=== PATIENT | male | born 1955 | race Caucasian/White ===

== ENCOUNTER 2017-10-25 10:50 | Emergency (ER) | payer BC, OTHER ==
[2017-10-25 11:05] VITALS: BP 120/79
[2017-10-25] MEDS ORDERED: Cyclobenzaprine 10 MG Tab PO ONE (11:34)
[2017-10-25] MEDS ORDERED: Ketorolac 60 MG/2 ML SDV IM ONE (11:34)
--- NOTE | 2017-10-25 11:39 | EDM.PDOC ---
ED HPI GENERAL MEDICAL PROBLEM - General Chief Complaint: Lower Extremity Injury/Pain Stated Complaint: RT HIP PAIN Time Seen by Provider: 10/25/17 11:28 Source of Information: Reports: Patient, Family, RN Notes Reviewed History Limitations: Reports: No Limitations - History of Present Illness INITIAL COMMENTS - FREE TEXT/NARRATIVE: 62-year-old male presents to the emergency department today with complaint of right hip pain, he states he injured himself couple of days ago where he slipped on the ice had a twisting injury did not fall he has used Vicodin home with minimal relief difficult for him to ambulate secondary to pain no numbness and tingling in the feet - Related Data Allergies Allergy/AdvReac Type Severity Reaction Status Date / Time codeine AdvReac Irritabilit Verified 11/07/16 15:10 y Home Meds: Home Meds Liraglutide [Victoza] 180 unit SUBCNJ DAILY 11/06/16 [History] Warfarin [Coumadin] 10 mg PO ASDIRECTED 11/06/16 [History] glipiZIDE [Glipizide ER] 10 mg PO BID 11/06/16 [History] metFORMIN [Glucophage] 1,000 mg PO BID 11/06/16 [History] sitaGLIPtin Phosphate [Januvia] 50 mg PO DAILY 11/06/16 [History] Albuterol Sulfate [Proair Hfa] 2 puff IH Q4H PRN 11/07/16 [History] Aspirin 325 mg PO DAILY 11/07/16 [History] Calcium Carbonate [Calcium] 600 mg PO DAILY 11/07/16 [History] Chromium Amino Acid Chelate [Chromium] 400 mcg PO DAILY 11/07/16 [History] Docusate Sodium/Sennosides [Senokot-S] 1 each PO BEDTIME 11/07/16 [History] Glucosamine Sulfate 2KCl [Glucosamine] 1,000 mg PO BID 11/07/16 [History] Hydrocodone/Acetaminophen [[place] 10-325 Tablet] 1 tab PO TID 11/07/16 [History] Magnesium 250 mg PO DAILY 11/07/16 [History] Metoprolol Tartrate [Lopressor] 100 mg PO DAILY 11/07/16 [History] Multivitamin [Multi-Vitamin Daily] 1 tab PO DAILY 11/07/16 [History] Nitroglycerin [Nitrostat] 0.4 mg SL TID PRN 11/07/16 [History] [place]-3 Fatty Acids [Fish Oil] 1,000 mg PO DAILY 11/07/16 [History] Simvastatin [Zocor] 20 mg PO BEDTIME 11/07/16 [History] Past Medical History Cardiovascular History: Reports: Arrhythmia Respiratory History: Reports: COPD Endocrine/Metabolic History: Reports: Diabetes, Type II - Infectious Disease History Infectious Disease History: Reports: Hepatitis B, Hepatitis C - Past Surgical History Cardiovascular Surgical History: Reports: Cardiac Ablation GI Surgical History: Reports: Appendectomy, Cholecystectomy, Colonoscopy Social & Family History - Tobacco Use Smoking Status *Q: Current Some Day Smoker Years of Tobacco use: 30 Packs/Tins Daily: 0.1 - Caffeine Use Caffeine Use: Reports: Coffee - Recreational Drug Use Recreational Drug Use: No Review of Systems - Review of Systems Review Of Systems: See Below Constitutional: Reports: No Symptoms Musculoskeletal: Reports: Joint Pain (Right hip pain) Skin: Reports: No Symptoms Neurological: Reports: No Symptoms ED EXAM, GENERAL - Physical Exam Exam: See Below Free Text/Narrative:: Examination of the right hip, he has difficulty ambulating to the table, he has pain with internal and external rotation as well as flexion and extension he is point tender over the greater trochanter Exam Limited By: No Limitations General Appearance: Alert Respiratory/Chest: No Respiratory Distress Course - Vital Signs Last Recorded V/S: Last Vital Signs Temp 98.2 F 10/25/17 11:24 Pulse 85 10/25/17 11:24 Resp 18 10/25/17 11:24 BP 120/79 10/25/17 11:24 Pulse Ox 96 10/25/17 11:24 - Orders/Labs/Meds Orders: Active Orders 24 hr Category Date Time Status Hip Min 2V or 3V Rt [CR] Stat Exams 10/25/17 11:34 Taken Meds: Medications Discontinued Medications Generic Name Dose Route Start Last Admin Trade Name Freq PRN Reason Stop Dose Admin Cyclobenzaprine HCl 10 mg 10/25/17 11:34 10/25/17 11:41 Flexeril PO 10/25/17 11:35 10 mg ONETIME ONE Administration Ketorolac Tromethamine 60 mg 10/25/17 11:34 10/25/17 11:41 Toradol IM 10/25/17 11:35 60 mg ONETIME ONE Administration Departure - Departure Time of Disposition: 12:52 Disposition: Home, Self-Care 01 Condition: Good Clinical Impression: Right hip pain - Discharge Information Referrals: Juan Manuel Portillo MD [Primary Care Provider] - Forms: ED Department Discharge Additional Instructions: Use ibuprofen for baseline pain control, use Percocet as needed for breakthrough pain, use Flexeril as needed for muscle relaxant, Please followup with your primary care provider in 3-5 days if not better, please call return to the emergency department with worsening of symptoms. - My Orders Last 24 Hours: My Active Orders 10/25/17 11:34 Hip Min 2V or 3V Rt [CR] Stat - Assessment/Plan Last 24 Hours: My Active Orders 10/25/17 11:34 Hip Min 2V or 3V Rt [CR] Stat Plan: Assessment Acuity = acute Site and laterality = right hip pain Etiology = secondary to twisting injury Manifestations = none Location of injury = Home Lab values = right x-ray I did review films myself I cannot appreciate any acute process, the official read from radiology is pending Plan He had some relief from the Toradol injection as well as Flexeril plan is discharge home with Flexeril 10 mg by mouth 3 times a day when necessary, Percocet also written for 5/325 one tab by mouth 3 times a day when necessary total #10 him follow-up with his primary care in 3-5 days if no improvement This note was dictated using [employer] voice recognition software please call with any questions on syntax or ken.
--- NOTE | 2017-10-27 09:45 | CR ---
Right hip There is degenerative joint space loss. There are hypertrophic changes along the lateral margin of th e acetabulum. There is no fracture. Impression: 1. Moderate degenerative findings of the hip.
== END 2017-10-25 13:08 | disposition home or self-care (01) ==
LOC: JP.ED 10:50
DX: M25.551 Pain in right hip (principal); E11.9 Type 2 diabetes mellitus without complications; F17.210 Nicotine dependence, cigarettes, uncomplicated; Z88.5 Allergy status to narcotic agent; Z79.899 Other long term (current) drug therapy
CPT/HCPCS: 73502; 96372; 99284; A9270; J1885

== ENCOUNTER 2018-03-09 14:32 | Emergency (ER) | payer OTHER ==
[2018-03-09 14:53] VITALS: BP 142/85
--- NOTE | 2018-03-09 15:30 | EDM.PDOC ---
ED HPI GENERAL MEDICAL PROBLEM - General Chief Complaint: Gastrointestinal Problem Stated Complaint: BLOOD IN STOOL FOR PAST THREE DAYS Time Seen by Provider: 03/09/18 15:00 Source of Information: Reports: Patient History Limitations: Reports: No Limitations - History of Present Illness INITIAL COMMENTS - FREE TEXT/NARRATIVE: 63-year-old male with blood in his stool for the past 3 days. 3 days ago it was fairly significant, yesterday it seemed to be better but today again it is fairly heavy and he is starting to feel malaise and general lightheadedness. No abdominal pain, no nausea or vomiting. He is on anticoagulation with Coumadin, his last INR was therapeutic and no changes were made. He did have some diabetic medicine changes. He had a colonoscopy 5 years ago, did have an episode of gastrointestinal bleeding after his colonoscopy which resolved spontaneously. Shortly after arrival to the emergency room he had a significant bowel movement that had intermixed blood. Onset: Unknown/Unsure (Started 3 nights ago) Severity: Moderate Associated Symptoms: Reports: Loss of Appetite, Malaise. Denies: Nausea/ Vomiting, Shortness of Breath, Weakness - Related Data Allergies Allergy/AdvReac Type Severity Reaction Status Date / Time codeine AdvReac Irritabilit Verified 11/07/16 15:10 y Home Meds: Home Meds Warfarin [Coumadin] 10 mg PO ASDIRECTED 11/06/16 [History] glipiZIDE [Glipizide ER] 10 mg PO BID 11/06/16 [History] metFORMIN [Glucophage] 1,000 mg PO BID 11/06/16 [History] sitaGLIPtin Phosphate [Januvia] 50 mg PO DAILY 11/06/16 [History] Albuterol Sulfate [Proair Hfa] 2 puff IH Q4H PRN 11/07/16 [History] Aspirin 325 mg PO DAILY 11/07/16 [History] Calcium Carbonate [Calcium] 600 mg PO DAILY 11/07/16 [History] Chromium Amino Acid Chelate [Chromium] 400 mcg PO DAILY 11/07/16 [History] Docusate Sodium/Sennosides [Senokot-S] 1 each PO BEDTIME 11/07/16 [History] Glucosamine Sulfate 2KCl [Glucosamine] 1,000 mg PO BID 11/07/16 [History] Hydrocodone/Acetaminophen [[place] 10-325 Tablet] 1 tab PO TID 11/07/16 [History] Magnesium 250 mg PO DAILY 11/07/16 [History] Metoprolol Tartrate [Lopressor] 100 mg PO DAILY 11/07/16 [History] Multivitamin [Multi-Vitamin Daily] 1 tab PO DAILY 11/07/16 [History] Nitroglycerin [Nitrostat] 0.4 mg SL TID PRN 11/07/16 [History] [place]-3 Fatty Acids [Fish Oil] 1,000 mg PO DAILY 11/07/16 [History] Simvastatin [Zocor] 20 mg PO BEDTIME 11/07/16 [History] Dulaglutide [Trulicity] 1 injection IM WEEKLY 03/09/18 [History] Past Medical History Cardiovascular History: Reports: Arrhythmia Respiratory History: Reports: COPD Endocrine/Metabolic History: Reports: Diabetes, Type II - Infectious Disease History Infectious Disease History: Reports: Hepatitis B, Hepatitis C - Past Surgical History Cardiovascular Surgical History: Reports: Cardiac Ablation GI Surgical History: Reports: Appendectomy, Cholecystectomy, Colonoscopy Social & Family History - Tobacco Use Smoking Status *Q: Current Some Day Smoker Years of Tobacco use: 30 Packs/Tins Daily: 0.1 - Caffeine Use Caffeine Use: Reports: Coffee ED ROS GENERAL - Review of Systems Review Of Systems: See Below Constitutional: Denies: Fever, Chills Respiratory: Denies: Shortness of Breath Cardiovascular: Denies: Chest Pain GI/Abdominal: Reports: Decreased Appetite. Denies: Abdominal Pain, Nausea, Vomiting : Reports: No Symptoms Skin: Reports: No Symptoms Neurological: Reports: Dizziness, Weakness Psychiatric: Reports: No Symptoms Free Text/Narrative/Comment: Doesn't check his glucose levels as often as he should according to the patient , but there've been no significant changes in the past week ED EXAM, GENERAL - Physical Exam Exam: See Below Exam Limited By: No Limitations General Appearance: Alert, No Apparent Distress Head: Atraumatic Respiratory/Chest: No Respiratory Distress, Lungs Clear Cardiovascular: Regular Rate, Rhythm. No: Tachycardia GI/Abdominal: Normal Bowel Sounds, Soft, Non-Tender Extremities: No: Pedal Edema Neurological: Alert, Oriented Skin Exam: Warm, Dry Course - Vital Signs Last Recorded V/S: Last Vital Signs Temp 99.0 F 03/09/18 15:06 Pulse 81 03/09/18 15:06 Resp 16 05/28/18 15:06 BP 142/85 H 03/09/18 15:06 Pulse Ox 95 03/09/18 15:06 - Orders/Labs/Meds Labs: Laboratory Tests 03/09/18 03/09/18 03/09/18 Range/Units 15:26 15:26 15:26 WBC 12.0 H (4.5-11.0) K/uL RBC 4.81 (4.30-5.90) M/uL Hgb 14.9 (12.0-15.0) g/dL Hct 43.0 (40.0-54.0) % MCV 89 (80-98) fL MCH 31 (27-31) pg MCHC 35 (32-36) % Plt Count 234 (150-400) K/uL Neut % (Auto) 64 (36-66) % Lymph % (Auto) 21 L (24-44) % Cole % (Auto) 11 H (2-6) % Eos % (Auto) 4 (2-4) % Baso % (Auto) 0 (0-1) % PT 32.8 H (9.5-12.0) sec INR 2.93 H (0.80-1.20) Sodium 136 L (140-148) mmol/L Potassium 4.7 (3.6-5.2) mmol/L Chloride 101 (100-108) mmol/L Carbon Dioxide 23 (21-32) mmol/L Anion Gap 16.7 H (5.0-14.0) mmol/L BUN 22 H (7-18) mg/dL Creatinine 0.9 (0.8-1.3) mg/dL Est Cr Clr Drug Dosing 96.41 mL/min Estimated GFR (MDRD) > 60 (>60) Glucose 347 H (74-106) mg/dL Calcium 8.8 (8.5-10.1) mg/dL Total Bilirubin 0.9 (0.2-1.0) mg/dL AST 14 L (15-37) U/L ALT 27 (12-78) U/L Alkaline Phosphatase 94 (46-116) U/L Total Protein 7.4 (6.4-8.2) g/dL Albumin 3.8 (3.4-5.0) g/dL Globulin 3.6 H (2.3-3.5) g/dL Albumin/Globulin Ratio 1.1 L (1.2-2.2) - Re-Assessments/Exams Free Text/Narrative Re-Assessment/Exam: 03/09/18 15:30 Patient's vitals are stable. CBC, CMP, INR were obtained. 03/09/18 16:27 Hemoglobin is 14. INR 2.9. Reviewed the patient's past medical history on the clinic records and found a negative colonoscopy in 2006. Discuss this with the patient, he does not want hospitalization but will return if his bleeding worsens. He was given instructions on colonoscopy preparation, we'll hold his Coumadin for the next [address] Edmondson is planning on doing a colonoscopy on Friday. Departure - Departure Time of Disposition: 16:32 Disposition: Home, Self-Care 01 Condition: Good Clinical Impression: Rectal bleeding - Discharge Information Instructions: Rectal Bleeding Referrals: PCP,None [Primary Care Provider] - Forms: ED Department Discharge Care Plan Goals: Following instructions for colonoscopy preparation, hold any future doses of Coumadin until after your colonoscopy. Return to the emergency room if the bleeding is worsening or you become more symptomatic or develop other concerns.
== END 2018-03-09 16:33 | disposition home or self-care (01) ==
LOC: JP.ED 14:32
DX: K62.5 Hemorrhage of anus and rectum (principal); E11.9 Type 2 diabetes mellitus without complications; J44.9 Chronic obstructive pulmonary disease, unspecified; F17.210 Nicotine dependence, cigarettes, uncomplicated; Z79.84 Long term (current) use of oral hypoglycemic drugs; Z79.899 Other long term (current) drug therapy; Z88.5 Allergy status to narcotic agent
CPT/HCPCS: 36415; 80053; 85025; 85610; 99285

== ENCOUNTER 2018-03-11 10:18 | Day surgery (SDC) | payer OTHER ==
[2018-03-11] MEDS ORDERED: Lactated Ringers 1,000 ML IV SCH (10:45)
[2018-03-11] MEDS ORDERED: Midazolam 1 MG/ML 2 ML SDV ONE (11:09)
[2018-03-11] MEDS ORDERED: Propofol 200 MG/20 ML SDV ONE (11:09)
[2018-03-11] MEDS ORDERED: fentaNYL 100 MCG/2 ML SDV ONE (11:09)
[2018-03-11 13:41] VITALS: BP 122/82
--- NOTE | 2018-03-12 08:04 | OR ---
DATE OF PROCEDURE: 03/11/2018 PREOPERATIVE DIAGNOSIS: Blood in the stool. POSTOPERATIVE DIAGNOSES: 1. Blood in the stool, resolved. 2. Diverticulosis. 3. Rectal polyp. PROCEDURES: Colonoscopy to the cecum with biopsy and then snare cautery polypectomy of a rectal polyp. SURGEON: Bruno Edmondson MD. ANESTHESIA: IV anesthesia with monitored anesthesia care. INDICATION: This 63-year-old white male is referred for a colonoscopy because of blood in his stool. He presented to the emergency room two days ago with about three days of bright red blood passage. His hemoglobin was 14. He is on Coumadin apparently for having had a cardiac ablation in the remote past. He was told that he had to be on Coumadin for the remainder of his life. At that time, his INR was 2.9. I counseled him for a colonoscopy with possible biopsy and/or polypectomy including risks and alternatives, and he gave his informed consent to proceed. DESCRIPTION OF PROCEDURE: The patient was placed in the left lateral decubitus position. IV anesthesia was administered by the Anesthesia Service. Time-out was held. A rectal exam was performed, which was unremarkable. The flexible video Olympus colonoscope was introduced through his anus, up his rectum, and out his colon all the way to the cecum. We encountered no old or new blood anywhere in the lower gastrointestinal tract. Once the cecum was reached, the scope was slowly withdrawn, examining the mucosa throughout. We saw a few scattered, fairly prominent, left-sided diverticula. There was no bleeding or inflammation associated with any of them. In the rectum, we encountered a polyp , which was too large to be removed with the biopsy forceps. We did obtain a sample with the biopsy forceps. We then obtained a snare. The snare was passed about its base. It was elevated up away from the bowel wall and amputated as electrocautery was applied. The polyp was then aspirated up through the scope and captured in a polyp trap. The scope was retroflexed in the rectum with the distal rectum appearing unremarkable. The scope was straightened and removed. He tolerated the procedure well. Bruno Edmondson MD /[id number] MTDD
== END 2018-03-11 13:55 | disposition home or self-care (01) ==
LOC: JP.SDS 10:18
PROVIDERS: ATTEND Surgery
DX: K92.1 Melena (principal); D12.8 Benign neoplasm of rectum; K57.30 Diverticulosis of large intestine without perforation or abscess without bleeding; I48.91 Unspecified atrial fibrillation; J44.9 Chronic obstructive pulmonary disease, unspecified; F17.210 Nicotine dependence, cigarettes, uncomplicated; E78.5 Hyperlipidemia, unspecified; I25.10 Atherosclerotic heart disease of native coronary artery without angina pectoris; K21.9 Gastro-esophageal reflux disease without esophagitis; E11.9 Type 2 diabetes mellitus without complications; Z95.5 Presence of coronary angioplasty implant and graft; Z79.01 Long term (current) use of anticoagulants; Z79.82 Long term (current) use of aspirin; Z79.84 Long term (current) use of oral hypoglycemic drugs; Z79.899 Other long term (current) drug therapy; Z88.5 Allergy status to narcotic agent
CPT/HCPCS: 45385; 88305; J2250; J2704; J3010; J7120

== ENCOUNTER 2021-01-08 15:51 | Inpatient (IN) | payer MEDICARE, BC ==
[2021-01-08] MEDS ORDERED: Sodium Chloride 0.9% 10 ML Syringe FLUSH PRN ×2 (16:35→20:44)
[2021-01-08] MEDS ORDERED: Sodium Chloride 0.9% 1,000 ML IV STA (16:35)
--- NOTE | 2021-01-08 16:39 | EDM.PDOC ---
<OfficerWing - Last Filed: 01/08/21 16:37> ED HPI GENERAL MEDICAL PROBLEM - General Chief Complaint: Abdominal Pain Stated Complaint: LOWER STOMACH PAIN Time Seen by Provider: 01/08/21 16:29 Source of Information: Reports: Patient, Family, RN Notes Reviewed History Limitations: Reports: No Limitations - History of Present Illness INITIAL COMMENTS - FREE TEXT/NARRATIVE: 65-year-old gentleman presents emergency department day complaint of abdominal pain, he states he has had progressive abdominal pain over the last week is predominantly in the left lower quadrant he does have problems with bowel movements his other concern is that he has had about a 30 pound weight loss in the last 3 months. No nausea vomiting no fevers no shortness of breath or chest pain history of asbestos exposure Abdominal Pain Score (Numeric/FACES): 6 - Related Data Allergies Allergy/AdvReac Type Severity Reaction Status Date / Time codeine AdvReac Irritabilit Verified 01/08/21 16:07 y Home Meds: Home Meds Warfarin [Coumadin] 10 mg PO ASDIRECTED 11/06/16 [History] glipiZIDE [Glipizide ER] 10 mg PO BID 11/06/16 [History] metFORMIN [Glucophage] 1,000 mg PO BID 11/06/16 [History] Albuterol Sulfate [Proair Hfa] 2 puff IH Q4H PRN 11/07/16 [History] Aspirin 325 mg PO DAILY 11/07/16 [History] Calcium Carbonate [Calcium] 600 mg PO BEDTIME 11/07/16 [History] Docusate Sodium/Sennosides [Senokot-S] 1 each PO BID 11/07/16 [History] Glucosamine Sulfate 2KCl [Glucosamine] 1,000 mg PO BID 11/07/16 [History] Hydrocodone/Acetaminophen [Frost 10-325 Tablet] 1 tab PO TID 11/07/16 [History] Magnesium 250 mg PO BEDTIME 11/07/16 [History] Metoprolol Tartrate [Lopressor] 100 mg PO BID 11/07/16 [History] Multivitamin [Multi-Vitamin Daily] 1 tab PO DAILY 11/07/16 [History] Nitroglycerin [Nitrostat] 0.4 mg SL TID PRN 11/07/16 [History] Center-3 Fatty Acids [Fish Oil] 1,000 mg PO BID 11/07/16 [History] Simvastatin [Zocor] 20 mg PO BEDTIME 11/07/16 [History] Dulaglutide [Trulicity] 1.5 mg IM WEEKLY 03/09/18 [History] Cyclobenzaprine [Flexeril] 10 mg PO TID PRN 03/10/18 [History] Empagliflozin [Jardiance] 25 mg PO DAILY 01/08/21 [History] Past Medical History Cardiovascular History: Reports: Arrhythmia, Other (See Below) Other Cardiovascular History: a fib Respiratory History: Reports: COPD Genitourinary History: Reports: Renal Calculus Endocrine/Metabolic History: Reports: Diabetes, Type II Hematologic History: Reports: Anticoagulation Therapy - Infectious Disease History Infectious Disease History: Reports: Chicken Pox, Hepatitis B, Hepatitis C, Measles, Mumps - Past Surgical History HEENT Surgical History: Reports: Oral Surgery Cardiovascular Surgical History: Reports: Cardiac Ablation GI Surgical History: Reports: Appendectomy, Cholecystectomy, Colonoscopy Musculoskeletal Surgical History: Reports: Arthroscopic Knee, Arthroscopic Procedure, Other (See Below) Other Musculoskeletal Surgeries/Procedures:: 5 knee 1 ankle Social & Family History - Tobacco Use Tobacco Use Status *Q: Current Every Day Tobacco User Years of Tobacco use: 50 Packs/Tins Daily: 0.2 - Caffeine Use Caffeine Use: Reports: Coffee - Recreational Drug Use Recreational Drug Use: No ED ROS GENERAL - Review of Systems Review Of Systems: See Below Constitutional: Reports: Weight Loss HEENT: Reports: No Symptoms Respiratory: Reports: No Symptoms Cardiovascular: Reports: No Symptoms GI/Abdominal: Reports: Abdominal Pain, Constipation, Flatus. Denies: Nausea, Vomiting : Reports: No Symptoms ED EXAM, GI/ABD - Physical Exam Exam: See Below Exam Limited By: No Limitations General Appearance: Alert, WD/WN, No Apparent Distress Respiratory/Chest: No Respiratory Distress, Lungs Clear, Normal Breath Sounds, No Accessory Muscle Use, Chest Non-Tender Cardiovascular: Regular Rate, Rhythm, No Murmur GI/Abdominal Exam: Normal Bowel Sounds, Soft, No Distention, Tender (Left lower quadrant) Extremities: No Pedal Edema Departure - Departure Disposition: Admitted As Inpatient 65 Clinical Impression: LLQ abdominal pain, Weight loss, Abdominal infection, Elevated blood sugar - Discharge Information Referrals: Juan Manuel Portillo MD [Primary Care Provider] - Forms: ED Department Discharge Sepsis Event Note (ED) - Evaluation Sepsis Screening Result: No Definite Risk <Jesús Ramirez G - Last Filed: 01/08/21 19:27> Course - Vital Signs Text/Narrative:: Dr. Richi roajs @ 1910h Last Recorded V/S: Last Vital Signs Temp 36.6 C 01/08/21 16:05 Pulse 82 01/08/21 18:09 Resp 16 01/08/21 16:05 BP 148/75 H 01/08/21 18:09 Pulse Ox 98 01/08/21 18:09 - Orders/Labs/Meds Orders: Active Orders 24 hr Category Date Time Status Peripheral IV Care [RC] . DIRECTED Care 01/08/21 16:36 Active Chest 2V [CR] Urgent Exams 01/08/21 16:35 Taken Dextrose 50% in Water Med 01/08/21 19:14 Active 50 ml IVPUSH ASDIRECTED PRN Glucagon,Human Recombinant [GlucaGen] Med 01/08/21 19:14 Active 1 mg IM ASDIRECTED PRN Iopamidol [Isovue-300 (61%)] Med 01/08/21 17:00 Active 117 ml IV . DIRECTED Piperacillin/Tazobactam [Zosyn] 4.5 gm Med 01/08/21 19:11 Active Sodium Chloride 0.9% [Normal Saline] 100 ml IV ONETIME Sodium Chloride 0.9% [Normal Saline] 75 ml Med 01/08/21 17:00 Active IV ASDIRECTED Sodium Chloride 0.9% [Saline Flush] Med 01/08/21 16:35 Active 10 ml FLUSH ASDIRECTED PRN Peripheral IV Insertion Adult [OM.PC] Urgent Oth 01/08/21 16:35 Ordered Medication Orders Dextrose/Water (50% Dextrose In Water 50 Ml Syringe) 50 ml IVPUSH ASDIRECTED PRN PRN Reason: Hypoglycemia Glucagon (Glucagon,Human Recombinant 1 Mg Vial) 1 mg IM ASDIRECTED PRN PRN Reason: Hypoglycemia Sodium Chloride (Normal Saline) 75 mls @ 3 mls/sec IV ASDIRECTED ROSITA Last Admin: 01/08/21 18:11 Dose: 3 mls/sec Documented by: [facility] Piperacillin Sod/Tazobactam (Sod 4.5 gm/ Sodium Chloride) 100 mls @ 100 mls/hr IV ONETIME ONE Stop: 01/08/21 20:10 Iopamidol (Iopamidol 612 Mg/Ml 100 Ml Bottle) 117 ml IV . DIRECTED ROSITA Last Admin: 01/08/21 18:11 Dose: 117 ml Documented by: DESMOND Sodium Chloride (Sodium Chloride 0.9% 10 Ml Syringe) 10 ml FLUSH ASDIRECTED PRN PRN Reason: Keep Vein Open Labs: Laboratory Tests 01/08/21 01/08/21 01/08/21 Range/Units 16:35 16:45 16:45 WBC 23.6 H (4.5-11.0) K/uL RBC 4.36 (4.30-5.90) M/uL Hgb 12.8 D (12.0-15.0) g/dL Hct 38.8 L (40.0-54.0) % MCV 89 (80-98) fL MCH 29 (27-31) pg MCHC 33 (32-36) % Plt Count 387 (150-400) K/uL Neut % (Auto) 82 H (36-66) % Lymph % (Auto) 8 L (24-44) % Edwards % (Auto) 9 H (2-6) % Eos % (Auto) 1 L (2-4) % Baso % (Auto) 0 (0-1) % PT 42.7 H (9.5-12.0) sec INR 4.03 H* (0.80-1.20) Sodium 135 L (140-148) mmol/L Potassium 4.5 (3.6-5.2) mmol/L Chloride 97 L (100-108) mmol/L Carbon Dioxide 24 (21-32) mmol/L Anion Gap 18.5 H (5.0-14.0) mmol/L BUN 19 H (7-18) mg/dL Creatinine 0.6 L (0.7-1.3) mg/dL Est Cr Clr Drug Dosing 132.93 mL/min Estimated GFR (MDRD) > 60 (>60) BUN/Creatinine Ratio Not Reportable Glucose 453 H* (74-106) mg/dL Lactic Acid (0.4-2.0) mmol/L Calcium 10.0 (8.5-10.1) mg/dL Total Bilirubin 0.5 (0.2-1.0) mg/dL AST 9 L (15-37) U/L ALT 18 (12-78) U/L Alkaline Phosphatase 138 H (46-116) U/L Troponin I < 0.017 (0.000-0.056) ng/mL C-Reactive Protein (0.0-0.3) mg/dL Total Protein 6.5 (6.4-8.2) g/dL Albumin 2.7 L (3.4-5.0) g/dL Globulin 3.8 H (2.3-3.5) g/dL Albumin/Globulin Ratio 0.7 L (1.2-2.2) Lipase 121 (73-393) U/L Procalcitonin ng/mL Urine Color (YELLOW) Urine Appearance (CLEAR) Urine pH (5.0-8.0) Ur Specific Starbuck (1.008-1.030) Urine Protein (NEGATIVE) mg/dL Urine Glucose (UA) (NEGATIVE) mg/dL Urine Ketones (NEGATIVE) mg/dL Urine Occult Blood (NEGATIVE) Urine Nitrite (NEGATIVE) Urine Bilirubin (NEGATIVE) Urine Urobilinogen (0.2-1.0) EU/dL Ur Leukocyte Esterase (NEGATIVE) Urine RBC (0-5) Urine WBC (0-5) Ur Epithelial Cells Amorphous Sediment Urine Bacteria Urine Mucus 01/08/21 01/08/21 01/08/21 Range/Units 16:45 16:45 16:45 WBC (4.5-11.0) K/uL RBC (4.30-5.90) M/uL Hgb (12.0-15.0) g/dL Hct (40.0-54.0) % MCV (80-98) fL MCH (27-31) pg MCHC (32-36) % Plt Count (150-400) K/uL Neut % (Auto) (36-66) % Lymph % (Auto) (24-44) % Edwards % (Auto) (2-6) % Eos % (Auto) (2-4) % Baso % (Auto) (0-1) % PT (9.5-12.0) sec INR (0.80-1.20) Sodium (140-148) mmol/L Potassium (3.6-5.2) mmol/L Chloride (100-108) mmol/L Carbon Dioxide (21-32) mmol/L Anion Gap (5.0-14.0) mmol/L BUN (7-18) mg/dL Creatinine (0.7-1.3) mg/dL Est Cr Clr Drug Dosing mL/min Estimated GFR (MDRD) (>60) BUN/Creatinine Ratio Glucose (74-106) mg/dL Lactic Acid 1.2 (0.4-2.0) mmol/L Calcium (8.5-10.1) mg/dL Total Bilirubin (0.2-1.0) mg/dL AST (15-37) U/L ALT (12-78) U/L Alkaline Phosphatase (46-116) U/L Troponin I (0.000-0.056) ng/mL C-Reactive Protein 5.48 H (0.0-0.3) mg/dL Total Protein (6.4-8.2) g/dL Albumin (3.4-5.0) g/dL Globulin (2.3-3.5) g/dL Albumin/Globulin Ratio (1.2-2.2) Lipase (73-393) U/L Procalcitonin 0.05 ng/mL Urine Color (YELLOW) Urine Appearance (CLEAR) Urine pH (5.0-8.0) Ur Specific Starbuck (1.008-1.030) Urine Protein (NEGATIVE) mg/dL Urine Glucose (UA) (NEGATIVE) mg/dL Urine Ketones (NEGATIVE) mg/dL Urine Occult Blood (NEGATIVE) Urine Nitrite (NEGATIVE) Urine Bilirubin (NEGATIVE) Urine Urobilinogen (0.2-1.0) EU/dL Ur Leukocyte Esterase (NEGATIVE) Urine RBC (0-5) Urine WBC (0-5) Ur Epithelial Cells Amorphous Sediment Urine Bacteria Urine Mucus 01/08/21 Range/Units 17:13 WBC (4.5-11.0) K/uL RBC (4.30-5.90) M/uL Hgb (12.0-15.0) g/dL Hct (40.0-54.0) % MCV (80-98) fL MCH (27-31) pg MCHC (32-36) % Plt Count (150-400) K/uL Neut % (Auto) (36-66) % Lymph % (Auto) (24-44) % Edwards % (Auto) (2-6) % Eos % (Auto) (2-4) % Baso % (Auto) (0-1) % PT (9.5-12.0) sec INR (0.80-1.20) Sodium (140-148) mmol/L Potassium (3.6-5.2) mmol/L Chloride (100-108) mmol/L Carbon Dioxide (21-32) mmol/L Anion Gap (5.0-14.0) mmol/L BUN (7-18) mg/dL Creatinine (0.7-1.3) mg/dL Est Cr Clr Drug Dosing mL/min Estimated GFR (MDRD) (>60) BUN/Creatinine Ratio Glucose (74-106) mg/dL Lactic Acid (0.4-2.0) mmol/L Calcium (8.5-10.1) mg/dL Total Bilirubin (0.2-1.0) mg/dL AST (15-37) U/L ALT (12-78) U/L Alkaline Phosphatase (46-116) U/L Troponin I (0.000-0.056) ng/mL C-Reactive Protein (0.0-0.3) mg/dL Total Protein (6.4-8.2) g/dL Albumin (3.4-5.0) g/dL Globulin (2.3-3.5) g/dL Albumin/Globulin Ratio (1.2-2.2) Lipase (73-393) U/L Procalcitonin ng/mL Urine Color Yellow (YELLOW) Urine Appearance Clear (CLEAR) Urine pH 6.5 (5.0-8.0) Ur Specific Starbuck 1.015 (1.008-1.030) Urine Protein Negative (NEGATIVE) mg/dL Urine Glucose (UA) 500 H (NEGATIVE) mg/dL Urine Ketones 40 H (NEGATIVE) mg/dL Urine Occult Blood Negative (NEGATIVE) Urine Nitrite Negative (NEGATIVE) Urine Bilirubin Negative (NEGATIVE) Urine Urobilinogen 0.2 (0.2-1.0) EU/dL Ur Leukocyte Esterase Negative (NEGATIVE) Urine RBC 0-5 (0-5) Urine WBC 0-5 (0-5) Ur Epithelial Cells Not seen Amorphous Sediment Not seen Urine Bacteria Not seen Urine Mucus Not seen Meds: Medications Generic Name Dose Route Start Last Admin Trade Name Freq PRN Reason Stop Dose Admin Dextrose/Water 50 ml 01/08/21 19:14 50% Dextrose In Water 50 Ml Syringe IVPUSH ASDIRECTED PRN Hypoglycemia Glucagon 1 mg 01/08/21 19:14 Glucagon,Human Recombinant 1 Mg Vial IM ASDIRECTED PRN Hypoglycemia Sodium Chloride 75 mls @ 3 mls/sec 01/08/21 17:00 01/08/21 18:11 Normal Saline IV 3 mls/sec ASDIRECTED ROSIAT Administration Piperacillin Sod/Tazobactam 100 mls @ 100 mls/hr 01/08/21 19:11 Sod 4.5 gm/ Sodium Chloride IV 01/08/21 20:10 ONETIME ONE Iopamidol 117 ml 01/08/21 17:00 01/08/21 18:11 Iopamidol 612 Mg/Ml 100 Ml Bottle IV 117 ml . DIRECTED ROSITA Administration Sodium Chloride 10 ml 01/08/21 16:35 Sodium Chloride 0.9% 10 Ml Syringe FLUSH ASDIRECTED PRN Keep Vein Open Discontinued Medications Generic Name Dose Route Start Last Admin Trade Name Freq PRN Reason Stop Dose Admin Sodium Chloride 1,000 mls @ 500 mls/hr 01/08/21 16:35 01/08/21 17:59 Normal Saline IV 01/08/21 18:34 500 mls/hr .BOLUS STA Administration Insulin Human Regular 14 unit 01/08/21 19:14 Insulin Regular, Human 100 Units/Ml 3 Ml Vial SUBCUT 01/08/21 19:15 ONETIME ONE Sodium Chloride 10 ml 01/08/21 16:46 01/08/21 18:11 Sodium Chloride 0.9% 10 Ml Syringe FLUSH 01/08/21 16:47 10 ml ONETIME ONE Administration - Radiology Interpretation Free Text/Narrative:: abd/pelvis CT scan- IMPRESSION: 1. Focally dilated small bowel loop in the left lower quadrant with thickened carotid appearing wall, suspicious for malignancy. Infection is another differential consideration as well as bowel ischemia although this is considered less likely. 2. New pulmonary nodules and liver lesions suspicious for metastases. 3. Large mesenteric lymph nodes, suspicious for lymph node metastases. 4. Mild bilateral hydronephrosis and hydroureter 5. Diffuse bladder wall thickening which could be due to chronic outlet obstruction. 6. Heterogeneous enlarged prostate gland, recommend correlation with PSA. Please note that all CT scans at this facility use dose modulation, iterative reconstruction, and/or weight-based dosing when appropriate to reduce radiation dose to as low as reasonably achievable. Dictated by Alex Klein MD @ Jan 08 2021 6:42PM CT Results Date: 01/08/21 CT Results Time: 19:06 Departure - Departure Time of Disposition: 19:40 Condition: Fair Sepsis Event Note (ED) - Focused Exam Vital Signs: Vital Signs Temp Pulse Resp BP Pulse Ox 01/08/21 18:09 82 148/75 H 98 01/08/21 16:05 36.6 C 91 16 162/89 H 98 - My Orders Last 24 Hours: My Active Orders 01/08/21 19:11 Piperacillin/Tazobactam [Zosyn] 4.5 gm Sodium Chloride 0.9% [Normal Saline] 100 ml IV ONETIME 01/08/21 19:14 Dextrose 50% in Water 50 ml IVPUSH ASDIRECTED PRN Glucagon,Human Recombinant [GlucaGen] 1 mg IM ASDIRECTED PRN - Assessment/Plan Last 24 Hours: My Active Orders 01/08/21 19:11 Piperacillin/Tazobactam [Zosyn] 4.5 gm Sodium Chloride 0.9% [Normal Saline] 100 ml IV ONETIME 01/08/21 19:14 Dextrose 50% in Water 50 ml IVPUSH ASDIRECTED PRN Glucagon,Human Recombinant [GlucaGen] 1 mg IM ASDIRECTED PRN
[2021-01-08] MEDS ORDERED: Iopamidol 612 MG/ML 100 ML Bottle IV SCH (17:00)
[2021-01-08] MEDS ORDERED: Sodium Chloride 0.9% 75 ML IV SCH (17:00)
[2021-01-08] MEDS: Sodium Chloride 0.9% 10 ML Syringe FLUSH ONE ×2 (17:15→18:11)
--- NOTE | 2021-01-08 19:04 | CRLCT ---
INDICATION: Left lower quadrant abdominal pain. COMPARISON: 06/01/2007. TECHNIQUE: CT abdomen and pelvis with IV contrast. 117 cc IV Isovue 300. FINDINGS: Noncalcified left lower lobe pulmonary nodule is new from prior exam and measures 1.5 x 1.0 cm (series 5, image 11). Noncalcified right lower lobe pulmonary nodule measuring 0.5 cm (series 5, image 1). Trace right pleural effusion. Small hypoattenuating left hepatic and right hepatic dome lesion (series 5, images 11 and 26). The spleen, pancreas and adrenal glands are unremarkable. Mild bilateral hydronephrosis and hydroureter. Atherosclerotic abdominal aorta. Diffuse mild bladder wall thickening which could be due to cystitis or chronic outlet obstruction. Enlarged heterogeneous prostate gland. Large mesenteric lymph nodes in the left lower quadrant. Focally dilated small bowel loop in the left lower quadrant with thickened necrotic appearing wall (series 5, image 99). No evidence of bowel obstruction. No acute osseous abnormality. IMPRESSION: 1. Focally dilated small bowel loop in the left lower quadrant with thickened carotid appearing wall, suspicious for malignancy. Infection is another differential consideration as well as bowel ischemia although this is considered less likely. 2. New pulmonary nodules and liver lesions suspicious for metastases. 3. Large mesenteric lymph nodes, suspicious for lymph node metastases. 4. Mild bilateral hydronephrosis and hydroureter 5. Diffuse bladder wall thickening which could be due to chronic outlet obstruction. 6. Heterogeneous enlarged prostate gland, recommend correlation with PSA. Please note that all CT scans at this facility use dose modulation, iterative reconstruction, and/or weight-based dosing when appropriate to reduce radiation dose to as low as reasonably achievable. Dictated by Alex Klein MD @ Jan 08 2021 6:42PM Signed by Dr. Alex Klein @ Jan 08 2021 7:02PM
[2021-01-08] MEDS ORDERED: Piperacillin/Tazobactam 4.5 GM in Sodium Chloride 0.9% 100 ML IV ONE (19:11)
[2021-01-08] MEDS ORDERED: Glucagon,Human Recombinant 1 MG Vial IM PRN (19:14)
[2021-01-08] MEDS ORDERED: Insulin Regular, Human 100 Units/ML 3 ML Vial SUBCUT ONE (19:14)
[2021-01-08] MEDS ORDERED: 50% Dextrose in Water 50 ML Syringe IVPUSH PRN (19:14)
[2021-01-08] MEDS ORDERED: HYDROmorphone 0.5 MG/0.5 ML Syringe IVPUSH ONE (19:30)
[2021-01-08] MEDS ORDERED: Phytonadione 5 MG in Sodium Chloride 0.9% 50 ML IV ONE (19:36)
--- NOTE | 2021-01-08 19:56 | PCM.HP.2 ---
H&P History of Present Illness - General Date of Service: 01/08/21 Admit Problem/Dx: Admission Diagnosis/Problem Admission Diagnosis/Problem Pain Source of Information: Patient, Family, Provider, RN Notes Reviewed History Limitations: Reports: No Limitations - History of Present Illness Initial Comments - Free Text/Narative: Mr. Lopez is a 65-year-old gentleman who was admitted through the emergency department with abdominal pain in the left lower quadrant secondary to possible intestinal mass versus infection. Over the past 3 months despite a good appetite he has lost approximately 30 pounds. Over the last 4 to 5 days he has developed fairly intense pain in his left lower quadrant. Because of the persistent and progressive pain he presented to the emergency department today for further evaluation. He does have known underlying type 2 diabetes mellitus, COPD, coron reba artery disease, and paroxysmal atrial fibrillation. White blood cell count was elevated 23,000 and his INR is elevated at 4.0 secondary to his long-term oral anticoagulation with warfarin for paroxysmal A. fib. CT scan of the abdomen and pelvis was obtained and shows dilated small bowel with an area of thickening representing possible malignancy versus infection. CT scan also showed evidence of possible metastatic disease in the liver and lungs. Abdominal Pain Score (Numeric/FACES): 6 - Related Data Allergies/Adverse Reactions: Allergies Allergy/AdvReac Type Severity Reaction Status Date / Time codeine AdvReac Irritabilit Verified 01/08/21 16:07 y Home Medications: Home Meds Warfarin [Coumadin] 10 mg PO ASDIRECTED 11/06/16 [History] glipiZIDE [Glipizide ER] 10 mg PO BID 11/06/16 [History] metFORMIN [Glucophage] 1,000 mg PO BID 11/06/16 [History] Albuterol Sulfate [Proair Hfa] 2 puff IH Q4H PRN 11/07/16 [History] Aspirin 325 mg PO DAILY 11/07/16 [History] Calcium Carbonate [Calcium] 600 mg PO BEDTIME 11/07/16 [History] Docusate Sodium/Sennosides [Senokot-S] 1 each PO BID 11/07/16 [History] Glucosamine Sulfate 2KCl [Glucosamine] 1,000 mg PO BID 11/07/16 [History] Hydrocodone/Acetaminophen [[place] 10-325 Tablet] 1 tab PO TID 11/07/16 [History] Magnesium 250 mg PO BEDTIME 11/07/16 [History] Metoprolol Tartrate [Lopressor] 100 mg PO BID 11/07/16 [History] Multivitamin [Multi-Vitamin Daily] 1 tab PO DAILY 11/07/16 [History] Nitroglycerin [Nitrostat] 0.4 mg SL TID PRN 11/07/16 [History] [place]-3 Fatty Acids [Fish Oil] 1,000 mg PO BID 11/07/16 [History] Simvastatin [Zocor] 20 mg PO BEDTIME 11/07/16 [History] Dulaglutide [Trulicity] 1.5 mg IM WEEKLY 03/09/18 [History] Cyclobenzaprine [Flexeril] 10 mg PO TID PRN 03/10/18 [History] Empagliflozin [Jardiance] 25 mg PO DAILY 01/08/21 [History] Past Medical History Cardiovascular History: Reports: Arrhythmia, Other (See Below) Other Cardiovascular History: a fib Respiratory History: Reports: COPD Genitourinary History: Reports: Renal Calculus Endocrine/Metabolic History: Reports: Diabetes, Type II Hematologic History: Reports: Anticoagulation Therapy - Infectious Disease History Infectious Disease History: Reports: Chicken Pox, Hepatitis B, Hepatitis C, Measles, Mumps - Past Surgical History HEENT Surgical History: Reports: Oral Surgery Cardiovascular Surgical History: Reports: Cardiac Ablation GI Surgical History: Reports: Appendectomy, Cholecystectomy, Colonoscopy Musculoskeletal Surgical History: Reports: Arthroscopic Knee, Arthroscopic Procedure, Other (See Below) Other Musculoskeletal Surgeries/Procedures:: 5 knee 1 ankle Social & Family History - Tobacco Use Tobacco Use Status *Q: Current Every Day Tobacco User Years of Tobacco use: 50 Packs/Tins Daily: 0.2 - Caffeine Use Caffeine Use: Reports: Coffee - Recreational Drug Use Recreational Drug Use: No H&P Review of Systems - Review of Systems: Review Of Systems: See Below General: Reports: Malaise, Weakness, Fatigue, Weight Loss. Denies: Fever, Chills HEENT: Reports: No Symptoms Pulmonary: Reports: No Symptoms Cardiovascular: Reports: No Symptoms Gastrointestinal: Reports: Abdominal Pain, Constipation. Denies: Diarrhea, Difficulty Swallowing, Distension, Hematemesis, Hematochezia, Melena, Nausea, Vomiting Genitourinary: Reports: No Symptoms Musculoskeletal: Reports: No Symptoms Skin: Reports: No Symptoms Psychiatric: Reports: No Symptoms Neurological: Reports: No Symptoms Hematologic/Lymphatic: Reports: No Symptoms Immunologic: Reports: No Symptoms Exam - Exam Exam: See Below - Vital Signs Vital Signs: Last Vital Signs Temp 97.9 F 01/08/21 16:05 Pulse 85 01/08/21 19:54 Resp 16 01/08/21 19:54 BP 125/98 H 01/08/21 19:54 Pulse Ox 96 01/08/21 19:54 Weight: 171 lb 1.259 oz - Exam Quality Assessment: DVT Prophylaxis General: Alert, Oriented, Cooperative, Moderate Distress HEENT: Conjunctiva Clear, Hearing Intact, Mucosa Moist & [place], Normal Nasal Septum, Posterior Pharynx Clear, Pupils Equal Neck: Supple, Trachea Midline, +2 Carotid Pulse wo Bruit Lungs: Clear to Auscultation, Normal Respiratory Effort Cardiovascular: Regular Rate, Regular Rhythm, Normal S1, Normal S2. No: Systolic Murmur, Diastolic Murmur GI/Abdominal Exam: Soft, No Organomegaly, Tender. No: Distended, Guarding, Rigid, Rebound Back Exam: Normal Inspection, Full Range of Motion Extremities: Non-Tender, No Pedal Edema Skin: Warm, Dry, Intact Neurological: Cranial Nerves Intact, Strength Equal Bilateral, Normal Speech, Normal Tone, Sensation Intact. No: Focal Deficit Neuro Extensive - Mental Status: Alert, Oriented x3, Normal Mood/Affect, Normal Cognition, Memory Intact - Patient Data Lab Results Last 24 hrs: Laboratory Results - last 24 hr 01/08/21 01/08/21 01/08/21 Range/Units 16:35 16:45 16:45 WBC 23.6 H (4.5-11.0) K/uL RBC 4.36 (4.30-5.90) M/uL Hgb 12.8 D (12.0-15.0) g/dL Hct 38.8 L (40.0-54.0) % MCV 89 (80-98) fL MCH 29 (27-31) pg MCHC 33 (32-36) % Plt Count 387 (150-400) K/uL Neut % (Auto) 82 H (36-66) % Lymph % (Auto) 8 L (24-44) % [place] % (Auto) 9 H (2-6) % Eos % (Auto) 1 L (2-4) % Baso % (Auto) 0 (0-1) % PT 42.7 H (9.5-12.0) sec INR 4.03 H* (0.80-1.20) Sodium 135 L (140-148) mmol/L Potassium 4.5 (3.6-5.2) mmol/L Chloride 97 L (100-108) mmol/L Carbon Dioxide 24 (21-32) mmol/L Anion Gap 18.5 H (5.0-14.0) mmol/L BUN 19 H (7-18) mg/dL Creatinine 0.6 L (0.7-1.3) mg/dL Est Cr Clr Drug Dosing 132.93 mL/min Estimated GFR (MDRD) > 60 (>60) BUN/Creatinine Ratio Not Reportable Glucose 453 H* (74-106) mg/dL Lactic Acid (0.4-2.0) mmol/L Calcium 10.0 (8.5-10.1) mg/dL Total Bilirubin 0.5 (0.2-1.0) mg/dL AST 9 L (15-37) U/L ALT 18 (12-78) U/L Alkaline Phosphatase 138 H (46-116) U/L Troponin I < 0.017 (0.000-0.056) ng/mL C-Reactive Protein (0.0-0.3) mg/dL Total Protein 6.5 (6.4-8.2) g/dL Albumin 2.7 L (3.4-5.0) g/dL Globulin 3.8 H (2.3-3.5) g/dL Albumin/Globulin Ratio 0.7 L (1.2-2.2) Lipase 121 (73-393) U/L Procalcitonin ng/mL Urine Color (YELLOW) Urine Appearance (CLEAR) Urine pH (5.0-8.0) Ur Specific [place] (1.008-1.030) Urine Protein (NEGATIVE) mg/dL Urine Glucose (UA) (NEGATIVE) mg/dL Urine Ketones (NEGATIVE) mg/dL Urine Occult Blood (NEGATIVE) Urine Nitrite (NEGATIVE) Urine Bilirubin (NEGATIVE) Urine Urobilinogen (0.2-1.0) EU/dL Ur Leukocyte Esterase (NEGATIVE) Urine RBC (0-5) Urine WBC (0-5) Ur Epithelial Cells Amorphous Sediment Urine Bacteria Urine Mucus 01/08/21 01/08/2121 Range/Units 16:45 16:45 16:45 WBC (4.5-11.0) K/uL RBC (4.30-5.90) M/uL Hgb (12.0-15.0) g/dL Hct (40.0-54.0) % MCV (80-98) fL MCH (27-31) pg MCHC (32-36) % Plt Count (150-400) K/uL Neut % (Auto) (36-66) % Lymph % (Auto) (24-44) % [place] % (Auto) (2-6) % Eos % (Auto) (2-4) % Baso % (Auto) (0-1) % PT (9.5-12.0) sec INR (0.80-1.20) Sodium (140-148) mmol/L Potassium (3.6-5.2) mmol/L Chloride (100-108) mmol/L Carbon Dioxide (21-32) mmol/L Anion Gap (5.0-14.0) mmol/L BUN (7-18) mg/dL Creatinine (0.7-1.3) mg/dL Est Cr Clr Drug Dosing mL/min Estimated GFR (MDRD) (>60) BUN/Creatinine Ratio Glucose (74-106) mg/dL Lactic Acid 1.2 (0.4-2.0) mmol/L Calcium (8.5-10.1) mg/dL Total Bilirubin (0.2-1.0) mg/dL AST (15-37) U/L ALT (12-78) U/L Alkaline Phosphatase (46-116) U/L Troponin I (0.000-0.056) ng/mL C-Reactive Protein 5.48 H (0.0-0.3) mg/dL Total Protein (6.4-8.2) g/dL Albumin (3.4-5.0) g/dL Globulin (2.3-3.5) g/dL Albumin/Globulin Ratio (1.2-2.2) Lipase (73-393) U/L Procalcitonin 0.05 ng/mL Urine Color (YELLOW) Urine Appearance (CLEAR) Urine pH (5.0-8.0) Ur Specific [place] (1.008-1.030) Urine Protein (NEGATIVE) mg/dL Urine Glucose (UA) (NEGATIVE) mg/dL Urine Ketones (NEGATIVE) mg/dL Urine Occult Blood (NEGATIVE) Urine Nitrite (NEGATIVE) Urine Bilirubin (NEGATIVE) Urine Urobilinogen (0.2-1.0) EU/dL Ur Leukocyte Esterase (NEGATIVE) Urine RBC (0-5) Urine WBC (0-5) Ur Epithelial Cells Amorphous Sediment Urine Bacteria Urine Mucus 01/08/21 Range/Units 17:13 WBC (4.5-11.0) K/uL RBC (4.30-5.90) M/uL Hgb (12.0-15.0) g/dL Hct (40.0-54.0) % MCV (80-98) fL MCH (27-31) pg MCHC (32-36) % Plt Count (150-400) K/uL Neut % (Auto) (36-66) % Lymph % (Auto) (24-44) % [place] % (Auto) (2-6) % Eos % (Auto) (2-4) % Baso % (Auto) (0-1) % PT (9.5-12.0) sec INR (0.80-1.20) Sodium (140-148) mmol/L Potassium (3.6-5.2) mmol/L Chloride (100-108) mmol/L Carbon Dioxide (21-32) mmol/L Anion Gap (5.0-14.0) mmol/L BUN (7-18) mg/dL Creatinine (0.7-1.3) mg/dL Est Cr Clr Drug Dosing mL/min Estimated GFR (MDRD) (>60) BUN/Creatinine Ratio Glucose (74-106) mg/dL Lactic Acid (0.4-2.0) mmol/L Calcium (8.5-10.1) mg/dL Total Bilirubin (0.2-1.0) mg/dL AST (15-37) U/L ALT (12-78) U/L Alkaline Phosphatase (46-116) U/L Troponin I (0.000-0.056) ng/mL C-Reactive Protein (0.0-0.3) mg/dL Total Protein (6.4-8.2) g/dL Albumin (3.4-5.0) g/dL Globulin (2.3-3.5) g/dL Albumin/Globulin Ratio (1.2-2.2) Lipase (73-393) U/L Procalcitonin ng/mL Urine Color Yellow (YELLOW) Urine Appearance Clear (CLEAR) Urine pH 6.5 (5.0-8.0) Ur Specific [place] 1.015 (1.008-1.030) Urine Protein Negative (NEGATIVE) mg/dL Urine Glucose (UA) 500 H (NEGATIVE) mg/dL Urine Ketones 40 H (NEGATIVE) mg/dL Urine Occult Blood Negative (NEGATIVE) Urine Nitrite Negative (NEGATIVE) Urine Bilirubin Negative (NEGATIVE) Urine Urobilinogen 0.2 (0.2-1.0) EU/dL Ur Leukocyte Esterase Negative (NEGATIVE) Urine RBC 0-5 (0-5) Urine WBC 0-5 (0-5) Ur Epithelial Cells Not seen Amorphous Sediment Not seen Urine Bacteria Not seen Urine Mucus Not seen Result Diagrams: 01/08/21 16:45 01/08/21 16:35 Sepsis Event Note - Evaluation Sepsis Screening Result: No Definite Risk - Focused Exam Vital Signs: Vital Signs Temp Pulse Resp BP Pulse Ox 01/08/21 19:54 85 16 125/98 H 96 01/08/21 18:09 82 148/75 H 98 01/08/21 16:05 97.9 F 91 16 162/89 H 98 *Q Meaningful Use (ADM) - VTE Risk Assess *Q Each Risk Factor Represents 1 Point: Abnormal Pulmonary Function (COPD) Total Score 1 Point Risk Factors: 1 Each Risk Factor Represents 2 Points: Age 60 - 74 Years Total Score 2 Point Risk Factors: 2 Each Risk Factor Represents 3 Points: None Total Score 3 Point Risk Factors: 0 Each Risk Factor Represents 5 Points: None Total Score 5 Point Risk Factors: 0 Venous Thromboembolism Risk Factor Score *Q: 3 Problem List Initiated/Reviewed/Updated: Yes Orders Last 24hrs: Active Orders 24 hr Category Date Time Status Patient Status Manage Transfer [TRANSFER] Routine ADT 01/08/21 19:44 Ordered Peripheral IV Care [RC] . DIRECTED Care 01/08/21 16:36 Active Chest 2V [CR] Urgent Exams 01/08/21 16:35 Taken Dextrose 50% in Water Med 01/08/21 19:14 Active 50 ml IVPUSH ASDIRECTED PRN Glucagon,Human Recombinant [GlucaGen] Med 01/08/21 19:14 Active 1 mg IM ASDIRECTED PRN Iopamidol [Isovue-300 (61%)] Med 01/08/21 17:00 Active 117 ml IV . DIRECTED Phytonadione [AquaMephyton] 5 mg Med 01/08/21 19:36 Active Sodium Chloride 0.9% [Normal Saline] 50 ml IV NOW Piperacillin/Tazobactam [Zosyn] 4.5 gm Med 01/08/21 19:11 Active Sodium Chloride 0.9% [Normal Saline] 100 ml IV ONETIME Sodium Chloride 0.9% [Normal Saline] 75 ml Med 01/08/21 17:00 Active IV ASDIRECTED Sodium Chloride 0.9% [Saline Flush] Med 01/08/21 16:35 Active 10 ml FLUSH ASDIRECTED PRN Peripheral IV Insertion Adult [OM.PC] Urgent Oth 01/08/21 16:35 Ordered Resuscitation Status Routine Resus Stat 01/08/21 19:47 Ordered Medication Orders Dextrose/Water (50% Dextrose In Water 50 Ml Syringe) 50 ml IVPUSH ASDIRECTED PRN PRN Reason: Hypoglycemia Glucagon (Glucagon,Human Recombinant 1 Mg Vial) 1 mg IM ASDIRECTED PRN PRN Reason: Hypoglycemia Sodium Chloride (Normal Saline) 75 mls @ 3 mls/sec IV ASDIRECTED [facility] Last Admin: 01/08/21 18:11 Dose: 3 mls/sec Documented by: DESMOND Piperacillin Sod/Tazobactam (Sod 4.5 gm/ Sodium Chloride) 100 mls @ 100 mls/hr IV ONETIME ONE Stop: 01/08/21 20:10 Last Admin: 01/08/21 19:42 Dose: 100 mls/hr Documented by: MILADYS Phytonadione 5 mg/ Sodium (Chloride) 50.5 mls @ 100 mls/hr IV NOW ONE Stop: 01/08/21 20:06 Iopamidol (Iopamidol 612 Mg/Ml 100 Ml Bottle) 117 ml IV . DIRECTED [facility] Last Admin: 01/08/21 18:11 Dose: 117 ml Documented by: DESMOND Sodium Chloride (Sodium Chloride 0.9% 10 Ml Syringe) 10 ml FLUSH ASDIRECTED PRN PRN Reason: Keep Vein Open Assessment/Plan Comment:: ASSESSMENT AND PLAN ABDOMINAL PAIN-progressive weight loss over the last 3 months, with left lower quadrant abdominal pain over the last 4 to 5 days. White blood cell count is elevated. CT scan of the abdomen and pelvis shows dilated loop of small bowel with thickening of the wall, consistent with malignancy and/or infection. -N.p.o. -IV fluids for hydration -Pain and nausea medication as needed -Unasyn 1.5 g IV every 6 hours -Consult Dr. Burkett for surgical opinion in a.m. TYPE 2 DIABETES MELLITUS -Continue Jardiance and Trulicity -Hold Metformin -4 times daily glucometers -Moderate dose sliding scale Humalog PAROXYSMAL ATRIAL FIBRILLATION STATUS POST ABLATION-remains on long-term oral anticoagulation, INR elevated at 4.0 -Hold warfarin -Vitamin K 5 mg IV given in the emergency department -Recheck INR in a.m. COPD-he reports developing shortness of breath with moderate levels of exertion, does not require home oxygen -Nebulized albuterol as needed -If he undergoes surgery, will require vigorous pulmonary toilet postoperatively CORONARY ARTERY DISEASE-status post 2 angioplasties and stents several years ago. Currently asymptomatic -Continue outpatient medications MAINTENANCE ISSUES -DVT prophylaxis; SCUDs -GI prophylaxis; not indicated -Preciado catheter; not indicated -Nutrition; n.p.o. -Nicotine dependence; not required CODE STATUS-full code ADMISSION STATUS-patient will be admitted to inpatient status, expect at least a 2 night hospital stay for evaluation and management of problems as outlined above. At the time of this admission I do not reasonably expected evaluation and management of this problem will require more than a 96 hour hospital stay. DISPOSITION-anticipate discharge to home after the hospital stay. PRIMARY CARE PROVIDER-Dr. Portillo - Mortality Measure Prognosis:: Good
[2021-01-08] MEDS ORDERED: Glucose Gel 15 GM in 37.5 GM Tube PO PRN (20:44)
[2021-01-08] MEDS ORDERED: 50% Dextrose in Water 50 ML Syringe IV PRN (20:44)
[2021-01-08] MEDS ORDERED: Albuterol 0.083% 2.5 MG/3 ML Neb Soln NEB PRN (20:44)
[2021-01-08] MEDS ORDERED: DULAGLUTIDE IM SCH (20:44)
[2021-01-08] MEDS ORDERED: Ondansetron 4 MG/2 ML SDV IV PRN (20:44)
[2021-01-08] MEDS ORDERED: Simvastatin 20 MG Tab PO SCH (21:00)
[2021-01-08] MEDS ORDERED: Magnesium Oxide 400 MG Tab PO SCH (21:00)
[2021-01-08] MEDS: Lactated Ringers 1,000 ML IV SCH (21:30)
[2021-01-08] MEDS: Metoprolol Tartrate 50 MG Tab PO SCH (21:40)
[2021-01-08] MEDS: HYDROmorphone 0.5 MG/0.5 ML Syringe IVPUSH PRN (21:41)
[2021-01-08] MEDS: Ampicillin/Sulbactam Na 1.5 GM in Sodium Chloride 0.9% 50 ML IV SCH (21:42)
[2021-01-08] MEDS: Insulin Lispro 100 Unit/ML 3 ML KwikPen SUBCUT SCH (21:42)
[2021-01-09] MEDS: HYDROmorphone 0.5 MG/0.5 ML Syringe IVPUSH PRN ×3 (00:57→06:13)
[2021-01-09] MEDS: Ampicillin/Sulbactam Na 1.5 GM in Sodium Chloride 0.9% 50 ML IV SCH (03:21)
[2021-01-09] MEDS: Lactated Ringers 1,000 ML IV SCH ×2 (06:10→17:50)
[2021-01-09 06:33] LABS: HEMOGLOBIN A1C 11.9 % (4.5-6.2)
[2021-01-09] MEDS ORDERED: Ketamine 500 MG/5 ML MDV IV SCH ×3 (07:15→11:15)
[2021-01-09] MEDS: HYDROmorphone/Normal Saline 15 MG/30 ML PCA IV PRN ×2 (07:38→22:23)
[2021-01-09] MEDS ORDERED: Naloxone 0.4 MG/ML SDV IV PRN (08:00)
[2021-01-09] MEDS: Insulin Lispro 100 Unit/ML 3 ML KwikPen SUBCUT SCH ×2 (08:12→12:34)
[2021-01-09] MEDS: Metoprolol Tartrate 50 MG Tab PO SCH ×2 (08:12→21:56)
[2021-01-09] MEDS: Magnesium Sulfate/Water 2 GM/50 ML BAG IV SCH ×2 (08:31→15:19)
--- NOTE | 2021-01-09 08:53 | CR ---
CHEST: 2 view CLINICAL HISTORY:Weight loss COMPARISON:2008 FINDINGS: There is a large area of increased density in the right upper lung field. This may represent some atelectasis or mass. It is well demarcated on the lateral image. This may be mass and/or fluid within the major fissure. There appears to be some leftward displacement of the trachea. Some of this is due to rotation. IMPRESSION: Masslike density in the right upper hemithorax. This may represent atelectasis and/or consolidation possibly due to underlying central mass. This could represent some fluid in the major fissure or pleural-based mass. Pulmonary nodules are seen in the lower lungs on recent CT abdomen. CT chest with contrast recommended
[2021-01-09] MEDS ORDERED: Empagliflozin 10 MG Tab PO SCH (09:00)
[2021-01-09 09:16] LABS: CORONAVIRUS COVID-19 NAA NEGATIVE (NEGATIVE)
--- NOTE | 2021-01-09 09:26 | CONS ---
DATE OF SERVICE: 01/09/2021 REFERRING PHYSICIAN: CONSULTING PHYSICIAN: Yanet Harper PA-C Ha presented to the ER yesterday and a surgical consult was requested per Cesario Stoddard MD. HISTORY OF PRESENT ILLNESS: Ha is a pleasant 65-year-old male who went to the emergency room for severe left lower abdominal pain. He states that the pain started on 01/03/2021, and has not gone away, and has in fact gotten worse. He states that he lost 30 pounds in the last 3 months after starting Jardiance for his diabetes. He reports pain in the left lower quadrant. Prior to admission, it was 6 to 10 out of 10. Currently, it is 3 to 4. CURRENT MEDICATIONS: Coumadin 10 mg p.o. as directed, glipizide ER 10 mg b.i.d., metformin 1000 mg p.o. b.i.d., ProAir inhaler 2 puffs every 4 hours p.r.n. shortness of breath, aspirin 325 mg p.o. daily, calcium 600 mg p.o. at bedtime, Senokot-S 1 b.i.d., glucosamine 1000 mg p.o. b.i.d., [place] 10/325 mg 1 tablet p.o. t.i.d., magnesium 250 q. bedtime, metoprolol tartrate, Lopressor 100 mg p.o. b.i.d., multivitamin 1 tablet daily, Nitrostat 0.4 mg sublingual 3 times a day, omega-3 acids, fish oil 1000 mg p.o. b.i.d., Zocor 20 mg p.o. bedtime, Trulicity 1.5 mg IM weekly, Flexeril 10 mg p.o. t.i.d. p.r.n. muscle spasms, Jardiance 25 mg p.o. daily. PAST MEDICAL HISTORY: 1. Type 2 diabetes. 2. Chronic obstructive pulmonary disease. 3. Coronary artery disease. 4. Paroxysmal atrial fibrillation. 5. Anticoagulation therapy, chronic. 6. Renal calculus. 7. Opioid pain contract. PAST SURGICAL HISTORY: Reports oral surgery, cardiac ablation for atrial fib. Abdominal surgeries include appendectomy, cholecystectomy. Musculoskeletal surgery includes arthroscopy of the knee and arthroscopic procedures. SOCIAL HISTORY: . 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 Leaves on Friday night and comes home Friday. Smokes daily for 50 years. Caffeine, drinks coffee, varying amounts. Soda unknown. Recreational drug use negative. REVIEW OF SYSTEMS: CONSTITUTIONAL: Has lost 30 pounds in the last 3 months. Denies any fever, chills. Has been tired. Weight loss and weak. HEENT: Negative. PULMONARY: No shortness of breath or cough. CARDIOVASCULAR: Negative. GI: Reports abdominal pain associated with constipation and some bloating. Pain is in the left lower quadrant, occasionally will radiate down to the back. : Negative. MUSCULOSKELETAL: Negative. SKIN: No changes in moles or birthmarks. PSYCHIATRIC: No insomnia, depression, or anxiety. HEMATOLOGIC: Negative. PHYSICAL EXAMINATION: GENERAL: Ha Lopez is a pleasant 65-year-old male. VITAL SIGNS: Height is 6 feet 3 inches, weight is 166 pounds 3.2 ounces, BMI is 20. TPR 98.4, 84, 18, blood pressure 121/72. HEENT: Negative. NECK: Supple. HEART: Regular rate and rhythm. LUNGS: Clear. ABDOMEN: Tenderness particularly in the mid and lower abdominal quadrants bilaterally. EXTREMITIES: Without peripheral edema. NEURO: Cranial nerves 2-12 intact. PSYCHIATRIC: Mood and affect appropriate. SKIN: Negative. ASSESSMENT: 1. Partial small bowel obstruction with focally dilated small bowel loop within the left lower quadrant and thick and necrotic-appearing wall suspicious for malignancy. 2. Pulmonary nodules and liver lesions suspicious for metastasis. 3. Large mesenteric lymph node suspicious for lymph node metastasis. 4. Mild bilateral hydronephrosis and hydroureters. 5. Diffuse bladder wall thickening, which could be due to chronic outlet obstruction. 6. Heterogeneous enlarged prostate gland. 7. Diabetes type 2. 8. Chronic obstructive pulmonary disease. 9. History of smoking. 10.Coronary artery disease. 11.Paroxysmal atrial fibrillation. 12.Chronic anticoagulation therapy. PLAN: 1. Schedule and have consent signed for exploratory laparotomy with bowel resection, liver biopsy, and placement of triple-lumen catheter under general anesthesia with tap block, ketamine bolus, and ketamine drip. Case to follow 01/09/2021, approximately 1300. Shaw Burkett MD. 2. Remain n.p.o. 3. [facility] on-call to OR. 4. [employer]NA[employer] of Dilaudid. 5. Check CEA and serum chromogranin A. 6. Incentive spirometer, use 10 times every hour while awake. 7. After preoperative evaluation, discussion of possible risks and possible complications, the patient wishes to proceed with surgical procedure. Thank you for this consultation. Yanet Harper PA-C /[id number]
[2021-01-09] MEDS ORDERED: Ampicillin/Sulbactam Na 1.5 GM in Sodium Chloride 0.9% 50 ML IV SCH (10:00)
[2021-01-09] MEDS ORDERED: Neostigmine Methylsulfate 1 MG/ML 5 ML Syringe ONE (10:10)
[2021-01-09] MEDS ORDERED: Ondansetron 4 MG/2 ML SDV ONE (10:10)
[2021-01-09] MEDS ORDERED: Succinylcholine 200 MG/10 ML MDV ONE (10:10)
[2021-01-09] MEDS ORDERED: Dexamethasone 4 MG/ML SDV ONE (10:10)
[2021-01-09] MEDS ORDERED: Propofol 200 MG/20 ML SDV ONE (10:10)
[2021-01-09] MEDS ORDERED: Glycopyrrolate 0.2 MG/ML 5 ML MDV ONE (10:10)
[2021-01-09] MEDS ORDERED: Rocuronium 50 MG/5 ML Vial ONE (10:10)
[2021-01-09] MEDS ORDERED: Lactated Ringers 1,000 ML ONE ×2 (10:13→12:42)
[2021-01-09] MEDS ORDERED: fentaNYL 250 MCG/5 ML SDV ONE ×2 (10:13→12:47)
[2021-01-09] MEDS ORDERED: Ketamine 50 MG in Sodium Chloride 0.9% 49.5 ML IV SCH (11:15)
[2021-01-09] MEDS ORDERED: Albuterol/Ipratropium 3.0-0.5 MG/3 ML Neb Soln NEB ONE (11:15)
[2021-01-09] MEDS ORDERED: Bupivacaine 0.5% 50 ML MDV ONE (11:30)
[2021-01-09] MEDS ORDERED: Meropenem 500 MG SDV ONE (11:31)
[2021-01-09] MEDS ORDERED: Lidocaine 1% with EPINEPHrine 1:100,000 50 ML MDV ONE (11:31)
--- NOTE | 2021-01-09 11:52 | PCM.PN ---
- General Info Date of Service: 01/09/21 Subjective Update: Mr. Lopez has been stable since admission yesterday, pain control and nausea control have been adequate. He has been seen and evaluated by Dr. Burkett, plan is for exploratory laparotomy this afternoon. Functional Status: Reports: Ambulating, Urinating - Review of Systems General: Reports: Weakness, Fatigue, Malaise. Denies: Fever, Chills Pulmonary: Reports: No Symptoms Cardiovascular: Reports: No Symptoms Gastrointestinal: Reports: Abdominal Pain, Nausea. Denies: Diarrhea, Difficulty Swallowing, Hematochezia, Melena, Vomiting Genitourinary: Reports: No Symptoms Musculoskeletal: Reports: No Symptoms Skin: Reports: No Symptoms Neurological: Reports: No Symptoms Psychiatric: Reports: No Symptoms - Patient Data Vitals - Most Recent: Last Vital Signs Temp 98.3 F 01/09/21 10:41 Pulse 75 01/09/21 10:41 Resp 18 01/09/21 10:41 BP 92/63 01/09/21 10:41 Pulse Ox 94 L 01/09/21 10:41 Weight - Most Recent: 166 lb 3.198 oz I&O - Last 24 Hours: Intake & Output 01/08/21 01/09/21 01/09/21 22:59 06:59 14:59 Intake Total 1950 Output Total 525 150 Balance 1425 -150 Lab Results Last 24 Hours: Laboratory Results - last 24 hr 01/08/21 01/08/21 01/08/21 Range/Units 16:35 16:45 16:45 WBC 23.6 H (4.5-11.0) K/uL RBC 4.36 (4.30-5.90) M/uL Hgb 12.8 D (12.0-15.0) g/dL Hct 38.8 L (40.0-54.0) % MCV 89 (80-98) fL MCH 29 (27-31) pg MCHC 33 (32-36) % Plt Count 387 (150-400) K/uL Neut % (Auto) 82 H (36-66) % Lymph % (Auto) 8 L (24-44) % O'Brien % (Auto) 9 H (2-6) % Eos % (Auto) 1 L (2-4) % Baso % (Auto) 0 (0-1) % PT 42.7 H (9.5-12.0) sec INR 4.03 H* (0.80-1.20) Sodium 135 L (140-148) mmol/L Potassium 4.5 (3.6-5.2) mmol/L Chloride 97 L (100-108) mmol/L Carbon Dioxide 24 (21-32) mmol/L Anion Gap 18.5 H (5.0-14.0) mmol/L BUN 19 H (7-18) mg/dL Creatinine 0.6 L (0.7-1.3) mg/dL Est Cr Clr Drug Dosing 132.93 mL/min Estimated GFR (MDRD) > 60 (>60) BUN/Creatinine Ratio Not Reportable Glucose 453 H* (74-106) mg/dL POC Glucose (74-106) MG/DL Hemoglobin A1c (4.5-6.2) % Lactic Acid (0.4-2.0) mmol/L Calcium 10.0 (8.5-10.1) mg/dL Magnesium (1.8-2.4) mg/dL Total Bilirubin 0.5 (0.2-1.0) mg/dL AST 9 L (15-37) U/L ALT 18 (12-78) U/L Alkaline Phosphatase 138 H (46-116) U/L Troponin I < 0.017 (0.000-0.056) ng/mL C-Reactive Protein (0.0-0.3) mg/dL Total Protein 6.5 (6.4-8.2) g/dL Albumin 2.7 L (3.4-5.0) g/dL Globulin 3.8 H (2.3-3.5) g/dL Albumin/Globulin Ratio 0.7 L (1.2-2.2) Lipase 121 (73-393) U/L Procalcitonin ng/mL Urine Color (YELLOW) Urine Appearance (CLEAR) Urine pH (5.0-8.0) Ur Specific [place] (1.008-1.030) Urine Protein (NEGATIVE) mg/dL Urine Glucose (UA) (NEGATIVE) mg/dL Urine Ketones (NEGATIVE) mg/dL Urine Occult Blood (NEGATIVE) Urine Nitrite (NEGATIVE) Urine Bilirubin (NEGATIVE) Urine Urobilinogen (0.2-1.0) EU/dL Ur Leukocyte Esterase (NEGATIVE) Urine RBC (0-5) Urine WBC (0-5) Ur Epithelial Cells Amorphous Sediment Urine Bacteria Urine Mucus Influenza Type A RNA (NEGATIVE) RSV RNA (INAAT) (NEGATIVE) Influenza Type B RNA (NEGATIVE) SARS-CoV-2 RNA (CHRISTY) (NEGATIVE) 01/08/21 01/08/21 01/08/21 Range/Units 16:45 16:45 16:45 WBC (4.5-11.0) K/uL RBC (4.30-5.90) M/uL Hgb (12.0-15.0) g/dL Hct (40.0-54.0) % MCV (80-98) fL MCH (27-31) pg MCHC (32-36) % Plt Count (150-400) K/uL Neut % (Auto) (36-66) % Lymph % (Auto) (24-44) % O'Brien % (Auto) (2-6) % Eos % (Auto) (2-4) % Baso % (Auto) (0-1) % PT (9.5-12.0) sec INR (0.80-1.20) Sodium (140-148) mmol/L Potassium (3.6-5.2) mmol/L Chloride (100-108) mmol/L Carbon Dioxide (21-32) mmol/L Anion Gap (5.0-14.0) mmol/L BUN (7-18) mg/dL Creatinine (0.7-1.3) mg/dL Est Cr Clr Drug Dosing mL/min Estimated GFR (MDRD) (>60) BUN/Creatinine Ratio Glucose (74-106) mg/dL POC Glucose (74-106) MG/DL Hemoglobin A1c (4.5-6.2) % Lactic Acid 1.2 (0.4-2.0) mmol/L Calcium (8.5-10.1) mg/dL Magnesium (1.8-2.4) mg/dL Total Bilirubin (0.2-1.0) mg/dL AST (15-37) U/L ALT (12-78) U/L Alkaline Phosphatase (46-116) U/L Troponin I (0.000-0.056) ng/mL C-Reactive Protein 5.48 H (0.0-0.3) mg/dL Total Protein (6.4-8.2) g/dL Albumin (3.4-5.0) g/dL Globulin (2.3-3.5) g/dL Albumin/Globulin Ratio (1.2-2.2) Lipase (73-393) U/L Procalcitonin 0.05 ng/mL Urine Color (YELLOW) Urine Appearance (CLEAR) Urine pH (5.0-8.0) Ur Specific [place] (1.008-1.030) Urine Protein (NEGATIVE) mg/dL Urine Glucose (UA) (NEGATIVE) mg/dL Urine Ketones (NEGATIVE) mg/dL Urine Occult Blood (NEGATIVE) Urine Nitrite (NEGATIVE) Urine Bilirubin (NEGATIVE) Urine Urobilinogen (0.2-1.0) EU/dL Ur Leukocyte Esterase (NEGATIVE) Urine RBC (0-5) Urine WBC (0-5) Ur Epithelial Cells Amorphous Sediment Urine Bacteria Urine Mucus Influenza Type A RNA (NEGATIVE) RSV RNA (INAAT) (NEGATIVE) Influenza Type B RNA (NEGATIVE) SARS-CoV-2 RNA (CHRISTY) (NEGATIVE) 01/08/21 01/08/21 01/09/21 Range/Units 17:13 21:00 06:18 WBC 23.4 H (4.5-11.0) K/uL RBC 4.21 L (4.30-5.90) M/uL Hgb 12.3 (12.0-15.0) g/dL Hct 38.1 L (40.0-54.0) % MCV 91 (80-98) fL MCH 29 (27-31) pg MCHC 32 (32-36) % Plt Count 363 (150-400) K/uL Neut % (Auto) 80 H (36-66) % Lymph % (Auto) 8 L (24-44) % O'Brien % (Auto) 10 H (2-6) % Eos % (Auto) 2 (2-4) % Baso % (Auto) 0 (0-1) % PT (9.5-12.0) sec INR (0.80-1.20) Sodium (140-148) mmol/L Potassium (3.6-5.2) mmol/L Chloride (100-108) mmol/L Carbon Dioxide (21-32) mmol/L Anion Gap (5.0-14.0) mmol/L BUN (7-18) mg/dL Creatinine (0.7-1.3) mg/dL Est Cr Clr Drug Dosing mL/min Estimated GFR (MDRD) (>60) BUN/Creatinine Ratio Glucose (74-106) mg/dL POC Glucose 262 H (74-106) MG/DL Hemoglobin A1c (4.5-6.2) % Lactic Acid (0.4-2.0) mmol/L Calcium (8.5-10.1) mg/dL Magnesium (1.8-2.4) mg/dL Total Bilirubin (0.2-1.0) mg/dL AST (15-37) U/L ALT (12-78) U/L Alkaline Phosphatase (46-116) U/L Troponin I (0.000-0.056) ng/mL C-Reactive Protein (0.0-0.3) mg/dL Total Protein (6.4-8.2) g/dL Albumin (3.4-5.0) g/dL Globulin (2.3-3.5) g/dL Albumin/Globulin Ratio (1.2-2.2) Lipase (73-393) U/L Procalcitonin ng/mL Urine Color Yellow (YELLOW) Urine Appearance Clear (CLEAR) Urine pH 6.5 (5.0-8.0) Ur Specific [place] 1.015 (1.008-1.030) Urine Protein Negative (NEGATIVE) mg/dL Urine Glucose (UA) 500 H (NEGATIVE) mg/dL Urine Ketones 40 H (NEGATIVE) mg/dL Urine Occult Blood Negative (NEGATIVE) Urine Nitrite Negative (NEGATIVE) Urine Bilirubin Negative (NEGATIVE) Urine Urobilinogen 0.2 (0.2-1.0) EU/dL Ur Leukocyte Esterase Negative (NEGATIVE) Urine RBC 0-5 (0-5) Urine WBC 0-5 (0-5) Ur Epithelial Cells Not seen Amorphous Sediment Not seen Urine Bacteria Not seen Urine Mucus Not seen Influenza Type A RNA (NEGATIVE) RSV RNA (INAAT) (NEGATIVE) Influenza Type B RNA (NEGATIVE) SARS-CoV-2 RNA (CHRISTY) (NEGATIVE) 01/09/21 01/09/21 01/09/21 Range/Units 06:18 06:18 06:18 WBC (4.5-11.0) K/uL RBC (4.30-5.90) M/uL Hgb (12.0-15.0) g/dL Hct (40.0-54.0) % MCV (80-98) fL MCH (27-31) pg MCHC (32-36) % Plt Count (150-400) K/uL Neut % (Auto) (36-66) % Lymph % (Auto) (24-44) % O'Brien % (Auto) (2-6) % Eos % (Auto) (2-4) % Baso % (Auto) (0-1) % PT 17.0 H (9.5-12.0) sec INR 1.57 H D (0.80-1.20) Sodium 139 L (140-148) mmol/L Potassium 4.3 (3.6-5.2) mmol/L Chloride 102 (100-108) mmol/L Carbon Dioxide 23 (21-32) mmol/L Anion Gap 18.3 H (5.0-14.0) mmol/L BUN 16 (7-18) mg/dL Creatinine 0.6 L (0.7-1.3) mg/dL Est Cr Clr Drug Dosing 129.14 mL/min Estimated GFR (MDRD) > 60 (>60) BUN/Creatinine Ratio Glucose 288 H (74-106) mg/dL POC Glucose (74-106) MG/DL Hemoglobin A1c 11.9 H (4.5-6.2) % Lactic Acid (0.4-2.0) mmol/L Calcium 9.3 (8.5-10.1) mg/dL Magnesium 1.7 L (1.8-2.4) mg/dL Total Bilirubin 0.7 (0.2-1.0) mg/dL AST 12 L (15-37) U/L ALT 17 (12-78) U/L Alkaline Phosphatase 105 (46-116) U/L Troponin I (0.000-0.056) ng/mL C-Reactive Protein (0.0-0.3) mg/dL Total Protein 5.8 L (6.4-8.2) g/dL Albumin 2.3 L (3.4-5.0) g/dL Globulin 3.5 (2.3-3.5) g/dL Albumin/Globulin Ratio 0.7 L (1.2-2.2) Lipase (73-393) U/L Procalcitonin ng/mL Urine Color (YELLOW) Urine Appearance (CLEAR) Urine pH (5.0-8.0) Ur Specific [place] (1.008-1.030) Urine Protein (NEGATIVE) mg/dL Urine Glucose (UA) (NEGATIVE) mg/dL Urine Ketones (NEGATIVE) mg/dL Urine Occult Blood (NEGATIVE) Urine Nitrite (NEGATIVE) Urine Bilirubin (NEGATIVE) Urine Urobilinogen (0.2-1.0) EU/dL Ur Leukocyte Esterase (NEGATIVE) Urine RBC (0-5) Urine WBC (0-5) Ur Epithelial Cells Amorphous Sediment Urine Bacteria Urine Mucus Influenza Type A RNA (NEGATIVE) RSV RNA (INAAT) (NEGATIVE) Influenza Type B RNA (NEGATIVE) SARS-CoV-2 RNA (CHRISTY) (NEGATIVE) 01/09/21 01/09/21 01/09/21 Range/Units 07:30 08:16 11:32 WBC (4.5-11.0) K/uL RBC (4.30-5.90) M/uL Hgb (12.0-15.0) g/dL Hct (40.0-54.0) % MCV (80-98) fL MCH (27-31) pg MCHC (32-36) % Plt Count (150-400) K/uL Neut % (Auto) (36-66) % Lymph % (Auto) (24-44) % O'Brien % (Auto) (2-6) % Eos % (Auto) (2-4) % Baso % (Auto) (0-1) % PT (9.5-12.0) sec INR (0.80-1.20) Sodium (140-148) mmol/L Potassium (3.6-5.2) mmol/L Chloride (100-108) mmol/L Carbon Dioxide (21-32) mmol/L Anion Gap (5.0-14.0) mmol/L BUN (7-18) mg/dL Creatinine (0.7-1.3) mg/dL Est Cr Clr Drug Dosing mL/min Estimated GFR (MDRD) (>60) BUN/Creatinine Ratio Glucose (74-106) mg/dL POC Glucose 287 H 227 H (74-106) MG/DL Hemoglobin A1c (4.5-6.2) % Lactic Acid (0.4-2.0) mmol/L Calcium (8.5-10.1) mg/dL Magnesium (1.8-2.4) mg/dL Total Bilirubin (0.2-1.0) mg/dL AST (15-37) U/L ALT (12-78) U/L Alkaline Phosphatase (46-116) U/L Troponin I (0.000-0.056) ng/mL C-Reactive Protein (0.0-0.3) mg/dL Total Protein (6.4-8.2) g/dL Albumin (3.4-5.0) g/dL Globulin (2.3-3.5) g/dL Albumin/Globulin Ratio (1.2-2.2) Lipase (73-393) U/L Procalcitonin ng/mL Urine Color (YELLOW) Urine Appearance (CLEAR) Urine pH (5.0-8.0) Ur Specific [place] (1.008-1.030) Urine Protein (NEGATIVE) mg/dL Urine Glucose (UA) (NEGATIVE) mg/dL Urine Ketones (NEGATIVE) mg/dL Urine Occult Blood (NEGATIVE) Urine Nitrite (NEGATIVE) Urine Bilirubin (NEGATIVE) Urine Urobilinogen (0.2-1.0) EU/dL Ur Leukocyte Esterase (NEGATIVE) Urine RBC (0-5) Urine WBC (0-5) Ur Epithelial Cells Amorphous Sediment Urine Bacteria Urine Mucus Influenza Type A RNA Negative (NEGATIVE) RSV RNA (INAAT) Negative (NEGATIVE) Influenza Type B RNA Negative (NEGATIVE) SARS-CoV-2 RNA (CHRISTY) Negative (NEGATIVE) Med Orders - Current: Current Medications Albuterol (Albuterol 0.083% 2.5 Mg/3 Ml Neb Soln) 2.5 mg NEB Q4H PRN PRN Reason: Shortness Of Breath/wheezing Ropivacaine 37 ml/Dexamethasone 8 mg/Epinephrine HCl 0.4 mg/ Sodium Chloride 40.6 ml 0 ml NERVRT ASDIRECTED [facility] Dextrose (Glucose Gel 15 Gm In 37.5 Gm Tube) 15 gm PO ONETIME PRN PRN Reason: Hypoglycemia Dextrose/Water (50% Dextrose In Water 50 Ml Syringe) 50 ml IV ONETIME PRN PRN Reason: Hypoglycemia Hydromorphone HCl (Hydromorphone 0.5 Mg/0.5 Ml Syringe) 0.5 mg IVPUSH Q2H PRN PRN Reason: Pain Last Admin: 01/09/21 06:13 Dose: 0.5 mg Documented by: Hydromorphone HCl (Hydromorphone/Normal Saline 15 Mg/30 Ml Prison Warden) 0 mg IV ASDIRECTED PRN; Protocol 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 Last Admin: 01/09/21 07:38 Dose: 15 mg Documented by: Lactated Ringer's (Ringers, Lactated) 1,000 mls @ 125 mls/hr IV ASDIRECTED [facility] Last Admin: 01/09/21 06:10 Dose: 125 mls/hr Documented by: Ampicillin Sodium/Sulbactam (Sodium 1.5 gm/ Sodium Chloride) 50 mls @ 100 mls/hr IV Q6H [facility] Last Admin: 01/09/21 10:32 Dose: 100 mls/hr Documented by: Ketamine HCl 50 mg/ Sodium (Chloride) 50 mls @ 22.5 mls/hr IV ASDIRECTED [facility] Magnesium Sulfate (Magnesium Sulfate In Water 2 Gm/50 Ml) 2 gm in 50 mls @ 25 mls/hr IV Q6H [facility] Stop: 01/09/21 16:59 Last Admin: 01/09/21 08:31 Dose: 25 mls/hr Documented by: Insulin Human Lispro (Insulin Lispro 100 Unit/Ml 3 Ml Kwikpen) 0 unit SUBCUT QIDACANDBED [facility]; Protocol Last Admin: 01/09/21 08:12 Dose: 6 unit Documented by: Ketamine HCl (Ketamine 500 Mg/5 Ml Mdv) 38 mg IV ASDIRECTED [facility] Magnesium Oxide (Magnesium Oxide 400 Mg Tab) 400 mg PO BEDTIME [facility] Last Admin: 01/08/21 21:40 Dose: 400 mg Documented by: Metoprolol Tartrate (Metoprolol Tartrate 50 Mg Tab) 100 mg PO BID [facility] Last Admin: 01/09/21 08:12 Dose: 100 mg Documented by: Naloxone HCl (Naloxone 0.4 Mg/Ml Sdv) 0.1 mg IV ASDIRECTED PRN PRN Reason: decreased respiratory rate Non-Formulary Medication (Dulaglutide [Trulicity]) 1.5 mg IM WEEKLY [facility] Ondansetron HCl (Ondansetron 4 Mg/2 Ml Sdv) 4 mg IV Q4H PRN PRN Reason: Nausea/Vomiting Simvastatin (Simvastatin 20 Mg Tab) 20 mg PO BEDTIME [facility] Last Admin: 01/08/21 21:40 Dose: 20 mg Documented by: Sodium Chloride (Sodium Chloride 0.9% 10 Ml Syringe) 10 ml FLUSH ASDIRECTED PRN PRN Reason: Keep Vein Open Discontinued Medications Albuterol/Ipratropium (Albuterol/Ipratropium 3.0-0.5 Mg/3 Ml Neb Soln) 3 ml NEB ONCALL ONE Stop: 01/09/21 11:16 Last Admin: 01/09/21 11:05 Dose: 3 ml Documented by: Bupivacaine HCl (Bupivacaine 0.5% 50 Ml Mdv) Confirm Administered Dose 50 ml .ROUTE .STK-MED ONE Stop: 01/09/21 11:31 Dexamethasone (Dexamethasone 4 Mg/Ml Sdv) Confirm Administered Dose 4 mg .ROUTE .STK-MED ONE Stop: 01/09/21 10:11 Dextrose/Water (50% Dextrose In Water 50 Ml Syringe) 50 ml IVPUSH ASDIRECTED PRN PRN Reason: Hypoglycemia Fentanyl (Fentanyl 250 Mcg/5 Ml Sdv) Confirm Administered Dose 250 mcg .ROUTE .STK-MED ONE Stop: 01/09/21 10:14 Glucagon (Glucagon,Human Recombinant 1 Mg Vial) 1 mg IM ASDIRECTED PRN PRN Reason: Hypoglycemia Glycopyrrolate (Glycopyrrolate 0.2 Mg/Ml 5 Ml Mdv) Confirm Administered Dose 1 mg .ROUTE .STK-MED ONE Stop: 01/09/21 10:11 Heparin Sodium (Porcine) (Heparin Sodium 100 Units/Ml 5 Ml Syringe) Confirm Administered Dose 1,000 units .ROUTE .STK-MED ONE Stop: 01/09/21 11:31 Hydromorphone HCl (Hydromorphone 0.5 Mg/0.5 Ml Syringe) 0.5 mg IVPUSH ONETIME ONE Stop: 01/08/21 19:31 Last Admin: 01/08/21 19:42 Dose: 0.5 mg Documented by: Sodium Chloride (Normal Saline) 1,000 mls @ 500 mls/hr IV .BOLUS STA Stop: 01/08/21 18:34 Last Admin: 01/08/21 17:59 Dose: 500 mls/hr Documented by: Sodium Chloride (Normal Saline) 75 mls @ 3 mls/sec IV ASDIRECTED [facility] Last Admin: 01/08/21 18:11 Dose: 3 mls/sec Documented by: Piperacillin Sod/Tazobactam (Sod 4.5 gm/ Sodium Chloride) 100 mls @ 100 mls/hr IV ONETIME ONE Stop: 01/08/21 20:10 Last Admin: 01/08/21 19:42 Dose: 100 mls/hr Documented by: Phytonadione 5 mg/ Sodium (Chloride) 50.5 mls @ 100 mls/hr IV NOW ONE Stop: 01/08/21 20:06 Last Admin: 01/08/21 20:47 Dose: 100 mls/hr Documented by: Ampicillin Sodium/Sulbactam (Sodium 1.5 gm/ Sodium Chloride) 50 mls @ 100 mls/hr IV Q6H [facility] Last Admin: 01/09/21 03:21 Dose: 100 mls/hr Documented by: Lactated Ringer's (Ringers, Lactated) Confirm Administered Dose 1,000 mls @ as directed .ROUTE .STK-MED ONE Stop: 01/09/21 10:14 Linezolid (Zyvox) Confirm Administered Dose 300 mls @ as directed .ROUTE .STK- MED ONE Stop: 01/09/21 11:32 Insulin Human Regular (Insulin Regular, Human 100 Units/Ml 3 Ml Vial) 14 unit SUBCUT ONETIME ONE Stop: 01/08/21 19:15 Last Admin: 01/08/21 19:48 Dose: 14 unit Documented by: Iopamidol (Iopamidol 612 Mg/Ml 100 Ml Bottle) 117 ml IV . DIRECTED [facility] Last Admin: 01/08/21 18:11 Dose: 117 ml Documented by: Ketamine HCl (Ketamine 500 Mg/5 Ml Mdv) 0 mg IV BOLUS [facility] Ketamine HCl (Ketamine 500 Mg/5 Ml Mdv) 0 mg IV ASDIRECTED [facility] Lidocaine/Epinephrine (Lidocaine 1% With Epinephrine 1:100,000 50 Ml Mdv) Co nfirm Administered Dose 50 ml .ROUTE .STK-MED ONE Stop: 01/09/21 11:32 Meropenem (Meropenem 500 Mg Sdv) Confirm Administered Dose 500 mg .ROUTE .STK- MED ONE Stop: 01/09/21 11:32 Neostigmine Methylsulfate (Neostigmine Methylsulfate 1 Mg/Ml 5 Ml Syringe) Confirm Administered Dose 5 mg .ROUTE .STK-MED ONE Stop: 01/09/21 10:11 Non-Formulary Medication (Tap Block 1 Ml Bag) 0 ml NERVRT ONETIME ONE Stop: 01/09/21 13:01 Ondansetron HCl (Ondansetron 4 Mg/2 Ml Sdv) Confirm Administered Dose 4 mg .ROU TE .STK-MED ONE Stop: 01/09/21 10:11 Propofol (Propofol 200 Mg/20 Ml Sdv) Confirm Administered Dose 200 mg .ROUTE .STK-MED ONE Stop: 01/09/21 10:11 Rocuronium [place] (Rocuronium 50 Mg/5 Ml Vial) Confirm Administered Dose 50 mg .ROUTE .STK-MED ONE Stop: 01/09/21 10:11 Sodium Chloride (Sodium Chloride 0.9% 10 Ml Syringe) 10 ml FLUSH ASDIRECTED PRN PRN Reason: Keep Vein Open Sodium Chloride (Sodium Chloride 0.9% 10 Ml Syringe) 10 ml FLUSH ONETIME ONE Stop: 01/08/21 16:47 Last Admin: 01/08/21 18:11 Dose: 10 ml Documented by: Succinylcholine Chloride (Succinylcholine 200 Mg/10 Ml Mdv) Confirm Administered Dose 200 mg .ROUTE .STK-MED ONE Stop: 01/09/21 10:11 - Exam Quality Assessment: DVT Prophylaxis General: Alert, Oriented, Cooperative, Moderate Distress Lungs: Clear to Auscultation, Normal Respiratory Effort Cardiovascular: Regular Rate, Regular Rhythm, No Murmurs GI/Abdominal Exam: Soft, No Organomegaly, Rebound, Tender. No: Distended, Guarding, Rigid Extremities: Non-Tender, No Pedal Edema - Patient Data Lab Results Last 24 hrs: Laboratory Results - last 24 hr 01/08/21 01/08/21 01/08/21 Range/Units 16:35 16:45 16:45 WBC 23.6 H (4.5-11.0) K/uL RBC 4.36 (4.30-5.90) M/uL Hgb 12.8 D (12.0-15.0) g/dL Hct 38.8 L (40.0-54.0) % MCV 89 (80-98) fL MCH 29 (27-31) pg MCHC 33 (32-36) % Plt Count 387 (150-400) K/uL Neut % (Auto) 82 H (36-66) % Lymph % (Auto) 8 L (24-44) % O'Brien % (Auto) 9 H (2-6) % Eos % (Auto) 1 L (2-4) % Baso % (Auto) 0 (0-1) % PT 42.7 H (9.5-12.0) sec INR 4.03 H* (0.80-1.20) Sodium 135 L (140-148) mmol/L Potassium 4.5 (3.6-5.2) mmol/L Chloride 97 L (100-108) mmol/L Carbon Dioxide 24 (21-32) mmol/L Anion Gap 18.5 H (5.0-14.0) mmol/L BUN 19 H (7-18) mg/dL Creatinine 0.6 L (0.7-1.3) mg/dL Est Cr Clr Drug Dosing 132.93 mL/min Estimated GFR (MDRD) > 60 (>60) BUN/Creatinine Ratio Not Reportable Glucose 453 H* (74-106) mg/dL POC Glucose (74-106) MG/DL Hemoglobin A1c (4.5-6.2) % Lactic Acid (0.4-2.0) mmol/L Calcium 10.0 (8.5-10.1) mg/dL Magnesium (1.8-2.4) mg/dL Total Bilirubin 0.5 (0.2-1.0) mg/dL AST 9 L (15-37) U/L ALT 18 (12-78) U/L Alkaline Phosphatase 138 H (46-116) U/L Troponin I < 0.017 (0.000-0.056) ng/mL C-Reactive Protein (0.0-0.3) mg/dL Total Protein 6.5 (6.4-8.2) g/dL Albumin 2.7 L (3.4-5.0) g/dL Globulin 3.8 H (2.3-3.5) g/dL Albumin/Globulin Ratio 0.7 L (1.2-2.2) Lipase 121 (73-393) U/L Procalcitonin ng/mL Urine Color (YELLOW) Urine Appearance (CLEAR) Urine pH (5.0-8.0) Ur Specific [place] (1.008-1.030) Urine Protein (NEGATIVE) mg/dL Urine Glucose (UA) (NEGATIVE) mg/dL Urine Ketones (NEGATIVE) mg/dL Urine Occult Blood (NEGATIVE) Urine Nitrite (NEGATIVE) Urine Bilirubin (NEGATIVE) Urine Urobilinogen (0.2-1.0) EU/dL Ur Leukocyte Esterase (NEGATIVE) Urine RBC (0-5) Urine WBC (0-5) Ur Epithelial Cells Amorphous Sediment Urine Bacteria Urine Mucus Influenza Type A RNA (NEGATIVE) RSV RNA (INAAT) (NEGATIVE) Influenza Type B RNA (NEGATIVE) SARS-CoV-2 RNA (CHRISTY) (NEGATIVE) 01/08/21 01/08/21 01/08/21 Range/Units 16:45 16:45 16:45 WBC (4.5-11.0) K/uL RBC (4.30-5.90) M/uL Hgb (12.0-15.0) g/dL Hct (40.0-54.0) % MCV (80-98) fL MCH (27-31) pg MCHC (32-36) % Plt Count (150-400) K/uL Neut % (Auto) (36-66) % Lymph % (Auto) (24-44) % O'Brien % (Auto) (2-6) % Eos % (Auto) (2-4) % Baso % (Auto) (0-1) % PT (9.5-12.0) sec INR (0.80-1.20) Sodium (140-148) mmol/L Potassium (3.6-5.2) mmol/L Chloride (100-108) mmol/L Carbon Dioxide (21-32) mmol/L Anion Gap (5.0-14.0) mmol/L BUN (7-18) mg/dL Creatinine (0.7-1.3) mg/dL Est Cr Clr Drug Dosing mL/min Estimated GFR (MDRD) (>60) BUN/Creatinine Ratio Glucose (74-106) mg/dL POC Glucose (74-106) MG/DL Hemoglobin A1c (4.5-6.2) % Lactic Acid 1.2 (0.4-2.0) mmol/L Calcium (8.5-10.1) mg/dL Magnesium (1.8-2.4) mg/dL Total Bilirubin (0.2-1.0) mg/dL AST (15-37) U/L ALT (12-78) U/L Alkaline Phosphatase (46-116) U/L Troponin I (0.000-0.056) ng/mL C-Reactive Protein 5.48 H (0.0-0.3) mg/dL Total Protein (6.4-8.2) g/dL Albumin (3.4-5.0) g/dL Globulin (2.3-3.5) g/dL Albumin/Globulin Ratio (1.2-2.2) Lipase (73-393) U/L Procalcitonin 0.05 ng/mL Urine Color (YELLOW) Urine Appearance (CLEAR) Urine pH (5.0-8.0) Ur Specific [place] (1.008-1.030) Urine Protein (NEGATIVE) mg/dL Urine Glucose (UA) (NEGATIVE) mg/dL Urine Ketones (NEGATIVE) mg/dL Urine Occult Blood (NEGATIVE) Urine Nitrite (NEGATIVE) Urine Bilirubin (NEGATIVE) Urine Urobilinogen (0.2-1.0) EU/dL Ur Leukocyte Esterase (NEGATIVE) Urine RBC (0-5) Urine WBC (0-5) Ur Epithelial Cells Amorphous Sediment Urine Bacteria Urine Mucus Influenza Type A RNA (NEGATIVE) RSV RNA (INAAT) (NEGATIVE) Influenza Type B RNA (NEGATIVE) SARS-CoV-2 RNA (CHRISTY) (NEGATIVE) 01/08/21 01/08/21 01/09/21 Range/Units 17:13 21:00 06:18 WBC 23.4 H (4.5-11.0) K/uL RBC 4.21 L (4.30-5.90) M/uL Hgb 12.3 (12.0-15.0) g/dL Hct 38.1 L (40.0-54.0) % MCV 91 (80-98) fL MCH 29 (27-31) pg MCHC 32 (32-36) % Plt Count 363 (150-400) K/uL Neut % (Auto) 80 H (36-66) % Lymph % (Auto) 8 L (24-44) % O'Brien % (Auto) 10 H (2-6) % Eos % (Auto) 2 (2-4) % Baso % (Auto) 0 (0-1) % PT (9.5-12.0) sec INR (0.80-1.20) Sodium (140-148) mmol/L Potassium (3.6-5.2) mmol/L Chloride (100-108) mmol/L Carbon Dioxide (21-32) mmol/L Anion Gap (5.0-14.0) mmol/L BUN (7-18) mg/dL Creatinine (0.7-1.3) mg/dL Est Cr Clr Drug Dosing mL/min Estimated GFR (MDRD) (>60) BUN/Creatinine Ratio Glucose (74-106) mg/dL POC Glucose 262 H (74-106) MG/DL Hemoglobin A1c (4.5-6.2) % Lactic Acid (0.4-2.0) mmol/L Calcium (8.5-10.1) mg/dL Magnesium (1.8-2.4) mg/dL Total Bilirubin (0.2-1.0) mg/dL AST (15-37) U/L ALT (12-78) U/L Alkaline Phosphatase (46-116) U/L Troponin I (0.000-0.056) ng/mL C-Reactive Protein (0.0-0.3) mg/dL Total Protein (6.4-8.2) g/dL Albumin (3.4-5.0) g/dL Globulin (2.3-3.5) g/dL Albumin/Globulin Ratio (1.2-2.2) Lipase (73-393) U/L Procalcitonin ng/mL Urine Color Yellow (YELLOW) Urine Appearance Clear (CLEAR) Urine pH 6.5 (5.0-8.0) Ur Specific [place] 1.015 (1.008-1.030) Urine Protein Negative (NEGATIVE) mg/dL Urine Glucose (UA) 500 H (NEGATIVE) mg/dL Urine Ketones 40 H (NEGATIVE) mg/dL Urine Occult Blood Negative (NEGATIVE) Urine Nitrite Negative (NEGATIVE) Urine Bilirubin Negative (NEGATIVE) Urine Urobilinogen 0.2 (0.2-1.0) EU/dL Ur Leukocyte Esterase Negative (NEGATIVE) Urine RBC 0-5 (0-5) Urine WBC 0-5 (0-5) Ur Epithelial Cells Not seen Amorphous Sediment Not seen Urine Bacteria Not seen Urine Mucus Not seen Influenza Type A RNA (NEGATIVE) RSV RNA (INAAT) (NEGATIVE) Influenza Type B RNA (NEGATIVE) SARS-CoV-2 RNA (CHRISTY) (NEGATIVE) 01/09/21 01/09/2121 Range/Units 06:18 06:18 06:18 WBC (4.5-11.0) K/uL RBC (4.30-5.90) M/uL Hgb (12.0-15.0) g/dL Hct (40.0-54.0) % MCV (80-98) fL MCH (27-31) pg MCHC (32-36) % Plt Count (150-400) K/uL Neut % (Auto) (36-66) % Lymph % (Auto) (24-44) % O'Brien % (Auto) (2-6) % Eos % (Auto) (2-4) % Baso % (Auto) (0-1) % PT 17.0 H (9.5-12.0) sec INR 1.57 H D (0.80-1.20) Sodium 139 L (140-148) mmol/L Potassium 4.3 (3.6-5.2) mmol/L Chloride 102 (100-108) mmol/L Carbon Dioxide 23 (21-32) mmol/L Anion Gap 18.3 H (5.0-14.0) mmol/L BUN 16 (7-18) mg/dL Creatinine 0.6 L (0.7-1.3) mg/dL Est Cr Clr Drug Dosing 129.14 mL/min Estimated GFR (MDRD) > 60 (>60) BUN/Creatinine Ratio Glucose 288 H (74-106) mg/dL POC Glucose (74-106) MG/DL Hemoglobin A1c 11.9 H (4.5-6.2) % Lactic Acid (0.4-2.0) mmol/L Calcium 9.3 (8.5-10.1) mg/dL Magnesium 1.7 L (1.8-2.4) mg/dL Total Bilirubin 0.7 (0.2-1.0) mg/dL AST 12 L (15-37) U/L ALT 17 (12-78) U/L Alkaline Phosphatase 105 (46-116) U/L Troponin I (0.000-0.056) ng/mL C-Reactive Protein (0.0-0.3) mg/dL Total Protein 5.8 L (6.4-8.2) g/dL Albumin 2.3 L (3.4-5.0) g/dL Globulin 3.5 (2.3-3.5) g/dL Albumin/Globulin Ratio 0.7 L (1.2-2.2) Lipase (73-393) U/L Procalcitonin ng/mL Urine Color (YELLOW) Urine Appearance (CLEAR) Urine pH (5.0-8.0) Ur Specific [place] (1.008-1.030) Urine Protein (NEGATIVE) mg/dL Urine Glucose (UA) (NEGATIVE) mg/dL Urine Ketones (NEGATIVE) mg/dL Urine Occult Blood (NEGATIVE) Urine Nitrite (NEGATIVE) Urine Bilirubin (NEGATIVE) Urine Urobilinogen (0.2-1.0) EU/dL Ur Leukocyte Esterase (NEGATIVE) Urine RBC (0-5) Urine WBC (0-5) Ur Epithelial Cells Amorphous Sediment Urine Bacteria Urine Mucus Influenza Type A RNA (NEGATIVE) RSV RNA (INAAT) (NEGATIVE) Influenza Type B RNA (NEGATIVE) SARS-CoV-2 RNA (CHRISTY) (NEGATIVE) 01/09/21 01/09/21 01/09/21 Range/Units 07:30 08:16 11:32 WBC (4.5-11.0) K/uL RBC (4.30-5.90) M/uL Hgb (12.0-15.0) g/dL Hct (40.0-54.0) % MCV (80-98) fL MCH (27-31) pg MCHC (32-36) % Plt Count (150-400) K/uL Neut % (Auto) (36-66) % Lymph % (Auto) (24-44) % O'Brien % (Auto) (2-6) % Eos % (Auto) (2-4) % Baso % (Auto) (0-1) % PT (9.5-12.0) sec INR (0.80-1.20) Sodium (140-148) mmol/L Potassium (3.6-5.2) mmol/L Chloride (100-108) mmol/L Carbon Dioxide (21-32) mmol/L Anion Gap (5.0-14.0) mmol/L BUN (7-18) mg/dL Creatinine (0.7-1.3) mg/dL Est Cr Clr Drug Dosing mL/min Estimated GFR (MDRD) (>60) BUN/Creatinine Ratio Glucose (74-106) mg/dL POC Glucose 287 H 227 H (74-106) MG/DL Hemoglobin A1c (4.5-6.2) % Lactic Acid (0.4-2.0) mmol/L Calcium (8.5-10.1) mg/dL Magnesium (1.8-2.4) mg/dL Total Bilirubin (0.2-1.0) mg/dL AST (15-37) U/L ALT (12-78) U/L Alkaline Phosphatase (46-116) U/L Troponin I (0.000-0.056) ng/mL C-Reactive Protein (0.0-0.3) mg/dL Total Protein (6.4-8.2) g/dL Albumin (3.4-5.0) g/dL Globulin (2.3-3.5) g/dL Albumin/Globulin Ratio (1.2-2.2) Lipase (73-393) U/L Procalcitonin ng/mL Urine Color (YELLOW) Urine Appearance (CLEAR) Urine pH (5.0-8.0) Ur Specific [place] (1.008-1.030) Urine Protein (NEGATIVE) mg/dL Urine Glucose (UA) (NEGATIVE) mg/dL Urine Ketones (NEGATIVE) mg/dL Urine Occult Blood (NEGATIVE) Urine Nitrite (NEGATIVE) Urine Bilirubin (NEGATIVE) Urine Urobilinogen (0.2-1.0) EU/dL Ur Leukocyte Esterase (NEGATIVE) Urine RBC (0-5) Urine WBC (0-5) Ur Epithelial Cells Amorphous Sediment Urine Bacteria Urine Mucus Influenza Type A RNA Negative (NEGATIVE) RSV RNA (INAAT) Negative (NEGATIVE) Influenza Type B RNA Negative (NEGATIVE) SARS-CoV-2 RNA (CHRISTY) Negative (NEGATIVE) Result Diagrams: 01/09/21 06:18 01/09/21 06:18 Sepsis Event Note - Evaluation Sepsis Screening Result: No Definite Risk - Focused Exam Vital Signs: Vital Signs Temp Pulse Pulse Resp BP BP Pulse Ox 01/09/21 10:41 98.3 F 75 18 92/63 94 L 01/09/21 08:12 84 121/72 01/09/21 07:45 98.4 F 84 18 121/72 96 01/09/21 07:26 96 01/09/21 03:22 99.5 F 77 18 123/70 95 01/09/21 01:18 94 L 01/09/21 00:57 97.9 F 70 16 121/60 95 - Problem List Review Problem List Initiated/Reviewed/Updated: Yes - My Orders Last 24 Hours: My Active Orders 01/08/21 Dinner Nothing per Oral Now Diet [DIET] 01/08/21 19:47 Resuscitation Status Routine 01/08/21 20:44 Albuterol [Proventil Neb Soln] 2.5 mg NEB Q4H PRN Dextrose 50% in Water 50 ml IV ONETIME PRN Dextrose [Glutose 15] 15 gm PO ONETIME PRN Dulaglutide [Trulicity] 1.5 mg IM WEEKLY HYDROmorphone [Dilaudid] 0.5 mg IVPUSH Q2H PRN Insulin Lispro [HumaLOG] See Protocol SUBCUT QIDACANDBED Lactated Ringers [Ringers, Lactated] 1,000 ml IV ASDIRECTED Ondansetron [Zofran] 4 mg IV Q4H PRN Sodium Chloride 0.9% [Saline Flush] 10 ml FLUSH ASDIRECTED PRN 01/08/21 20:44 Patient Status [ADT] Routine Ambulate [RC] QID Communication Order [RC] STAT Diabetes Education [RC] Click to Edit Height and Weight [RC] DAILY Intake and Output [RC] QSHIFT Notify Provider Consults [RC] ASDIRECTED Notify Provider Vital Signs [RC] ASDIRECTED Notify Provider [RC] PRN Oxygen Therapy [RC] PRN Peripheral IV Care [RC] . DIRECTED Pulse Oximetry [RC] CONTINUOUS RT Aerosol Therapy [RC] ASDIRECTED Up With Assistance [RC] ASDIRECTED Up to Chair [RC] QID VTE/DVT Education [RC] Per Unit Routine Vital Signs [RC] Q4H Consult to Physician [CONS] Routine Peripheral IV Insertion Adult [OM.PC] Routine Sequential Compression Device [OM.PC] Per Unit Routine VTE Pharmacological Contraindications [AST] Per Unit Routine 01/08/21 21:00 Magnesium Oxide 400 mg PO BEDTIME Metoprolol Tartrate [Lopressor] 100 mg PO BID Simvastatin [Zocor] 20 mg PO BEDTIME 01/09/21 07:30 CEA Routine 01/09/21 09:00 Empagliflozin [Jardiance] 25 mg PO DAILY Magnesium Sulfate/Water [Magnesium Sulfate in Water 2 GM/50 ML] 2 gm in 50 ml IV Q6H 01/09/21 10:00 Ampicillin/Sulbactam Na [Unasyn] 1.5 gm Sodium Chloride 0.9% [Normal Saline] 50 ml IV Q6H 01/09/21 16:30 GLUCOSE POC LAB TO COLLECT JPM [POC] QIDACANDBED 01/09/21 21:00 GLUCOSE POC LAB TO COLLECT JPM [POC] QIDACANDBED 01/10/21 05:11 PSA DIAGNOSTIC [CHEM] AM 01/10/21 07:30 GLUCOSE POC LAB TO COLLECT JPM [POC] QIDACANDBED 01/10/21 11:30 GLUCOSE POC LAB TO COLLECT JPM [POC] QIDACANDBED 01/10/21 16:30 GLUCOSE POC LAB TO COLLECT JPM [POC] QIDACANDBED 01/10/21 21:00 GLUCOSE POC LAB TO COLLECT JPM [POC] QIDACANDBED 01/11/21 07:30 GLUCOSE POC LAB TO COLLECT JPM [POC] QIDACANDBED 01/11/21 11:30 GLUCOSE POC LAB TO COLLECT JPM [POC] QIDACANDBED 01/11/21 16:30 GLUCOSE POC LAB TO COLLECT JPM [POC] QIDACANDBED 01/11/21 21:00 GLUCOSE POC LAB TO COLLECT JPM [POC] QIDACANDBED 01/12/21 07:30 GLUCOSE POC LAB TO COLLECT JPM [POC] QIDACANDBED 01/12/21 11:30 GLUCOSE POC LAB TO COLLECT JPM [POC] QIDACANDBED 01/12/21 16:30 GLUCOSE POC LAB TO COLLECT JPM [POC] QIDACANDBED 01/12/21 21:00 GLUCOSE POC LAB TO COLLECT JPM [POC] QIDACANDBED 01/13/21 07:30 GLUCOSE POC LAB TO COLLECT JPM [POC] QIDACANDBED 01/13/21 11:30 GLUCOSE POC LAB TO COLLECT JPM [POC] QIDACANDBED 01/13/21 16:30 GLUCOSE POC LAB TO COLLECT JPM [POC] QIDACANDBED 01/13/21 21:00 GLUCOSE POC LAB TO COLLECT JPM [POC] QIDACANDBED 01/14/21 07:30 GLUCOSE POC LAB TO COLLECT JPM [POC] QIDACANDBED 01/14/21 11:30 GLUCOSE POC LAB TO COLLECT JPM [POC] QIDACANDBED 01/14/21 16:30 GLUCOSE POC LAB TO COLLECT JPM [POC] QIDACANDBED 01/14/21 21:00 GLUCOSE POC LAB TO COLLECT JPM [POC] QIDACANDBED 01/15/21 07:30 GLUCOSE POC LAB TO COLLECT JPM [POC] QIDACANDBED 01/15/21 11:30 GLUCOSE POC LAB TO COLLECT JPM [POC] QIDACANDBED 01/15/21 16:30 GLUCOSE POC LAB TO COLLECT JPM [POC] QIDACANDBED 01/15/21 21:00 GLUCOSE POC LAB TO COLLECT JPM [POC] QIDACANDBED 01/16/21 07:30 GLUCOSE POC LAB TO COLLECT JPM [POC] QIDACANDBED 01/16/21 11:30 GLUCOSE POC LAB TO COLLECT JPM [POC] QIDACANDBED 01/16/21 16:30 GLUCOSE POC LAB TO COLLECT JPM [POC] QIDACANDBED 01/16/21 21:00 GLUCOSE POC LAB TO COLLECT JPM [POC] QIDACANDBED 01/17/21 07:30 GLUCOSE POC LAB TO COLLECT JPM [POC] QIDACANDBED 01/17/21 11:30 GLUCOSE POC LAB TO COLLECT JPM [POC] QIDACANDBED 01/17/21 16:30 GLUCOSE POC LAB TO COLLECT JPM [POC] QIDACANDBED 01/17/21 21:00 GLUCOSE POC LAB TO COLLECT JPM [POC] QIDACANDBED 01/18/21 07:30 GLUCOSE POC LAB TO COLLECT JPM [POC] QIDACANDBED 01/18/21 11:30 GLUCOSE POC LAB TO COLLECT JPM [POC] QIDACANDBED 01/18/21 16:30 GLUCOSE POC LAB TO COLLECT JPM [POC] QIDACANDBED - Plan Plan:: ASSESSMENT AND PLAN ABDOMINAL PAIN-progressive weight loss over the last 3 months, with left lower quadrant abdominal pain over the last 6 days. White blood cell count is elevated. CT scan of the abdomen and pelvis shows dilated loop of small bowel with thickening of the wall, consistent with malignancy and/or infection. White blood cell count has remained elevated since admission -N.p.o. -IV fluids for hydration -Pain and nausea medication as needed -Unasyn 1.5 g IV every 6 hours -Surgical management per Dr. Burkett TYPE 2 DIABETES MELLITUS -Continue Jardiance and Trulicity -Hold Metformin -4 times daily glucometers -Moderate dose sliding scale Humalog PAROXYSMAL ATRIAL FIBRILLATION STATUS POST ABLATION-INR improved following IV vitamin K -Hold warfarin -Recheck INR in a.m. COPD-he reports developing shortness of breath with moderate levels of exertion, does not require home oxygen -Nebulized albuterol as needed -will require vigorous pulmonary toilet postoperatively CORONARY ARTERY DISEASE-status post 2 angioplasties and stents several years ago. Currently asymptomatic -Continue outpatient medications MAINTENANCE ISSUES -DVT prophylaxis; SCUDs -GI prophylaxis; not indicated -Preciado catheter; not indicated -Nutrition; n.p.o. -Nicotine dependence; not required CODE STATUS-full code ADMISSION STATUS-patient will be admitted to inpatient status, expect at least a 2 night hospital stay for evaluation and management of problems as outlined above. At the time of this admission I do not reasonably expected evaluation and management of this problem will require more than a 96 hour hospital stay. DISPOSITION-anticipate discharge to home after the hospital stay. PRIMARY CARE PROVIDER-Dr. Portillo
[2021-01-09] MEDS ORDERED: Dextrose 5%-Ringers 1,000 ML ONE (12:41)
[2021-01-09] MEDS ORDERED: Ampicillin/Sulbactam Na 1.5 GM in Sodium Chloride 0.9% 50 ML IV ONE (13:15)
[2021-01-09] MEDS ORDERED: Glucose Gel 15 GM in 37.5 GM Tube PO PRN (15:26)
[2021-01-09] MEDS ORDERED: Insulin Lispro 100 Unit/ML 3 ML KwikPen SUBCUT PRN (15:26)
[2021-01-09] MEDS ORDERED: Glucagon,Human Recombinant 1 MG Vial IM PRN (15:26)
[2021-01-09] MEDS ORDERED: 50% Dextrose in Water 50 ML Syringe IVPUSH PRN (15:26)
[2021-01-09] MEDS ORDERED: Dextrose 5%-Lactated Ringers 1,000 ML IV SCH (15:30)
[2021-01-09] MEDS ORDERED: Albuterol/Ipratropium 3.0-0.5 MG/3 ML Neb Soln INH PRN (15:32)
--- NOTE | 2021-01-09 15:38 | CR ---
CHEST: Portable 01/09/2021 at 2:25 PM CLINICAL HISTORY:Central line insertion COMPARISON:01/08/2021 FINDINGS: Patient has had placement of a left subclavian catheter. The tip is in the superior vena cava. There is no pneumothorax. There is increasing opacification and volume loss in the right upper lung.. There is some postoperative free intraperitoneal air. IMPRESSION: Interval placement of a left subclavian catheter area tip is in superior vena cava Increasing opacification and volume loss in the right upper lobe.
[2021-01-09] MEDS ORDERED: Nitroglycerin 0.4 MG Tab.SL SL PRN (15:44)
[2021-01-09] MEDS ORDERED: Cyclobenzaprine 10 MG Tab PO PRN (15:45)
[2021-01-09] MEDS: Nystatin Ointment 15 GM Tube TOP SCH ×2 (16:30→21:57)
[2021-01-09] MEDS: Insulin Lispro 100 Unit/ML 3 ML KwikPen SUBCUT PRN ×2 (16:54→23:23)
[2021-01-09] MEDS: metFORMIN 500 MG Tab PO SCH (16:56)
[2021-01-09] MEDS: Pantoprazole 40 MG Vial IV SCH (16:57)
[2021-01-09] MEDS: Ampicillin/Sulbactam Na 3 GM in Sodium Chloride 0.9% 100 ML IV SCH (18:19)
[2021-01-09] MEDS ORDERED: Tranexamic Acid 800 MG in Sodium Chloride 0.9% 50 ML IV ONE ×2 (19:45→22:45)
[2021-01-09] MEDS: Albuterol/Ipratropium 3.0-0.5 MG/3 ML Neb Soln INH SCH (21:52)
[2021-01-10] MEDS: Ampicillin/Sulbactam Na 3 GM in Sodium Chloride 0.9% 100 ML IV SCH ×5 (01:03→23:58)
[2021-01-10] MEDS: Lactated Ringers 1,000 ML IV SCH (03:16)
[2021-01-10] MEDS ORDERED: Lactated Ringers 500 ML IV SCH (03:45)
[2021-01-10] MEDS: Insulin Lispro 100 Unit/ML 3 ML KwikPen SUBCUT PRN ×4 (05:24→22:16)
[2021-01-10] MEDS ORDERED: Lidocaine 1% with EPINEPHrine 1:100,000 50 ML MDV INJECT ONE (06:00)
[2021-01-10] MEDS ORDERED: Lidocaine 1% with EPINEPHrine 1:100,000 50 ML MDV ONE (06:06)
[2021-01-10] MEDS ORDERED: Insulin Glargine,Human Rec. Analog 100 Units/ML 3 ML Pen SUBCUT ONE (07:00)
[2021-01-10] MEDS: Albuterol/Ipratropium 3.0-0.5 MG/3 ML Neb Soln INH SCH ×4 (07:15→20:30)
[2021-01-10] MEDS ORDERED: Central Total Parenteral Nutrition Bag SCH (08:00)
[2021-01-10] MEDS: Metoprolol Tartrate 50 MG Tab PO SCH ×2 (09:55→20:31)
[2021-01-10] MEDS: metFORMIN 500 MG Tab PO SCH ×2 (09:57→17:03)
[2021-01-10] MEDS: Aspirin 325 MG Tab.EC PO SCH (09:57)
[2021-01-10] MEDS: Nystatin Ointment 15 GM Tube TOP SCH ×3 (09:57→20:30)
[2021-01-10] MEDS ORDERED: Lactated Ringers 1,000 ML IV SCH (10:00)
--- NOTE | 2021-01-10 10:50 | PN ---
DATE OF SERVICE: 01/10/2021 SUBJECTIVE: Ha is postoperative day #1. He had quite a bit of bleeding from his open incision site. This was sutured to stop the bleeding at bedside per Shaw Burkett MD. His pain has been controlled with the [employer]. Vital signs have been stable. He has been weak, dizzy when sitting on the edge of the bed. White count was 26.4, hemoglobin 10.5. REVIEW OF SYSTEMS: Remainder of review of systems negative for any pertinent positives and negatives. OBJECTIVE: GENERAL: Ha is a pleasant 65-year-old male, color pale. VITAL SIGNS: TPR 97.8, 88, 16, blood pressure 110/70. HEENT: Negative. NECK: Supple. HEART: Regular rate and rhythm. LUNGS: Clear. ABDOMEN: Packing was replaced and dressing applied after suturing of the incision to stop the bleeding. ROHIT drains are intact and have put out 40 and 5 mL respectively. ROHIT drain #1 is bile colored. EXTREMITIES: Without peripheral edema. ASSESSMENT: 1. Insertion of left subclavian triple-lumen catheter. 2. Exploratory laparotomy with: a. Small-bowel resection. b. Drainage of intraabdominal abscess. c. Excision of peritoneal nodule. d. Placement of Interceed mesh. POSTOPERATIVE DIAGNOSES: 1. Inadequate central venous access. 2. Perforated mass, small bowel adjacent abscess between the small bowel and urinary bladder. 3. Peritoneal nodule, left pelvic sidewall. 4. Date of procedure: 01/09/2021. Surgeon: Shaw Burkett MD. PLAN: 1. Schedule and have consent signed for delayed primary closure with IV local and TAP block on 01/11/2021 at 07:15. Surgeon: Shaw Burkett MD. 2. N.p.o. after midnight. 3. Lactated Ringer's IV at 100 mL now and turn to TKO when TPN is started. 4. Lantus 10 units now. 5. Start TPN with insulin. Copy of orders was faxed to Pharmacy. 6. Check CBC at 1600. 7. Check CBC, CMP, mag, phos in a.m. 8. Continue use of incentive spirometer and we will evaluate p.r.n. or in a.m. Yanet Harper PA-C /[id number]
[2021-01-10] MEDS: HYDROmorphone/Normal Saline 15 MG/30 ML PCA IV PRN (11:59)
--- NOTE | 2021-01-10 12:14 | PCM.PN ---
- General Info Date of Service: 01/10/21 Subjective Update: Mr. Lopez unfortunately experienced some bleeding through the night, he has been seen and evaluated by Dr. Burkett and bleeding has stopped at this point. CT scan of the chest is still pending, it was held this morning because of lightheadedness associated with the bleeding. He otherwise has been stable and has remained afebrile. White blood cell count remains significantly elevated. Functional Status: Reports: Ambulating - Review of Systems General: Reports: Weakness, Fatigue. Denies: Fever, Chills Pulmonary: Reports: No Symptoms Cardiovascular: Reports: No Symptoms Gastrointestinal: Reports: Abdominal Pain. Denies: Difficulty Swallowing, Hematochezia, Melena, Nausea, Vomiting Genitourinary: Reports: No Symptoms - Patient Data Vitals - Most Recent: Last Vital Signs Temp 97.8 F 01/10/21 10:47 Pulse 82 01/10/21 11:02 Resp 16 01/10/21 10:47 BP 102/62 01/10/21 10:47 Pulse Ox 96 01/10/21 10:47 Weight - Most Recent: 171 lb I&O - Last 24 Hours: Intake & Output 01/09/21 01/10/21 01/10/21 22:59 06:59 14:59 Intake Total 835 2747 Output Total 1610 950 115 Balance -775 1797 -115 Lab Results Last 24 Hours: Laboratory Results - last 24 hr 01/09/21 01/09/21 01/09/21 Range/Units 07:30 16:30 20:56 WBC (4.5-11.0) K/uL RBC (4.30-5.90) M/uL Hgb (12.0-15.0) g/dL Hct (40.0-54.0) % MCV (80-98) fL MCH (27-31) pg MCHC (32-36) % Plt Count (150-400) K/uL Neut % (Auto) (36-66) % Lymph % (Auto) (24-44) % [place] % (Auto) (2-6) % Eos % (Auto) (2-4) % Baso % (Auto) (0-1) % PT (9.5-12.0) sec INR (0.80-1.20) Sodium (140-148) mmol/L Potassium (3.6-5.2) mmol/L Chloride (100-108) mmol/L Carbon Dioxide (21-32) mmol/L Anion Gap (5.0-14.0) mmol/L BUN (7-18) mg/dL Creatinine (0.8-1.3) mg/dL Est Cr Clr Drug Dosing mL/min Estimated GFR (MDRD) (>60) Glucose (74-106) mg/dL POC Glucose 319 H 326 H (74-106) MG/DL Calcium (8.5-10.1) mg/dL Phosphorus (2.5-4.9) mg/dL Magnesium (1.8-2.4) mg/dL Total Bilirubin (0.2-1.0) mg/dL AST (15-37) U/L ALT (12-78) U/L Alkaline Phosphatase (46-116) U/L Total Protein (6.4-8.2) g/dL Albumin (3.4-5.0) g/dL Globulin (2.3-3.5) g/dL Albumin/Globulin Ratio (1.2-2.2) Carcinoembryonic Ag 17.9 H (0.0-4.7) ng/mL Prostate Specific Ag (0.0-4.0) ug/L Blood Type Gel Antibody Screen 01/10/21 01/10/21 01/10/21 Range/Units 04:07 04:07 04:07 WBC 26.4 H (4.5-11.0) K/uL RBC 3.59 L (4.30-5.90) M/uL Hgb 10.5 L (12.0-15.0) g/dL Hct 33.2 L (40.0-54.0) % MCV 93 (80-98) fL MCH 29 (27-31) pg MCHC 32 (32-36) % Plt Count 397 (150-400) K/uL Neut % (Auto) 87 H (36-66) % Lymph % (Auto) 5 L (24-44) % [place] % (Auto) 9 H (2-6) % Eos % (Auto) 0 L (2-4) % Baso % (Auto) 0 (0-1) % PT (9.5-12.0) sec INR (0.80-1.20) Sodium 140 (140-148) mmol/L Potassium 4.8 (3.6-5.2) mmol/L Chloride 104 (100-108) mmol/L Carbon Dioxide 25 (21-32) mmol/L Anion Gap 11.3 (5.0-14.0) mmol/L BUN 19 H (7-18) mg/dL Creatinine 0.7 L (0.8-1.3) mg/dL Est Cr Clr Drug Dosing 110.69 mL/min Estimated GFR (MDRD) > 60 (>60) Glucose 341 H (74-106) mg/dL POC Glucose (74-106) MG/DL Calcium 8.5 (8.5-10.1) mg/dL Phosphorus 3.6 (2.5-4.9) mg/dL Magnesium 1.9 (1.8-2.4) mg/dL Total Bilirubin 0.4 (0.2-1.0) mg/dL AST 23 D (15-37) U/L ALT 23 (12-78) U/L Alkaline Phosphatase 86 (46-116) U/L Total Protein 5.3 L (6.4-8.2) g/dL Albumin 2.1 L (3.4-5.0) g/dL Globulin 3.2 (2.3-3.5) g/dL Albumin/Globulin Ratio 0.7 L (1.2-2.2) Carcinoembryonic Ag (0.0-4.7) ng/mL Prostate Specific Ag 14.2 H (0.0-4.0) ug/L Blood Type Gel Antibody Screen 01/10/21 01/10/21 01/10/21 Range/Units 04:07 04:07 10:20 WBC (4.5-11.0) K/uL RBC (4.30-5.90) M/uL Hgb (12.0-15.0) g/dL Hct (40.0-54.0) % MCV (80-98) fL MCH (27-31) pg MCHC (32-36) % Plt Count (150-400) K/uL Neut % (Auto) (36-66) % Lymph % (Auto) (24-44) % [place] % (Auto) (2-6) % Eos % (Auto) (2-4) % Baso % (Auto) (0-1) % PT 19.4 H (9.5-12.0) sec INR 1.80 H (0.80-1.20) Sodium (140-148) mmol/L Potassium (3.6-5.2) mmol/L Chloride (100-108) mmol/L Carbon Dioxide (21-32) mmol/L Anion Gap (5.0-14.0) mmol/L BUN (7-18) mg/dL Creatinine (0.8-1.3) mg/dL Est Cr Clr Drug Dosing mL/min Estimated GFR (MDRD) (>60) Glucose (74-106) mg/dL POC Glucose 306 H (74-106) MG/DL Calcium (8.5-10.1) mg/dL Phosphorus (2.5-4.9) mg/dL Magnesium (1.8-2.4) mg/dL Total Bilirubin (0.2-1.0) mg/dL AST (15-37) U/L ALT (12-78) U/L Alkaline Phosphatase (46-116) U/L Total Protein (6.4-8.2) g/dL Albumin (3.4-5.0) g/dL Globulin (2.3-3.5) g/dL Albumin/Globulin Ratio (1.2-2.2) Carcinoembryonic Ag (0.0-4.7) ng/mL Prostate Specific Ag (0.0-4.0) ug/L Blood Type O NEGATIVE Gel Antibody Screen Negative Ke Results Last 24 Hours: Microbiology 01/09/21 13:15 Gram Stain - Final Abdomen - Abscess Wound Culture - Preliminary Anaerobic Culture - Preliminary NO GROWTH AFTER 1 DAY Med Orders - Current: Current Medications Albuterol/Ipratropium (Albuterol/Ipratropium 3.0-0.5 Mg/3 Ml Neb Soln) 3 ml INH QIDRT [facility] Last Admin: 01/10/21 11:02 Dose: 3 ml Documented by: Albuterol/Ipratropium (Albuterol/Ipratropium 3.0-0.5 Mg/3 Ml Neb Soln) 3 ml INH ASDIRECTED PRN PRN Reason: Shortness of Breath Aspirin (Aspirin 325 Mg Tab.Ec) 325 mg PO DAILY [facility] Last Admin: 01/10/21 09:57 Dose: 325 mg Documented by: Ropivacaine 37 ml/Dexamethasone 8 mg/Epinephrine HCl 0.4 mg/ Sodium Chloride 40.6 ml 0 ml NERVRT ASDIRECTED [facility] Cyclobenzaprine HCl (Cyclobenzaprine 10 Mg Tab) 10 mg PO Q6H PRN PRN Reason: MUSCLE SPASM Dextrose (Glucose Gel 15 Gm In 37.5 Gm Tube) 15 gm PO ASDIRECTED PRN PRN Reason: HYPOGLYCEMIA Dextrose/Water (50% Dextrose In Water 50 Ml Syringe) 50 ml IVPUSH ASDIRECTED PRN PRN Reason: HYPOGLYCEMIA Glucagon (Glucagon,Human Recombinant 1 Mg Vial) 1 mg IM ASDIRECTED PRN PRN Reason: HYPOGLYCEMIA Heparin Sodium (Porcine) (Heparin Sodium 100 Units/Ml 5 Ml Syringe) 500 units FLUSH ASDIRECTED PRN PRN Reason: Other Last Admin: 01/10/21 09:54 Dose: 500 units Documented by: Hydromorphone HCl (Hydromorphone/Normal Saline 15 Mg/30 Ml [employer]) 0 mg IV ASDIRECTED PRN; Protocol 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 Last Admin: 01/10/21 11:59 Dose: 15 mg Documented by: Hydroxyzine HCl (Hydroxyzine Hcl 100 Mg/2 Ml Sdv) 100 mg IM Q4H PRN PRN Reason: PAIN Ampicillin Sodium/Sulbactam (Sodium 3 gm/ Sodium Chloride) 100 mls @ 200 mls/hr IV Q6H [facility] Last Admin: 01/10/21 06:38 Dose: 200 mls/hr Documented by: Aztreonam 1 gm/ Sodium (Chloride) 50 mls @ 100 mls/hr IV Q8H [facility] Last Admin: 01/10/21 05:26 Dose: 100 mls/hr Documented by: Lactated Ringer's (Ringers, Lactated) 1,000 mls @ 0 mls/hr IV ASDIRECTED [facility] Multivitamins/Minerals 10 ml/Zinc 1 ml/ Amino Ac/Electrol/Dextrose/Calcium 1,011 mls @ 82 mls/hr IV .BY DURATION [facility] Amino Ac/Electrol/Dextrose/Calcium (Clinimix E 15) 1,000 mls @ 82 mls/hr IV .BY DURATION [facility] Insulin Human Lispro (Insulin Lispro 100 Unit/Ml 3 Ml Kwikpen) 0 unit SUBCUT Q6H PRN; Protocol PRN Reason: MEDIUM CORRECTIONAL DOSING Last Admin: 01/10/21 10:50 Dose: 7 units Documented by: Metformin HCl (Metformin 500 Mg Tab) 1,000 mg PO BIDMEALS [facility] Last Admin: 01/10/21 09:57 Dose: 1,000 mg Documented by: Metoprolol Tartrate (Metoprolol Tartrate 50 Mg Tab) 100 mg PO BID [facility] Last Admin: 01/10/21 09:55 Dose: 100 mg Documented by: Naloxone HCl (Naloxone 0.4 Mg/Ml Sdv) 0.1 mg IV ASDIRECTED PRN PRN Reason: decreased respiratory rate Nitroglycerin (Nitroglycerin 0.4 Mg Tab.Sl) 0.4 mg SL ASDIRECTED PRN PRN Reason: CHEST PAIN Non-Formulary Medication (Tap Block 1 Ml Bag) 0 ml NERVRT ONETIME ONE Stop: 01/11/21 07:16 Nystatin (Nystatin Ointment 15 Gm Tube) 0 gm TOP TID [facility] Last Admin: 01/10/21 09:57 Dose: 1 applic Documented by: Ondansetron HCl (Ondansetron 4 Mg/2 Ml Sdv) 4 mg IV Q4H PRN PRN Reason: Nausea/Vomiting Pantoprazole Sodium (Pantoprazole 40 Mg Vial) 40 mg IV Q24H [facility] Last Admin: 01/09/21 16:57 Dose: 40 mg Documented by: Senna/Docusate Sodium (Docusate Sodium/Sennosides 50-8.6 Mg Tab) 2 tab PO BID [facility] Last Admin: 01/10/21 09:55 Dose: 2 tab Documented by: Sodium Chloride (Sodium Chloride 0.9% 10 Ml Syringe) 10 ml FLUSH ASDIRECTED PRN PRN Reason: Keep Vein Open Discontinued Medications Albuterol (Albuterol 0.083% 2.5 Mg/3 Ml Neb Soln) 2.5 mg NEB Q4H PRN PRN Reason: Shortness Of Breath/wheezing Albuterol/Ipratropium (Albuterol/Ipratropium 3.0-0.5 Mg/3 Ml Neb Soln) 3 ml NEB ONCALL ONE Stop: 01/09/21 11:16 Last Admin: 01/09/21 11:05 Dose: 3 ml Documented by: Aztreonam (Aztreonam 1 Gm Vial) Confirm Administered Dose 1 gm .ROUTE .STK-MED ONE Stop: 01/09/21 13:49 Last Admin: 01/09/21 14:45 Dose: 1 gm Documented by: Bupivacaine HCl (Bupivacaine 0.5% 50 Ml Mdv) Confirm Administered Dose 50 ml .ROUTE .STK-MED ONE Stop: 01/09/21 11:31 Ropivacaine 37 ml/Dexamethasone 8 mg/Epinephrine HCl 0.4 mg/ Sodium Chloride 40.6 ml 0 ml NERVRT ASDIRECTED [facility] Last Admin: 01/09/21 12:56 Dose: 80 syringe Documented by: Dexamethasone (Dexamethasone 4 Mg/Ml Sdv) Confirm Administered Dose 4 mg .ROUTE .STK-MED ONE Stop: 01/09/21 10:11 Dextrose/Water (50% Dextrose In Water 50 Ml Syringe) 50 ml IVPUSH ASDIRECTED PRN PRN Reason: Hypoglycemia Fentanyl (Fentanyl 250 Mcg/5 Ml Sdv) Confirm Administered Dose 250 mcg .ROUTE .STK-MED ONE Stop: 01/09/21 10:14 Fentanyl (Fentanyl 250 Mcg/5 Ml Sdv) Confirm Administered Dose 250 mcg .ROUTE .ST-MED ONE Stop: 01/09/21 12:48 Glucagon (Glucagon,Human Recombinant 1 Mg Vial) 1 mg IM ASDIRECTED PRN PRN Reason: Hypoglycemia Glycopyrrolate (Glycopyrrolate 0.2 Mg/Ml 5 Ml Mdv) Confirm Administered Dose 1 mg .ROUTE .STK-MED ONE Stop: 01/09/21 10:11 Heparin Sodium (Porcine) (Heparin Sodium 100 Units/Ml 5 Ml Syringe) Confirm Administered Dose 500 units .ROUTE .STK-MED ONE Stop: 01/09/21 11:31 Last Admin: 01/09/21 14:21 Dose: 500 units Documented by: Hydromorphone HCl (Hydromorphone 0.5 Mg/0.5 Ml Syringe) 0.5 mg IVPUSH ONETIME ONE Stop: 01/08/21 19:31 Last Admin: 01/08/21 19:42 Dose: 0.5 mg Documented by: Hydromorphone HCl (Hydromorphone 0.5 Mg/0.5 Ml Syringe) 0.5 mg IVPUSH Q2H PRN PRN Reason: Pain Last Admin: 01/09/21 06:13 Dose: 0.5 mg Documented by: Sodium Chloride (Normal Saline) 1,000 mls @ 500 mls/hr IV .BOLUS STA Stop: 01/08/21 18:34 Last Admin: 01/08/21 17:59 Dose: 500 mls/hr Documented by: Sodium Chloride (Normal Saline) 75 mls @ 3 mls/sec IV ASDIRECTED [facility] Last Admin: 01/08/21 18:11 Dose: 3 mls/sec Documented by: Piperacillin Sod/Tazobactam (Sod 4.5 gm/ Sodium Chloride) 100 mls @ 100 mls/hr IV ONETIME ONE Stop: 01/08/21 20:10 Last Admin: 01/08/21 19:42 Dose: 100 mls/hr Documented by: Phytonadione 5 mg/ Sodium (Chloride) 50.5 mls @ 100 mls/hr IV NOW ONE Stop: 01/08/21 20:06 Last Admin: 01/08/21 20:47 Dose: 100 mls/hr Documented by: Lactated Ringer's (Ringers, Lactated) 1,000 mls @ 125 mls/hr IV ASDIRECTED [facility] Last Admin: 01/09/21 06:10 Dose: 125 mls/hr Documented by: Ampicillin Sodium/Sulbactam (Sodium 1.5 gm/ Sodium Chloride) 50 mls @ 100 mls/hr IV Q6H [facility] Last Admin: 01/09/21 03:21 Dose: 100 mls/hr Documented by: Ampicillin Sodium/Sulbactam (Sodium 1.5 gm/ Sodium Chloride) 50 mls @ 100 mls/hr IV Q6H [facility] Last Admin: 01/09/21 10:32 Dose: 100 mls/hr Documented by: Ketamine HCl 50 mg/ Sodium (Chloride) 50 mls @ 22.5 mls/hr IV ASDIRECTED [facility] Magnesium Sulfate (Magnesium Sulfate In Water 2 Gm/50 Ml) 2 gm in 50 mls @ 25 mls/hr IV Q6H [facility] Stop: 01/09/21 16:59 Last Admin: 01/09/21 15:19 Dose: 25 mls/hr Documented by: Lactated Ringer's (Ringers, Lactated) Confirm Administered Dose 1,000 mls @ as directed .ROUTE .STK-MED ONE Stop: 01/09/21 10:14 Linezolid (Zyvox) Confirm Administered Dose 300 mls @ as directed .ROUTE .[facility] ONE Stop: 01/09/21 11:32 Dextrose/Ringer's (Dextrose 5%-Ringers) Confirm Administered Dose 1,000 mls @ as directed .ROUTE .[facility] ONE Stop: 01/09/21 12:42 Lactated Ringer's (Ringers, Lactated) Confirm Administered Dose 1,000 mls @ as directed .ROUTE .[facility] ONE Stop: 01/09/21 12:43 Ampicillin Sodium/Sulbactam (Sodium 1.5 gm/ Sodium Chloride) 50 mls @ 100 mls/hr IV ONETIME ONE Stop: 01/09/21 13:44 Last Admin: 01/09/21 13:20 Dose: 100 mls/hr Documented by: Dextrose/Lactated Ringer's (Dextrose 5%-Lactated Ringers) 1,000 mls @ 80 mls/hr IV ASDIRECTED [facility] Last Admin: 01/09/21 23:28 Dose: 80 mls/hr Documented by: Lactated Ringer's (Ringers, Lactated) 1,000 mls @ 120 mls/hr IV ASDIRECTED [facility] Last Admin: 01/10/21 03:16 Dose: 120 mls/hr Documented by: Tranexamic Acid 800 mg/ Sodium (Chloride) 58 mls @ 200 mls/hr IV ONETIME ONE Stop: 01/09/21 20:02 Last Admin: 01/09/21 20:19 Dose: 200 mls/hr Documented by: Tranexamic Acid 800 mg/ Sodium (Chloride) 58 mls @ 200 mls/hr IV ONETIME ONE Stop: 01/09/21 23:02 Last Admin: 01/09/21 23:02 Dose: 200 mls/hr Documented by: Lactated Ringer's (Ringers, Lactated) 500 mls @ 500 mls/hr IV .BOLUS [facility] Last Admin: 01/10/21 04:39 Dose: 500 mls/hr Documented by: Insulin Glargine (Insulin Glargine,Human Rec. Analog 100 Units/Ml 3 Ml Pen) 10 units SUBCUT ONETIME ONE Stop: 01/10/21 07:01 Last Admin: 01/10/21 07:40 Dose: 10 units Documented by: Insulin Human Lispro (Insulin Lispro 100 Unit/Ml 3 Ml Kwikpen) 0 unit SUBCUT QIDACANDBED [facility]; Protocol Last Admin: 01/09/21 12:34 Dose: Not Given Documented by: Insulin Human Regular (Insulin Regular, Human 100 Units/Ml 3 Ml Vial) 14 unit SUBCUT ONETIME ONE Stop: 01/08/21 19:15 Last Admin: 01/08/21 19:48 Dose: 14 unit Documented by: Iopamidol (Iopamidol 612 Mg/Ml 100 Ml Bottle) 117 ml IV . DIRECTED [facility] Last Admin: 01/08/21 18:11 Dose: 117 ml Documented by: Ketamine HCl (Ketamine 500 Mg/5 Ml Mdv) 0 mg IV BOLUS [facility] Ketamine HCl (Ketamine 500 Mg/5 Ml Mdv) 0 mg IV ASDIRECTED [facility] Ketamine HCl (Ketamine 500 Mg/5 Ml Mdv) 38 mg IV ASDIRECTED [facility] Lidocaine/Epinephrine (Lidocaine 1% With Epinephrine 1:100,000 50 Ml Mdv) Confirm Administered Dose 50 ml .ROUTE .STK-MED ONE Stop: 01/09/21 11:32 Lidocaine/Epinephrine (Lidocaine 1% With Epinephrine 1:100,000 50 Ml Mdv) 50 ml INJECT ONETIME ONE Stop: 01/10/21 06:01 Last Admin: 01/10/21 06:55 Dose: 5 ml Documented by: Lidocaine/Epinephrine (Lidocaine 1% With Epinephrine 1:100,000 50 Ml Mdv) Confirm Administered Dose 50 ml .ROUTE .STK-MED ONE Stop: 01/10/21 06:07 Last Admin: 01/10/21 06:11 Dose: Not Given Documented by: Magnesium Oxide (Magnesium Oxide 400 Mg Tab) 400 mg PO BEDTIME [facility] Last Admin: 01/08/21 21:40 Dose: 400 mg Documented by: Meropenem (Meropenem 500 Mg Sdv) Confirm Administered Dose 500 mg .ROUTE .STK- MED ONE Stop: 01/09/21 11:32 Last Admin: 01/09/21 13:02 Dose: 500 mg Documented by: Neostigmine Methylsulfate (Neostigmine Methylsulfate 1 Mg/Ml 5 Ml Syringe) Confirm Administered Dose 5 mg .ROUTE .STK-MED ONE Stop: 01/09/21 10:11 Non-Formulary Medication (Tap Block 1 Ml Bag) 0 ml NERVRT ONETIME ONE Stop: 01/09/21 13:01 Non-Formulary Medication (Central Total Parenteral Nutrition Bag) 1,000 ml .XX .Continue Order [facility] Stop: 01/10/21 08:01 Ondansetron HCl (Ondansetron 4 Mg/2 Ml Sdv) Confirm Administered Dose 4 mg .ROUTE .STK-MED ONE Stop: 01/09/21 10:11 Propofol (Propofol 200 Mg/20 Ml Sdv) Confirm Administered Dose 200 mg .ROUTE .STK-MED ONE Stop: 01/09/21 10:11 Rocuronium [place] (Rocuronium 50 Mg/5 Ml Vial) Confirm Administered Dose 50 mg .ROUTE .STK-MED ONE Stop: 01/09/21 10:11 Simvastatin (Simvastatin 20 Mg Tab) 20 mg PO BEDTIME [facility] Last Admin: 01/08/21 21:40 Dose: 20 mg Documented by: Sodium Chloride (Sodium Chloride 0.9% 10 Ml Syringe) 10 ml FLUSH ASDIRECTED PRN PRN Reason: Keep Vein Open Sodium Chloride (Sodium Chloride 0.9% 10 Ml Syringe) 10 ml FLUSH ONETIME ONE Stop: 01/08/21 16:47 Last Admin: 01/08/21 18:11 Dose: 10 ml Documented by: Succinylcholine Chloride (Succinylcholine 200 Mg/10 Ml Mdv) Confirm Administered Dose 200 mg .ROUTE .STK-MED ONE Stop: 01/09/21 10:11 - Exam Quality Assessment: Central Line/PICC, Urine Catheter, DVT Prophylaxis General: Alert, Oriented, Cooperative, Moderate Distress Lungs: Clear to Auscultation, Normal Respiratory Effort Cardiovascular: Regular Rate, Regular Rhythm, No Murmurs Extremities: Non-Tender, No Pedal Edema - Patient Data Lab Results Last 24 hrs: Laboratory Results - last 24 hr 01/09/21 01/09/21 01/09/21 Range/Units 07:30 16:30 20:56 WBC (4.5-11.0) K/uL RBC (4.30-5.90) M/uL Hgb (12.0-15.0) g/dL Hct (40.0-54.0) % MCV (80-98) fL MCH (27-31) pg MCHC (32-36) % Plt Count (150-400) K/uL Neut % (Auto) (36-66) % Lymph % (Auto) (24-44) % [place] % (Auto) (2-6) % Eos % (Auto) (2-4) % Baso % (Auto) (0-1) % PT (9.5-12.0) sec INR (0.80-1.20) Sodium (140-148) mmol/L Potassium (3.6-5.2) mmol/L Chloride (100-108) mmol/L Carbon Dioxide (21-32) mmol/L Anion Gap (5.0-14.0) mmol/L BUN (7-18) mg/dL Creatinine (0.8-1.3) mg/dL Est Cr Clr Drug Dosing mL/min Estimated GFR (MDRD) (>60) Glucose (74-106) mg/dL POC Glucose 319 H 326 H (74-106) MG/DL Calcium (8.5-10.1) mg/dL Phosphorus (2.5-4.9) mg/dL Magnesium (1.8-2.4) mg/dL Total Bilirubin (0.2-1.0) mg/dL AST (15-37) U/L ALT (12-78) U/L Alkaline Phosphatase (46-116) U/L Total Protein (6.4-8.2) g/dL Albumin (3.4-5.0) g/dL Globulin (2.3-3.5) g/dL Albumin/Globulin Ratio (1.2-2.2) Carcinoembryonic Ag 17.9 H (0.0-4.7) ng/mL Prostate Specific Ag (0.0-4.0) ug/L Blood Type Gel Antibody Screen 01/10/21 01/10/21 01/10/21 Range/Units 04:07 04:07 04:07 WBC 26.4 H (4.5-11.0) K/uL RBC 3.59 L (4.30-5.90) M/uL Hgb 10.5 L (12.0-15.0) g/dL Hct 33.2 L (40.0-54.0) % MCV 93 (80-98) fL MCH 29 (27-31) pg MCHC 32 (32-36) % Plt Count 397 (150-400) K/uL Neut % (Auto) 87 H (36-66) % Lymph % (Auto) 5 L (24-44) % [place] % (Auto) 9 H (2-6) % Eos % (Auto) 0 L (2-4) % Baso % (Auto) 0 (0-1) % PT (9.5-12.0) sec INR (0.80-1.20) Sodium 140 (140-148) mmol/L Potassium 4.8 (3.6-5.2) mmol/L Chloride 104 (100-108) mmol/L Carbon Dioxide 25 (21-32) mmol/L Anion Gap 11.3 (5.0-14.0) mmol/L BUN 19 H (7-18) mg/dL Creatinine 0.7 L (0.8-1.3) mg/dL Est Cr Clr Drug Dosing 110.69 mL/min Estimated GFR (MDRD) > 60 (>60) Glucose 341 H (74-106) mg/dL POC Glucose (74-106) MG/DL Calcium 8.5 (8.5-10.1) mg/dL Phosphorus 3.6 (2.5-4.9) mg/dL Magnesium 1.9 (1.8-2.4) mg/dL Total Bilirubin 0.4 (0.2-1.0) mg/dL AST 23 D (15-37) U/L ALT 23 (12-78) U/L Alkaline Phosphatase 86 (46-116) U/L Total Protein 5.3 L (6.4-8.2) g/dL Albumin 2.1 L (3.4-5.0) g/dL Globulin 3.2 (2.3-3.5) g/dL Albumin/Globulin Ratio 0.7 L (1.2-2.2) Carcinoembryonic Ag (0.0-4.7) ng/mL Prostate Specific Ag 14.2 H (0.0-4.0) ug/L Blood Type Gel Antibody Screen 01/10/21 01/10/21 01/10/21 Range/Units 04:07 04:07 10:20 WBC (4.5-11.0) K/uL RBC (4.30-5.90) M/uL Hgb (12.0-15.0) g/dL Hct (40.0-54.0) % MCV (80-98) fL MCH (27-31) pg MCHC (32-36) % Plt Count (150-400) K/uL Neut % (Auto) (36-66) % Lymph % (Auto) (24-44) % [place] % (Auto) (2-6) % Eos % (Auto) (2-4) % Baso % (Auto) (0-1) % PT 19.4 H (9.5-12.0) sec INR 1.80 H (0.80-1.20) Sodium (140-148) mmol/L Potassium (3.6-5.2) mmol/L Chloride (100-108) mmol/L Carbon Dioxide (21-32) mmol/L Anion Gap (5.0-14.0) mmol/L BUN (7-18) mg/dL Creatinine (0.8-1.3) mg/dL Est Cr Clr Drug Dosing mL/min Estimated GFR (MDRD) (>60) Glucose (74-106) mg/dL POC Glucose 306 H (74-106) MG/DL Calcium (8.5-10.1) mg/dL Phosphorus (2.5-4.9) mg/dL Magnesium (1.8-2.4) mg/dL Total Bilirubin (0.2-1.0) mg/dL AST (15-37) U/L ALT (12-78) U/L Alkaline Phosphatase (46-116) U/L Total Protein (6.4-8.2) g/dL Albumin (3.4-5.0) g/dL Globulin (2.3-3.5) g/dL Albumin/Globulin Ratio (1.2-2.2) Carcinoembryonic Ag (0.0-4.7) ng/mL Prostate Specific Ag (0.0-4.0) ug/L Blood Type O NEGATIVE Gel Antibody Screen Negative Result Diagrams: 01/10/21 04:07 01/10/21 04:07 Ke Results Last 24 hrs: Microbiology 01/09/21 13:15 Gram Stain - Final Abdomen - Abscess Wound Culture - Preliminary Anaerobic Culture - Preliminary NO GROWTH AFTER 1 DAY Sepsis Event Note - Evaluation Sepsis Screening Result: No Definite Risk - Focused Exam Vital Signs: Vital Signs Temp Pulse Pulse Resp BP BP Pulse Ox 01/10/21 11:02 82 01/10/21 10:47 97.8 F 78 16 102/62 96 01/10/21 09:55 81 119/65 01/10/21 08:10 97 01/10/21 08:00 97 01/10/21 07:30 97.8 F 88 16 110/70 95 01/10/21 07:15 80 01/10/21 02:57 97.7 F 77 16 105/76 98 01/10/21 01:03 94 L 01/10/21 00:28 97.7 F 74 16 112/55 L 93 L - Problem List Review Problem List Initiated/Reviewed/Updated: Yes - My Orders Last 24 Hours: My Active Orders 01/09/21 14:00 Nystatin [Nystatin Ointment] See Dose Instructions TOP TID 01/10/21 07:30 GLUCOSE POC LAB TO COLLECT JPM [POC] QIDACANDBED 01/10/21 11:30 GLUCOSE POC LAB TO COLLECT JPM [POC] QIDACANDBED 01/10/21 12:30 Dulaglutide [Trulicity] 1.5 mg SUBCUT ONETIME ONE 01/10/21 16:30 GLUCOSE POC LAB TO COLLECT JPM [POC] QIDACANDBED 01/10/21 21:00 GLUCOSE POC LAB TO COLLECT JPM [POC] QIDACANDBED 01/17/21 09:00 Dulaglutide [Trulicity] 1.5 mg SUBCUT Q7D - Plan Plan:: ASSESSMENT AND PLAN ABDOMINAL PAIN-postoperative course complicated by bleeding which has now stopped. White count remains elevated, he has been afebrile. -Blood and surgical cultures pending -N.p.o. -IV fluids for hydration -Pain and nausea medication as needed -Unasyn and Azactam pending culture results -Surgical management per Dr. Burkett TYPE 2 DIABETES MELLITUS -Continue Jardiance and Trulicity -Hold Metformin -4 times daily glucometers -Moderate dose sliding scale Humalog POSSIBLE PULMONARY MASS ON CHEST X-RAY -CT scan of chest pending PAROXYSMAL ATRIAL FIBRILLATION STATUS POST ABLATION-INR improved following IV vitamin K -Hold warfarin -Recheck INR in a.m. COPD-he reports developing shortness of breath with moderate levels of exertion, does not require home oxygen -Nebulized albuterol as needed -will require vigorous pulmonary toilet postoperatively CORONARY ARTERY DISEASE-status post 2 angioplasties and stents several years ago. Currently asymptomatic -Continue outpatient medications MAINTENANCE ISSUES -DVT prophylaxis; SCUDs -GI prophylaxis; not indicated -Preciado catheter; not indicated -Nutrition; n.p.o. -Nicotine dependence; not required CODE STATUS-full code ADMISSION STATUS-patient will be admitted to inpatient status, expect at least a 2 night hospital stay for evaluation and management of problems as outlined above. At the time of this admission I do not reasonably expected evaluation and management of this problem will require more than a 96 hour hospital stay. DISPOSITION-anticipate discharge to home after the hospital stay. PRIMARY CARE PROVIDER-Dr. Portillo
[2021-01-10] MEDS: 1: AA 5%/Calcium/D15W/Lytes 1,000 ML with MVI, Adult with Vitamin K 10 ML, Zinc/Copper/M IV SCH ×6 (12:16→23:57)
[2021-01-10] MEDS: hydrOXYzine HCL 100 MG/2 ML SDV IM PRN (16:59)
[2021-01-10] MEDS: Pantoprazole 40 MG Vial IV SCH (17:03)
[2021-01-11] MEDS: Insulin Lispro 100 Unit/ML 3 ML KwikPen SUBCUT PRN ×4 (04:26→22:27)
[2021-01-11] MEDS ORDERED: Sodium Chloride 0.9% 10 ML Syringe FLUSH ONE (05:22)
[2021-01-11] MEDS ORDERED: Sodium Chloride 0.9% 75 ML IV SCH (05:30)
[2021-01-11] MEDS ORDERED: Iopamidol 612 MG/ML 100 ML Bottle IV SCH (05:30)
[2021-01-11] MEDS: Ampicillin/Sulbactam Na 3 GM in Sodium Chloride 0.9% 100 ML IV SCH ×3 (06:04→17:51)
[2021-01-11] MEDS ORDERED: Bupivacaine 0.5% 50 ML MDV ONE (06:31)
[2021-01-11] MEDS ORDERED: Meropenem 500 MG SDV ONE (06:31)
[2021-01-11] MEDS ORDERED: Lidocaine 1% with EPINEPHrine 1:100,000 50 ML MDV ONE (06:31)
--- NOTE | 2021-01-11 06:37 | CRLCT ---
HISTORY: Right-sided pleural effusion. TECHNIQUE: Intravenous contrast enhanced CT of the chest. 100 mL of Isovue intravenous contrast administered. COMPARISON: 01/08/2021. FINDINGS: There is an collapse of the right upper lobe with a combination of atelectasis, postobstructive pneumonitis and left upper lobe mass. There is occlusion of the right upper lobe bronchus. These findings are suspicious for a malignancy and potentially primary lung cancer. Metastatic disease is also possible. mass from atelectasis and postobstructive pneumonitis is not possible on the CT. There is an area of lower attenuation within the right upper lobe posteriorly which could relate to necrosis. A small right-sided pleural effusion is present. 5 mm right lower lobe pulmonary nodule anteriorly on image #69. A trace amount of left pleural fluid. There is atelectasis within the left lower lobe. 1.9 cm nodular opacity is present within the left lower lobe on image #69 of series 3. There is no pneumothorax. - Left subclavian catheter. No thoracic aortic aneurysm. Coronary arteriosclerotic vascular calcifications are present. No significant pericardial effusion. - Limited evaluation of the upper abdomen demonstrates presence of a drain. There is free intraperitoneal air which may relate to recent abdominal surgery. - Degenerative changes of the thoracic spine. No acute fractures. IMPRESSION: 1. Occlusion of the right upper lobe bronchus with collapse of the right upper lobe with a combination of atelectasis, postobstructive pneumonitis and likely mass. There is some lower attenuation within the right upper lobe posteriorly which could relate to necrosis. These findings are highly suggestive of a malignant process and could relate to a primary lung cancer or metastatic disease. 2. 5 mm right lower lobe pulmonary nodule. 3. Small right greater than left pleural effusions. 4. Nodular opacity within the left lower lobe which could relate to a metastasis, area of rounded atelectasis or small infiltrate. 5. Free air within the upper abdomen likely related to recent abdominal surgery. Dictated by Johnathon Dickson MD @ 01/11/2021 6:34:20 AM Please note that all CT scans at this facility use dose modulation, iterative reconstruction, and/or weight-based dosing when appropriate to reduce radiation dose to as low as reasonably achievable. Dictated by: Johnathon Dickson MD @ 01/11/2021 06:34:51 (Electronically Signed)
[2021-01-11] MEDS ORDERED: fentaNYL 100 MCG/2 ML SDV ONE (07:07)
[2021-01-11] MEDS ORDERED: Midazolam 1 MG/ML 2 ML SDV ONE (07:07)
[2021-01-11] MEDS ORDERED: Propofol 200 MG/20 ML SDV ONE (07:07)
[2021-01-11] MEDS ORDERED: Central Total Parenteral Nutrition Bag SCH (07:15)
[2021-01-11] MEDS: Albuterol/Ipratropium 3.0-0.5 MG/3 ML Neb Soln INH SCH ×4 (08:05→20:15)
--- NOTE | 2021-01-11 08:19 | PN ---
DATE OF SERVICE: 01/11/2021 SUBJECTIVE: Ha states he had quite a bit of pain yesterday. States the [employer] helped, but only lasted for a short period of time. He would fall asleep and wake up in pain. He has been up ambulating. Hemoglobin 9.5, phosphorus 2, magnesium 1.6. Blood sugars have been high, running in the past 24 hours starting at 7:40, 341, 306, 304, 304, and this morning blood sugar was 332. Hemoglobin was 9.5. He has had no further bleeding from the incision. Phosphorus 2, magnesium 1.6, albumin remains at 2.1. REVIEW OF SYSTEMS: Remainder of review of systems negative for any pertinent positives and negatives. OBJECTIVE: GENERAL: Ha Lopez is a pleasant 65-year-old male. He is alert and orientated. VITAL SIGNS: TPR 97.5, 84, 18, blood pressure 130/78. HEENT: Negative. NECK: Supple. HEART: Regular rate and rhythm. LUNGS: Clear. ABDOMEN: Dressings dry and intact. He has 2 ROHIT drains. ROHIT drain #1 drained 250 mL of a bile-colored drainage and ROHIT drain #2 drained 195 of a serosanguineous drainage. Abdominal binder has been on. EXTREMITIES: Without peripheral edema. ASSESSMENT: 1. Insertion of left subclavian triple-lumen catheter. 2. Exploratory laparotomy with: a. Small bowel resection. b. Drainage of intraabdominal abscess. c. Excision of peritoneal nodule. d. Placement of Interceed mesh. POSTOPERATIVE DIAGNOSES: 1. Inadequate central vein access. 2. Perforated mass small bowel adjacent to abscess between the small bowel and urinary bladder. 3. Peritoneal nodule, left pelvic sidewall. 4. Date of procedure: 01/09/2021. Surgeon: Shaw Burkett MD. PLAN: 1. Delayed primary closure is scheduled for today. He is n.p.o. 2. Jardiance 25 mg p.o. once daily to start after delayed primary closure. 3. Magnesium 2 g IV q.6 x72 hours. 4. K-Phos 60 millimoles IV 1 time. 5. Continue same TPN rate and content. 6. Albumin 25 g IV q.3 days. 7. Check CBC, CMP, phos, and BNP in a.m. 8. We will evaluate p.r.n. or in a.m. Yanet Greenby, PA-C /[id number]
[2021-01-11] MEDS: metFORMIN 500 MG Tab PO SCH ×2 (08:35→16:51)
[2021-01-11] MEDS: Potassium Phos in 0.9 % NaCl 15 MMOL in Premix Bag 1 BAG IV SCH ×6 (10:36→17:14)
[2021-01-11] MEDS: Magnesium Sulfate/Water 2 GM/50 ML BAG IV SCH ×3 (11:07→21:13)
[2021-01-11] MEDS: Metoprolol Tartrate 50 MG Tab PO SCH ×2 (11:11→20:11)
[2021-01-11] MEDS: Aspirin 325 MG Tab.EC PO SCH (11:11)
[2021-01-11] MEDS: Docusate Sodium 100 MG Cap PO SCH ×2 (11:11→20:11)
[2021-01-11] MEDS: Tamsulosin 0.4 MG Cap.ER PO SCH ×2 (11:11→20:11)
[2021-01-11] MEDS: Bisacodyl 5 MG Tab PO SCH ×2 (11:11→20:11)
[2021-01-11] MEDS: Empagliflozin 10 MG Tab PO SCH (11:12)
[2021-01-11] MEDS: Nystatin Ointment 15 GM Tube TOP SCH ×3 (11:17→20:14)
[2021-01-11] MEDS: HYDROmorphone/Normal Saline 15 MG/30 ML PCA IV PRN (11:29)
[2021-01-11] MEDS ORDERED: Sodium Chloride 0.9% 500 ML IV ONE (11:47)
[2021-01-11] MEDS: 1: AA 5%/Calcium/D15W/Lytes 1,000 ML with MVI, Adult with Vitamin K 10 ML, Zinc/Copper/M IV SCH ×3 (12:20)
--- NOTE | 2021-01-11 14:37 | PCM.PN ---
- General Info Date of Service: 01/11/21 Subjective Update: Mr. Lopez underwent delayed primary closure earlier today and has been somewhat sleepy and lethargic since then. 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 White blood cell count has remained elevated despite current antibiotic therapy. He has remained afebrile and otherwise has been hemodynamically stable. Functional Status: Reports: Ambulating, Urinating - Review of Systems General: Reports: Weakness, Fatigue. Denies: Fever, Chills Pulmonary: Reports: No Symptoms Cardiovascular: Reports: No Symptoms Gastrointestinal: Reports: Abdominal Pain. Denies: Difficulty Swallowing, Pipe tochezia, Melena, Nausea, Vomiting - Patient Data Vitals - Most Recent: Last Vital Signs Temp 98.1 F 01/11/21 12:31 Pulse 79 01/11/21 12:31 Resp 16 01/11/21 12:31 BP 110/81 01/11/21 12:31 Pulse Ox 97 01/11/21 13:51 Weight - Most Recent: 175 lb 7.807 oz I&O - Last 24 Hours: Intake & Output 01/10/21 01/11/21 01/11/21 22:59 06:59 14:59 Intake Total 1345 1105 400 Output Total 408 275 2387 Balance 540 210 -1600 Lab Results Last 24 Hours: Laboratory Results - last 24 hr 01/10/21 01/10/21 01/10/21 Range/Units 16:07 16:08 21:20 WBC 20.5 H (4.5-11.0) K/uL RBC 3.14 L (4.30-5.90) M/uL Hgb 9.2 L (12.0-15.0) g/dL Hct 29.2 L (40.0-54.0) % MCV 93 (80-98) fL MCH 29 (27-31) pg MCHC 32 (32-36) % Plt Count 363 (150-400) K/uL Sodium (140-148) mmol/L Potassium (3.6-5.2) mmol/L Chloride (100-108) mmol/L Carbon Dioxide (21-32) mmol/L Anion Gap (5.0-14.0) mmol/L BUN (7-18) mg/dL Creatinine (0.8-1.3) mg/dL Est Cr Clr Drug Dosing mL/min Estimated GFR (MDRD) (>60) Glucose (74-106) mg/dL POC Glucose 304 H 319 H (74-106) MG/DL Calcium (8.5-10.1) mg/dL Phosphorus (2.5-4.9) mg/dL Magnesium (1.8-2.4) mg/dL Total Bilirubin (0.2-1.0) mg/dL AST (15-37) U/L ALT (12-78) U/L Alkaline Phosphatase (46-116) U/L Total Protein (6.4-8.2) g/dL Albumin (3.4-5.0) g/dL Globulin (2.3-3.5) g/dL Albumin/Globulin Ratio (1.2-2.2) 01/11/21 01/11/21 01/11/21 Range/Units 04:00 04:14 04:14 WBC 19.6 H (4.5-11.0) K/uL RBC 3.32 L (4.30-5.90) M/uL Hgb 9.5 L (12.0-15.0) g/dL Hct 30.8 L (40.0-54.0) % MCV 93 (80-98) fL MCH 29 (27-31) pg MCHC 31 L (32-36) % Plt Count 386 (150-400) K/uL Sodium 145 (140-148) mmol/L Potassium 4.2 (3.6-5.2) mmol/L Chloride 105 (100-108) mmol/L Carbon Dioxide 29 (21-32) mmol/L Anion Gap 11.5 (5.0-14.0) mmol/L BUN 17 (7-18) mg/dL Creatinine 0.7 L (0.8-1.3) mg/dL Est Cr Clr Drug Dosing 113.88 mL/min Estimated GFR (MDRD) > 60 (>60) Glucose 325 H (74-106) mg/dL POC Glucose 332 H (74-106) MG/DL Calcium 8.6 (8.5-10.1) mg/dL Phosphorus 2.0 L (2.5-4.9) mg/dL Magnesium 1.6 L (1.8-2.4) mg/dL Total Bilirubin 0.3 (0.2-1.0) mg/dL AST 22 (15-37) U/L ALT 29 (12-78) U/L Alkaline Phosphatase 80 (46-116) U/L Total Protein 5.4 L (6.4-8.2) g/dL Albumin 2.1 L (3.4-5.0) g/dL Globulin 3.3 (2.3-3.5) g/dL Albumin/Globulin Ratio 0.6 L (1.2-2.2) 01/11/21 Range/Units 10:26 WBC (4.5-11.0) K/uL RBC (4.30-5.90) M/uL Hgb (12.0-15.0) g/dL Hct (40.0-54.0) % MCV (80-98) fL MCH (27-31) pg MCHC (32-36) % Plt Count (150-400) K/uL Sodium (140-148) mmol/L Potassium (3.6-5.2) mmol/L Chloride (100-108) mmol/L Carbon Dioxide (21-32) mmol/L Anion Gap (5.0-14.0) mmol/L BUN (7-18) mg/dL Creatinine (0.8-1.3) mg/dL Est Cr Clr Drug Dosing mL/min Estimated GFR (MDRD) (>60) Glucose (74-106) mg/dL POC Glucose 342 H (74-106) MG/DL Calcium (8.5-10.1) mg/dL Phosphorus (2.5-4.9) mg/dL Magnesium (1.8-2.4) mg/dL Total Bilirubin (0.2-1.0) mg/dL AST (15-37) U/L ALT (12-78) U/L Alkaline Phosphatase (46-116) U/L Total Protein (6.4-8.2) g/dL Albumin (3.4-5.0) g/dL Globulin (2.3-3.5) g/dL Albumin/Globulin Ratio (1.2-2.2) Ke Results Last 24 Hours: Microbiology 01/09/21 13:15 Gram Stain - Final Abdomen - Abscess Wound Culture - Final Escherichia Coli Gram Positive Rods Anaerobic Culture - Preliminary NO GROWTH AFTER 2 DAYS Med Orders - Current: Current Medications Albuterol/Ipratropium (Albuterol/Ipratropium 3.0-0.5 Mg/3 Ml Neb Soln) 3 ml INH QIDRT [facility] Last Admin: 01/11/21 12:14 Dose: Not Given Documented by: Albuterol/Ipratropium (Albuterol/Ipratropium 3.0-0.5 Mg/3 Ml Neb Soln) 3 ml INH ASDIRECTED PRN PRN Reason: Shortness of Breath Aspirin (Aspirin 325 Mg Tab.Ec) 325 mg PO DAILY [facility] Last Admin: 01/11/21 11:11 Dose: 325 mg Documented by: Bisacodyl (Bisacodyl 5 Mg Tab) 10 mg PO BID [facility] Last Admin: 01/11/21 11:11 Dose: 10 mg Documented by: Cyclobenzaprine HCl (Cyclobenzaprine 10 Mg Tab) 10 mg PO Q6H PRN PRN Reason: MUSCLE SPASM Dextrose (Glucose Gel 15 Gm In 37.5 Gm Tube) 15 gm PO ASDIRECTED PRN PRN Reason: HYPOGLYCEMIA Dextrose/Water (50% Dextrose In Water 50 Ml Syringe) 50 ml IVPUSH ASDIRECTED PRN PRN Reason: HYPOGLYCEMIA Docusate Sodium (Docusate Sodium 100 Mg Cap) 100 mg PO BID [facility] Last Admin: 01/11/21 11:11 Dose: 100 mg Documented by: Glucagon (Glucagon,Human Recombinant 1 Mg Vial) 1 mg IM ASDIRECTED PRN PRN Reason: HYPOGLYCEMIA Heparin Sodium (Porcine) (Heparin Sodium 100 Units/Ml 5 Ml Syringe) 500 units FLUSH ASDIRECTED PRN PRN Reason: Other Last Admin: 01/10/21 09:54 Dose: 500 units Documented by: Hydromorphone HCl (Hydromorphone/Normal Saline 15 Mg/30 Ml Associate Professor [employer]) 0 mg IV ASDIRECTED PRN; Protocol PRN 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 Last Admin: 01/11/21 11:29 Dose: 15 mg Documented by: Hydroxyzine HCl (Hydroxyzine Hcl 100 Mg/2 Ml Sdv) 100 mg IM Q4H PRN PRN Reason: PAIN Last Admin: 01/10/21 16:59 Dose: 100 mg Documented by: Ampicillin Sodium/Sulbactam (Sodium 3 gm/ Sodium Chloride) 100 mls @ 200 mls/hr IV Q6H [facility] Last Admin: 01/11/21 12:46 Dose: 200 mls/hr Documented by: Aztreonam 1 gm/ Sodium (Chloride) 50 mls @ 100 mls/hr IV Q8H [facility] Last Admin: 01/11/21 13:44 Dose: 100 mls/hr Documented by: Multivitamins/Minerals 10 ml/Zinc 1 ml/ Amino Ac/Electrol/Dextrose/Calcium 1,011 mls @ 82 mls/hr IV .BY DURATION [facility] Last Admin: 01/11/21 12:20 Dose: 82 mls/hr Documented by: Amino Ac/Electrol/Dextrose/Calcium (Clinimix E 15) 1,000 mls @ 82 mls/hr IV .BY DURATION [facility] Last Admin: 01/10/21 23:57 Dose: 82 mls/hr Documented by: Magnesium Sulfate (Magnesium Sulfate In Water 2 Gm/50 Ml) 2 gm in 50 mls @ 25 mls/hr IV Q6H [facility] Stop: 01/14/21 05:59 Last Admin: 01/11/21 11:07 Dose: 25 mls/hr Documented by: Albumin Human (Albumin 25%) 25 gm in 100 mls @ 25 mls/hr IV Q24H [facility] Stop: 01/13/21 15:59 Last Admin: 01/11/21 11:18 Dose: 25 mls/hr Documented by: Potassium Phosphate 15 mmol/ (Premix) 250 mls @ 85 mls/hr IV Q3H [facility] Stop: 01/11/21 18:57 Last Admin: 01/11/21 13:45 Dose: 85 mls/hr Documented by: Insulin Human Lispro (Insulin Lispro 100 Unit/Ml 3 Ml Kwikpen) 0 unit SUBCUT Q6H PRN; Protocol PRN Reason: MEDIUM CORRECTIONAL DOSING Last Admin: 01/11/21 11:13 Dose: 7 units Documented by: Metformin HCl (Metformin 500 Mg Tab) 1,000 mg PO BIDMEALS [facility] Last Admin: 01/11/21 08:35 Dose: Not Given Documented by: Metoprolol Tartrate (Metoprolol Tartrate 50 Mg Tab) 100 mg PO BID [facility] Last Admin: 01/11/21 11:11 Dose: 100 mg Documented by: Naloxone HCl (Naloxone 0.4 Mg/Ml Sdv) 0.1 mg IV ASDIRECTED PRN PRN Reason: decreased respiratory rate Nitroglycerin (Nitroglycerin 0.4 Mg Tab.Sl) 0.4 mg SL ASDIRECTED PRN PRN Reason: CHEST PAIN Nystatin (Nystatin Ointment 15 Gm Tube) 0 gm TOP TID [facility] Last Admin: 01/11/21 13:48 Dose: Not Given Documented by: Ondansetron HCl (Ondansetron 4 Mg/2 Ml Sdv) 4 mg IV Q4H PRN PRN Reason: Nausea/Vomiting Pantoprazole Sodium (Pantoprazole 40 Mg Vial) 40 mg IV Q24H [facility] Last Admin: 01/10/21 17:03 Dose: 40 mg Documented by: Senna/Docusate Sodium (Docusate Sodium/Sennosides 50-8.6 Mg Tab) 2 tab PO BID [facility] Last Admin: 01/11/21 11:11 Dose: 2 tab Documented by: Sodium Chloride (Sodium Chloride 0.9% 10 Ml Syringe) 10 ml FLUSH ASDIRECTED PRN PRN Reason: Keep Vein Open Tamsulosin HCl (Tamsulosin 0.4 Mg Cap.Er) 0.4 mg PO BEDTIME [facility] Last Admin: 01/11/21 11:11 Dose: 0.4 mg Documented by: Discontinued Medications Albuterol (Albuterol 0.083% 2.5 Mg/3 Ml Neb Soln) 2.5 mg NEB Q4H PRN PRN Reason: Shortness Of Breath/wheezing Albuterol/Ipratropium (Albuterol/Ipratropium 3.0-0.5 Mg/3 Ml Neb Soln) 3 ml NEB ONCALL ONE Stop: 01/09/21 11:16 Last Admin: 01/09/21 11:05 Dose: 3 ml Documented by: Aztreonam (Aztreonam 1 Gm Vial) Confirm Administered Dose 1 gm .ROUTE .STK-MED ONE Stop: 01/09/21 13:49 Last Admin: 01/09/21 14:45 Dose: 1 gm Documented by: Bupivacaine HCl (Bupivacaine 0.5% 50 Ml Mdv) Confirm Administered Dose 50 ml .ROUTE .STK-MED ONE Stop: 01/09/21 11:31 Bupivacaine HCl (Bupivacaine 0.5% 50 Ml Mdv) Confirm Administered Dose 50 ml .ROUTE .STK-MED ONE Stop: 01/11/21 06:32 Last Admin: 01/11/21 07:36 Dose: 15 ml Documented by: Ropivacaine 37 ml/Dexamethasone 8 mg/Epinephrine HCl 0.4 mg/ Sodium Chloride 40.6 ml 0 ml NERVRT ASDIRECTED [facility] Last Admin: 01/09/21 12:56 Dose: 80 syringe Documented by: Ropivacaine 37 ml/Dexamethasone 8 mg/Epinephrine HCl 0.4 mg/ Sodium Chloride 40.6 ml 0 ml NERVRT ASDIRECTED [facility] Last Admin: 01/11/21 07:31 Dose: 80 syringe Documented by: Dexamethasone (Dexamethasone 4 Mg/Ml Sdv) Confirm Administered Dose 4 mg .ROUTE .STK-MED ONE Stop: 01/09/21 10:11 Dextrose/Water (50% Dextrose In Water 50 Ml Syringe) 50 ml IVPUSH ASDIRECTED PRN PRN Reason: Hypoglycemia Fentanyl (Fentanyl 250 Mcg/5 Ml Sdv) Confirm Administered Dose 250 mcg .ROUTE .STK-MED ONE Stop: 01/09/21 10:14 Fentanyl (Fentanyl 250 Mcg/5 Ml Sdv) Confirm Administered Dose 250 mcg .ROUTE .STK-MED ONE Stop: 01/09/21 12:48 Fentanyl (Fentanyl 100 Mcg/2 Ml Sdv) Confirm Administered Dose 100 mcg .ROUTE .STK-MED ONE Stop: 01/11/21 07:08 Glucagon (Glucagon,Human Recombinant 1 Mg Vial) 1 mg IM ASDIRECTED PRN PRN Reason: Hypoglycemia Glycopyrrolate (Glycopyrrolate 0.2 Mg/Ml 5 Ml Mdv) Confirm Administered Dose 1 mg .ROUTE .STK-MED ONE Stop: 01/09/21 10:11 Heparin Sodium (Porcine) (Heparin Sodium 100 Units/Ml 5 Ml Syringe) Confirm Administered Dose 500 units .ROUTE .STK-MED ONE Stop: 01/09/21 11:31 Last Admin: 01/09/21 14:21 Dose: 500 units Documented by: Hydromorphone HCl (Hydromorphone 0.5 Mg/0.5 Ml Syringe) 0.5 mg IVPUSH ONETIME ONE Stop: 01/08/21 19:31 Last Admin: 01/08/21 19:42 Dose: 0.5 mg Documented by: Hydromorphone HCl (Hydromorphone 0.5 Mg/0.5 Ml Syringe) 0.5 mg IVPUSH Q2H PRN PRN Reason: Pain Last Admin: 01/09/21 06:13 Dose: 0.5 mg Documented by: Sodium Chloride (Normal Saline) 1,000 mls @ 500 mls/hr IV .BOLUS STA Stop: 01/08/21 18:34 Last Admin: 01/08/21 17:59 Dose: 500 mls/hr Documented by: Sodium Chloride (Normal Saline) 75 mls @ 3 mls/sec IV ASDIRECTED [facility] Last Admin: 01/08/21 18:11 Dose: 3 mls/sec Documented by: Piperacillin Sod/Tazobactam (Sod 4.5 gm/ Sodium Chloride) 100 mls @ 100 mls/hr IV ONETIME ONE Stop: 01/08/21 20:10 Last Admin: 01/08/21 19:42 Dose: 100 mls/hr Documented by: Phytonadione 5 mg/ Sodium (Chloride) 50.5 mls @ 100 mls/hr IV NOW ONE Stop: 01/08/21 20:06 Last Admin: 01/08/21 20:47 Dose: 100 mls/hr Documented by: Lactated Ringer's (Ringers, Lactated) 1,000 mls @ 125 mls/hr IV ASDIRECTED [facility] Last Admin: 01/09/21 06:10 Dose: 125 mls/hr Documented by: Ampicillin Sodium/Sulbactam (Sodium 1.5 gm/ Sodium Chloride) 50 mls @ 100 mls/hr IV Q6H [facility] Last Admin: 01/09/21 03:21 Dose: 100 mls/hr Documented by: Ampicillin Sodium/Sulbactam (Sodium 1.5 gm/ Sodium Chloride) 50 mls @ 100 mls/hr IV Q6H [facility] Last Admin: 01/09/21 10:32 Dose: 100 mls/hr Documented by: Ketamine HCl 50 mg/ Sodium (Chloride) 50 mls @ 22.5 mls/hr IV ASDIRECTED [facility] Magnesium Sulfate (Magnesium Sulfate In Water 2 Gm/50 Ml) 2 gm in 50 mls @ 25 mls/hr IV Q6H [facility] Stop: 01/09/21 16:59 Last Admin: 01/09/21 15:19 Dose: 25 mls/hr Documented by: Lactated Ringer's (Ringers, Lactated) Confirm Administered Dose 1,000 mls @ as directed .ROUTE .[facility] ONE Stop: 01/09/21 10:14 Linezolid (Zyvox) Confirm Administered Dose 300 mls @ as directed .ROUTE .[facility] ONE Stop: 01/09/21 11:32 Dextrose/Ringer's (Dextrose 5%-Ringers) Confirm Administered Dose 1,000 mls @ as directed .ROUTE .[facility] ONE Stop: 01/09/21 12:42 Lactated Ringer's (Ringers, Lactated) Confirm Administered Dose 1,000 mls @ as directed .ROUTE .[facility] ONE Stop: 01/09/21 12:43 Ampicillin Sodium/Sulbactam (Sodium 1.5 gm/ Sodium Chloride) 50 mls @ 100 mls/hr IV ONETIME ONE Stop: 01/09/21 13:44 Last Admin: 01/09/21 13:20 Dose: 100 mls/hr Documented by: Dextrose/Lactated Ringer's (Dextrose 5%-Lactated Ringers) 1,000 mls @ 80 mls/hr IV ASDIRECTED [facility] Last Admin: 01/09/21 23:28 Dose: 80 mls/hr Documented by: Lactated Ringer's (Ringers, Lactated) 1,000 mls @ 120 mls/hr IV ASDIRECTED [facility] Last Admin: 01/10/21 03:16 Dose: 120 mls/hr Documented by: Tranexamic Acid 800 mg/ Sodium (Chloride) 58 mls @ 200 mls/hr IV ONETIME ONE Stop: 01/09/21 20:02 Last Admin: 01/09/21 20:19 Dose: 200 mls/hr Documented by: Tranexamic Acid 800 mg/ Sodium (Chloride) 58 mls @ 200 mls/hr IV ONETIME ONE Stop: 01/09/21 23:02 Last Admin: 01/09/21 23:02 Dose: 200 mls/hr Documented by: Lactated Ringer's (Ringers, Lactated) 500 mls @ 500 mls/hr IV .BOLUS [facility] Last Admin: 01/10/21 04:39 Dose: 500 mls/hr Documented by: Lactated Ringer's (Ringers, Lactated) 1,000 mls @ 0 mls/hr IV ASDIRECTED [facility] Last Admin: 01/10/21 20:29 Dose: 25 mls/hr Documented by: Sodium Chloride (Normal Saline) 75 mls @ 3 mls/sec IV ASDIRECTED [facility] Last Admin: 01/11/21 05:52 Dose: 3 mls/sec Documented by: Sodium Chloride (Normal Saline) 500 mls @ 0 mls/hr IV ASDIRECTED ONE Stop: 01/11/21 11:48 Last Admin: 01/11/21 12:29 Dose: 25 mls/hr Documented by: Insulin Glargine (Insulin Glargine,Human Rec. Analog 100 Units/Ml 3 Ml Pen) 10 units SUBCUT ONETIME ONE Stop: 01/10/21 07:01 Last Admin: 01/10/21 07:40 Dose: 10 units Documented by: Insulin Human Lispro (Insulin Lispro 100 Unit/Ml 3 Ml Kwikpen) 0 unit SUBCUT QIDACANDBED [facility]; Protocol Last Admin: 01/09/21 12:34 Dose: Not Given Documented by: Insulin Human Regular (Insulin Regular, Human 100 Units/Ml 3 Ml Vial) 14 unit SUBCUT ONETIME ONE Stop: 01/08/21 19:15 Last Admin: 01/08/21 19:48 Dose: 14 unit Documented by: Iopamidol (Iopamidol 612 Mg/Ml 100 Ml Bottle) 117 ml IV . DIRECTED [facility] Last Admin: 01/08/21 18:11 Dose: 117 ml Documented by: Iopamidol (Iopamidol 612 Mg/Ml 100 Ml Bottle) 100 ml IV . DIRECTED [facility] Last Admin: 01/11/21 05:52 Dose: 100 ml Documented by: Ketamine HCl (Ketamine 500 Mg/5 Ml Mdv) 0 mg IV BOLUS [facility] Ketamine HCl (Ketamine 500 Mg/5 Ml Mdv) 0 mg IV ASDIRECTED [facility] Ketamine HCl (Ketamine 500 Mg/5 Ml Mdv) 38 mg IV ASDIRECTED [facility] Lidocaine/Epinephrine (Lidocaine 1% With Epinephrine 1:100,000 50 Ml Mdv) Confirm Administered Dose 50 ml .ROUTE .STK-MED ONE Stop: 01/09/21 11:32 Lidocaine/Epinephrine (Lidocaine 1% With Epinephrine 1:100,000 50 Ml Mdv) 50 ml INJECT ONETIME ONE Stop: 01/10/21 06:01 Last Admin: 01/10/21 06:55 Dose: 5 ml Documented by: Lidocaine/Epinephrine (Lidocaine 1% With Epinephrine 1:100,000 50 Ml Mdv) Confirm Administered Dose 50 ml .ROUTE .STK-MED ONE Stop: 01/10/21 06:07 Last Admin: 01/10/21 06:11 Dose: Not Given Documented by: Lidocaine/Epinephrine (Lidocaine 1% With Epinephrine 1:100,000 50 Ml Mdv) Confirm Administered Dose 50 ml .ROUTE .STK-MED ONE Stop: 01/11/21 06:32 Last Admin: 01/11/21 07:36 Dose: 15 ml Documented by: Magnesium Oxide (Magnesium Oxide 400 Mg Tab) 400 mg PO BEDTIME [facility] Last Admin: 01/08/21 21:40 Dose: 400 mg Documented by: Meropenem (Meropenem 500 Mg Sdv) Confirm Administered Dose 500 mg .ROUTE .STK- MED ONE Stop: 01/09/21 11:32 Last Admin: 01/09/21 13:02 Dose: 500 mg Documented by: Meropenem (Meropenem 500 Mg Sdv) Confirm Administered Dose 500 mg .ROUTE .STK- MED ONE Stop: 01/11/21 06:32 Last Admin: 01/11/21 07:37 Dose: 500 mg Documented by: Midazolam HCl (Midazolam 1 Mg/Ml 2 Ml Sdv) Confirm Administered Dose 2 mg .ROUTE .STK-MED ONE Stop: 01/11/21 07:08 Neostigmine Methylsulfate (Neostigmine Methylsulfate 1 Mg/Ml 5 Ml Syringe) C onfirm Administered Dose 5 mg .ROUTE .STK-MED ONE Stop: 01/09/21 10:11 Non-Formulary Medication (Tap Block 1 Ml Bag) 0 ml NERVRT ONETIME ONE Stop: 01/09/21 13:01 Non-Formulary Medication (Central Total Parenteral Nutrition Bag) 1,000 ml .XX .Continue Order [facility] Stop: 01/10/21 08:01 Non-Formulary Medication (Central Total Parenteral Nutrition Bag) 1,000 ml .XX .Continue Order [facility] Stop: 01/11/21 07:16 Ondansetron HCl (Ondansetron 4 Mg/2 Ml Sdv) Confirm Administered Dose 4 mg .ROUTE .STK-MED ONE Stop: 01/09/21 10:11 Propofol (Propofol 200 Mg/20 Ml Sdv) Confirm Administered Dose 200 mg .ROUTE .STK-MED ONE Stop: 01/09/21 10:11 Propofol (Propofol 200 Mg/20 Ml Sdv) Confirm Administered Dose 200 mg .ROUTE .STK-MED ONE Stop: 01/11/21 07:08 Rocuronium Bourg (Rocuronium 50 Mg/5 Ml Vial) Confirm Administered Dose 50 mg .ROUTE .STK-MED ONE Stop: 01/09/21 10:11 Simvastatin (Simvastatin 20 Mg Tab) 20 mg PO BEDTIME [facility] Last Admin: 01/08/21 21:40 Dose: 20 mg Documented by: Sodium Chloride (Sodium Chloride 0.9% 10 Ml Syringe) 10 ml FLUSH ASDIRECTED PRN PRN Reason: Keep Vein Open Sodium Chloride (Sodium Chloride 0.9% 10 Ml Syringe) 10 ml FLUSH ONETIME ONE Stop: 01/08/21 16:47 Last Admin: 01/08/21 18:11 Dose: 10 ml Documented by: Sodium Chloride (Sodium Chloride 0.9% 10 Ml Syringe) 10 ml FLUSH ONETIME ONE Stop: 01/11/21 05:23 Last Admin: 01/11/21 05:52 Dose: 10 ml Documented by: Succinylcholine Chloride (Succinylcholine 200 Mg/10 Ml Mdv) Confirm Administered Dose 200 mg .ROUTE .STK-MED ONE Stop: 01/09/21 10:11 - Exam Quality Assessment: DVT Prophylaxis General: Alert, Oriented, Cooperative, Mild Distress Lungs: Clear to Auscultation, Normal Respiratory Effort, Decreased Breath Sounds Cardiovascular: Regular Rate, Regular Rhythm, No Murmurs GI/Abdominal Exam: Soft, No Organomegaly, Tender. No: Distended, Guarding, R igid, Rebound Extremities: Non-Tender, No Pedal Edema - Patient Data Lab Results Last 24 hrs: Laboratory Results - last 24 hr 01/10/21 01/10/21 01/10/21 Range/Units 16:07 16:08 21:20 WBC 20.5 H (4.5-11.0) K/uL RBC 3.14 L (4.30-5.90) M/uL Hgb 9.2 L (12.0-15.0) g/dL Hct 29.2 L (40.0-54.0) % MCV 93 (80-98) fL MCH 29 (27-31) pg MCHC 32 (32-36) % Plt Count 363 (150-400) K/uL Sodium (140-148) mmol/L Potassium (3.6-5.2) mmol/L Chloride (100-108) mmol/L Carbon Dioxide (21-32) mmol/L Anion Gap (5.0-14.0) mmol/L BUN (7-18) mg/dL Creatinine (0.8-1.3) mg/dL Est Cr Clr Drug Dosing mL/min Estimated GFR (MDRD) (>60) Glucose (74-106) mg/dL POC Glucose 304 H 319 H (74-106) MG/DL Calcium (8.5-10.1) mg/dL Phosphorus (2.5-4.9) mg/dL Magnesium (1.8-2.4) mg/dL Total Bilirubin (0.2-1.0) mg/dL AST (15-37) U/L ALT (12-78) U/L Alkaline Phosphatase (46-116) U/L Total Protein (6.4-8.2) g/dL Albumin (3.4-5.0) g/dL Globulin (2.3-3.5) g/dL Albumin/Globulin Ratio (1.2-2.2) 01/11/21 01/11/21 01/11/21 Range/Units 04:00 04:14 04:14 WBC 19.6 H (4.5-11.0) K/uL RBC 3.32 L (4.30-5.90) M/uL Hgb 9.5 L (12.0-15.0) g/dL Hct 30.8 L (40.0-54.0) % MCV 93 (80-98) fL MCH 29 (27-31) pg MCHC 31 L (32-36) % Plt Count 386 (150-400) K/uL Sodium 145 (140-148) mmol/L Potassium 4.2 (3.6-5.2) mmol/L Chloride 105 (100-108) mmol/L Carbon Dioxide 29 (21-32) mmol/L Anion Gap 11.5 (5.0-14.0) mmol/L BUN 17 (7-18) mg/dL Creatinine 0.7 L (0.8-1.3) mg/dL Est Cr Clr Drug Dosing 113.88 mL/min Estimated GFR (MDRD) > 60 (>60) Glucose 325 H (74-106) mg/dL POC Glucose 332 H (74-106) MG/DL Calcium 8.6 (8.5-10.1) mg/dL Phosphorus 2.0 L (2.5-4.9) mg/dL Magnesium 1.6 L (1.8-2.4) mg/dL Total Bilirubin 0.3 (0.2-1.0) mg/dL AST 22 (15-37) U/L ALT 29 (12-78) U/L Alkaline Phosphatase 80 (46-116) U/L Total Protein 5.4 L (6.4-8.2) g/dL Albumin 2.1 L (3.4-5.0) g/dL Globulin 3.3 (2.3-3.5) g/dL Albumin/Globulin Ratio 0.6 L (1.2-2.2) 01/11/21 Range/Units 10:26 WBC (4.5-11.0) K/uL RBC (4.30-5.90) M/uL Hgb (12.0-15.0) g/dL Hct (40.0-54.0) % MCV (80-98) fL MCH (27-31) pg MCHC (32-36) % Plt Count (150-400) K/uL Sodium (140-148) mmol/L Potassium (3.6-5.2) mmol/L Chloride (100-108) mmol/L Carbon Dioxide (21-32) mmol/L Anion Gap (5.0-14.0) mmol/L BUN (7-18) mg/dL Creatinine (0.8-1.3) mg/dL Est Cr Clr Drug Dosing mL/min Estimated GFR (MDRD) (>60) Glucose (74-106) mg/dL POC Glucose 342 H (74-106) MG/DL Calcium (8.5-10.1) mg/dL Phosphorus (2.5-4.9) mg/dL Magnesium (1.8-2.4) mg/dL Total Bilirubin (0.2-1.0) mg/dL AST (15-37) U/L ALT (12-78) U/L Alkaline Phosphatase (46-116) U/L Total Protein (6.4-8.2) g/dL Albumin (3.4-5.0) g/dL Globulin (2.3-3.5) g/dL Albumin/Globulin Ratio (1.2-2.2) Result Diagrams: 01/11/21 04:14 01/11/21 04:14 Ke Results Last 24 hrs: Microbiology 01/09/21 13:15 Gram Stain - Final Abdomen - Abscess Wound Culture - Final Escherichia Coli Gram Positive Rods Anaerobic Culture - Preliminary NO GROWTH AFTER 2 DAYS Sepsis Event Note - Evaluation Sepsis Screening Result: Severe Sepsis Risk - Focused Exam Vital Signs: Vital Signs Temp Pulse Pulse Resp BP BP Pulse Ox 01/11/21 13:51 97 01/11/21 12:31 98.1 F 79 16 110/81 93 L 01/11/21 11:36 97.9 F 95 16 127/71 96 01/11/21 11:11 99 125/72 01/11/21 10:07 97.8 F 96 16 132/65 97 01/11/21 09:37 124/61 01/11/21 09:07 97.2 F 95 16 112/69 96 01/11/21 08:59 97.8 F 93 104/65 01/11/21 08:37 97.8 F 93 15 124/70 98 01/11/21 08:26 97.2 F 95 16 139/71 97 01/11/21 08:10 97.5 F 96 16 116/75 95 01/11/21 08:06 96 16 128/71 92 L 01/11/21 08:00 95 16 120/68 96 01/11/21 07:55 94 16 123/70 96 01/11/21 07:50 97.3 F 93 16 123/70 97 01/11/21 07:00 95 01/11/21 04:28 97.5 F 84 18 130/78 97 - Problem List Review Problem List Initiated/Reviewed/Updated: Yes - My Orders Last 24 Hours: My Active Orders 01/10/21 16:18 5-HIAA,QUANT.,24 HR URINE Routine 01/10/21 16:30 GLUCOSE POC LAB TO COLLECT JPM [POC] QIDACANDBED 01/10/21 21:00 GLUCOSE POC LAB TO COLLECT JPM [POC] QIDACANDBED 01/17/21 09:00 Dulaglutide [Trulicity] 1.5 mg SUBCUT Q7D - Plan Plan:: ASSESSMENT AND PLAN ABDOMINAL PAIN-White count remains elevated, he has been afebrile. Status post delayed primary closure earlier today -Blood and surgical cultures pending -N.p.o. -IV fluids for hydration -Pain and nausea medication as needed -Unasyn and Azactam pending culture results -Surgical management per Dr. Burkett RIGHT LUNG MASS-concerning for malignancy, with airway obstruction and volume loss. Question possible underlying postobstructive pneumonia. -Add doxycycline 100 mg IV every 12 hours to current antibiotic regimen TYPE 2 DIABETES MELLITUS -Continue Jardiance and Trulicity -4 times daily glucometers -Moderate dose sliding scale Humalog PAROXYSMAL ATRIAL FIBRILLATION STATUS POST ABLATION-INR improved following IV vitamin K -Hold warfarin COPD-he reports developing shortness of breath with moderate levels of exertion, does not require home oxygen -Nebulized albuterol as needed -will require vigorous pulmonary toilet postoperatively CORONARY ARTERY DISEASE-status post 2 angioplasties and stents several years ago. Currently asymptomatic -Continue outpatient medications MAINTENANCE ISSUES -DVT prophylaxis; SCUDs -GI prophylaxis; not indicated -Preciado catheter; not indicated -Nutrition; n.p.o. -Nicotine dependence; not required CODE STATUS-full code ADMISSION STATUS-patient will be admitted to inpatient status, expect at least a 2 night hospital stay for evaluation and management of problems as outlined above. At the time of this admission I do not reasonably expected evaluation and management of this problem will require more than a 96 hour hospital stay. DISPOSITION-anticipate discharge to home after the hospital stay. PRIMARY CARE PROVIDER-Dr. Portillo
--- NOTE | 2021-01-11 16:27 | PN ---
DATE OF SERVICE: 01/11/2021 The patient has been afebrile with stable vital signs. Pain control appears to be somewhat marginal, we will bump up the [employer] dose somewhat. Otherwise, he is having delayed primary closure of the abdominal incision. Potassium and magnesium are low, these will be supplemented. Blood sugars are still running a little bit on the higher side and Jardiance and Victoza will be restarted today. Otherwise, Preciado catheter should come out. We will give him some Flomax empirically and begin some bowel stimulation. Otherwise, continue with TPN. Shaw Burkett MD /[id number]
[2021-01-11] MEDS: Pantoprazole 40 MG Vial IV SCH (16:52)
[2021-01-12] MEDS: Ampicillin/Sulbactam Na 3 GM in Sodium Chloride 0.9% 100 ML IV SCH ×5 (00:29→23:50)
[2021-01-12] MEDS: 1: AA 5%/Calcium/D15W/Lytes 1,000 ML with MVI, Adult with Vitamin K 10 ML, Zinc/Copper/M IV SCH ×9 (00:32→23:49)
[2021-01-12] MEDS: HYDROmorphone/Normal Saline 15 MG/30 ML PCA IV PRN ×2 (03:17→20:13)
[2021-01-12] MEDS: Magnesium Sulfate/Water 2 GM/50 ML BAG IV SCH ×4 (03:21→23:07)
[2021-01-12] MEDS: Insulin Lispro 100 Unit/ML 3 ML KwikPen SUBCUT PRN ×2 (05:09→11:49)
[2021-01-12] MEDS: Albuterol/Ipratropium 3.0-0.5 MG/3 ML Neb Soln INH SCH ×4 (07:22→20:18)
[2021-01-12] MEDS ORDERED: Magnesium Hydroxide 400 MG/5 ML Susp 30 ML Cup PO PRN (07:30)
[2021-01-12] MEDS ORDERED: Bisacodyl 10 MG Supp RECTAL PRN (07:31)
[2021-01-12] MEDS: Furosemide 20 MG/2 ML VIAL IVPUSH SCH ×2 (08:20→14:05)
[2021-01-12] MEDS: metFORMIN 500 MG Tab PO SCH ×2 (08:25→17:24)
[2021-01-12] MEDS: Docusate Sodium 100 MG Cap PO SCH ×2 (08:26→20:20)
[2021-01-12] MEDS: Bisacodyl 5 MG Tab PO SCH ×2 (08:26→20:19)
[2021-01-12] MEDS: Aspirin 325 MG Tab.EC PO SCH (08:27)
[2021-01-12] MEDS: Empagliflozin 10 MG Tab PO SCH (08:27)
[2021-01-12] MEDS: Metoprolol Tartrate 50 MG Tab PO SCH ×2 (08:29→20:20)
[2021-01-12] MEDS ORDERED: Magnesium Hydroxide 400 MG/5 ML Susp 30 ML Cup PO ONE (09:00)
[2021-01-12] MEDS ORDERED: Sodium Chloride 0.9% Irrigation 500 ML Container ONE (09:00)
[2021-01-12] MEDS: Nystatin Ointment 15 GM Tube TOP SCH ×3 (09:46→20:22)
[2021-01-12] MEDS ORDERED: Bisacodyl 10 MG Supp RECTAL ONE (10:00)
--- NOTE | 2021-01-12 13:06 | PCM.PN ---
- General Info Date of Service: 01/12/21 Subjective Update: Mr. Lopez has remained stable since yesterday, not yet passing gas or bowel movement. He denies shortness of breath. Vital signs have remained stable and he has been afebrile Functional Status: Reports: Ambulating, Urinating - Review of Systems General: Reports: Weakness, Fatigue. Denies: Fever, Chills Pulmonary: Reports: No Symptoms Cardiovascular: Reports: No Symptoms Gastrointestinal: Reports: Abdominal Pain. Denies: Diarrhea, Difficulty Swallowing, Flatus, Nausea, Vomiting - Patient Data Vitals - Most Recent: Last Vital Signs Temp 97.1 F 01/12/21 10:54 Pulse 72 01/12/21 10:54 Resp 18 01/12/21 10:54 BP 110/65 01/12/21 10:54 Pulse Ox 100 01/12/21 10:54 Weight - Most Recent: 175 lb 3.2 oz I&O - Last 24 Hours: Intake & Output 01/11/21 01/12/21 01/12/21 22:59 06:59 14:59 Intake Total 2202 1277 610 Output Total 2270 1455 Balance -68 -178 610 Lab Results Last 24 Hours: Laboratory Results - last 24 hr 01/09/21 01/11/21 01/11/21 Range/Units 07:30 16:00 22:00 WBC (4.5-11.0) K/uL RBC (4.30-5.90) M/uL Hgb (12.0-15.0) g/dL Hct (40.0-54.0) % MCV (80-98) fL MCH (27-31) pg MCHC (32-36) % Plt Count (150-400) K/uL Neut % (Auto) (36-66) % Lymph % (Auto) (24-44) % [place] % (Auto) (2-6) % Eos % (Auto) (2-4) % Baso % (Auto) (0-1) % Sodium (140-148) mmol/L Potassium (3.6-5.2) mmol/L Chloride (100-108) mmol/L Carbon Dioxide (21-32) mmol/L Anion Gap (5.0-14.0) mmol/L BUN (7-18) mg/dL Creatinine (0.8-1.3) mg/dL Est Cr Clr Drug Dosing mL/min Estimated GFR (MDRD) (>60) Glucose (74-106) mg/dL POC Glucose 235 H 268 H (74-106) MG/DL Calcium (8.5-10.1) mg/dL Phosphorus (2.5-4.9) mg/dL Total Bilirubin (0.2-1.0) mg/dL AST (15-37) U/L ALT (12-78) U/L Alkaline Phosphatase (46-116) U/L NT-Pro-B Natriuret Pep (5-125) pg/mL Total Protein (6.4-8.2) g/dL Albumin (3.4-5.0) g/dL Globulin (2.3-3.5) g/dL Albumin/Globulin Ratio (1.2-2.2) Chromogranin A 91.1 (0.0-101.8) ng/mL 01/12/21 01/12/21 01/12/21 Range/Units 04:00 04:00 04:10 WBC 18.6 H (4.5-11.0) K/uL RBC 2.96 L (4.30-5.90) M/uL Hgb 8.5 L (12.0-15.0) g/dL Hct 27.8 L (40.0-54.0) % MCV 94 (80-98) fL MCH 29 (27-31) pg MCHC 31 L (32-36) % Plt Count 353 (150-400) K/uL Neut % (Auto) 75 H (36-66) % Lymph % (Auto) 10 L (24-44) % [place] % (Auto) 13 H (2-6) % Eos % (Auto) 2 (2-4) % Baso % (Auto) 0 (0-1) % Sodium 147 (140-148) mmol/L Potassium 4.0 (3.6-5.2) mmol/L Chloride 106 (100-108) mmol/L Carbon Dioxide 27 (21-32) mmol/L Anion Gap 13.6 (5.0-14.0) mmol/L BUN 15 (7-18) mg/dL Creatinine 0.7 L (0.8-1.3) mg/dL Est Cr Clr Drug Dosing 116.87 mL/min Estimated GFR (MDRD) > 60 (>60) Glucose 271 H (74-106) mg/dL POC Glucose 265 H (74-106) MG/DL Calcium 8.6 (8.5-10.1) mg/dL Phosphorus 3.5 (2.5-4.9) mg/dL Total Bilirubin 0.4 (0.2-1.0) mg/dL AST 13 L (15-37) U/L ALT 21 (12-78) U/L Alkaline Phosphatase 78 (46-116) U/L NT-Pro-B Natriuret Pep 603 H (5-125) pg/mL Total Protein 5.6 L (6.4-8.2) g/dL Albumin 2.3 L (3.4-5.0) g/dL Globulin 3.3 (2.3-3.5) g/dL Albumin/Globulin Ratio 0.7 L (1.2-2.2) Chromogranin A (0.0-101.8) ng/mL 01/12/21 Range/Units 10:00 WBC (4.5-11.0) K/uL RBC (4.30-5.90) M/uL Hgb (12.0-15.0) g/dL Hct (40.0-54.0) % MCV (80-98) fL MCH (27-31) pg MCHC (32-36) % Plt Count (150-400) K/uL Neut % (Auto) (36-66) % Lymph % (Auto) (24-44) % [place] % (Auto) (2-6) % Eos % (Auto) (2-4) % Baso % (Auto) (0-1) % Sodium (140-148) mmol/L Potassium (3.6-5.2) mmol/L Chloride (100-108) mmol/L Carbon Dioxide (21-32) mmol/L Anion Gap (5.0-14.0) mmol/L BUN (7-18) mg/dL Creatinine (0.8-1.3) mg/dL Est Cr Clr Drug Dosing mL/min Estimated GFR (MDRD) (>60) Glucose (74-106) mg/dL POC Glucose 388 H (74-106) MG/DL Calcium (8.5-10.1) mg/dL Phosphorus (2.5-4.9) mg/dL Total Bilirubin (0.2-1.0) mg/dL AST (15-37) U/L ALT (12-78) U/L Alkaline Phosphatase (46-116) U/L NT-Pro-B Natriuret Pep (5-125) pg/mL Total Protein (6.4-8.2) g/dL Albumin (3.4-5.0) g/dL Globulin (2.3-3.5) g/dL Albumin/Globulin Ratio (1.2-2.2) Chromogranin A (0.0-101.8) ng/mL Ke Results Last 24 Hours: Microbiology 01/09/21 13:15 Gram Stain - Final Abdomen - Abscess Wound Culture - Final Escherichia Coli Gram Positive Rods Anaerobic Culture - Final NO GROWTH AFTER 3 DAYS Med Orders - Current: Current Medications Albuterol/Ipratropium (Albuterol/Ipratropium 3.0-0.5 Mg/3 Ml Neb Soln) 3 ml INH QIDRT [facility] Last Admin: 01/12/21 10:46 Dose: 3 ml Documented by: Albuterol/Ipratropium (Albuterol/Ipratropium 3.0-0.5 Mg/3 Ml Neb Soln) 3 ml INH ASDIRECTED PRN PRN Reason: Shortness of Breath Aspirin (Aspirin 325 Mg Tab.Ec) 325 mg PO DAILY [facility] Last Admin: 01/12/21 08:27 Dose: 325 mg Documented by: Bisacodyl (Bisacodyl 5 Mg Tab) 10 mg PO BID [facility] Last Admin: 01/12/21 08:26 Dose: 10 mg Documented by: Bisacodyl (Bisacodyl 10 Mg Supp) 10 mg RECTAL ASDIRECTED PRN PRN Reason: Constipation Cyclobenzaprine HCl (Cyclobenzaprine 10 Mg Tab) 10 mg PO Q6H PRN PRN Reason: MUSCLE SPASM Dextrose (Glucose Gel 15 Gm In 37.5 Gm Tube) 15 gm PO ASDIRECTED PRN PRN Reason: HYPOGLYCEMIA Dextrose/Water (50% Dextrose In Water 50 Ml Syringe) 50 ml IVPUSH ASDIRECTED PRN PRN Reason: HYPOGLYCEMIA Docusate Sodium (Docusate Sodium 100 Mg Cap) 100 mg PO BID [facility] Last Admin: 01/12/21 08:26 Dose: 100 mg Documented by: Furosemide (Furosemide 20 Mg/2 Ml Vial) 20 mg IVPUSH Q6H [facility] Stop: 01/12/21 14:01 Last Admin: 01/12/21 08:20 Dose: 20 mg Documented by: Glucagon (Glucagon,Human Recombinant 1 Mg Vial) 1 mg IM ASDIRECTED PRN PRN Reason: HYPOGLYCEMIA Heparin Sodium (Porcine) (Heparin Sodium 100 Units/Ml 5 Ml Syringe) 500 units FLUSH ASDIRECTED PRN PRN Reason: Other Last Admin: 01/11/21 14:59 Dose: 500 units Documented by: Hydromorphone HCl (Hydromorphone/Normal Saline 15 Mg/30 Ml [place]) 0 mg IV ASDIRECTED PRN; Protocol 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 Last Admin: 01/12/21 03:17 Dose: 15 mg Documented by: Hydroxyzine HCl (Hydroxyzine Hcl 100 Mg/2 Ml Sdv) 100 mg IM Q4H PRN PRN Reason: PAIN Last Admin: 01/10/21 16:59 Dose: 100 mg Documented by: Ampicillin Sodium/Sulbactam (Sodium 3 gm/ Sodium Chloride) 100 mls @ 200 mls/hr IV Q6H [facility] Last Admin: 01/12/21 12:33 Dose: 200 mls/hr Documented by: Aztreonam 1 gm/ Sodium (Chloride) 50 mls @ 100 mls/hr IV Q8H [facility] Last Admin: 01/12/21 06:16 Dose: 100 mls/hr Documented by: Multivitamins/Minerals 10 ml/Zinc 1 ml/ Amino Ac/Electrol/Dextrose/Calcium 1,011 mls @ 82 mls/hr IV .BY DURATION [facility] Last Admin: 01/12/21 12:55 Dose: 82 mls/hr Documented by: Amino Ac/Electrol/Dextrose/Calcium (Clinimix E 5/15) 1,000 mls @ 82 mls/hr IV .BY DURATION [facility] Last Admin: 01/12/21 00:32 Dose: 82 mls/hr Documented by: Magnesium Sulfate (Magnesium Sulfate In Water 2 Gm/50 Ml) 2 gm in 50 mls @ 25 mls/hr IV Q6H [facility] Stop: 01/14/21 05:59 Last Admin: 01/12/21 09:43 Dose: 25 mls/hr Documented by: Albumin Human (Albumin 25%) 25 gm in 100 mls @ 25 mls/hr IV Q24H [facility] Stop: 01/13/21 15:59 Last Admin: 01/12/21 11:43 Dose: 25 mls/hr Documented by: Insulin Human Lispro (Insulin Lispro 100 Unit/Ml 3 Ml Kwikpen) 0 unit SUBCUT QIDACANDBED [facility]; Protocol Magnesium Hydroxide (Magnesium Hydroxide 400 Mg/5 Ml Susp 30 Ml Cup) 30 ml PO ASDIRECTED PRN PRN Reason: Constipation Metformin HCl (Metformin 500 Mg Tab) 1,000 mg PO BIDMEALS [facility] Last Admin: 01/12/21 08:25 Dose: 1,000 mg Documented by: Metoprolol Tartrate (Metoprolol Tartrate 50 Mg Tab) 100 mg PO BID [facility] Last Admin: 01/12/21 08:29 Dose: 100 mg Documented by: Naloxone HCl (Naloxone 0.4 Mg/Ml Sdv) 0.1 mg IV ASDIRECTED PRN PRN Reason: decreased respiratory rate Nitroglycerin (Nitroglycerin 0.4 Mg Tab.Sl) 0.4 mg SL ASDIRECTED PRN PRN Reason: CHEST PAIN Nystatin (Nystatin Ointment 15 Gm Tube) 0 gm TOP TID [facility] Last Admin: 01/12/21 09:46 Dose: 1 applic Documented by: Ondansetron HCl (Ondansetron 4 Mg/2 Ml Sdv) 4 mg IV Q4H PRN PRN Reason: Nausea/Vomiting Pantoprazole Sodium (Pantoprazole 40 Mg Vial) 40 mg IV Q24H [facility] Last Admin: 01/11/21 16:52 Dose: 40 mg Documented by: Senna/Docusate Sodium (Docusate Sodium/Sennosides 50-8.6 Mg Tab) 2 tab PO BID [facility] Last Admin: 01/12/21 09:46 Dose: 2 tab Documented by: Sodium Chloride (Sodium Chloride 0.9% 10 Ml Syringe) 10 ml FLUSH ASDIRECTED PRN PRN Reason: Keep Vein Open Tamsulosin HCl (Tamsulosin 0.4 Mg Cap.Er) 0.4 mg PO BEDTIME [facility] Last Admin: 01/11/21 20:11 Dose: 0.4 mg Documented by: Discontinued Medications Albuterol (Albuterol 0.083% 2.5 Mg/3 Ml Neb Soln) 2.5 mg NEB Q4H PRN PRN Reason: Shortness Of Breath/wheezing Albuterol/Ipratropium (Albuterol/Ipratropium 3.0-0.5 Mg/3 Ml Neb Soln) 3 ml NEB ONCALL ONE Stop: 01/09/21 11:16 Last Admin: 01/09/21 11:05 Dose: 3 ml Documented by: Aztreonam (Aztreonam 1 Gm Vial) Confirm Administered Dose 1 gm .ROUTE .STK-MED ONE Stop: 01/09/21 13:49 Last Admin: 01/09/21 14:45 Dose: 1 gm Documented by: Bisacodyl (Bisacodyl 10 Mg Supp) 10 mg RECTAL ONETIME ONE Stop: 01/12/21 10:01 Last Admin: 01/12/21 09:49 Dose: 10 mg Documented by: Bupivacaine HCl (Bupivacaine 0.5% 50 Ml Mdv) Confirm Administered Dose 50 ml .ROUTE .STK-MED ONE Stop: 01/09/21 11:31 Bupivacaine HCl (Bupivacaine 0.5% 50 Ml Mdv) Confirm Administered Dose 50 ml .ROUTE .STK-MED ONE Stop: 01/11/21 06:32 Last Admin: 01/11/21 07:36 Dose: 15 ml Documented by: Ropivacaine 37 ml/Dexamethasone 8 mg/Epinephrine HCl 0.4 mg/ Sodium Chloride 40.6 ml 0 ml NERVRT ASDIRECTED [facility] Last Admin: 01/09/21 12:56 Dose: 80 syringe Documented by: Ropivacaine 37 ml/Dexamethasone 8 mg/Epinephrine HCl 0.4 mg/ Sodium Chloride 40.6 ml 0 ml NERVRT ASDIRECTED [facility] Last Admin: 01/11/21 07:31 Dose: 80 syringe Documented by: Dexamethasone (Dexamethasone 4 Mg/Ml Sdv) Confirm Administered Dose 4 mg .ROUTE .STK-MED ONE Stop: 01/09/21 10:11 Dextrose/Water (50% Dextrose In Water 50 Ml Syringe) 50 ml IVPUSH ASDIRECTED PRN PRN Reason: Hypoglycemia Fentanyl (Fentanyl 250 Mcg/5 Ml Sdv) Confirm Administered Dose 250 mcg .ROUTE .STK-MED ONE Stop: 01/09/21 10:14 Fentanyl (Fentanyl 250 Mcg/5 Ml Sdv) Confirm Administered Dose 250 mcg .ROUTE .STK-MED ONE Stop: 01/09/21 12:48 Fentanyl (Fentanyl 100 Mcg/2 Ml Sdv) Confirm Administered Dose 100 mcg .ROUTE .STK-MED ONE Stop: 01/11/21 07:08 Glucagon (Glucagon,Human Recombinant 1 Mg Vial) 1 mg IM ASDIRECTED PRN PRN Reason: Hypoglycemia Glycopyrrolate (Glycopyrrolate 0.2 Mg/Ml 5 Ml Mdv) Confirm Administered Dose 1 mg .ROUTE .STK-MED ONE Stop: 01/09/21 10:11 Heparin Sodium (Porcine) (Heparin Sodium 100 Units/Ml 5 Ml Syringe) Confirm Administered Dose 500 units .ROUTE .STK-MED ONE Stop: 01/09/21 11:31 Last Admin: 01/09/21 14:21 Dose: 500 units Documented by: Hydromorphone HCl (Hydromorphone 0.5 Mg/0.5 Ml Syringe) 0.5 mg IVPUSH ONETIME ONE Stop: 01/08/21 19:31 Last Admin: 01/08/21 19:42 Dose: 0.5 mg Documented by: Hydromorphone HCl (Hydromorphone 0.5 Mg/0.5 Ml Syringe) 0.5 mg IVPUSH Q2H PRN PRN Reason: Pain Last Admin: 01/09/21 06:13 Dose: 0.5 mg Documented by: Sodium Chloride (Normal Saline) 1,000 mls @ 500 mls/hr IV .BOLUS STA Stop: 01/08/21 18:34 Last Admin: 01/08/21 17:59 Dose: 500 mls/hr Documented by: Sodium Chloride (Normal Saline) 75 mls @ 3 mls/sec IV ASDIRECTED [facility] Last Admin: 01/08/21 18:11 Dose: 3 mls/sec Documented by: Piperacillin Sod/Tazobactam (Sod 4.5 gm/ Sodium Chloride) 100 mls @ 100 mls/hr IV ONETIME ONE Stop: 01/08/21 20:10 Last Admin: 01/08/21 19:42 Dose: 100 mls/hr Documented by: Phytonadione 5 mg/ Sodium (Chloride) 50.5 mls @ 100 mls/hr IV NOW ONE Stop: 01/08/21 20:06 Last Admin: 01/08/21 20:47 Dose: 100 mls/hr Documented by: Lactated Ringer's (Ringers, Lactated) 1,000 mls @ 125 mls/hr IV ASDIRECTED [facility] Last Admin: 01/09/21 06:10 Dose: 125 mls/hr Documented by: Ampicillin Sodium/Sulbactam (Sodium 1.5 gm/ Sodium Chloride) 50 mls @ 100 mls/hr IV Q6H [facility] Last Admin: 01/09/21 03:21 Dose: 100 mls/hr Documented by: Ampicillin Sodium/Sulbactam (Sodium 1.5 gm/ Sodium Chloride) 50 mls @ 100 mls/hr IV Q6H [facility] Last Admin: 01/09/21 10:32 Dose: 100 mls/hr Documented by: Ketamine HCl 50 mg/ Sodium (Chloride) 50 mls @ 22.5 mls/hr IV ASDIRECTED [facility] Magnesium Sulfate (Magnesium Sulfate In Water 2 Gm/50 Ml) 2 gm in 50 mls @ 25 mls/hr IV Q6H [facility] Stop: 01/09/21 16:59 Last Admin: 01/09/21 15:19 Dose: 25 mls/hr Documented by: Lactated Ringer's (Ringers, Lactated) Confirm Administered Dose 1,000 mls @ as directed .ROUTE .STK-MED ONE Stop: 01/09/21 10:14 Linezolid (Zyvox) Confirm Administered Dose 300 mls @ as directed .ROUTE .STK- MED ONE Stop: 01/09/21 11:32 Dextrose/Ringer's (Dextrose 5%-Ringers) Confirm Administered Dose 1,000 mls @ as directed .ROUTE .STK-MED ONE Stop: 01/09/21 12:42 Lactated Ringer's (Ringers, Lactated) Confirm Administered Dose 1,000 mls @ as directed .ROUTE .STK-MED ONE Stop: 01/09/21 12:43 Ampicillin Sodium/Sulbactam (Sodium 1.5 gm/ Sodium Chloride) 50 mls @ 100 mls/hr IV ONETIME ONE Stop: 01/09/21 13:44 Last Admin: 01/09/21 13:20 Dose: 100 mls/hr Documented by: Dextrose/Lactated Ringer's (Dextrose 5%-Lactated Ringers) 1,000 mls @ 80 mls/hr IV ASDIRECTED [facility] Last Admin: 01/09/21 23:28 Dose: 80 mls/hr Documented by: Lactated Ringer's (Ringers, Lactated) 1,000 mls @ 120 mls/hr IV ASDIRECTED [facility] Last Admin: 01/10/21 03:16 Dose: 120 mls/hr Documented by: Tranexamic Acid 800 mg/ Sodium (Chloride) 58 mls @ 200 mls/hr IV ONETIME ONE Stop: 01/09/21 20:02 Last Admin: 01/09/21 20:19 Dose: 200 mls/hr Documented by: Tranexamic Acid 800 mg/ Sodium (Chloride) 58 mls @ 200 mls/hr IV ONETIME ONE Stop: 01/09/21 23:02 Last Admin: 01/09/21 23:02 Dose: 200 mls/hr Documented by: Lactated Ringer's (Ringers, Lactated) 500 mls @ 500 mls/hr IV .BOLUS [facility] Last Admin: 01/10/21 04:39 Dose: 500 mls/hr Documented by: Lactated Ringer's (Ringers, Lactated) 1,000 mls @ 0 mls/hr IV ASDIRECTED [facility] Last Admin: 01/10/21 20:29 Dose: 25 mls/hr Documented by: Sodium Chloride (Normal Saline) 75 mls @ 3 mls/sec IV ASDIRECTED [facility] Last Admin: 01/11/21 05:52 Dose: 3 mls/sec Documented by: Potassium Phosphate 15 mmol/ (Premix) 250 mls @ 85 mls/hr IV Q3H [facility] Stop: 01/11/21 18:57 Last Admin: 01/11/21 17:14 Dose: 85 mls/hr Documented by: Sodium Chloride (Normal Saline) 500 mls @ 0 mls/hr IV ASDIRECTED ONE Stop: 01/11/21 11:48 Last Admin: 01/11/21 12:29 Dose: 25 mls/hr Documented by: Insulin Glargine (Insulin Glargine,Human Rec. Analog 100 Units/Ml 3 Ml Pen) 10 units SUBCUT ONETIME ONE Stop: 01/10/21 07:01 Last Admin: 01/10/21 07:40 Dose: 10 units Documented by: Insulin Human Lispro (Insulin Lispro 100 Unit/Ml 3 Ml Kwikpen) 0 unit SUBCUT QIDACANDBED [facility]; Protocol Last Admin: 01/09/21 12:34 Dose: Not Given Documented by: Insulin Human Lispro (Insulin Lispro 100 Unit/Ml 3 Ml Kwikpen) 0 unit SUBCUT Q6H PRN; Protocol PRN Reason: MEDIUM CORRECTIONAL DOSING Last Admin: 01/12/21 11:49 Dose: 8 units Documented by: Insulin Human Regular (Insulin Regular, Human 100 Units/Ml 3 Ml Vial) 14 unit SUBCUT ONETIME ONE Stop: 01/08/21 19:15 Last Admin: 01/08/21 19:48 Dose: 14 unit Documented by: Iopamidol (Iopamidol 612 Mg/Ml 100 Ml Bottle) 117 ml IV . DIRECTED [facility] Last Admin: 01/08/21 18:11 Dose: 117 ml Documented by: Iopamidol (Iopamidol 612 Mg/Ml 100 Ml Bottle) 100 ml IV . DIRECTED [facility] Last Admin: 01/11/21 05:52 Dose: 100 ml Documented by: Ketamine HCl (Ketamine 500 Mg/5 Ml Mdv) 0 mg IV BOLUS ROS[place] Ketamine HCl (Ketamine 500 Mg/5 Ml Mdv) 0 mg IV ASDIRECTED [facility] Ketamine HCl (Ketamine 500 Mg/5 Ml Mdv) 38 mg IV ASDIRECTED [facility] Lidocaine/Epinephrine (Lidocaine 1% With Epinephrine 1:100,000 50 Ml Mdv) Confirm Administered Dose 50 ml .ROUTE .STK-MED ONE Stop: 01/09/21 11:32 Lidocaine/Epinephrine (Lidocaine 1% With Epinephrine 1:100,000 50 Ml Mdv) 50 ml INJECT ONETIME ONE Stop: 01/10/21 06:01 Last Admin: 01/10/21 06:55 Dose: 5 ml Documented by: Lidocaine/Epinephrine (Lidocaine 1% With Epinephrine 1:100,000 50 Ml Mdv) Confirm Administered Dose 50 ml .ROUTE .STK-MED ONE Stop: 01/10/21 06:07 Last Admin: 01/10/21 06:11 Dose: Not Given Documented by: Lidocaine/Epinephrine (Lidocaine 1% With Epinephrine 1:100,000 50 Ml Mdv) Confirm Administered Dose 50 ml .ROUTE .STK-MED ONE Stop: 01/11/21 06:32 Last Admin: 01/11/21 07:36 Dose: 15 ml Documented by: Magnesium Hydroxide (Magnesium Hydroxide 400 Mg/5 Ml Susp 30 Ml Cup) 30 ml PO ONETIME ONE Stop: 01/12/21 09:01 Last Admin: 01/12/21 09:49 Dose: 30 ml Documented by: Magnesium Oxide (Magnesium Oxide 400 Mg Tab) 400 mg PO BEDTIME [facility] Last Admin: 01/08/21 21:40 Dose: 400 mg Documented by: Meropenem (Meropenem 500 Mg Sdv) Confirm Administered Dose 500 mg .ROUTE .STK-M ED ONE Stop: 01/09/21 11:32 Last Admin: 01/09/21 13:02 Dose: 500 mg Documented by: Meropenem ([place] 500 Mg Sdv) Confirm Administered Dose 500 mg .ROUTE .STK- MED ONE Stop: 01/11/21 06:32 Last Admin: 01/11/21 07:37 Dose: 500 mg Documented by: Midazolam HCl (Midazolam 1 Mg/Ml 2 Ml Sdv) Confirm Administered Dose 2 mg .ROUTE .STK-MED ONE Stop: 01/11/21 07:08 Neostigmine Methylsulfate (Neostigmine Methylsulfate 1 Mg/Ml 5 Ml Syringe) Confirm Administered Dose 5 mg .ROUTE .STK-MED ONE Stop: 01/09/21 10:11 Non-Formulary Medication (Tap Block 1 Ml Bag) 0 ml NERVRT ONETIME ONE Stop: 01/09/21 13:01 Non-Formulary Medication (Central Total Parenteral Nutrition Bag) 1,000 ml .XX .Continue Order [facility] Stop: 01/10/21 08:01 Non-Formulary Medication (Central Total Parenteral Nutrition Bag) 1,000 ml .XX .Continue Order [facility] Stop: 01/11/21 07:16 Ondansetron HCl (Ondansetron 4 Mg/2 Ml Sdv) Confirm Administered Dose 4 mg .ROUTE .STK-MED ONE Stop: 01/09/21 10:11 Propofol (Propofol 200 Mg/20 Ml Sdv) Confirm Administered Dose 200 mg .ROUTE .STK-MED ONE Stop: 01/09/21 10:11 Propofol (Propofol 200 Mg/20 Ml Sdv) Confirm Administered Dose 200 mg .ROUTE .STK-MED ONE Stop: 01/11/21 07:08 Rocuronium [place] (Rocuronium 50 Mg/5 Ml Vial) Confirm Administered Dose 50 mg .ROUTE .STK-MED ONE Stop: 01/09/21 10:11 Simvastatin (Simvastatin 20 Mg Tab) 20 mg PO BEDTIME [facility] Last Admin: 01/08/21 21:40 Dose: 20 mg Documented by: Sodium Chloride (Sodium Chloride 0.9% 10 Ml Syringe) 10 ml FLUSH ASDIRECTED PRN PRN Reason: Keep Vein Open Sodium Chloride (Sodium Chloride 0.9% 10 Ml Syringe) 10 ml FLUSH ONETIME ONE Stop: 01/08/21 16:47 Last Admin: 01/08/21 18:11 Dose: 10 ml Documented by: Sodium Chloride (Sodium Chloride 0.9% 10 Ml Syringe) 10 ml FLUSH ONETIME ONE Stop: 01/11/21 05:23 Last Admin: 01/11/21 05:52 Dose: 10 ml Documented by: Sodium Chloride (Sodium Chloride 0.9% Irrigation 500 Ml Container) 500 ml .XX ONETIME ONE Stop: 01/12/21 09:01 Last Admin: 01/12/21 09:45 Dose: 500 ml Documented by: Succinylcholine Chloride (Succinylcholine 200 Mg/10 Ml Mdv) Confirm Administered Dose 200 mg .ROUTE .STK-MED ONE Stop: 01/09/21 10:11 - Exam General: Alert, Oriented, Cooperative, Moderate Distress Lungs: Clear to Auscultation, Normal Respiratory Effort Cardiovascular: Regular Rate, Regular Rhythm, No Murmurs GI/Abdominal Exam: Soft, No Organomegaly, Tender. No: Distended, Guarding, Rigid, Rebound Extremities: Non-Tender, No Pedal Edema - Patient Data Lab Results Last 24 hrs: Laboratory Results - last 24 hr 01/09/21 01/11/21 01/11/21 Range/Units 07:30 16:00 22:00 WBC (4.5-11.0) K/uL RBC (4.30-5.90) M/uL Hgb (12.0-15.0) g/dL Hct (40.0-54.0) % MCV (80-98) fL MCH (27-31) pg MCHC (32-36) % Plt Count (150-400) K/uL Neut % (Auto) (36-66) % Lymph % (Auto) (24-44) % [place] % (Auto) (2-6) % Eos % (Auto) (2-4) % Baso % (Auto) (0-1) % Sodium (140-148) mmol/L Potassium (3.6-5.2) mmol/L Chloride (100-108) mmol/L Carbon Dioxide (21-32) mmol/L Anion Gap (5.0-14.0) mmol/L BUN (7-18) mg/dL Creatinine (0.8-1.3) mg/dL Est Cr Clr Drug Dosing mL/min Estimated GFR (MDRD) (>60) Glucose (74-106) mg/dL POC Glucose 235 H 268 H (74-106) MG/DL Calcium (8.5-10.1) mg/dL Phosphorus (2.5-4.9) mg/dL Total Bilirubin (0.2-1.0) mg/dL AST (15-37) U/L ALT (12-78) U/L Alkaline Phosphatase (46-116) U/L NT-Pro-B Natriuret Pep (5-125) pg/mL Total Protein (6.4-8.2) g/dL Albumin (3.4-5.0) g/dL Globulin (2.3-3.5) g/dL Albumin/Globulin Ratio (1.2-2.2) Chromogranin A 91.1 (0.0-101.8) ng/mL 01/12/21 01/12/21 01/12/21 Range/Units 04:00 04:00 04:10 WBC 18.6 H (4.5-11.0) K/uL RBC 2.96 L (4.30-5.90) M/uL Hgb 8.5 L (12.0-15.0) g/dL Hct 27.8 L (40.0-54.0) % MCV 94 (80-98) fL MCH 29 (27-31) pg MCHC 31 L (32-36) % Plt Count 353 (150-400) K/uL Neut % (Auto) 75 H (36-66) % Lymph % (Auto) 10 L (24-44) % [place] % (Auto) 13 H (2-6) % Eos % (Auto) 2 (2-4) % Baso % (Auto) 0 (0-1) % Sodium 147 (140-148) mmol/L Potassium 4.0 (3.6-5.2) mmol/L Chloride 106 (100-108) mmol/L Carbon Dioxide 27 (21-32) mmol/L Anion Gap 13.6 (5.0-14.0) mmol/L BUN 15 (7-18) mg/dL Creatinine 0.7 L (0.8-1.3) mg/dL Est Cr Clr Drug Dosing 116.87 mL/min Estimated GFR (MDRD) > 60 (>60) Glucose 271 H (74-106) mg/dL POC Glucose 265 H (74-106) MG/DL Calcium 8.6 (8.5-10.1) mg/dL Phosphorus 3.5 (2.5-4.9) mg/dL Total Bilirubin 0.4 (0.2-1.0) mg/dL AST 13 L (15-37) U/L ALT 21 (12-78) U/L Alkaline Phosphatase 78 (46-116) U/L NT-Pro-B Natriuret Pep 603 H (5-125) pg/mL Total Protein 5.6 L (6.4-8.2) g/dL Albumin 2.3 L (3.4-5.0) g/dL Globulin 3.3 (2.3-3.5) g/dL Albumin/Globulin Ratio 0.7 L (1.2-2.2) Chromogranin A (0.0-101.8) ng/mL 01/12/21 Range/Units 10:00 WBC (4.5-11.0) K/uL RBC (4.30-5.90) M/uL Hgb (12.0-15.0) g/dL Hct (40.0-54.0) % MCV (80-98) fL MCH (27-31) pg MCHC (32-36) % Plt Count (150-400) K/uL Neut % (Auto) (36-66) % Lymph % (Auto) (24-44) % [place] % (Auto) (2-6) % Eos % (Auto) (2-4) % Baso % (Auto) (0-1) % Sodium (140-148) mmol/L Potassium (3.6-5.2) mmol/L Chloride (100-108) mmol/L Carbon Dioxide (21-32) mmol/L Anion Gap (5.0-14.0) mmol/L BUN (7-18) mg/dL Creatinine (0.8-1.3) mg/dL Est Cr Clr Drug Dosing mL/min Estimated GFR (MDRD) (>60) Glucose (74-106) mg/dL POC Glucose 388 H (74-106) MG/DL Calcium (8.5-10.1) mg/dL Phosphorus (2.5-4.9) mg/dL Total Bilirubin (0.2-1.0) mg/dL AST (15-37) U/L ALT (12-78) U/L Alkaline Phosphatase (46-116) U/L NT-Pro-B Natriuret Pep (5-125) pg/mL Total Protein (6.4-8.2) g/dL Albumin (3.4-5.0) g/dL Globulin (2.3-3.5) g/dL Albumin/Globulin Ratio (1.2-2.2) Chromogranin A (0.0-101.8) ng/mL Result Diagrams: 01/12/21 04:10 01/12/21 04:00 Ke Results Last 24 hrs: Microbiology 01/09/21 13:15 Gram Stain - Final Abdomen - Abscess Wound Culture - Final Escherichia Coli Gram Positive Rods Anaerobic Culture - Final NO GROWTH AFTER 3 DAYS Sepsis Event Note - Evaluation Sepsis Screening Result: No Definite Risk - Focused Exam Vital Signs: Vital Signs Temp Pulse Pulse Resp BP BP Pulse Ox 01/12/21 10:54 97.1 F 72 18 110/65 100 01/12/21 08:29 97 110/67 01/12/21 07:22 80 01/12/21 07:20 98 01/12/21 07:16 97.7 F 82 16 124/73 96 01/12/21 03:00 96.3 F L 80 15 116/74 97 01/12/21 01:33 95 - Problem List Review Problem List Initiated/Reviewed/Updated: Yes - My Orders Last 24 Hours: My Active Orders 01/12/21 13:01 Diabetes Education [RC] Click to Edit 01/12/21 17:00 Insulin Lispro [HumaLOG] See Protocol SUBCUT QIDACANDBED 01/17/21 09:00 Dulaglutide [Trulicity] 1.5 mg SUBCUT Q7D - Plan Plan:: ASSESSMENT AND PLAN ABDOMINAL PAIN-white count remains elevated, he has been afebrile. -Blood and surgical cultures pending -N.p.o. -IV fluids for hydration -Pain and nausea medication as needed -Unasyn and Azactam pending culture results -Surgical management per Dr. Burkett RIGHT LUNG MASS-concerning for malignancy, with airway obstruction and volume loss. Question possible underlying postobstructive pneumonia. -doxycycline 100 mg IV every 12 hours to current antibiotic regimen TYPE 2 DIABETES MELLITUS -Continue Jardiance and Trulicity -4 times daily glucometers -High dose sliding scale Humalog PAROXYSMAL ATRIAL FIBRILLATION STATUS POST ABLATION-INR improved following IV vitamin K -Hold warfarin COPD-he reports developing shortness of breath with moderate levels of exertion, does not require home oxygen -Nebulized albuterol as needed -will require vigorous pulmonary toilet postoperatively CORONARY ARTERY DISEASE-status post 2 angioplasties and stents several years ago. Currently asymptomatic -Continue outpatient medications MAINTENANCE ISSUES -DVT prophylaxis; SCUDs -GI prophylaxis; not indicated -Preciado catheter; not indicated -Nutrition; n.p.o. -Nicotine dependence; not required CODE STATUS-full code ADMISSION STATUS-patient will be admitted to inpatient status, expect at least a 2 night hospital stay for evaluation and management of problems as outlined above. At the time of this admission I do not reasonably expected evaluation and management of this problem will require more than a 96 hour hospital stay. DISPOSITION-anticipate discharge to home after the hospital stay. PRIMARY CARE PROVIDER-Dr. Portillo
[2021-01-12] MEDS: Pantoprazole 40 MG Vial IV SCH (17:22)
[2021-01-12] MEDS: Doxycycline 100 MG in Sodium Chloride 0.9% 100 ML IV SCH (17:23)
[2021-01-12] MEDS: Insulin Lispro 100 Unit/ML 3 ML KwikPen SUBCUT SCH ×2 (17:25→21:45)
[2021-01-12] MEDS: Tamsulosin 0.4 MG Cap.ER PO SCH (20:20)
[2021-01-12] MEDS: hydrOXYzine HCL 100 MG/2 ML SDV IM PRN (21:50)
[2021-01-13] MEDS: hydrOXYzine HCL 100 MG/2 ML SDV IM PRN (02:13)
[2021-01-13] MEDS: Magnesium Sulfate/Water 2 GM/50 ML BAG IV SCH ×4 (04:30→21:21)
[2021-01-13] MEDS: Doxycycline 100 MG in Sodium Chloride 0.9% 100 ML IV SCH (04:31)
[2021-01-13] MEDS: Ampicillin/Sulbactam Na 3 GM in Sodium Chloride 0.9% 100 ML IV SCH ×3 (05:35→17:29)
[2021-01-13] MEDS: Albuterol/Ipratropium 3.0-0.5 MG/3 ML Neb Soln INH SCH ×4 (08:11→20:10)
[2021-01-13] MEDS: Insulin Lispro 100 Unit/ML 3 ML KwikPen SUBCUT SCH ×4 (08:28→21:25)
[2021-01-13] MEDS: Empagliflozin 10 MG Tab PO SCH (08:30)
[2021-01-13] MEDS: Aspirin 325 MG Tab.EC PO SCH (08:31)
[2021-01-13] MEDS: metFORMIN 500 MG Tab PO SCH ×2 (08:31→17:01)
[2021-01-13] MEDS: Docusate Sodium 100 MG Cap PO SCH ×2 (08:31→20:09)
[2021-01-13] MEDS: Metoprolol Tartrate 50 MG Tab PO SCH ×2 (08:32→20:09)
[2021-01-13] MEDS: Bisacodyl 5 MG Tab PO SCH ×2 (08:33→20:10)
[2021-01-13] MEDS: Nystatin Ointment 15 GM Tube TOP SCH ×3 (08:33→20:10)
[2021-01-13] MEDS ORDERED: Central Total Parenteral Nutrition Bag IV SCH (09:30)
[2021-01-13] MEDS: Potassium Phosphates 15 MMOLE in Sodium Chloride 0.9% 100 ML IV SCH ×4 (10:24→21:18)
[2021-01-13] MEDS: Levofloxacin/Dextrose 5%-Water 750 MG in Premix Bag 1 BAG IV SCH (10:25)
[2021-01-13] MEDS ORDERED: Furosemide 20 MG/2 ML VIAL IVPUSH ONE (11:00)
--- NOTE | 2021-01-13 11:31 | PCM.PN ---
- General Info Date of Service: 01/13/21 Subjective Update: Mr. Lopez has been stable the last 24 hours. He was able to have a bowel movement last night and has now been advanced to a full liquid diet. Continues to experience significant incisional pain. Denies shortness of breath or significant cough. Functional Status: Reports: Tolerating Diet, Ambulating - Review of Systems General: Reports: Weakness, Fatigue. Denies: Fever, Chills Pulmonary: Reports: No Symptoms Cardiovascular: Reports: No Symptoms Gastrointestinal: Reports: Abdominal Pain. Denies: Difficulty Swallowing, Hematochezia, Melena, Nausea, Vomiting Genitourinary: Reports: No Symptoms - Patient Data Vitals - Most Recent: Last Vital Signs Temp 98.0 F 01/13/21 11:09 Pulse 77 01/13/21 11:09 Resp 18 01/13/21 11:09 BP 126/69 01/13/21 11:09 Pulse Ox 98 01/13/21 11:09 Weight - Most Recent: 177 lb 0.499 oz I&O - Last 24 Hours: Intake & Output 01/12/21 01/13/21 01/13/21 22:59 06:59 14:59 Intake Total 1930 1434 Output Total 40 Balance 1930 1394 Lab Results Last 24 Hours: Laboratory Results - last 24 hr 01/10/21 01/12/21 01/12/21 Range/Units 04:07 16:00 22:00 WBC (4.5-11.0) K/uL RBC (4.30-5.90) M/uL Hgb (12.0-15.0) g/dL Hct (40.0-54.0) % MCV (80-98) fL MCH (27-31) pg MCHC (32-36) % Plt Count (150-400) K/uL Neut % (Auto) (36-66) % Lymph % (Auto) (24-44) % [place] % (Auto) (2-6) % Eos % (Auto) (2-4) % Baso % (Auto) (0-1) % Sodium (140-148) mmol/L Potassium (3.6-5.2) mmol/L Chloride (100-108) mmol/L Carbon Dioxide (21-32) mmol/L Anion Gap (5.0-14.0) mmol/L BUN (7-18) mg/dL Creatinine (0.8-1.3) mg/dL Est Cr Clr Drug Dosing mL/min Estimated GFR (MDRD) (>60) Glucose (74-106) mg/dL POC Glucose 224 H 154 H (74-106) MG/DL Calcium (8.5-10.1) mg/dL Phosphorus (2.5-4.9) mg/dL Total Bilirubin (0.2-1.0) mg/dL AST (15-37) U/L ALT (12-78) U/L Alkaline Phosphatase (46-116) U/L NT-Pro-B Natriuret Pep (5-125) pg/mL Total Protein (6.4-8.2) g/dL Albumin (3.4-5.0) g/dL Globulin (2.3-3.5) g/dL Albumin/Globulin Ratio (1.2-2.2) TSH, Ultra Sensitive (0.358-3.740) uIU/mL Blood Type Gel Antibody Screen Crossmatch See Detail 01/13/21 01/13/21 01/13/21 Range/Units 04:00 04:15 04:15 WBC 17.4 H (4.5-11.0) K/uL RBC 2.82 L (4.30-5.90) M/uL Hgb 8.3 L (12.0-15.0) g/dL Hct 26.6 L (40.0-54.0) % MCV 94 (80-98) fL MCH 29 (27-31) pg MCHC 31 L (32-36) % Plt Count 363 (150-400) K/uL Neut % (Auto) 79 H (36-66) % Lymph % (Auto) 8 L (24-44) % [place] % (Auto) 11 H (2-6) % Eos % (Auto) 3 (2-4) % Baso % (Auto) 0 (0-1) % Sodium 148 (140-148) mmol/L Potassium 3.7 (3.6-5.2) mmol/L Chloride 108 (100-108) mmol/L Carbon Dioxide 29 (21-32) mmol/L Anion Gap 11.1 (5.0-14.0) mmol/L BUN 16 (7-18) mg/dL Creatinine 0.6 L (0.8-1.3) mg/dL Est Cr Clr Drug Dosing 137.55 mL/min Estimated GFR (MDRD) > 60 (>60) Glucose 121 H (74-106) mg/dL POC Glucose 114 H (74-106) MG/DL Calcium 8.6 (8.5-10.1) mg/dL Phosphorus 3.0 (2.5-4.9) mg/dL Total Bilirubin 0.4 (0.2-1.0) mg/dL AST 23 D (15-37) U/L ALT 22 (12-78) U/L Alkaline Phosphatase 71 (46-116) U/L NT-Pro-B Natriuret Pep 508 H (5-125) pg/mL Total Protein 5.7 L (6.4-8.2) g/dL Albumin 2.5 L (3.4-5.0) g/dL Globulin 3.2 (2.3-3.5) g/dL Albumin/Globulin Ratio 0.8 L (1.2-2.2) TSH, Ultra Sensitive 1.290 (0.358-3.740) uIU/mL Blood Type Gel Antibody Screen Crossmatch 01/13/21 Range/Units 04:15 WBC (4.5-11.0) K/uL RBC (4.30-5.90) M/uL Hgb (12.0-15.0) g/dL Hct (40.0-54.0) % MCV (80-98) fL MCH (27-31) pg MCHC (32-36) % Plt Count (150-400) K/uL Neut % (Auto) (36-66) % Lymph % (Auto) (24-44) % [place] % (Auto) (2-6) % Eos % (Auto) (2-4) % Baso % (Auto) (0-1) % Sodium (140-148) mmol/L Potassium (3.6-5.2) mmol/L Chloride (100-108) mmol/L Carbon Dioxide (21-32) mmol/L Anion Gap (5.0-14.0) mmol/L BUN (7-18) mg/dL Creatinine (0.8-1.3) mg/dL Est Cr Clr Drug Dosing mL/min Estimated GFR (MDRD) (>60) Glucose (74-106) mg/dL POC Glucose (74-106) MG/DL Calcium (8.5-10.1) mg/dL Phosphorus (2.5-4.9) mg/dL Total Bilirubin (0.2-1.0) mg/dL AST (15-37) U/L ALT (12-78) U/L Alkaline Phosphatase (46-116) U/L NT-Pro-B Natriuret Pep (5-125) pg/mL Total Protein (6.4-8.2) g/dL Albumin (3.4-5.0) g/dL Globulin (2.3-3.5) g/dL Albumin/Globulin Ratio (1.2-2.2) TSH, Ultra Sensitive (0.358-3.740) uIU/mL Blood Type O NEGATIVE Gel Antibody Screen Negative Crossmatch See Detail Med Orders - Current: Current Medications Albuterol/Ipratropium (Albuterol/Ipratropium 3.0-0.5 Mg/3 Ml Neb Soln) 3 ml INH QIDRT [facility] Last Admin: 01/13/21 10:42 Dose: 3 ml Documented by: Albuterol/Ipratropium (Albuterol/Ipratropium 3.0-0.5 Mg/3 Ml Neb Soln) 3 ml INH ASDIRECTED PRN PRN Reason: Shortness of Breath Aspirin (Aspirin 325 Mg Tab.Ec) 325 mg PO DAILY [facility] Last Admin: 01/13/21 08:31 Dose: 325 mg Documented by: Bisacodyl (Bisacodyl 5 Mg Tab) 10 mg PO BID [facility] Last Admin: 01/13/21 08:33 Dose: 10 mg Documented by: Bisacodyl (Bisacodyl 10 Mg Supp) 10 mg RECTAL ASDIRECTED PRN PRN Reason: Constipation Cyclobenzaprine HCl (Cyclobenzaprine 10 Mg Tab) 10 mg PO Q6H PRN PRN Reason: MUSCLE SPASM Dextrose (Glucose Gel 15 Gm In 37.5 Gm Tube) 15 gm PO ASDIRECTED PRN PRN Reason: HYPOGLYCEMIA Dextrose/Water (50% Dextrose In Water 50 Ml Syringe) 50 ml IVPUSH ASDIRECTED PRN PRN Reason: HYPOGLYCEMIA Docusate Sodium (Docusate Sodium 100 Mg Cap) 100 mg PO BID [facility] Last Admin: 01/13/21 08:31 Dose: 100 mg Documented by: Glucagon (Glucagon,Human Recombinant 1 Mg Vial) 1 mg IM ASDIRECTED PRN PRN Reason: HYPOGLYCEMIA Heparin Sodium (Porcine) (Heparin Sodium 100 Units/Ml 5 Ml Syringe) 500 units FLUSH ASDIRECTED PRN PRN Reason: Other Last Admin: 01/11/21 14:59 Dose: 500 units Documented by: Hydromorphone HCl (Hydromorphone/Normal Saline 15 Mg/30 Ml Spinner Operator) 0 mg IV ASDIRECTED PRN; Protocol PRN Reason: [employer] PA[employer] Last Admin: 01/12/21 20:13 Dose: 15 mg Documented by: Hydroxyzine HCl (Hydroxyzine Hcl 100 Mg/2 Ml Sdv) 100 mg IM Q4H PRN PRN Reason: PAIN Last Admin: 01/13/21 02:13 Dose: 100 mg Documented by: Ampicillin Sodium/Sulbactam (Sodium 3 gm/ Sodium Chloride) 100 mls @ 200 mls/hr IV Q6H [facility] Last Admin: 01/13/21 05:35 Dose: 200 mls/hr Documented by: Multivitamins/Minerals 10 ml/Zinc 1 ml/ Amino Ac/Electrol/Dextrose/Calcium 1,011 mls @ 82 mls/hr IV .BY DURATION [facility] Last Admin: 01/12/21 12:55 Dose: 82 mls/hr Documented by: Amino Ac/Electrol/Dextrose/Calcium (Clinimix E 5/15) 1,000 mls @ 82 mls/hr IV .BY DURATION [facility] Last Admin: 01/12/21 23:49 Dose: 82 mls/hr Documented by: Magnesium Sulfate (Magnesium Sulfate In Water 2 Gm/50 Ml) 2 gm in 50 mls @ 25 mls/hr IV Q6H [facility] Stop: 01/14/21 05:59 Last Admin: 01/13/21 10:23 Dose: 25 mls/hr Documented by: Albumin Human (Albumin 25%) 25 gm in 100 mls @ 25 mls/hr IV Q24H [facility] Stop: 01/13/21 15:59 Last Admin: 01/12/21 11:43 Dose: 25 mls/hr Documented by: Levofloxacin/Dextrose 750 mg/ (Premix) 150 mls @ 100 mls/hr IV Q24H [facility] Last Admin: 01/13/21 10:25 Dose: 100 mls/hr Documented by: Potassium Phosphate 15 mmole/ (Sodium Chloride) 105 mls @ 35 mls/hr IV Q3H [facility] Stop: 01/13/21 18:59 Last Admin: 01/13/21 10:24 Dose: 35 mls/hr Documented by: Insulin Human Lispro (Insulin Lispro 100 Unit/Ml 3 Ml Kwikpen) 0 unit SUBCUT QIDACANDBED [facility]; Protocol Last Admin: 01/13/21 08:28 Dose: Not Given Documented by: Magnesium Hydroxide (Magnesium Hydroxide 400 Mg/5 Ml Susp 30 Ml Cup) 30 ml PO ASDIRECTED PRN PRN Reason: Constipation Last Admin: 01/12/21 17:44 Dose: 30 ml Documented by: Metformin HCl (Metformin 500 Mg Tab) 1,000 mg PO BIDMEALS [facility] Last Admin: 01/13/21 08:31 Dose: 1,000 mg Documented by: Metoprolol Tartrate (Metoprolol Tartrate 50 Mg Tab) 100 mg PO BID [facility] Last Admin: 01/13/21 08:32 Dose: 100 mg Documented by: Naloxone HCl (Naloxone 0.4 Mg/Ml Sdv) 0.1 mg IV ASDIRECTED PRN PRN Reason: decreased respiratory rate Nitroglycerin (Nitroglycerin 0.4 Mg Tab.Sl) 0.4 mg SL ASDIRECTED PRN PRN Reason: CHEST PAIN Nystatin (Nystatin Ointment 15 Gm Tube) 0 gm TOP TID [facility] Last Admin: 01/13/21 08:33 Dose: 1 applic Documented by: Ondansetron HCl (Ondansetron 4 Mg/2 Ml Sdv) 4 mg IV Q4H PRN PRN Reason: Nausea/Vomiting Pantoprazole Sodium (Pantoprazole 40 Mg Vial) 40 mg IV Q24H [facility] Last Admin: 01/12/21 17:22 Dose: 40 mg Documented by: Senna/Docusate Sodium (Docusate Sodium/Sennosides 50-8.6 Mg Tab) 2 tab PO BID [facility] Last Admin: 01/13/21 08:31 Dose: 2 tab Documented by: Sodium Chloride (Sodium Chloride 0.9% 10 Ml Syringe) 10 ml FLUSH ASDIRECTED PRN PRN Reason: Keep Vein Open Tamsulosin HCl (Tamsulosin 0.4 Mg Cap.Er) 0.4 mg PO BEDTIME [facility] Last Admin: 01/12/21 20:20 Dose: 0.4 mg Documented by: Discontinued Medications Albuterol (Albuterol 0.083% 2.5 Mg/3 Ml Neb Soln) 2.5 mg NEB Q4H PRN PRN Reason: Shortness Of Breath/wheezing Albuterol/Ipratropium (Albuterol/Ipratropium 3.0-0.5 Mg/3 Ml Neb Soln) 3 ml NEB ONCALL ONE Stop: 01/09/21 11:16 Last Admin: 01/09/21 11:05 Dose: 3 ml Documented by: Aztreonam (Aztreonam 1 Gm Vial) Confirm Administered Dose 1 gm .ROUTE .STK-MED ONE Stop: 01/09/21 13:49 Last Admin: 01/09/21 14:45 Dose: 1 gm Documented by: Bisacodyl (Bisacodyl 10 Mg Supp) 10 mg RECTAL ONETIME ONE Stop: 01/12/21 10:01 Last Admin: 01/12/21 09:49 Dose: 10 mg Documented by: Bupivacaine HCl (Bupivacaine 0.5% 50 Ml Mdv) Confirm Administered Dose 50 ml .ROUTE .STK-MED ONE Stop: 01/09/21 11:31 Bupivacaine HCl (Bupivacaine 0.5% 50 Ml Mdv) Confirm Administered Dose 50 ml .ROUTE .STK-MED ONE Stop: 01/11/21 06:32 Last Admin: 01/11/21 07:36 Dose: 15 ml Documented by: Ropivacaine 37 ml/Dexamethasone 8 mg/Epinephrine HCl 0.4 mg/ Sodium Chloride 40.6 ml 0 ml NERVRT ASDIRECTED [facility] Last Admin: 01/09/21 12:56 Dose: 80 syringe Documented by: Ropivacaine 37 ml/Dexamethasone 8 mg/Epinephrine HCl 0.4 mg/ Sodium Chloride 40.6 ml 0 ml NERVRT ASDIRECTED [facility] Last Admin: 01/11/21 07:31 Dose: 80 syringe Documented by: Dexamethasone (Dexamethasone 4 Mg/Ml Sdv) Confirm Administered Dose 4 mg .ROUTE .STK-MED ONE Stop: 01/09/21 10:11 Dextrose/Water (50% Dextrose In Water 50 Ml Syringe) 50 ml IVPUSH ASDIRECTED PRN PRN Reason: Hypoglycemia Fentanyl (Fentanyl 250 Mcg/5 Ml Sdv) Confirm Administered Dose 250 mcg .ROUTE .STK-MED ONE Stop: 01/09/21 10:14 Fentanyl (Fentanyl 250 Mcg/5 Ml Sdv) Confirm Administered Dose 250 mcg .ROUTE .STK-MED ONE Stop: 01/09/21 12:48 Fentanyl (Fentanyl 100 Mcg/2 Ml Sdv) Confirm Administered Dose 100 mcg .ROUTE .STK-MED ONE Stop: 01/11/21 07:08 Furosemide (Furosemide 20 Mg/2 Ml Vial) 20 mg IVPUSH Q6H [facility] Stop: 01/12/21 14:01 Last Admin: 01/12/21 14:05 Dose: 20 mg Documented by: Furosemide (Furosemide 20 Mg/2 Ml Vial) 20 mg IVPUSH ONETIME ONE Stop: 01/13/21 11:01 Glucagon (Glucagon,Human Recombinant 1 Mg Vial) 1 mg IM ASDIRECTED PRN PRN Reason: Hypoglycemia Glycopyrrolate (Glycopyrrolate 0.2 Mg/Ml 5 Ml Mdv) Confirm Administered Dose 1 mg .ROUTE .STK-MED ONE Stop: 01/09/21 10:11 Heparin Sodium (Porcine) (Heparin Sodium 100 Units/Ml 5 Ml Syringe) Confirm Administered Dose 500 units .ROUTE .STK-MED ONE Stop: 01/09/21 11:31 Last Admin: 01/09/21 14:21 Dose: 500 units Documented by: Hydromorphone HCl (Hydromorphone 0.5 Mg/0.5 Ml Syringe) 0.5 mg IVPUSH ONETIME ONE Stop: 01/08/21 19:31 Last Admin: 01/08/21 19:42 Dose: 0.5 mg Documented by: Hydromorphone HCl (Hydromorphone 0.5 Mg/0.5 Ml Syringe) 0.5 mg IVPUSH Q2H PRN PRN Reason: Pain Last Admin: 01/09/21 06:13 Dose: 0.5 mg Documented by: Sodium Chloride (Normal Saline) 1,000 mls @ 500 mls/hr IV .BOLUS STA Stop: 01/08/21 18:34 Last Admin: 01/08/21 17:59 Dose: 500 mls/hr Documented by: Sodium Chloride (Normal Saline) 75 mls @ 3 mls/sec IV ASDIRECTED [facility] Last Admin: 01/08/21 18:11 Dose: 3 mls/sec Documented by: Piperacillin Sod/Tazobactam (Sod 4.5 gm/ Sodium Chloride) 100 mls @ 100 mls/hr IV ONETIME ONE Stop: 01/08/21 20:10 Last Admin: 01/08/21 19:42 Dose: 100 mls/hr Documented by: Phytonadione 5 mg/ Sodium (Chloride) 50.5 mls @ 100 mls/hr IV NOW ONE Stop: 01/08/21 20:06 Last Admin: 01/08/21 20:47 Dose: 100 mls/hr Documented by: Lactated Ringer's (Ringers, Lactated) 1,000 mls @ 125 mls/hr IV ASDIRECTED [facility] Last Admin: 01/09/21 06:10 Dose: 125 mls/hr Documented by: Ampicillin Sodium/Sulbactam (Sodium 1.5 gm/ Sodium Chloride) 50 mls @ 100 mls/hr IV Q6H [facility] Last Admin: 01/09/21 03:21 Dose: 100 mls/hr Documented by: Ampicillin Sodium/Sulbactam (Sodium 1.5 gm/ Sodium Chloride) 50 mls @ 100 mls/hr IV Q6H [facility] Last Admin: 01/09/21 10:32 Dose: 100 mls/hr Documented by: Ketamine HCl 50 mg/ Sodium (Chloride) 50 mls @ 22.5 mls/hr IV ASDIRECTED [facility] Magnesium Sulfate (Magnesium Sulfate In Water 2 Gm/50 Ml) 2 gm in 50 mls @ 25 mls/hr IV Q6H [facility] Stop: 01/09/21 16:59 Last Admin: 01/09/21 15:19 Dose: 25 mls/hr Documented by: Lactated Ringer's (Ringers, Lactated) Confirm Administered Dose 1,000 mls @ as directed .ROUTE .STK-MED ONE Stop: 01/09/21 10:14 Linezolid (Zyvox) Confirm Administered Dose 300 mls @ as directed .ROUTE .STK- MED ONE Stop: 01/09/21 11:32 Dextrose/Ringer's (Dextrose 5%-Ringers) Confirm Administered Dose 1,000 mls @ as directed .ROUTE .STK-MED ONE Stop: 01/09/21 12:42 Lactated Ringer's (Ringers, Lactated) Confirm Administered Dose 1,000 mls @ as directed .ROUTE .STK-MED ONE Stop: 01/09/21 12:43 Ampicillin Sodium/Sulbactam (Sodium 1.5 gm/ Sodium Chloride) 50 mls @ 100 mls/hr IV ONETIME ONE Stop: 01/09/21 13:44 Last Admin: 01/09/21 13:20 Dose: 100 mls/hr Documented by: Dextrose/Lactated Ringer's (Dextrose 5%-Lactated Ringers) 1,000 mls @ 80 mls/hr IV ASDIRECTED [facility] Last Admin: 01/09/21 23:28 Dose: 80 mls/hr Documented by: Lactated Ringer's (Ringers, Lactated) 1,000 mls @ 120 mls/hr IV ASDIRECTED [facility] Last Admin: 01/10/21 03:16 Dose: 120 mls/hr Documented by: Aztreonam 1 gm/ Sodium (Chloride) 50 mls @ 100 mls/hr IV Q8H [facility] Last Admin: 01/13/21 05:39 Dose: 100 mls/hr Documented by: Tranexamic Acid 800 mg/ Sodium (Chloride) 58 mls @ 200 mls/hr IV ONETIME ONE Stop: 01/09/21 20:02 Last Admin: 01/09/21 20:19 Dose: 200 mls/hr Documented by: Tranexamic Acid 800 mg/ Sodium (Chloride) 58 mls @ 200 mls/hr IV ONETIME ONE Stop: 01/09/21 23:02 Last Admin: 01/09/21 23:02 Dose: 200 mls/hr Documented by: Lactated Ringer's (Ringers, Lactated) 500 mls @ 500 mls/hr IV .BOLUS [facility] Last Admin: 01/10/21 04:39 Dose: 500 mls/hr Documented by: Lactated Ringer's (Ringers, Lactated) 1,000 mls @ 0 mls/hr IV ASDIRECTED [facility] Last Admin: 01/10/21 20:29 Dose: 25 mls/hr Documented by: Sodium Chloride (Normal Saline) 75 mls @ 3 mls/sec IV ASDIRECTED [facility] Last Admin: 01/11/21 05:52 Dose: 3 mls/sec Documented by: Potassium Phosphate 15 mmol/ (Premix) 250 mls @ 85 mls/hr IV Q3H [facility] Stop: 01/11/21 18:57 Last Admin: 01/11/21 17:14 Dose: 85 mls/hr Documented by: Sodium Chloride (Normal Saline) 500 mls @ 0 mls/hr IV ASDIRECTED ONE Stop: 01/11/21 11:48 Last Admin: 01/11/21 12:29 Dose: 25 mls/hr Documented by: Doxycycline Hyclate 100 mg/ (Sodium Chloride) 100 mls @ 100 mls/hr IV Q12H [facility] Last Admin: 01/13/21 04:31 Dose: 100 mls/hr Documented by: Insulin Glargine (Insulin Glargine,Human Rec. Analog 100 Units/Ml 3 Ml Pen) 10 units SUBCUT ONETIME ONE Stop: 01/10/21 07:01 Last Admin: 01/10/21 07:40 Dose: 10 units Documented by: Insulin Human Lispro (Insulin Lispro 100 Unit/Ml 3 Ml Kwikpen) 0 unit SUBCUT QIDACANDBED [facility]; Protocol Last Admin: 01/09/21 12:34 Dose: Not Given Documented by: Insulin Human Lispro (Insulin Lispro 100 Unit/Ml 3 Ml Kwikpen) 0 unit SUBCUT Q6H PRN; Protocol PRN Reason: MEDIUM CORRECTIONAL DOSING Last Admin: 01/12/21 11:49 Dose: 8 units Documented by: Insulin Human Regular (Insulin Regular, Human 100 Units/Ml 3 Ml Vial) 14 unit SUBCUT ONETIME ONE Stop: 01/08/21 19:15 Last Admin: 01/08/21 19:48 Dose: 14 unit Documented by: Iopamidol (Iopamidol 612 Mg/Ml 100 Ml Bottle) 117 ml IV . DIRECTED [facility] Last Admin: 01/08/21 18:11 Dose: 117 ml Documented by: Iopamidol (Iopamidol 612 Mg/Ml 100 Ml Bottle) 100 ml IV . DIRECTED [facility] Last Admin: 01/11/21 05:52 Dose: 100 ml Documented by: Ketamine HCl (Ketamine 500 Mg/5 Ml Mdv) 0 mg IV BOLUS [facility] Ketamine HCl (Ketamine 500 Mg/5 Ml Mdv) 0 mg IV ASDIRECTED [facility] Ketamine HCl (Ketamine 500 Mg/5 Ml Mdv) 38 mg IV ASDIRECTED [facility] Lidocaine/Epinephrine (Lidocaine 1% With Epinephrine 1:100,000 50 Ml Mdv) Confirm Administered Dose 50 ml .ROUTE .[facility] ONE Stop: 01/09/21 11:32 Lidocaine/Epinephrine (Lidocaine 1% With Epinephrine 1:100,000 50 Ml Mdv) 50 ml INJECT ONETIME ONE Stop: 01/10/21 06:01 Last Admin: 01/10/21 06:55 Dose: 5 ml Documented by: Lidocaine/Epinephrine (Lidocaine 1% With Epinephrine 1:100,000 50 Ml Mdv) Confirm Administered Dose 50 ml .ROUTE .STK-MED ONE Stop: 01/10/21 06:07 Last Admin: 01/10/21 06:11 Dose: Not Given Documented by: Lidocaine/Epinephrine (Lidocaine 1% With Epinephrine 1:100,000 50 Ml Mdv) Confirm Administered Dose 50 ml .ROUTE .STK-MED ONE Stop: 01/11/21 06:32 Last Admin: 01/11/21 07:36 Dose: 15 ml Documented by: Magnesium Hydroxide (Magnesium Hydroxide 400 Mg/5 Ml Susp 30 Ml Cup) 30 ml PO ONETIME ONE Stop: 01/12/21 09:01 Last Admin: 01/12/21 09:49 Dose: 30 ml Documented by: Magnesium Oxide (Magnesium Oxide 400 Mg Tab) 400 mg PO BEDTIME [facility] Last Admin: 01/08/21 21:40 Dose: 400 mg Documented by: Meropenem (Meropenem 500 Mg Sdv) Confirm Administered Dose 500 mg .ROUTE .STK- MED ONE Stop: 01/09/21 11:32 Last Admin: 01/09/21 13:02 Dose: 500 mg Documented by: Meropenem (Meropenem 500 Mg Sdv) Confirm Administered Dose 500 mg .ROUTE .STK- MED ONE Stop: 01/11/21 06:32 Last Admin: 01/11/21 07:37 Dose: 500 mg Documented by: Midazolam HCl (Midazolam 1 Mg/Ml 2 Ml Sdv) Confirm Administered Dose 2 mg .ROUTE .STK-MED ONE Stop: 01/11/21 07:08 Neostigmine Methylsulfate (Neostigmine Methylsulfate 1 Mg/Ml 5 Ml Syringe) Confirm Administered Dose 5 mg .ROUTE .STK-MED ONE Stop: 01/09/21 10:11 Non-Formulary Medication (Tap Block 1 Ml Bag) 0 ml NERVRT ONETIME ONE Stop: 01/09/21 13:01 Non-Formulary Medication (Central Total Parenteral Nutrition Bag) 1,000 ml .XX .Continue Order [facility] Stop: 01/10/21 08:01 Non-Formulary Medication (Central Total Parenteral Nutrition Bag) 1,000 ml .XX .Continue Order [facility] Stop: 01/11/21 07:16 Non-Formulary Medication (Central Total Parenteral Nutrition Bag) 0 ml IV ASDIRECTED [facility] Stop: 01/13/21 09:31 Ondansetron HCl (Ondansetron 4 Mg/2 Ml Sdv) Confirm Administered Dose 4 mg .ROUTE .STK-MED ONE Stop: 01/09/21 10:11 Propofol (Propofol 200 Mg/20 Ml Sdv) Confirm Administered Dose 200 mg .ROUTE .STK-MED ONE Stop: 01/09/21 10:11 Propofol (Propofol 200 Mg/20 Ml Sdv) Confirm Administered Dose 200 mg .ROUTE .STK-MED ONE Stop: 01/11/21 07:08 Rocuronium [place] (Rocuronium 50 Mg/5 Ml Vial) Confirm Administered Dose 50 mg .ROUTE .STK-MED ONE Stop: 01/09/21 10:11 Simvastatin (Simvastatin 20 Mg Tab) 20 mg PO BEDTIME [facility] Last Admin: 01/08/21 21:40 Dose: 20 mg Documented by: Sodium Chloride (Sodium Chloride 0.9% 10 Ml Syringe) 10 ml FLUSH ASDIRECTED PRN PRN Reason: Keep Vein Open Sodium Chloride (Sodium Chloride 0.9% 10 Ml Syringe) 10 ml FLUSH ONETIME ONE Stop: 01/08/21 16:47 Last Admin: 01/08/21 18:11 Dose: 10 ml Documented by: Sodium Chloride (Sodium Chloride 0.9% 10 Ml Syringe) 10 ml FLUSH ONETIME ONE Stop: 01/11/21 05:23 Last Admin: 01/11/21 05:52 Dose: 10 ml Documented by: Sodium Chloride (Sodium Chloride 0.9% Irrigation 500 Ml Container) 500 ml .XX ONETIME ONE Stop: 01/12/21 09:01 Last Admin: 01/12/21 09:45 Dose: 500 ml Documented by: Succinylcholine Chloride (Succinylcholine 200 Mg/10 Ml Mdv) Confirm Administered Dose 200 mg .ROUTE .STK-MED ONE Stop: 01/09/21 10:11 - Exam Quality Assessment: DVT Prophylaxis General: Alert, Oriented, Cooperative, Moderate Distress Lungs: Clear to Auscultation, Normal Respiratory Effort Cardiovascular: Regular Rate, Regular Rhythm, No Murmurs GI/Abdominal Exam: Soft, No Organomegaly, Tender. No: Distended, Guarding, Rigid, Rebound Extremities: Non-Tender, No Pedal Edema - Patient Data Lab Results Last 24 hrs: Laboratory Results - last 24 hr 01/10/21 01/12/21 01/12/21 Range/Units 04:07 16:00 22:00 WBC (4.5-11.0) K/uL RBC (4.30-5.90) M/uL Hgb (12.0-15.0) g/dL Hct (40.0-54.0) % MCV (80-98) fL MCH (27-31) pg MCHC (32-36) % Plt Count (150-400) K/uL Neut % (Auto) (36-66) % Lymph % (Auto) (24-44) % [place] % (Auto) (2-6) % Eos % (Auto) (2-4) % Baso % (Auto) (0-1) % Sodium (140-148) mmol/L Potassium (3.6-5.2) mmol/L Chloride (100-108) mmol/L Carbon Dioxide (21-32) mmol/L Anion Gap (5.0-14.0) mmol/L BUN (7-18) mg/dL Creatinine (0.8-1.3) mg/dL Est Cr Clr Drug Dosing mL/min Estimated GFR (MDRD) (>60) Glucose (74-106) mg/dL POC Glucose 224 H 154 H (74-106) MG/DL Calcium (8.5-10.1) mg/dL Phosphorus (2.5-4.9) mg/dL Total Bilirubin (0.2-1.0) mg/dL AST (15-37) U/L ALT (12-78) U/L Alkaline Phosphatase (46-116) U/L NT-Pro-B Natriuret Pep (5-125) pg/mL Total Protein (6.4-8.2) g/dL Albumin (3.4-5.0) g/dL Globulin (2.3-3.5) g/dL Albumin/Globulin Ratio (1.2-2.2) TSH, Ultra Sensitive (0.358-3.740) uIU/mL Blood Type Gel Antibody Screen Crossmatch See Detail 01/13/21 01/13/21 01/13/21 Range/Units 04:00 04:15 04:15 WBC 17.4 H (4.5-11.0) K/uL RBC 2.82 L (4.30-5.90) M/uL Hgb 8.3 L (12.0-15.0) g/dL Hct 26.6 L (40.0-54.0) % MCV 94 (80-98) fL MCH 29 (27-31) pg MCHC 31 L (32-36) % Plt Count 363 (150-400) K/uL Neut % (Auto) 79 H (36-66) % Lymph % (Auto) 8 L (24-44) % [place] % (Auto) 11 H (2-6) % Eos % (Auto) 3 (2-4) % Baso % (Auto) 0 (0-1) % Sodium 148 (140-148) mmol/L Potassium 3.7 (3.6-5.2) mmol/L Chloride 108 (100-108) mmol/L Carbon Dioxide 29 (21-32) mmol/L Anion Gap 11.1 (5.0-14.0) mmol/L BUN 16 (7-18) mg/dL Creatinine 0.6 L (0.8-1.3) mg/dL Est Cr Clr Drug Dosing 137.55 mL/min Estimated GFR (MDRD) > 60 (>60) Glucose 121 H (74-106) mg/dL POC Glucose 114 H (74-106) MG/DL Calcium 8.6 (8.5-10.1) mg/dL Phosphorus 3.0 (2.5-4.9) mg/dL Total Bilirubin 0.4 (0.2-1.0) mg/dL AST 23 D (15-37) U/L ALT 22 (12-78) U/L Alkaline Phosphatase 71 (46-116) U/L NT-Pro-B Natriuret Pep 508 H (5-125) pg/mL Total Protein 5.7 L (6.4-8.2) g/dL Albumin 2.5 L (3.4-5.0) g/dL Globulin 3.2 (2.3-3.5) g/dL Albumin/Globulin Ratio 0.8 L (1.2-2.2) TSH, Ultra Sensitive 1.290 (0.358-3.740) uIU/mL Blood Type Gel Antibody Screen Crossmatch 01/13/21 Range/Units 04:15 WBC (4.5-11.0) K/uL RBC (4.30-5.90) M/uL Hgb (12.0-15.0) g/dL Hct (40.0-54.0) % MCV (80-98) fL MCH (27-31) pg MCHC (32-36) % Plt Count (150-400) K/uL Neut % (Auto) (36-66) % Lymph % (Auto) (24-44) % [place] % (Auto) (2-6) % Eos % (Auto) (2-4) % Baso % (Auto) (0-1) % Sodium (140-148) mmol/L Potassium (3.6-5.2) mmol/L Chloride (100-108) mmol/L Carbon Dioxide (21-32) mmol/L Anion Gap (5.0-14.0) mmol/L BUN (7-18) mg/dL Creatinine (0.8-1.3) mg/dL Est Cr Clr Drug Dosing mL/min Estimated GFR (MDRD) (>60) Glucose (74-106) mg/dL POC Glucose (74-106) MG/DL Calcium (8.5-10.1) mg/dL Phosphorus (2.5-4.9) mg/dL Total Bilirubin (0.2-1.0) mg/dL AST (15-37) U/L ALT (12-78) U/L Alkaline Phosphatase (46-116) U/L NT-Pro-B Natriuret Pep (5-125) pg/mL Total Protein (6.4-8.2) g/dL Albumin (3.4-5.0) g/dL Globulin (2.3-3.5) g/dL Albumin/Globulin Ratio (1.2-2.2) TSH, Ultra Sensitive (0.358-3.740) uIU/mL Blood Type O NEGATIVE Gel Antibody Screen Negative Crossmatch See Detail Result Diagrams: 01/13/21 04:15 01/13/21 04:15 Sepsis Event Note - Evaluation Sepsis Screening Result: No Definite Risk - Focused Exam Vital Signs: Vital Signs Temp Pulse Pulse Resp BP BP Pulse Ox 01/13/21 11:09 98.0 F 77 18 126/69 98 01/13/21 08:32 105 H 146/74 H 01/13/21 08:00 98.0 F 103 H 18 146/74 H 98 01/13/21 07:00 93 L 01/13/21 02:55 98.9 F 81 20 117/77 93 L 01/13/21 01:06 93 L - Problem List Review Problem List Initiated/Reviewed/Updated: Yes - My Orders Last 24 Hours: My Active Orders 01/12/21 17:00 Insulin Lispro [HumaLOG] See Protocol SUBCUT QIDACANDBED 01/13/21 04:15 RED BLOOD CELLS LP [BBK] Routine TYPE AND SCREEN [BBK] Routine 01/13/21 09:00 Levofloxacin/Dextrose 5%-Water [Levaquin in D5W 750 MG/150 ML] 750 mg Premix Bag 1 bag IV Q24H 01/13/21 11:07 Dietary Supplements [RC] TIDMEALS 01/17/21 09:00 Dulaglutide [Trulicity] 1.5 mg SUBCUT Q7D - Plan Plan:: ASSESSMENT AND PLAN ABDOMINAL PAIN-white count slowly improving -Blood and surgical cultures pending -Full liquid diet -Saline lock -Pain and nausea medication as needed -Unasyn and Levaquin pending culture results -Surgical management per Dr. Burkett RIGHT LUNG MASS-concerning for malignancy, with airway obstruction and volume loss. Question possible underlying postobstructive pneumonia. -Levofloxacin as above -Bronchoscopy January 15 TYPE 2 DIABETES MELLITUS -Continue Jardiance and Trulicity -4 times daily glucometers -High dose sliding scale Humalog PAROXYSMAL ATRIAL FIBRILLATION STATUS POST ABLATION-INR improved following IV vitamin K -Hold warfarin COPD-he reports developing shortness of breath with moderate levels of exertion, does not require home oxygen -Nebulized albuterol as needed -Continue vigorous pulmonary toilet postoperatively CORONARY ARTERY DISEASE-status post 2 angioplasties and stents several years ago. Currently asymptomatic -Continue outpatient medications MAINTENANCE ISSUES -DVT prophylaxis; SCUDs -GI prophylaxis; not indicated -Preciado catheter; not indicated -Nutrition; n.p.o. -Nicotine dependence; not required CODE STATUS-full code ADMISSION STATUS-patient will be admitted to inpatient status, expect at least a 2 night hospital stay for evaluation and management of problems as outlined above. At the time of this admission I do not reasonably expected evaluation and management of this problem will require more than a 96 hour hospital stay. DISPOSITION-anticipate discharge to home after the hospital stay. PRIMARY CARE PROVIDER-Dr. Portillo
[2021-01-13] MEDS: 1: AA 5%/Calcium/D15W/Lytes 1,000 ML with MVI, Adult with Vitamin K 10 ML, Zinc/Copper/M IV SCH ×3 (12:12)
[2021-01-13] MEDS: Pantoprazole 40 MG Vial IV SCH (17:02)
[2021-01-13] MEDS: Tamsulosin 0.4 MG Cap.ER PO SCH (20:09)
[2021-01-13] MEDS: HYDROmorphone/Normal Saline 15 MG/30 ML PCA IV PRN (21:14)
[2021-01-14] MEDS: Ampicillin/Sulbactam Na 3 GM in Sodium Chloride 0.9% 100 ML IV SCH ×5 (00:32→23:42)
[2021-01-14] MEDS: 1: AA 5%/Calcium/D15W/Lytes 1,000 ML with MVI, Adult with Vitamin K 10 ML, Zinc/Copper/M IV SCH ×6 (00:33→12:56)
[2021-01-14] MEDS: hydrOXYzine HCL 100 MG/2 ML SDV IM PRN (01:27)
[2021-01-14] MEDS: Magnesium Sulfate/Water 2 GM/50 ML BAG IV SCH (03:54)
[2021-01-14] MEDS: Albuterol/Ipratropium 3.0-0.5 MG/3 ML Neb Soln INH SCH ×4 (07:16→19:59)
[2021-01-14] MEDS: Insulin Lispro 100 Unit/ML 3 ML KwikPen SUBCUT SCH ×4 (08:23→21:51)
[2021-01-14] MEDS: metFORMIN 500 MG Tab PO SCH ×2 (08:23→16:35)
[2021-01-14] MEDS: Aspirin 325 MG Tab.EC PO SCH (08:24)
[2021-01-14] MEDS: Docusate Sodium 100 MG Cap PO SCH ×2 (08:24→20:00)
[2021-01-14] MEDS: Bisacodyl 5 MG Tab PO SCH ×2 (08:24→20:00)
[2021-01-14] MEDS: Empagliflozin 10 MG Tab PO SCH (08:24)
[2021-01-14] MEDS: Metoprolol Tartrate 50 MG Tab PO SCH ×2 (08:25→20:00)
[2021-01-14] MEDS: Nystatin Ointment 15 GM Tube TOP SCH ×3 (08:25→20:01)
[2021-01-14] MEDS: Levofloxacin/Dextrose 5%-Water 750 MG in Premix Bag 1 BAG IV SCH (08:26)
--- NOTE | 2021-01-14 11:33 | PCM.PN ---
- General Info Date of Service: 01/14/21 Subjective Update: Mr. Lopez has remained stable over the past 24 hours. Vital signs have been within desired range and he has remained afebrile. Continues to experience significant incisional pain. White blood cell count has remained elevated. Functional Status: Reports: Tolerating Diet, Ambulating, Urinating - Review of Systems General: Reports: Weakness, Fatigue. Denies: Fever, Chills Pulmonary: Reports: No Symptoms Cardiovascular: Reports: No Symptoms Gastrointestinal: Reports: Abdominal Pain. Denies: Difficulty Swallowing, Hem atochezia, Melena, Nausea, Vomiting - Patient Data Vitals - Most Recent: Last Vital Signs Temp 98.9 F 01/14/21 07:59 Pulse 82 01/14/21 08:25 Resp 16 01/14/21 07:59 BP 128/75 01/14/21 08:25 Pulse Ox 95 01/14/21 07:59 Weight - Most Recent: 177 lb 3.2 oz I&O - Last 24 Hours: Intake & Output 01/13/21 01/14/21 01/14/21 22:59 06:59 14:59 Intake Total 3131 1236 150 Output Total 1710 660 600 Balance 1421 576 -450 Lab Results Last 24 Hours: Laboratory Results - last 24 hr 01/13/21 01/13/21 01/13/21 Range/Units 04:15 11:26 16:30 WBC (4.5-11.0) K/uL RBC (4.30-5.90) M/uL Hgb (12.0-15.0) g/dL Hct (40.0-54.0) % MCV (80-98) fL MCH (27-31) pg MCHC (32-36) % Plt Count (150-400) K/uL Neut % (Auto) (36-66) % Lymph % (Auto) (24-44) % Harding % (Auto) (2-6) % Eos % (Auto) (2-4) % Baso % (Auto) (0-1) % Sodium (140-148) mmol/L Potassium (3.6-5.2) mmol/L Chloride (100-108) mmol/L Carbon Dioxide (21-32) mmol/L Anion Gap (5.0-14.0) mmol/L BUN (7-18) mg/dL Creatinine (0.8-1.3) mg/dL Est Cr Clr Drug Dosing mL/min Estimated GFR (MDRD) (>60) Glucose (74-106) mg/dL POC Glucose 153 H 214 H (74-106) MG/DL Calcium (8.5-10.1) mg/dL Phosphorus (2.5-4.9) mg/dL Total Bilirubin (0.2-1.0) mg/dL AST (15-37) U/L ALT (12-78) U/L Alkaline Phosphatase (46-116) U/L NT-Pro-B Natriuret Pep (5-125) pg/mL Total Protein (6.4-8.2) g/dL Albumin (3.4-5.0) g/dL Globulin (2.3-3.5) g/dL Albumin/Globulin Ratio (1.2-2.2) Blood Type O NEGATIVE Gel Antibody Screen Negative Crossmatch See Detail 01/13/21 01/14/21 01/14/21 Range/Units 21:05 04:10 04:10 WBC 18.9 H (4.5-11.0) K/uL RBC 2.89 L (4.30-5.90) M/uL Hgb 8.4 L (12.0-15.0) g/dL Hct 27.5 L (40.0-54.0) % MCV 95 (80-98) fL MCH 29 (27-31) pg MCHC 31 L (32-36) % Plt Count 377 (150-400) K/uL Neut % (Auto) 75 H (36-66) % Lymph % (Auto) 9 L (24-44) % Harding % (Auto) 13 H (2-6) % Eos % (Auto) 3 (2-4) % Baso % (Auto) 0 (0-1) % Sodium 148 (140-148) mmol/L Potassium 4.2 (3.6-5.2) mmol/L Chloride 109 H (100-108) mmol/L Carbon Dioxide 27 (21-32) mmol/L Anion Gap 16.2 H (5.0-14.0) mmol/L BUN 17 (7-18) mg/dL Creatinine 0.6 L (0.8-1.3) mg/dL Est Cr Clr Drug Dosing 137.68 mL/min Estimated GFR (MDRD) > 60 (>60) Glucose 118 H (74-106) mg/dL POC Glucose 175 H (74-106) MG/DL Calcium 8.7 (8.5-10.1) mg/dL Phosphorus 3.2 (2.5-4.9) mg/dL Total Bilirubin 0.8 D (0.2-1.0) mg/dL AST 23 (15-37) U/L ALT 20 (12-78) U/L Alkaline Phosphatase 69 (46-116) U/L NT-Pro-B Natriuret Pep 566 H (5-125) pg/mL Total Protein 5.5 L (6.4-8.2) g/dL Albumin 2.5 L (3.4-5.0) g/dL Globulin 3.0 (2.3-3.5) g/dL Albumin/Globulin Ratio 0.8 L (1.2-2.2) Blood Type Gel Antibody Screen Crossmatch 01/14/21 Range/Units 07:28 WBC (4.5-11.0) K/uL RBC (4.30-5.90) M/uL Hgb (12.0-15.0) g/dL Hct (40.0-54.0) % MCV (80-98) fL MCH (27-31) pg MCHC (32-36) % Plt Count (150-400) K/uL Neut % (Auto) (36-66) % Lymph % (Auto) (24-44) % Harding % (Auto) (2-6) % Eos % (Auto) (2-4) % Baso % (Auto) (0-1) % Sodium (140-148) mmol/L Potassium (3.6-5.2) mmol/L Chloride (100-108) mmol/L Carbon Dioxide (21-32) mmol/L Anion Gap (5.0-14.0) mmol/L BUN (7-18) mg/dL Creatinine (0.8-1.3) mg/dL Est Cr Clr Drug Dosing mL/min Estimated GFR (MDRD) (>60) Glucose (74-106) mg/dL POC Glucose 128 H (74-106) MG/DL Calcium (8.5-10.1) mg/dL Phosphorus (2.5-4.9) mg/dL Total Bilirubin (0.2-1.0) mg/dL AST (15-37) U/L ALT (12-78) U/L Alkaline Phosphatase (46-116) U/L NT-Pro-B Natriuret Pep (5-125) pg/mL Total Protein (6.4-8.2) g/dL Albumin (3.4-5.0) g/dL Globulin (2.3-3.5) g/dL Albumin/Globulin Ratio (1.2-2.2) Blood Type Gel Antibody Screen Crossmatch Med Orders - Current: Current Medications Albuterol/Ipratropium (Albuterol/Ipratropium 3.0-0.5 Mg/3 Ml Neb Soln) 3 ml INH QIDRT [facility] Last Admin: 01/14/21 10:53 Dose: 3 ml Documented by: Albuterol/Ipratropium (Albuterol/Ipratropium 3.0-0.5 Mg/3 Ml Neb Soln) 3 ml INH ASDIRECTED PRN PRN Reason: Shortness of Breath Aspirin (Aspirin 325 Mg Tab.Ec) 325 mg PO DAILY [facility] Last Admin: 01/14/21 08:24 Dose: 325 mg Documented by: Bisacodyl (Bisacodyl 5 Mg Tab) 10 mg PO BID [facility] Last Admin: 01/14/21 08:24 Dose: 10 mg Documented by: Bisacodyl (Bisacodyl 10 Mg Supp) 10 mg RECTAL ASDIRECTED PRN PRN Reason: Constipation Cyclobenzaprine HCl (Cyclobenzaprine 10 Mg Tab) 10 mg PO Q6H PRN PRN Reason: MUSCLE SPASM Dextrose (Glucose Gel 15 Gm In 37.5 Gm Tube) 15 gm PO ASDIRECTED PRN PRN Reason: HYPOGLYCEMIA Dextrose/Water (50% Dextrose In Water 50 Ml Syringe) 50 ml IVPUSH ASDIRECTED PRN PRN Reason: HYPOGLYCEMIA Docusate Sodium (Docusate Sodium 100 Mg Cap) 100 mg PO BID [facility] Last Admin: 01/14/21 08:24 Dose: 100 mg Documented by: Furosemide (Furosemide 20 Mg/2 Ml Vial) 20 mg IVPUSH ONETIME ONE Stop: 01/14/21 14:01 Glucagon (Glucagon,Human Recombinant 1 Mg Vial) 1 mg IM ASDIRECTED PRN PRN Reason: HYPOGLYCEMIA Heparin Sodium (Porcine) (Heparin Sodium 100 Units/Ml 5 Ml Syringe) 500 units FLUSH ASDIRECTED PRN PRN Reason: Other Last Admin: 01/11/21 14:59 Dose: 500 units Documented by: Hydromorphone HCl (Hydromorphone/Normal Saline 15 Mg/30 Ml Hospital Nurse Liaison) 0 mg IV ASDIRECTED PRN; Protocol PRN Reason: [employer] PAIN [employer]OL Last Admin: 01/13/21 21:14 Dose: 15 mg Documented by: Hydroxyzine HCl (Hydroxyzine Hcl 100 Mg/2 Ml Sdv) 100 mg IM Q4H PRN PRN Reason: PAIN Last Admin: 01/14/21 01:27 Dose: 100 mg Documented by: Ampicillin Sodium/Sulbactam (Sodium 3 gm/ Sodium Chloride) 100 mls @ 200 mls/hr IV Q6H [facility] Last Admin: 01/14/21 05:34 Dose: 200 mls/hr Documented by: Multivitamins/Minerals 10 ml/Zinc 1 ml/ Amino Ac/Electrol/Dextrose/Calcium 1,011 mls @ 82 mls/hr IV .BY DURATION [facility] Last Admin: 01/13/21 12:12 Dose: 82 mls/hr Documented by: Amino Ac/Electrol/Dextrose/Calcium (Clinimix E 5/15) 1,000 mls @ 82 mls/hr IV .BY DURATION [facility] Last Admin: 01/14/21 00:33 Dose: 82 mls/hr Documented by: Levofloxacin/Dextrose 750 mg/ (Premix) 150 mls @ 100 mls/hr IV Q24H [facility] Last Admin: 01/14/21 08:26 Dose: 100 mls/hr Documented by: Insulin Human Lispro (Insulin Lispro 100 Unit/Ml 3 Ml Kwikpen) 0 unit SUBCUT QIDACANDBED [facility]; Protocol Last Admin: 01/14/21 08:23 Dose: Not Given Documented by: Magnesium Hydroxide (Magnesium Hydroxide 400 Mg/5 Ml Susp 30 Ml Cup) 30 ml PO ASDIRECTED PRN PRN Reason: Constipation Last Admin: 01/12/21 17:44 Dose: 30 ml Documented by: Metformin HCl (Metformin 500 Mg Tab) 1,000 mg PO BIDMEALS [facility] Last Admin: 01/14/21 08:23 Dose: 1,000 mg Documented by: Metoprolol Tartrate (Metoprolol Tartrate 50 Mg Tab) 100 mg PO BID [facility] Last Admin: 01/14/21 08:25 Dose: 100 mg Documented by: Naloxone HCl (Naloxone 0.4 Mg/Ml Sdv) 0.1 mg IV ASDIRECTED PRN PRN Reason: decreased respiratory rate Nitroglycerin (Nitroglycerin 0.4 Mg Tab.Sl) 0.4 mg SL ASDIRECTED PRN PRN Reason: CHEST PAIN Nystatin (Nystatin Ointment 15 Gm Tube) 0 gm TOP TID [facility] Last Admin: 01/14/21 08:25 Dose: 1 applic Documented by: Ondansetron HCl (Ondansetron 4 Mg/2 Ml Sdv) 4 mg IV Q4H PRN PRN Reason: Nausea/Vomiting Pantoprazole Sodium (Pantoprazole 40 Mg Vial) 40 mg IV Q24H [facility] Last Admin: 01/13/21 17:02 Dose: 40 mg Documented by: Senna/Docusate Sodium (Docusate Sodium/Sennosides 50-8.6 Mg Tab) 2 tab PO BID [facility] Last Admin: 01/14/21 08:24 Dose: 2 tab Documented by: Sodium Chloride (Sodium Chloride 0.9% 10 Ml Syringe) 10 ml FLUSH ASDIRECTED PRN PRN Reason: Keep Vein Open Tamsulosin HCl (Tamsulosin 0.4 Mg Cap.Er) 0.4 mg PO BEDTIME [facility] Last Admin: 01/13/21 20:09 Dose: 0.4 mg Documented by: Discontinued Medications Albuterol (Albuterol 0.083% 2.5 Mg/3 Ml Neb Soln) 2.5 mg NEB Q4H PRN PRN Reason: Shortness Of Breath/wheezing Albuterol/Ipratropium (Albuterol/Ipratropium 3.0-0.5 Mg/3 Ml Neb Soln) 3 ml NEB ONCALL ONE Stop: 01/09/21 11:16 Last Admin: 01/09/21 11:05 Dose: 3 ml Documented by: Aztreonam (Aztreonam 1 Gm Vial) Confirm Administered Dose 1 gm .ROUTE .STK-MED ONE Stop: 01/09/21 13:49 Last Admin: 01/09/21 14:45 Dose: 1 gm Documented by: Bisacodyl (Bisacodyl 10 Mg Supp) 10 mg RECTAL ONETIME ONE Stop: 01/12/21 10:01 Last Admin: 01/12/21 09:49 Dose: 10 mg Documented by: Bupivacaine HCl (Bupivacaine 0.5% 50 Ml Mdv) Confirm Administered Dose 50 ml .ROUTE .STK-MED ONE Stop: 01/09/21 11:31 Bupivacaine HCl (Bupivacaine 0.5% 50 Ml Mdv) Confirm Administered Dose 50 ml .ROUTE .STK-MED ONE Stop: 01/11/21 06:32 Last Admin: 01/11/21 07:36 Dose: 15 ml Documented by: Ropivacaine 37 ml/Dexamethasone 8 mg/Epinephrine HCl 0.4 mg/ Sodium Chloride 4 0.6 ml 0 ml NERVRT ASDIRECTED [facility] Last Admin: 01/09/21 12:56 Dose: 80 syringe Documented by: Ropivacaine 37 ml/Dexamethasone 8 mg/Epinephrine HCl 0.4 mg/ Sodium Chloride 40.6 ml 0 ml NERVRT ASDIRECTED [facility] Last Admin: 01/11/21 07:31 Dose: 80 syringe Documented by: Dexamethasone (Dexamethasone 4 Mg/Ml Sdv) Confirm Administered Dose 4 mg .ROUTE .STK-MED ONE Stop: 01/09/21 10:11 Dextrose/Water (50% Dextrose In Water 50 Ml Syringe) 50 ml IVPUSH ASDIRECTED PRN PRN Reason: Hypoglycemia Fentanyl (Fentanyl 250 Mcg/5 Ml Sdv) Confirm Administered Dose 250 mcg .ROUTE .STK-MED ONE Stop: 01/09/21 10:14 Fentanyl (Fentanyl 250 Mcg/5 Ml Sdv) Confirm Administered Dose 250 mcg .ROUTE .STK-MED ONE Stop: 01/09/21 12:48 Fentanyl (Fentanyl 100 Mcg/2 Ml Sdv) Confirm Administered Dose 100 mcg .ROUTE .STK-MED ONE Stop: 01/11/21 07:08 Furosemide (Furosemide 20 Mg/2 Ml Vial) 20 mg IVPUSH Q6H [facility] Stop: 01/12/21 14:01 Last Admin: 01/12/21 14:05 Dose: 20 mg Documented by: Furosemide (Furosemide 20 Mg/2 Ml Vial) 20 mg IVPUSH ONETIME ONE Stop: 01/13/21 11:01 Last Admin: 01/13/21 20:06 Dose: 20 mg Documented by: Glucagon (Glucagon,Human Recombinant 1 Mg Vial) 1 mg IM ASDIRECTED PRN PRN Reason: Hypoglycemia Glycopyrrolate (Glycopyrrolate 0.2 Mg/Ml 5 Ml Mdv) Confirm Administered Dose 1 mg .ROUTE .STK-MED ONE Stop: 01/09/21 10:11 Heparin Sodium (Porcine) (Heparin Sodium 100 Units/Ml 5 Ml Syringe) Confirm Administered Dose 500 units .ROUTE .STK-MED ONE Stop: 01/09/21 11:31 Last Admin: 01/09/21 14:21 Dose: 500 units Documented by: Hydromorphone HCl (Hydromorphone 0.5 Mg/0.5 Ml Syringe) 0.5 mg IVPUSH ONETIME ONE Stop: 01/08/21 19:31 Last Admin: 01/08/21 19:42 Dose: 0.5 mg Documented by: Hydromorphone HCl (Hydromorphone 0.5 Mg/0.5 Ml Syringe) 0.5 mg IVPUSH Q2H PRN PRN Reason: Pain Last Admin: 01/09/21 06:13 Dose: 0.5 mg Documented by: Sodium Chloride (Normal Saline) 1,000 mls @ 500 mls/hr IV .BOLUS STA Stop: 01/08/21 18:34 Last Admin: 01/08/21 17:59 Dose: 500 mls/hr Documented by: Sodium Chloride (Normal Saline) 75 mls @ 3 [facility] Last Admin: 01/08/21 18:11 Dose: 3 mls/sec Documented by: Piperacillin Sod/Tazobactam (Sod 4.5 gm/ Sodium Chloride) 100 mls @ 100 mls/hr IV ONETIME ONE Stop: 01/08/21 20:10 Last Admin: 01/08/21 19:42 Dose: 100 mls/hr Documented by: Phytonadione 5 mg/ Sodium (Chloride) 50.5 mls @ 100 mls/hr IV NOW ONE Stop: 01/08/21 20:06 Last Admin: 01/08/21 20:47 Dose: 100 mls/hr Documented by: Lactated Ringer's (Ringers, Lactated) 1,000 mls @ 125 mls[facility]hr [facility] Last Admin: 01/09/21 06:10 Dose: 125 mls/hr Documented by: Ampicillin Sodium/Sulbactam (Sodium 1.5 gm/ Sodium Chloride) 50 mls @ 100 mls/hr IV Q6H [facility] Last Admin: 01/09/21 03:21 Dose: 100 mls/hr Documented by: Ampicillin Sodium/Sulbactam (Sodium 1.5 gm/ Sodium Chloride) 50 mls @ 100 mls/hr IV Q6H [facility] Last Admin: 01/09/21 10:32 Dose: 100 mls/hr Documented by: Ketamine HCl 50 mg/ Sodium (Chloride) 50 mls @ 22.5 mls/hr IV ASDIRECTED [facility] Magnesium Sulfate (Magnesium Sulfate In Water 2 Gm/50 Ml) 2 gm in 50 mls @ 25 mls/hr IV Q6H [facility] Stop: 01/09/21 16:59 Last Admin: 01/09/21 15:19 Dose: 25 mls/hr Documented by: Lactated Ringer's (Ringers, Lactated) Confirm Administered Dose 1,000 mls @ as directed .ROUTE .[facility] ONE Stop: 01/09/21 10:14 Linezolid (Zyvox) Confirm Administered Dose 300 mls @ as directed .ROUTE .[facility] ONE Stop: 01/09/21 11:32 Dextrose/Ringer's (Dextrose 5%-Ringers) Confirm Administered Dose 1,000 mls @ as directed .ROUTE .[facility] ONE Stop: 01/09/21 12:42 Lactated Ringer's (Ringers, Lactated) Confirm Administered Dose 1,000 mls @ as directed .ROUTE .[facility] ONE Stop: 01/09/21 12:43 Ampicillin Sodium/Sulbactam (Sodium 1.5 gm/ Sodium Chloride) 50 mls @ 100 mls/hr IV ONETIME ONE Stop: 01/09/21 13:44 Last Admin: 01/09/21 13:20 Dose: 100 mls/hr Documented by: Dextrose/Lactated Ringer's (Dextrose 5%-Lactated Ringers) 1,000 mls @ 80 mls/hr IV ASDIRECTED [facility] Last Admin: 01/09/21 23:28 Dose: 80 mls/hr Documented by: Lactated Ringer's (Ringers, Lactated) 1,000 mls @ 120 mls/hr IV ASDIRECTED [facility] Last Admin: 01/10/21 03:16 Dose: 120 mls/hr Documented by: Aztreonam 1 gm/ Sodium (Chloride) 50 mls @ 100 mls/hr IV Q8H [facility] Last Admin: 01/13/21 05:39 Dose: 100 mls/hr Documented by: Tranexamic Acid 800 mg/ Sodium (Chloride) 58 mls @ 200 mls/hr IV ONETIME ONE Stop: 01/09/21 20:02 Last Admin: 01/09/21 20:19 Dose: 200 mls/hr Documented by: Tranexamic Acid 800 mg/ Sodium (Chloride) 58 mls @ 200 mls/hr IV ONETIME ONE Stop: 01/09/21 23:02 Last Admin: 01/09/21 23:02 Dose: 200 mls/hr Documented by: Lactated Ringer's (Ringers, Lactated) 500 mls @ 500 mls/hr IV .BOLUS [facility] Last Admin: 01/10/21 04:39 Dose: 500 mls/hr Documented by: Lactated Ringer's (Ringers, Lactated) 1,000 mls @ 0 mls/hr IV ASDIRECTED [facility] Last Admin: 01/10/21 20:29 Dose: 25 mls/hr Documented by: Sodium Chloride (Normal Saline) 75 mls @ 3 mls/sec IV ASDIRECTED [facility] Last Admin: 01/11/21 05:52 Dose: 3 mls/sec Documented by: Magnesium Sulfate (Magnesium Sulfate In Water 2 Gm/50 Ml) 2 gm in 50 mls @ 25 mls/hr IV Q6H [facility] Stop: 01/14/21 05:59 Last Admin: 01/14/21 03:54 Dose: 25 mls/hr Documented by: Albumin Human (Albumin 25%) 25 gm in 100 mls @ 25 mls/hr IV Q24H [facility] Stop: 01/13/21 15:59 Last Admin: 01/13/21 13:50 Dose: 25 mls/hr Documented by: Potassium Phosphate 15 mmol/ (Premix) 250 mls @ 85 mls/hr IV Q3H [facility] Stop: 01/11/21 18:57 Last Admin: 01/11/21 17:14 Dose: 85 mls/hr Documented by: Sodium Chloride (Normal Saline) 500 mls @ 0 mls/hr IV ASDIRECTED ONE Stop: 01/11/21 11:48 Last Admin: 01/11/21 12:29 Dose: 25 mls/hr Documented by: Doxycycline Hyclate 100 mg/ (Sodium Chloride) 100 mls @ 100 mls/hr IV Q12H [facility] Last Admin: 01/13/21 04:31 Dose: 100 mls/hr Documented by: Potassium Phosphate 15 mmole/ (Sodium Chloride) 105 mls @ 35 mls/hr IV Q3H [facility] Stop: 01/13/21 18:59 Last Admin: 01/13/21 21:18 Dose: 35 mls/hr Documented by: Insulin Glargine (Insulin Glargine,Human Rec. Analog 100 Units/Ml 3 Ml Pen) 10 units SUBCUT ONETIME ONE Stop: 01/10/21 07:01 Last Admin: 01/10/21 07:40 Dose: 10 units Documented by: Insulin Human Lispro (Insulin Lispro 100 Unit/Ml 3 Ml Kwikpen) 0 unit SUBCUT QIDACANDBED [facility]; Protocol Last Admin: 01/09/21 12:34 Dose: Not Given Documented by: Insulin Human Lispro (Insulin Lispro 100 Unit/Ml 3 Ml Kwikpen) 0 unit SUBCUT Q6H PRN; Protocol PRN Reason: MEDIUM CORRECTIONAL DOSING Last Admin: 01/12/21 11:49 Dose: 8 units Documented by: Insulin Human Regular (Insulin Regular, Human 100 Units/Ml 3 Ml Vial) 14 unit SUBCUT ONETIME ONE Stop: 01/08/21 19:15 Last Admin: 01/08/21 19:48 Dose: 14 unit Documented by: Iopamidol (Iopamidol 612 Mg/Ml 100 Ml Bottle) 117 ml IV . DIRECTED [facility] Last Admin: 01/08/21 18:11 Dose: 117 ml Documented by: Iopamidol (Iopamidol 612 Mg/Ml 100 Ml Bottle) 100 ml IV . DIRECTED [facility] Last Admin: 01/11/21 05:52 Dose: 100 ml Documented by: Ketamine HCl (Ketamine 500 Mg/5 Ml Mdv) 0 mg IV BOLUS [facility] Ketamine HCl (Ketamine 500 Mg/5 Ml Mdv) 0 mg IV ASDIRECTED [facility] Ketamine HCl (Ketamine 500 Mg/5 Ml Mdv) 38 mg IV ASDIRECTED [facility] Lidocaine/Epinephrine (Lidocaine 1% With Epinephrine 1:100,000 50 Ml Mdv) Confirm Administered Dose 50 ml .ROUTE .STK-MED ONE Stop: 01/09/21 11:32 Lidocaine/Epinephrine (Lidocaine 1% With Epinephrine 1:100,000 50 Ml Mdv) 50 ml INJECT ONETIME ONE Stop: 01/10/21 06:01 Last Admin: 01/10/21 06:55 Dose: 5 ml Documented by: Lidocaine/Epinephrine (Lidocaine 1% With Epinephrine 1:100,000 50 Ml Mdv) Conf irm Administered Dose 50 ml .ROUTE .STK-MED ONE Stop: 01/10/21 06:07 Last Admin: 01/10/21 06:11 Dose: Not Given Documented by: Lidocaine/Epinephrine (Lidocaine 1% With Epinephrine 1:100,000 50 Ml Mdv) Confirm Administered Dose 50 ml .ROUTE .STK-MED ONE Stop: 01/11/21 06:32 Last Admin: 01/11/21 07:36 Dose: 15 ml Documented by: Magnesium Hydroxide (Magnesium Hydroxide 400 Mg/5 Ml Susp 30 Ml Cup) 30 ml PO ONETIME ONE Stop: 01/12/21 09:01 Last Admin: 01/12/21 09:49 Dose: 30 ml Documented by: Magnesium Oxide (Magnesium Oxide 400 Mg Tab) 400 mg PO BEDTIME [facility] Last Admin: 01/08/21 21:40 Dose: 400 mg Documented by: Meropenem (Meropenem 500 Mg Sdv) Confirm Administered Dose 500 mg .ROUTE .STK- MED ONE Stop: 01/09/21 11:32 Last Admin: 01/09/21 13:02 Dose: 500 mg Documented by: Meropenem (Meropenem 500 Mg Sdv) Confirm Administered Dose 500 mg .ROUTE .STK- MED ONE Stop: 01/11/21 06:32 Last Admin: 01/11/21 07:37 Dose: 500 mg Documented by: Midazolam HCl (Midazolam 1 Mg/Ml 2 Ml Sdv) Confirm Administered Dose 2 mg .ROUTE .STK-MED ONE Stop: 01/11/21 07:08 Neostigmine Methylsulfate (Neostigmine Methylsulfate 1 Mg/Ml 5 Ml Syringe) Confirm Administered Dose 5 mg .ROUTE .STK-MED ONE Stop: 01/09/21 10:11 Non-Formulary Medication (Tap Block 1 Ml Bag) 0 ml NERVRT ONETIME ONE Stop: 01/09/21 13:01 Non-Formulary Medication (Central Total Parenteral Nutrition Bag) 1,000 ml .XX .Continue Order [facility] Stop: 01/10/21 08:01 Non-Formulary Medication (Central Total Parenteral Nutrition Bag) 1,000 ml .XX .Continue Order [facility] Stop: 01/11/21 07:16 Non-Formulary Medication (Central Total Parenteral Nutrition Bag) 0 ml IV ASDIRECTED [facility] Stop: 01/13/21 09:31 Ondansetron HCl (Ondansetron 4 Mg/2 Ml Sdv) Confirm Administered Dose 4 mg .ROUTE .STK-MED ONE Stop: 01/09/21 10:11 Propofol (Propofol 200 Mg/20 Ml Sdv) Confirm Administered Dose 200 mg .ROUTE .STK-MED ONE Stop: 01/09/21 10:11 Propofol (Propofol 200 Mg/20 Ml Sdv) Confirm Administered Dose 200 mg .ROUTE .STK-MED ONE Stop: 01/11/21 07:08 Rocuronium [place] (Rocuronium 50 Mg/5 Ml Vial) Confirm Administered Dose 50 mg .ROUTE .STK-MED ONE Stop: 01/09/21 10:11 Simvastatin (Simvastatin 20 Mg Tab) 20 mg PO BEDTIME [facility] Last Admin: 01/08/21 21:40 Dose: 20 mg Documented by: Sodium Chloride (Sodium Chloride 0.9% 10 Ml Syringe) 10 ml FLUSH ASDIRECTED PRN PRN Reason: Keep Vein Open Sodium Chloride (Sodium Chloride 0.9% 10 Ml Syringe) 10 ml FLUSH ONETIME ONE Stop: 01/08/21 16:47 Last Admin: 01/08/21 18:11 Dose: 10 ml Documented by: Sodium Chloride (Sodium Chloride 0.9% 10 Ml Syringe) 10 ml FLUSH ONETIME ONE Stop: 01/11/21 05:23 Last Admin: 01/11/21 05:52 Dose: 10 ml Documented by: Sodium Chloride (Sodium Chloride 0.9% Irrigation 500 Ml Container) 500 ml .XX ONETIME ONE Stop: 01/12/21 09:01 Last Admin: 01/12/21 09:45 Dose: 500 ml Documented by: Succinylcholine Chloride (Succinylcholine 200 Mg/10 Ml Mdv) Confirm Administered Dose 200 mg .ROUTE .STK-MED ONE Stop: 01/09/21 10:11 - Exam Quality Assessment: Central Line/PICC, DVT Prophylaxis General: Alert, Oriented, Cooperative, Moderate Distress Lungs: Clear to Auscultation, Normal Respiratory Effort, Decreased Breath Sounds Cardiovascular: Regular Rate, Regular Rhythm, No Murmurs GI/Abdominal Exam: Soft, No Organomegaly, Tender. No: Distended, Guarding, Rigid, Rebound Extremities: Non-Tender, No Pedal Edema - Patient Data Lab Results Last 24 hrs: Laboratory Results - last 24 hr 01/13/21 01/13/21 01/13/21 Range/Units 04:15 11:26 16:30 WBC (4.5-11.0) K/uL RBC (4.30-5.90) M/uL Hgb (12.0-15.0) g/dL Hct (40.0-54.0) % MCV (80-98) fL MCH (27-31) pg MCHC (32-36) % Plt Count (150-400) K/uL Neut % (Auto) (36-66) % Lymph % (Auto) (24-44) % [place] % (Auto) (2-6) % Eos % (Auto) (2-4) % Baso % (Auto) (0-1) % Sodium (140-148) mmol/L Potassium (3.6-5.2) mmol/L Chloride (100-108) mmol/L Carbon Dioxide (21-32) mmol/L Anion Gap (5.0-14.0) mmol/L BUN (7-18) mg/dL Creatinine (0.8-1.3) mg/dL Est Cr Clr Drug Dosing mL/min Estimated GFR (MDRD) (>60) Glucose (74-106) mg/dL POC Glucose 153 H 214 H (74-106) MG/DL Calcium (8.5-10.1) mg/dL Phosphorus (2.5-4.9) mg/dL Total Bilirubin (0.2-1.0) mg/dL AST (15-37) U/L ALT (12-78) U/L Alkaline Phosphatase (46-116) U/L NT-Pro-B Natriuret Pep (5-125) pg/mL Total Protein (6.4-8.2) g/dL Albumin (3.4-5.0) g/dL Globulin (2.3-3.5) g/dL Albumin/Globulin Ratio (1.2-2.2) Blood Type O NEGATIVE Gel Antibody Screen Negative Crossmatch See Detail 01/13/21 01/14/21 01/14/21 Range/Units 21:05 04:10 04:10 WBC 18.9 H (4.5-11.0) K/uL RBC 2.89 L (4.30-5.90) M/uL Hgb 8.4 L (12.0-15.0) g/dL Hct 27.5 L (40.0-54.0) % MCV 95 (80-98) fL MCH 29 (27-31) pg MCHC 31 L (32-36) % Plt Count 377 (150-400) K/uL Neut % (Auto) 75 H (36-66) % Lymph % (Auto) 9 L (24-44) % Harding % (Auto) 13 H (2-6) % Eos % (Auto) 3 (2-4) % Baso % (Auto) 0 (0-1) % Sodium 148 (140-148) mmol/L Potassium 4.2 (3.6-5.2) mmol/L Chloride 109 H (100-108) mmol/L Carbon Dioxide 27 (21-32) mmol/L Anion Gap 16.2 H (5.0-14.0) mmol/L BUN 17 (7-18) mg/dL Creatinine 0.6 L (0.8-1.3) mg/dL Est Cr Clr Drug Dosing 137.68 mL/min Estimated GFR (MDRD) > 60 (>60) Glucose 118 H (74-106) mg/dL POC Glucose 175 H (74-106) MG/DL Calcium 8.7 (8.5-10.1) mg/dL Phosphorus 3.2 (2.5-4.9) mg/dL Total Bilirubin 0.8 D (0.2-1.0) mg/dL AST 23 (15-37) U/L ALT 20 (12-78) U/L Alkaline Phosphatase 69 (46-116) U/L NT-Pro-B Natriuret Pep 566 H (5-125) pg/mL Total Protein 5.5 L (6.4-8.2) g/dL Albumin 2.5 L (3.4-5.0) g/dL Globulin 3.0 (2.3-3.5) g/dL Albumin/Globulin Ratio 0.8 L (1.2-2.2) Blood Type Gel Antibody Screen Crossmatch 01/14/21 Range/Units 07:28 WBC (4.5-11.0) K/uL RBC (4.30-5.90) M/uL Hgb (12.0-15.0) g/dL Hct (40.0-54.0) % MCV (80-98) fL MCH (27-31) pg MCHC (32-36) % Plt Count (150-400) K/uL Neut % (Auto) (36-66) % Lymph % (Auto) (24-44) % [place] % (Auto) (2-6) % Eos % (Auto) (2-4) % Baso % (Auto) (0-1) % Sodium (140-148) mmol/L Potassium (3.6-5.2) mmol/L Chloride (100-108) mmol/L Carbon Dioxide (21-32) mmol/L Anion Gap (5.0-14.0) mmol/L BUN (7-18) mg/dL Creatinine (0.8-1.3) mg/dL Est Cr Clr Drug Dosing mL/min Estimated GFR (MDRD) (>60) Glucose (74-106) mg/dL POC Glucose 128 H (74-106) MG/DL Calcium (8.5-10.1) mg/dL Phosphorus (2.5-4.9) mg/dL Total Bilirubin (0.2-1.0) mg/dL AST (15-37) U/L ALT (12-78) U/L Alkaline Phosphatase (46-116) U/L NT-Pro-B Natriuret Pep (5-125) pg/mL Total Protein (6.4-8.2) g/dL Albumin (3.4-5.0) g/dL Globulin (2.3-3.5) g/dL Albumin/Globulin Ratio (1.2-2.2) Blood Type Gel Antibody Screen Crossmatch Result Diagrams: 01/14/21 04:10 01/14/21 04:10 Sepsis Event Note - Evaluation Sepsis Screening Result: No Definite Risk - Focused Exam Vital Signs: Vital Signs Temp Pulse Pulse Resp BP BP Pulse Ox 01/14/21 08:25 82 128/75 01/14/21 07:59 98.9 F 86 16 128/75 95 01/14/21 07:00 92 L 01/14/21 03:00 98.6 F 81 15 128/72 94 L 01/14/21 00:22 94 L - Problem List Review Problem List Initiated/Reviewed/Updated: Yes - My Orders Last 24 Hours: My Active Orders 01/13/21 11:07 Dietary Supplements [RC] TIDMEALS 01/17/21 09:00 Dulaglutide [Trulicity] 1.5 mg SUBCUT Q7D - Plan Plan:: ASSESSMENT AND PLAN STATUS POST EXPLORATORY LAPAROTOMY FOR ABSCESS AND SMALL BOWEL MASS-White blood cell count remains elevated, he has been afebrile. Appetite remains poor and he is currently on TPN for nutritional support -Blood and surgical cultures pending -Soft diet -Saline lock -Pain and nausea medication as needed -Unasyn and Levaquin pending culture results -Surgical management per Dr. Burkett RIGHT LUNG MASS-concerning for malignancy, with airway obstruction and volume loss. Question possible underlying postobstructive pneumonia. -Levofloxacin as above -Bronchoscopy January 15 TYPE 2 DIABETES MELLITUS -Continue Jardiance and Trulicity -4 times daily glucometers -High dose sliding scale Humalog PAROXYSMAL ATRIAL FIBRILLATION STATUS POST ABLATION-INR improved following IV vitamin K -Hold warfarin COPD-he reports developing shortness of breath with moderate levels of exertion, does not require home oxygen -Nebulized albuterol as needed -Continue vigorous pulmonary toilet postoperatively CORONARY ARTERY DISEASE-status post 2 angioplasties and stents several years ago. Currently asymptomatic -Continue outpatient medications MAINTENANCE ISSUES -DVT prophylaxis; SCUDs -GI prophylaxis; not indicated -Preciado catheter; not indicated -Nutrition; n.p.o. -Nicotine dependence; not required CODE STATUS-full code ADMISSION STATUS-patient will be admitted to inpatient status, expect at least a 2 night hospital stay for evaluation and management of problems as outlined above. At the time of this admission I do not reasonably expected evaluation and management of this problem will require more than a 96 hour hospital stay. DISPOSITION-anticipate discharge to home after the hospital stay. PRIMARY CARE PROVIDER-Dr. Portillo
[2021-01-14] MEDS ORDERED: Furosemide 20 MG/2 ML VIAL IVPUSH ONE (14:00)
[2021-01-14] MEDS: HYDROmorphone/Normal Saline 15 MG/30 ML PCA IV PRN (14:18)
[2021-01-14] MEDS: Pantoprazole 40 MG Vial IV SCH (16:31)
[2021-01-14] MEDS: Tamsulosin 0.4 MG Cap.ER PO SCH (19:59)
[2021-01-15] MEDS: 1: AA 5%/Calcium/D15W/Lytes 1,000 ML with MVI, Adult with Vitamin K 10 ML, Zinc/Copper/M IV SCH ×6 (01:12→13:22)
[2021-01-15] MEDS: HYDROmorphone/Normal Saline 15 MG/30 ML PCA IV PRN (04:49)
[2021-01-15] MEDS: Ampicillin/Sulbactam Na 3 GM in Sodium Chloride 0.9% 100 ML IV SCH ×3 (05:42→17:50)
[2021-01-15] MEDS ORDERED: Lidocaine 4% Top Soln 50 ML Bottle ONE (06:52)
[2021-01-15] MEDS ORDERED: Lidocaine 2% Viscous Solution 15 ML Cup ONE (06:52)
[2021-01-15] MEDS: Albuterol/Ipratropium 3.0-0.5 MG/3 ML Neb Soln INH SCH ×5 (07:10→21:35)
[2021-01-15] MEDS ORDERED: Central Total Parenteral Nutrition Bag SCH (07:15)
[2021-01-15] MEDS ORDERED: Dexamethasone 4 MG/ML SDV ONE (07:44)
[2021-01-15] MEDS ORDERED: Rocuronium 50 MG/5 ML Vial ONE (07:44)
[2021-01-15] MEDS ORDERED: Propofol 200 MG/20 ML SDV ONE ×2 (07:44→10:13)
[2021-01-15] MEDS ORDERED: Ondansetron 4 MG/2 ML SDV ONE (07:44)
[2021-01-15] MEDS ORDERED: Succinylcholine 200 MG/10 ML MDV ONE (07:44)
[2021-01-15] MEDS ORDERED: Glycopyrrolate 0.2 MG/ML 5 ML MDV ONE (07:44)
[2021-01-15] MEDS ORDERED: Neostigmine Methylsulfate 1 MG/ML 5 ML Syringe ONE (07:44)
[2021-01-15] MEDS ORDERED: fentaNYL 100 MCG/2 ML SDV ONE (07:45)
[2021-01-15] MEDS: Insulin Lispro 100 Unit/ML 3 ML KwikPen SUBCUT SCH ×4 (08:13→21:23)
[2021-01-15] MEDS: metFORMIN 500 MG Tab PO SCH ×2 (08:14→16:46)
[2021-01-15] MEDS: Nystatin Ointment 15 GM Tube TOP SCH ×3 (08:28→21:25)
[2021-01-15] MEDS: Levofloxacin/Dextrose 5%-Water 750 MG in Premix Bag 1 BAG IV SCH (08:29)
[2021-01-15] MEDS: Metoprolol Tartrate 50 MG Tab PO SCH ×2 (08:29→21:26)
--- NOTE | 2021-01-15 12:01 | PCM.PN ---
- General Info Date of Service: 01/15/21 Subjective Update: No acute events overnight. Patient had bronchoscopy performed today with samples obtained from a right upper lobe mass. He is complaining of moderate abdominal pain from recent surgery but this is slowly improving. He does get relief from his CONSULTING TECHNICAL DIRECTOR. He had a mild cough up until the bronchoscopy and now it is more impressive. No chest pain. Pathology still pending. Appetite improving. Functional Status: Reports: Pain Controlled, Tolerating Diet - Review of Systems General: Denies: Fever - Patient Data Vitals - Most Recent: Last Vital Signs Temp 36.7 C 01/15/21 10:55 Pulse 78 01/15/21 10:55 Resp 16 01/15/21 10:55 BP 122/72 01/15/21 10:55 Pulse Ox 95 01/15/21 10:55 Weight - Most Recent: 80.377 kg I&O - Last 24 Hours: Intake & Output 01/14/21 01/15/21 01/15/21 22:59 06:59 14:59 Intake Total 1540 1210 50 Output Total 1360 960 Balance 180 250 50 Lab Results Last 24 Hours: Laboratory Results - last 24 hr 01/13/21 01/14/21 01/14/21 Range/Units 04:15 16:30 21:00 WBC (4.5-11.0) K/uL RBC (4.30-5.90) M/uL Hgb (12.0-15.0) g/dL Hct (40.0-54.0) % MCV (80-98) fL MCH (27-31) pg MCHC (32-36) % Plt Count (150-400) K/uL Neut % (Auto) (36-66) % Lymph % (Auto) (24-44) % Kern % (Auto) (2-6) % Eos % (Auto) (2-4) % Baso % (Auto) (0-1) % Sodium (140-148) mmol/L Potassium (3.6-5.2) mmol/L Chloride (100-108) mmol/L Carbon Dioxide (21-32) mmol/L Anion Gap (5.0-14.0) mmol/L BUN (7-18) mg/dL Creatinine (0.8-1.3) mg/dL Est Cr Clr Drug Dosing mL/min Estimated GFR (MDRD) (>60) Glucose (74-106) mg/dL POC Glucose 175 H 175 H (74-106) MG/DL Calcium (8.5-10.1) mg/dL Phosphorus (2.5-4.9) mg/dL Magnesium (1.8-2.4) mg/dL Total Bilirubin (0.2-1.0) mg/dL AST (15-37) U/L ALT (12-78) U/L Alkaline Phosphatase (46-116) U/L Total Protein (6.4-8.2) g/dL Albumin (3.4-5.0) g/dL Globulin (2.3-3.5) g/dL Albumin/Globulin Ratio (1.2-2.2) Crossmatch See Detail 01/15/21 01/15/21 01/15/21 Range/Units 04:00 04:00 07:35 WBC 21.2 H (4.5-11.0) K/uL RBC 3.35 L (4.30-5.90) M/uL Hgb 9.7 L (12.0-15.0) g/dL Hct 31.4 L (40.0-54.0) % MCV 94 (80-98) fL MCH 29 (27-31) pg MCHC 31 L (32-36) % Plt Count 409 H (150-400) K/uL Neut % (Auto) 75 H (36-66) % Lymph % (Auto) 8 L (24-44) % Kern % (Auto) 14 H (2-6) % Eos % (Auto) 3 (2-4) % Baso % (Auto) 0 (0-1) % Sodium 144 (140-148) mmol/L Potassium 4.2 (3.6-5.2) mmol/L Chloride 104 (100-108) mmol/L Carbon Dioxide 26 (21-32) mmol/L Anion Gap 18.2 H (5.0-14.0) mmol/L BUN 18 (7-18) mg/dL Creatinine 0.7 L (0.8-1.3) mg/dL Est Cr Clr Drug Dosing 118.01 mL/min Estimated GFR (MDRD) > 60 (>60) Glucose 115 H (74-106) mg/dL POC Glucose 110 H (74-106) MG/DL Calcium 8.6 (8.5-10.1) mg/dL Phosphorus 3.0 (2.5-4.9) mg/dL Magnesium 1.6 L (1.8-2.4) mg/dL Total Bilirubin 0.7 (0.2-1.0) mg/dL AST 28 (15-37) U/L ALT 26 (12-78) U/L Alkaline Phosphatase 79 (46-116) U/L Total Protein 5.8 L (6.4-8.2) g/dL Albumin 2.5 L (3.4-5.0) g/dL Globulin 3.3 (2.3-3.5) g/dL Albumin/Globulin Ratio 0.8 L (1.2-2.2) Crossmatch 01/15/21 Range/Units 11:30 WBC (4.5-11.0) K/uL RBC (4.30-5.90) M/uL Hgb (12.0-15.0) g/dL Hct (40.0-54.0) % MCV (80-98) fL MCH (27-31) pg MCHC (32-36) % Plt Count (150-400) K/uL Neut % (Auto) (36-66) % Lymph % (Auto) (24-44) % Kern % (Auto) (2-6) % Eos % (Auto) (2-4) % Baso % (Auto) (0-1) % Sodium (140-148) mmol/L Potassium (3.6-5.2) mmol/L Chloride (100-108) mmol/L Carbon Dioxide (21-32) mmol/L Anion Gap (5.0-14.0) mmol/L BUN (7-18) mg/dL Creatinine (0.8-1.3) mg/dL Est Cr Clr Drug Dosing mL/min Estimated GFR (MDRD) (>60) Glucose (74-106) mg/dL POC Glucose 144 H (74-106) MG/DL Calcium (8.5-10.1) mg/dL Phosphorus (2.5-4.9) mg/dL Magnesium (1.8-2.4) mg/dL Total Bilirubin (0.2-1.0) mg/dL AST (15-37) U/L ALT (12-78) U/L Alkaline Phosphatase (46-116) U/L Total Protein (6.4-8.2) g/dL Albumin (3.4-5.0) g/dL Globulin (2.3-3.5) g/dL Albumin/Globulin Ratio (1.2-2.2) Crossmatch Ke Results Last 24 Hours: Microbiology 01/15/21 10:54 DESI Preparation - Final Other - Right Upper Lobe 01/15/21 10:54 Gram Stain - Final Bronchial Washings - Right Upper Lobe Med Orders - Current: Current Medications Albuterol/Ipratropium (Albuterol/Ipratropium 3.0-0.5 Mg/3 Ml Neb Soln) 3 ml INH QIDRT [facility] Last Admin: 01/15/21 10:51 Dose: Not Given Documented by: Albuterol/Ipratropium (Albuterol/Ipratropium 3.0-0.5 Mg/3 Ml Neb Soln) 3 ml INH ASDIRECTED PRN PRN Reason: Shortness of Breath Aspirin (Aspirin 325 Mg Tab.Ec) 325 mg PO DAILY [facility] Last Admin: 01/14/21 08:24 Dose: 325 mg Documented by: Bisacodyl (Bisacodyl 5 Mg Tab) 10 mg PO BID [facility] Last Admin: 01/14/21 20:00 Dose: 10 mg Documented by: Bisacodyl (Bisacodyl 10 Mg Supp) 10 mg RECTAL ASDIRECTED PRN PRN Reason: Constipation Cyclobenzaprine HCl (Cyclobenzaprine 10 Mg Tab) 10 mg PO Q6H PRN PRN Reason: MUSCLE SPASM Dextrose (Glucose Gel 15 Gm In 37.5 Gm Tube) 15 gm PO ASDIRECTED PRN PRN Reason: HYPOGLYCEMIA Dextrose/Water (50% Dextrose In Water 50 Ml Syringe) 50 ml IVPUSH ASDIRECTED PRN PRN Reason: HYPOGLYCEMIA Docusate Sodium (Docusate Sodium 100 Mg Cap) 100 mg PO BID [facility] Last Admin: 01/14/21 20:00 Dose: 100 mg Documented by: Furosemide (Furosemide 20 Mg/2 Ml Vial) 20 mg IVPUSH ONETIME ONE Stop: 01/15/21 14:01 Glucagon (Glucagon,Human Recombinant 1 Mg Vial) 1 mg IM ASDIRECTED PRN PRN Reason: HYPOGLYCEMIA Heparin Sodium (Porcine) (Heparin Sodium 100 Units/Ml 5 Ml Syringe) 500 units FLUSH ASDIRECTED PRN PRN Reason: Other Last Admin: 01/14/21 14:21 Dose: 500 units Documented by: Hydroxyzine HCl (Hydroxyzine Hcl 100 Mg/2 Ml Sdv) 100 mg IM Q4H PRN PRN Reason: PAIN Last Admin: 01/14/21 01:27 Dose: 100 mg Documented by: Ampicillin Sodium/Sulbactam (Sodium 3 gm/ Sodium Chloride) 100 mls @ 200 mls/hr IV Q6H [facility] Last Admin: 01/15/21 05:42 Dose: 200 mls/hr Documented by: Multivitamins/Minerals 10 ml/Zinc 1 ml/ Amino Ac/Electrol/Dextrose/Calcium 1,011 mls @ 82 mls/hr IV .BY DURATION [facility] Last Admin: 01/14/21 12:56 Dose: 82 mls/hr Documented by: Amino Ac/Electrol/Dextrose/Calcium (Clinimix E 5/15) 1,000 mls @ 82 mls/hr IV .BY DURATION [facility] Last Admin: 01/15/21 01:12 Dose: 82 mls/hr Documented by: Levofloxacin/Dextrose 750 mg/ (Premix) 150 mls @ 100 mls/hr IV Q24H [facility] Last Admin: 01/15/21 08:29 Dose: 100 mls/hr Documented by: Insulin Human Lispro (Insulin Lispro 100 Unit/Ml 3 Ml Kwikpen) 0 unit SUBCUT QIDACANDBED [facility]; Protocol Last Admin: 01/15/21 08:13 Dose: Not Given Documented by: Magnesium Hydroxide (Magnesium Hydroxide 400 Mg/5 Ml Susp 30 Ml Cup) 30 ml PO ASDIRECTED PRN PRN Reason: Constipation Last Admin: 01/12/21 17:44 Dose: 30 ml Documented by: Metformin HCl (Metformin 500 Mg Tab) 1,000 mg PO BIDMEALS [facility] Last Admin: 01/15/21 08:14 Dose: Not Given Documented by: Metoprolol Tartrate (Metoprolol Tartrate 50 Mg Tab) 100 mg PO BID [facility] Last Admin: 01/15/21 08:29 Dose: 100 mg Documented by: Nitroglycerin (Nitroglycerin 0.4 Mg Tab.Sl) 0.4 mg SL ASDIRECTED PRN PRN Reason: CHEST PAIN Nystatin (Nystatin Ointment 15 Gm Tube) 0 gm TOP TID [facility] Last Admin: 01/15/21 08:28 Dose: Not Given Documented by: Ondansetron HCl (Ondansetron 4 Mg/2 Ml Sdv) 4 mg IV Q4H PRN PRN Reason: Nausea/Vomiting Oxycodone HCl (Oxycodone 5 Mg Tab) 5 mg PO Q4H PRN PRN Reason: Pain Pantoprazole Sodium (Pantoprazole 40 Mg Vial) 40 mg IV Q24H [facility] Last Admin: 01/14/21 16:31 Dose: 40 mg Documented by: Senna/Docusate Sodium (Docusate Sodium/Sennosides 50-8.6 Mg Tab) 2 tab PO BID [facility] Last Admin: 01/14/21 20:01 Dose: 2 tab Documented by: Sodium Chloride (Sodium Chloride 0.9% 10 Ml Syringe) 10 ml FLUSH ASDIRECTED PRN PRN Reason: Keep Vein Open Tamsulosin HCl (Tamsulosin 0.4 Mg Cap.Er) 0.4 mg PO BEDTIME [facility] Last Admin: 01/14/21 19:59 Dose: 0.4 mg Documented by: Discontinued Medications Albuterol (Albuterol 0.083% 2.5 Mg/3 Ml Neb Soln) 2.5 mg NEB Q4H PRN PRN Reason: Shortness Of Breath/wheezing Albuterol/Ipratropium (Albuterol/Ipratropium 3.0-0.5 Mg/3 Ml Neb Soln) 3 ml NEB ONCALL ONE Stop: 01/09/21 11:16 Last Admin: 01/09/21 11:05 Dose: 3 ml Documented by: Aztreonam (Aztreonam 1 Gm Vial) Confirm Administered Dose 1 gm .ROUTE .STK-MED ONE Stop: 01/09/21 13:49 Last Admin: 01/09/21 14:45 Dose: 1 gm Documented by: Bisacodyl (Bisacodyl 10 Mg Supp) 10 mg RECTAL ONETIME ONE Stop: 01/12/21 10:01 Last Admin: 01/12/21 09:49 Dose: 10 mg Documented by: Bupivacaine HCl (Bupivacaine 0.5% 50 Ml Mdv) Confirm Administered Dose 50 ml .ROUTE .STK-MED ONE Stop: 01/09/21 11:31 Bupivacaine HCl (Bupivacaine 0.5% 50 Ml Mdv) Confirm Administered Dose 50 ml .ROUTE .STK-MED ONE Stop: 01/11/21 06:32 Last Admin: 01/11/21 07:36 Dose: 15 ml Documented by: Ropivacaine 37 ml/Dexamethasone 8 mg/Epinephrine HCl 0.4 mg/ Sodium Chloride 40.6 ml 0 ml NERVRT ASDIRECTED [facility] Last Admin: 01/09/21 12:56 Dose: 80 syringe Documented by: Ropivacaine 37 ml/Dexamethasone 8 mg/Epinephrine HCl 0.4 mg/ Sodium Chloride 40.6 ml 0 ml NERVRT ASDIRECTED [facility] Last Admin: 01/11/21 07:31 Dose: 80 syringe Documented by: Dexamethasone (Dexamethasone 4 Mg/Ml Sdv) Confirm Administered Dose 4 mg .ROUTE .STK-MED ONE Stop: 01/09/21 10:11 Dexamethasone (Dexamethasone 4 Mg/Ml Sdv) Confirm Administered Dose 4 mg .ROUTE .STK-MED ONE Stop: 01/15/21 07:45 Dextrose/Water (50% Dextrose In Water 50 Ml Syringe) 50 ml IVPUSH ASDIRECTED PRN PRN Reason: Hypoglycemia Fentanyl (Fentanyl 250 Mcg/5 Ml Sdv) Confirm Administered Dose 250 mcg .ROUTE .STK-MED ONE Stop: 01/09/21 10:14 Fentanyl (Fentanyl 250 Mcg/5 Ml Sdv) Confirm Administered Dose 250 mcg .ROUTE .STK-MED ONE Stop: 01/09/21 12:48 Fentanyl (Fentanyl 100 Mcg/2 Ml Sdv) Confirm Administered Dose 100 mcg .ROUTE .STK-MED ONE Stop: 01/11/21 07:08 Fentanyl (Fentanyl 100 Mcg/2 Ml Sdv) Confirm Administered Dose 100 mcg .ROUTE .STK-MED ONE Stop: 01/15/21 07:46 Furosemide (Furosemide 20 Mg/2 Ml Vial) 20 mg IVPUSH Q6H [facility] Stop: 01/12/21 14:01 Last Admin: 01/12/21 14:05 Dose: 20 mg Documented by: Furosemide (Furosemide 20 Mg/2 Ml Vial) 20 mg IVPUSH ONETIME ONE Stop: 01/13/21 11:01 Last Admin: 01/13/21 20:06 Dose: 20 mg Documented by: Furosemide (Furosemide 20 Mg/2 Ml Vial) 20 mg IVPUSH ONETIME ONE Stop: 01/14/21 14:01 Last Admin: 01/14/21 14:23 Dose: 20 mg Documented by: Glucagon (Glucagon,Human Recombinant 1 Mg Vial) 1 mg IM ASDIRECTED PRN PRN Reason: Hypoglycemia Glycopyrrolate (Glycopyrrolate 0.2 Mg/Ml 5 Ml Mdv) Confirm Administered Dose 1 mg .ROUTE .STK-MED ONE Stop: 01/09/21 10:11 Glycopyrrolate (Glycopyrrolate 0.2 Mg/Ml 5 Ml Mdv) Confirm Administered Dose 1 mg .ROUTE .STK-MED ONE Stop: 01/15/21 07:45 Heparin Sodium (Porcine) (Heparin Sodium 100 Units/Ml 5 Ml Syringe) Confirm Administered Dose 500 units .ROUTE .STK-MED ONE Stop: 01/09/21 11:31 Last Admin: 01/09/21 14:21 Dose: 500 units Documented by: Hydromorphone HCl (Hydromorphone 0.5 Mg/0.5 Ml Syringe) 0.5 mg IVPUSH ONETIME ONE Stop: 01/08/21 19:31 Last Admin: 01/08/21 19:42 Dose: 0.5 mg Documented by: Hydromorphone HCl (Hydromorphone 0.5 Mg/0.5 Ml Syringe) 0.5 mg IVPUSH Q2H PRN PRN Reason: Pain Last Admin: 01/09/21 06:13 Dose: 0.5 mg Documented by: Hydromorphone HCl (Hydromorphone/Normal Saline 15 Mg/30 Ml Customer Acquisition Manager) 0 mg IV ASDIRECTED PRN; Protocol PRN Reason: CONSULTING TECHNICAL DIRECTOR PAIN CONTROL Last Admin: 01/15/21 04:49 Dose: 15 mg Documented by: Sodium Chloride (Normal Saline) 1,000 mls @ 500 mls/hr IV .BOLUS STA Stop: 01/08/21 18:34 Last Admin: 01/08/21 17:59 Dose: 500 mls/hr Documented by: Sodium Chloride (Normal Saline) 75 mls @ 3 mls/sec IV ASDIRECTED ROSITA Last Admin: 01/08/21 18:11 Dose: 3 mls/sec Documented by: Piperacillin Sod/Tazobactam (Sod 4.5 gm/ Sodium Chloride) 100 mls @ 100 mls/hr IV ONETIME ONE Stop: 01/08/21 20:10 Last Admin: 01/08/21 19:42 Dose: 100 mls/hr Documented by: Phytonadione 5 mg/ Sodium (Chloride) 50.5 mls @ 100 mls/hr IV NOW ONE Stop: 01/08/21 20:06 Last Admin: 01/08/21 20:47 Dose: 100 mls/hr Documented by: Lactated Ringer's (Ringers, Lactated) 1,000 mls @ 125 mls/hr IV ASDIRECTED [facility] Last Admin: 01/09/21 06:10 Dose: 125 mls/hr Documented by: Ampicillin Sodium/Sulbactam (Sodium 1.5 gm/ Sodium Chloride) 50 mls @ 100 mls/hr IV Q6H [facility] Last Admin: 01/09/21 03:21 Dose: 100 mls/hr Documented by: Ampicillin Sodium/Sulbactam (Sodium 1.5 gm/ Sodium Chloride) 50 mls @ 100 mls/hr IV Q6H [facility] Last Admin: 01/09/21 10:32 Dose: 100 mls/hr Documented by: Ketamine HCl 50 mg/ Sodium (Chloride) 50 mls @ 22.5 mls/hr IV ASDIRECTED [facility] Magnesium Sulfate (Magnesium Sulfate In Water 2 Gm/50 Ml) 2 gm in 50 mls @ 25 mls/hr IV Q6H [facility] Stop: 01/09/21 16:59 Last Admin: 01/09/21 15:19 Dose: 25 mls/hr Documented by: Lactated Ringer's (Ringers, Lactated) Confirm Administered Dose 1,000 mls @ as directed .ROUTE .STK-MED ONE Stop: 01/09/21 10:14 Linezolid (Zyvox) Confirm Administered Dose 300 mls @ as directed .ROUTE .STK- MED ONE Stop: 01/09/21 11:32 Dextrose/Ringer's (Dextrose 5%-Ringers) Confirm Administered Dose 1,000 mls @ as directed .ROUTE .STK-MED ONE Stop: 01/09/21 12:42 Lactated Ringer's (Ringers, Lactated) Confirm Administered Dose 1,000 mls @ as directed .ROUTE .STK-MED ONE Stop: 01/09/21 12:43 Ampicillin Sodium/Sulbactam (Sodium 1.5 gm/ Sodium Chloride) 50 mls @ 100 mls/hr IV ONETIME ONE Stop: 01/09/21 13:44 Last Admin: 01/09/21 13:20 Dose: 100 mls/hr Documented by: Dextrose/Lactated Ringer's (Dextrose 5%-Lactated Ringers) 1,000 mls @ 80 mls/hr IV ASDIRECTED [facility] Last Admin: 01/09/21 23:28 Dose: 80 mls/hr Documented by: Lactated Ringer's (Ringers, Lactated) 1,000 mls @ 120 mls/hr IV ASDIRECTED [facility] Last Admin: 01/10/21 03:16 Dose: 120 mls/hr Documented by: Aztreonam 1 gm/ Sodium (Chloride) 50 mls @ 100 mls/hr IV Q8H [facility] Last Admin: 01/13/21 05:39 Dose: 100 mls/hr Documented by: Tranexamic Acid 800 mg/ Sodium (Chloride) 58 mls @ 200 mls/hr IV ONETIME ONE Stop: 01/09/21 20:02 Last Admin: 01/09/21 20:19 Dose: 200 mls/hr Documented by: Tranexamic Acid 800 mg/ Sodium (Chloride) 58 mls @ 200 mls/hr IV ONETIME ONE Stop: 01/09/21 23:02 Last Admin: 01/09/21 23:02 Dose: 200 mls/hr Documented by: Lactated Ringer's (Ringers, Lactated) 500 mls @ 500 mls/hr IV .BOLUS [facility] Last Admin: 01/10/21 04:39 Dose: 500 mls/hr Documented by: Lactated Ringer's (Ringers, Lactated) 1,000 mls @ 0 mls/hr IV ASDIRECTED [facility] Last Admin: 01/10/21 20:29 Dose: 25 mls/hr Documented by: Sodium Chloride (Normal Saline) 75 mls @ 3 mls/sec IV ASDIRECTED [facility] Last Admin: 01/11/21 05:52 Dose: 3 mls/sec Documented by: Magnesium Sulfate (Magnesium Sulfate In Water 2 Gm/50 Ml) 2 gm in 50 mls @ 25 mls/hr IV Q6H [facility] Stop: 01/14/21 05:59 Last Admin: 01/14/21 03:54 Dose: 25 mls/hr Documented by: Albumin Human (Albumin 25%) 25 gm in 100 mls @ 25 mls/hr IV Q24H [facility] Stop: 01/13/21 15:59 Last Admin: 01/13/21 13:50 Dose: 25 mls/hr Documented by: Potassium Phosphate 15 mmol/ (Premix) 250 mls @ 85 mls/hr IV Q3H [facility] Stop: 01/11/21 18:57 Last Admin: 01/11/21 17:14 Dose: 85 mls/hr Documented by: Sodium Chloride (Normal Saline) 500 mls @ 0 mls/hr IV ASDIRECTED ONE Stop: 01/11/21 11:48 Last Admin: 01/11/21 12:29 Dose: 25 mls/hr Documented by: Doxycycline Hyclate 100 mg/ (Sodium Chloride) 100 mls @ 100 mls/hr IV Q12H [facility] Last Admin: 01/13/21 04:31 Dose: 100 mls/hr Documented by: Potassium Phosphate 15 mmole/ (Sodium Chloride) 105 mls @ 35 mls/hr IV Q3H [facility] Stop: 01/13/21 18:59 Last Admin: 01/13/21 21:18 Dose: 35 mls/hr Documented by: Insulin Glargine (Insulin Glargine,Human Rec. Analog 100 Units/Ml 3 Ml Pen) 10 units SUBCUT ONETIME ONE Stop: 01/10/21 07:01 Last Admin: 01/10/21 07:40 Dose: 10 units Documented by: Insulin Human Lispro (Insulin Lispro 100 Unit/Ml 3 Ml Kwikpen) 0 unit SUBCUT QIDACANDBED [facility]; Protocol Last Admin: 01/09/21 12:34 Dose: Not Given Documented by: Insulin Human Lispro (Insulin Lispro 100 Unit/Ml 3 Ml Kwikpen) 0 unit SUBCUT Q6 H PRN; Protocol PRN Reason: MEDIUM CORRECTIONAL DOSING Last Admin: 01/12/21 11:49 Dose: 8 units Documented by: Insulin Human Regular (Insulin Regular, Human 100 Units/Ml 3 Ml Vial) 14 unit SUBCUT ONETIME ONE Stop: 01/08/21 19:15 Last Admin: 01/08/21 19:48 Dose: 14 unit Documented by: Iopamidol (Iopamidol 612 Mg/Ml 100 Ml Bottle) 117 ml IV . DIRECTED [facility] Last Admin: 01/08/21 18:11 Dose: 117 ml Documented by: Iopamidol (Iopamidol 612 Mg/Ml 100 Ml Bottle) 100 ml IV . DIRECTED [facility] Last Admin: 01/11/21 05:52 Dose: 100 ml Documented by: Ketamine HCl (Ketamine 500 Mg/5 Ml Mdv) 0 mg IV BOLUS ROSITA Ketamine HCl (Ketamine 500 Mg/5 Ml Mdv) 0 mg IV ASDIRECTED [facility] Ketamine HCl (Ketamine 500 Mg/5 Ml Mdv) 38 mg IV ASDIRECTED [facility] Lidocaine HCl (Lidocaine 2% Viscous Solution 15 Ml Cup) Confirm Administered Dose 15 ml .ROUTE .STK-MED ONE Stop: 01/15/21 06:53 Last Admin: 01/15/21 09:40 Dose: 15 ml Documented by: Lidocaine HCl (Lidocaine 4% Top Soln 50 Ml Bottle) Confirm Administered Dose 50 ml .ROUTE .STK-MED ONE Stop: 01/15/21 06:53 Last Admin: 01/15/21 09:40 Dose: 50 ml Documented by: Lidocaine/Epinephrine (Lidocaine 1% With Epinephrine 1:100,000 50 Ml Mdv) Confi rm Administered Dose 50 ml .ROUTE .ST-MED ONE Stop: 01/09/21 11:32 Lidocaine/Epinephrine (Lidocaine 1% With Epinephrine 1:100,000 50 Ml Mdv) 50 ml INJECT ONETIME ONE Stop: 01/10/21 06:01 Last Admin: 01/10/21 06:55 Dose: 5 ml Documented by: Lidocaine/Epinephrine (Lidocaine 1% With Epinephrine 1:100,000 50 Ml Mdv) Confirm Administered Dose 50 ml .ROUTE .STGenius Blends-MED ONE Stop: 01/10/21 06:07 Last Admin: 01/10/21 06:11 Dose: Not Given Documented by: Lidocaine/Epinephrine (Lidocaine 1% With Epinephrine 1:100,000 50 Ml Mdv) Confirm Administered Dose 50 ml .ROUTE .STGenius Blends-MED ONE Stop: 01/11/21 06:32 Last Admin: 01/11/21 07:36 Dose: 15 ml Documented by: Magnesium Hydroxide (Magnesium Hydroxide 400 Mg/5 Ml Susp 30 Ml Cup) 30 ml PO ONETIME ONE Stop: 01/12/21 09:01 Last Admin: 01/12/21 09:49 Dose: 30 ml Documented by: Magnesium Oxide (Magnesium Oxide 400 Mg Tab) 400 mg PO BEDTIME [facility] Last Admin: 01/08/21 21:40 Dose: 400 mg Documented by: Meropenem (Meropenem 500 Mg Sdv) Confirm Administered Dose 500 mg .ROUTE .STK- MED ONE Stop: 01/09/21 11:32 Last Admin: 01/09/21 13:02 Dose: 500 mg Documented by: Meropenem (Meropenem 500 Mg Sdv) Confirm Administered Dose 500 mg .ROUTE .STK- MED ONE Stop: 01/11/21 06:32 Last Admin: 01/11/21 07:37 Dose: 500 mg Documented by: Midazolam HCl (Midazolam 1 Mg/Ml 2 Ml Sdv) Confirm Administered Dose 2 mg .ROUTE .STK-MED ONE Stop: 01/11/21 07:08 Naloxone HCl (Naloxone 0.4 Mg/Ml Sdv) 0.1 mg IV ASDIRECTED PRN PRN Reason: decreased respiratory rate Neostigmine Methylsulfate (Neostigmine Methylsulfate 1 Mg/Ml 5 Ml Syringe) Confirm Administered Dose 5 mg .ROUTE .STK-MED ONE Stop: 01/09/21 10:11 Neostigmine Methylsulfate (Neostigmine Methylsulfate 1 Mg/Ml 5 Ml Syringe) Confirm Administered Dose 5 mg .ROUTE .STK-MED ONE Stop: 01/15/21 07:45 Non-Formulary Medication (Tap Block 1 Ml Bag) 0 ml NERVRT ONETIME ONE Stop: 01/09/21 13:01 Non-Formulary Medication (Central Total Parenteral Nutrition Bag) 1,000 ml .XX .Continue Order [facility] Stop: 01/10/21 08:01 Non-Formulary Medication (Central Total Parenteral Nutrition Bag) 1,000 ml .XX .Continue Order [facility] Stop: 01/11/21 07:16 Non-Formulary Medication (Central Total Parenteral Nutrition Bag) 0 ml IV ASDIRECTED [facility] Stop: 01/13/21 09:31 Non-Formulary Medication (Central Total Parenteral Nutrition Bag) 1,000 ml .XX .Continue Order [facility] Stop: 01/15/21 07:16 Ondansetron HCl (Ondansetron 4 Mg/2 Ml Sdv) Confirm Administered Dose 4 mg .ROUTE .STK-MED ONE Stop: 01/09/21 10:11 Ondansetron HCl (Ondansetron 4 Mg/2 Ml Sdv) Confirm Administered Dose 4 mg .ROUTE .STK-MED ONE Stop: 01/15/21 07:45 Propofol (Propofol 200 Mg/20 Ml Sdv) Confirm Administered Dose 200 mg .ROUTE .STK-MED ONE Stop: 01/09/21 10:11 Propofol (Propofol 200 Mg/20 Ml Sdv) Confirm Administered Dose 200 mg .ROUTE .STK-MED ONE Stop: 01/11/21 07:08 Propofol (Propofol 200 Mg/20 Ml Sdv) Confirm Administered Dose 200 mg .ROUTE .STK-MED ONE Stop: 01/15/21 07:45 Propofol (Propofol 200 Mg/20 Ml Sdv) Confirm Administered Dose 200 mg .ROUTE .STK-MED ONE Stop: 01/15/21 10:14 Rocuronium Hulbert (Rocuronium 50 Mg/5 Ml Vial) Confirm Administered Dose 50 mg .ROUTE .STK-MED ONE Stop: 01/09/21 10:11 Rocuronium Hulbert (Rocuronium 50 Mg/5 Ml Vial) Confirm Administered Dose 50 mg .ROUTE .STK-MED ONE Stop: 01/15/21 07:45 Simvastatin (Simvastatin 20 Mg Tab) 20 mg PO BEDTIME ROSITA Last Admin: 01/08/21 21:40 Dose: 20 mg Documented by: Sodium Chloride (Sodium Chloride 0.9% 10 Ml Syringe) 10 ml FLUSH ASDIRECTED PRN PRN Reason: Keep Vein Open Sodium Chloride (Sodium Chloride 0.9% 10 Ml Syringe) 10 ml FLUSH ONETIME ONE Stop: 01/08/21 16:47 Last Admin: 01/08/21 18:11 Dose: 10 ml Documented by: Sodium Chloride (Sodium Chloride 0.9% 10 Ml Syringe) 10 ml FLUSH ONETIME ONE Stop: 01/11/21 05:23 Last Admin: 01/11/21 05:52 Dose: 10 ml Documented by: Sodium Chloride (Sodium Chloride 0.9% Irrigation 500 Ml Container) 500 ml .XX ONETIME ONE Stop: 01/12/21 09:01 Last Admin: 01/12/21 09:45 Dose: 500 ml Documented by: Succinylcholine Chloride (Succinylcholine 200 Mg/10 Ml Mdv) Confirm Administered Dose 200 mg .ROUTE .STK-MED ONE Stop: 01/09/21 10:11 Succinylcholine Chloride (Succinylcholine 200 Mg/10 Ml Mdv) Confirm Administered Dose 200 mg .ROUTE .ST-MED ONE Stop: 01/15/21 07:45 - Exam Quality Assessment: No: Supplemental Oxygen General: Alert, Oriented, Cooperative, No Acute Distress Lungs: Normal Respiratory Effort, Wheezing (mild right side, intermittent ) Cardiovascular: Regular Rate, Regular Rhythm GI/Abdominal Exam: Soft, No Distention Extremities: No Pedal Edema. No: Increased Warmth Skin: Warm, Dry Psy/Mental Status: Alert, Normal Affect - Patient Data Lab Results Last 24 hrs: Laboratory Results - last 24 hr 01/13/21 01/14/21 01/14/21 Range/Units 04:15 16:30 21:00 WBC (4.5-11.0) K/uL RBC (4.30-5.90) M/uL Hgb (12.0-15.0) g/dL Hct (40.0-54.0) % MCV (80-98) fL MCH (27-31) pg MCHC (32-36) % Plt Count (150-400) K/uL Neut % (Auto) (36-66) % Lymph % (Auto) (24-44) % Kern % (Auto) (2-6) % Eos % (Auto) (2-4) % Baso % (Auto) (0-1) % Sodium (140-148) mmol/L Potassium (3.6-5.2) mmol/L Chloride (100-108) mmol/L Carbon Dioxide (21-32) mmol/L Anion Gap (5.0-14.0) mmol/L BUN (7-18) mg/dL Creatinine (0.8-1.3) mg/dL Est Cr Clr Drug Dosing mL/min Estimated GFR (MDRD) (>60) Glucose (74-106) mg/dL POC Glucose 175 H 175 H (74-106) MG/DL Calcium (8.5-10.1) mg/dL Phosphorus (2.5-4.9) mg/dL Magnesium (1.8-2.4) mg/dL Total Bilirubin (0.2-1.0) mg/dL AST (15-37) U/L ALT (12-78) U/L Alkaline Phosphatase (46-116) U/L Total Protein (6.4-8.2) g/dL Albumin (3.4-5.0) g/dL Globulin (2.3-3.5) g/dL Albumin/Globulin Ratio (1.2-2.2) Crossmatch See Detail 01/15/21 01/15/21 01/15/21 Range/Units 04:00 04:00 07:35 WBC 21.2 H (4.5-11.0) K/uL RBC 3.35 L (4.30-5.90) M/uL Hgb 9.7 L (12.0-15.0) g/dL Hct 31.4 L (40.0-54.0) % MCV 94 (80-98) fL MCH 29 (27-31) pg MCHC 31 L (32-36) % Plt Count 409 H (150-400) K/uL Neut % (Auto) 75 H (36-66) % Lymph % (Auto) 8 L (24-44) % Kern % (Auto) 14 H (2-6) % Eos % (Auto) 3 (2-4) % Baso % (Auto) 0 (0-1) % Sodium 144 (140-148) mmol/L Potassium 4.2 (3.6-5.2) mmol/L Chloride 104 (100-108) mmol/L Carbon Dioxide 26 (21-32) mmol/L Anion Gap 18.2 H (5.0-14.0) mmol/L BUN 18 (7-18) mg/dL Creatinine 0.7 L (0.8-1.3) mg/dL Est Cr Clr Drug Dosing 118.01 mL/min Estimated GFR (MDRD) > 60 (>60) Glucose 115 H (74-106) mg/dL POC Glucose 110 H (74-106) MG/DL Calcium 8.6 (8.5-10.1) mg/dL Phosphorus 3.0 (2.5-4.9) mg/dL Magnesium 1.6 L (1.8-2.4) mg/dL Total Bilirubin 0.7 (0.2-1.0) mg/dL AST 28 (15-37) U/L ALT 26 (12-78) U/L Alkaline Phosphatase 79 (46-116) U/L Total Protein 5.8 L (6.4-8.2) g/dL Albumin 2.5 L (3.4-5.0) g/dL Globulin 3.3 (2.3-3.5) g/dL Albumin/Globulin Ratio 0.8 L (1.2-2.2) Crossmatch 01/15/21 Range/Units 11:30 WBC (4.5-11.0) K/uL RBC (4.30-5.90) M/uL Hgb (12.0-15.0) g/dL Hct (40.0-54.0) % MCV (80-98) fL MCH (27-31) pg MCHC (32-36) % Plt Count (150-400) K/uL Neut % (Auto) (36-66) % Lymph % (Auto) (24-44) % Kern % (Auto) (2-6) % Eos % (Auto) (2-4) % Baso % (Auto) (0-1) % Sodium (140-148) mmol/L Potassium (3.6-5.2) mmol/L Chloride (100-108) mmol/L Carbon Dioxide (21-32) mmol/L Anion Gap (5.0-14.0) mmol/L BUN (7-18) mg/dL Creatinine (0.8-1.3) mg/dL Est Cr Clr Drug Dosing mL/min Estimated GFR (MDRD) (>60) Glucose (74-106) mg/dL POC Glucose 144 H (74-106) MG/DL Calcium (8.5-10.1) mg/dL Phosphorus (2.5-4.9) mg/dL Magnesium (1.8-2.4) mg/dL Total Bilirubin (0.2-1.0) mg/dL AST (15-37) U/L ALT (12-78) U/L Alkaline Phosphatase (46-116) U/L Total Protein (6.4-8.2) g/dL Albumin (3.4-5.0) g/dL Globulin (2.3-3.5) g/dL Albumin/Globulin Ratio (1.2-2.2) Crossmatch Result Diagrams: 01/15/21 04:00 01/15/21 04:00 Ke Results Last 24 hrs: Microbiology 01/15/21 10:54 DESI Preparation - Final Other - Right Upper Lobe 01/15/21 10:54 Gram Stain - Final Bronchial Washings - Right Upper Lobe Sepsis Event Note - Evaluation Sepsis Screening Result: No Definite Risk - Focused Exam Vital Signs: Vital Signs Temp Temp Pulse Pulse Resp BP BP 01/15/21 10:55 36.7 C 78 16 122/72 01/15/21 10:50 78 16 114/74 01/15/21 10:45 77 16 123/69 01/15/21 10:40 36.8 C 76 14 113/69 01/15/21 10:35 77 14 112/73 01/15/21 10:30 77 14 117/68 01/15/21 10:25 36.5 C 84 14 125/94 H 01/15/21 08:29 85 143/72 H 01/15/21 07:10 85 01/15/21 07:08 01/15/21 07:00 35.8 C L 85 18 01/15/21 03:00 36.8 C 80 16 01/15/21 00:26 BP Pulse Ox 01/15/21 10:55 95 01/15/21 10:50 95 01/15/21 10:45 95 01/15/21 10:40 98 01/15/21 10:35 94 L 01/15/21 10:30 93 L 01/15/21 10:25 95 01/15/21 08:29 01/15/21 07:10 01/15/21 07:08 98 01/15/21 07:00 143/72 H 97 01/15/21 03:00 120/74 93 L 01/15/21 00:26 96 - Problem List Review Problem List Initiated/Reviewed/Updated: Yes - Plan Plan:: ASSESSMENT AND PLAN STATUS POST EXPLORATORY LAPAROTOMY FOR ABSCESS AND SMALL BOWEL MASS-suspect metastatic cancer. White blood cell count remains elevated but is relatively stable. Pathology still pending but cancer suspected. Pain fairly well controlled. -Soft diet -Saline lock -Pain and nausea medication as needed -Unasyn and Levaquin pending culture results -Surgical management per Dr. Burkett RIGHT LUNG MASS-concerning for malignancy, with airway obstruction and volume loss. Status post bronchoscopy today with pathology and microbiology pending. Unclear if this is primary cancer source or metastatic disease or possibly 2 different primary cancer sites with abdominal cancer and lung cancer. -Levofloxacin as above -Follow-up culture results TYPE 2 DIABETES MELLITUS-controlled so far. -Continue Jardiance and Trulicity -4 times daily glucometers -High dose sliding scale Humalog PAROXYSMAL ATRIAL FIBRILLATION STATUS POST ABLATION-rate controlled. -Hold warfarin COPD-he reports developing shortness of breath with moderate levels of exertion which could be related to the suspected lung cancer. -Nebulized albuterol as needed -Continue vigorous pulmonary toilet postoperatively CORONARY ARTERY DISEASE-status post 2 angioplasties and stents several years ago. Currently asymptomatic -Continue outpatient medications MAINTENANCE ISSUES -DVT prophylaxis; SCUDs -GI prophylaxis; not indicated -Nutrition; advance diet per surgical team DISPOSITION-anticipate discharge to home after the hospital stay. Jah Cid MD
--- NOTE | 2021-01-15 12:10 | PN ---
DATE OF SERVICE: 01/15/2021 SUBJECTIVE: Gurjit is n.p.o. for bronchoscopy this morning. He has a lung mass in his right upper lobe. He reports increase in abdominal distention. Pain is somewhat controlled with the [employer]. ROHIT drain put out 45 mL of a bilious drainage. Blood sugar was 75. Oral intake was 1100, and urine output 3725. Last bowel movement was 01/13/2021. Ha does report increased swelling in his scrotum and penis area. Nursing staff noted a pink heat rash noted above his binder on his back only and a little bit below his binder on his back. They are thinking it is from a combination of the heat and sheets. REVIEW OF SYSTEMS: Remainder of review of systems negative for any pertinent positives and negatives. OBJECTIVE: GENERAL: Ha Lopez is a pleasant 65-year-old male. He is alert and orientated. VITAL SIGNS: TPR is 96.5, 85, 18. Blood pressure 143/72. HEENT: Negative. NECK: Supple. HEART: Slightly irregular irregularity. No murmur heard. LUNGS: Decreased breath sounds in bases. ABDOMEN: Dressing dry and intact. Abdominal binder is on ROHIT as above. EXTREMITIES: Without peripheral edema. ASSESSMENT: 1. Right lung mass. 2. Insertion of left subclavian triple-lumen. 3. Exploratory laparotomy with: a. Small-bowel resection. b. Drainage of intraabdominal abscess. c. Excision of peritoneal nodule. d. Placement of Interceed mesh. POSTOPERATIVE DIAGNOSES: 1. Inadequate peripheral vein access. 2. Perforated mass, small bowel adjacent to abscess between the small bowel and urinary bladder. 3. Peritoneal nodule, left pelvic sidewall. Date of procedure, 01/09/2021. Surgeon, Shaw Burkett MD. 4. Delayed primary closure, 01/11/2021. 5. Diabetes. 6. Total parenteral nutrition therapy. PLAN: 1. Remain n.p.o. for bronchoscopy under general anesthesia. 2. Continue same TPN rate and content. 3. Check CBC, CMP, mag, phos in a.m. 4. Change to hypoallergenic sheets because of itching and breakout on his back. 5. Plan to change hospital room for brighter room, longer length of stay, more sunshine to facilitate and maintain mental health. 6. We will evaluate p.r.n. or in a.m. 7. Continue use of incentive spirometer. Ambulation encouraged. 8. We will evaluate p.r.n. or in a.m. Yanet Harper PA-C /[id number]
[2021-01-15] MEDS: Docusate Sodium 100 MG Cap PO SCH ×2 (12:19→21:24)
[2021-01-15] MEDS: Aspirin 325 MG Tab.EC PO SCH (12:19)
[2021-01-15] MEDS: Empagliflozin 10 MG Tab PO SCH (12:19)
[2021-01-15] MEDS: Bisacodyl 5 MG Tab PO SCH ×2 (12:19→21:24)
[2021-01-15] MEDS ORDERED: Furosemide 20 MG/2 ML VIAL IVPUSH ONE (14:00)
[2021-01-15] MEDS: Magnesium Sulfate/Water 2 GM/50 ML BAG IV SCH ×2 (15:33→21:26)
[2021-01-15] MEDS: oxyCODONE 5 MG Tab PO PRN ×2 (15:44→19:43)
[2021-01-15] MEDS: hydrOXYzine HCL 100 MG/2 ML SDV IM PRN (16:49)
[2021-01-15] MEDS: Pantoprazole 40 MG Vial IV SCH (17:49)
[2021-01-15] MEDS: Tamsulosin 0.4 MG Cap.ER PO SCH ×2 (21:25→21:34)
[2021-01-16] MEDS: Ampicillin/Sulbactam Na 3 GM in Sodium Chloride 0.9% 100 ML IV SCH ×4 (00:59→18:25)
[2021-01-16] MEDS: 1: AA 5%/Calcium/D15W/Lytes 1,000 ML with MVI, Adult with Vitamin K 10 ML, Zinc/Copper/M IV SCH ×6 (01:32→16:33)
[2021-01-16] MEDS: oxyCODONE 5 MG Tab PO PRN ×3 (01:35→09:08)
[2021-01-16] MEDS: hydrOXYzine HCL 100 MG/2 ML SDV IM PRN ×3 (03:55→16:39)
[2021-01-16] MEDS: Magnesium Sulfate/Water 2 GM/50 ML BAG IV SCH ×4 (04:26→21:30)
[2021-01-16] MEDS: Albuterol/Ipratropium 3.0-0.5 MG/3 ML Neb Soln INH SCH (07:15)
[2021-01-16] MEDS ORDERED: Central Total Parenteral Nutrition Bag SCH (07:30)
[2021-01-16] MEDS: metFORMIN 500 MG Tab PO SCH ×2 (07:46→17:15)
[2021-01-16] MEDS: Insulin Lispro 100 Unit/ML 3 ML KwikPen SUBCUT SCH ×4 (07:49→21:31)
[2021-01-16] MEDS: Aspirin 325 MG Tab.EC PO SCH (09:11)
[2021-01-16] MEDS: Docusate Sodium 100 MG Cap PO SCH ×2 (09:11→21:30)
[2021-01-16] MEDS: Bisacodyl 5 MG Tab PO SCH ×2 (09:11→21:30)
[2021-01-16] MEDS: Metoprolol Tartrate 50 MG Tab PO SCH ×2 (09:11→21:29)
[2021-01-16] MEDS: Empagliflozin 10 MG Tab PO SCH (09:12)
[2021-01-16] MEDS: Nystatin Ointment 15 GM Tube TOP SCH ×3 (09:18→21:27)
--- NOTE | 2021-01-16 10:07 | PCM.PN ---
- General Info Date of Service: 01/16/21 Subjective Update: No acute events overnight. Abdominal pain is stable but not much improved. Cough is slightly better. No significant shortness of breath. No fevers. Pathology is still pending. Functional Status: Reports: Pain Controlled, Tolerating Diet - Review of Systems General: Denies: Fever Pulmonary: Reports: Cough Gastrointestinal: Reports: Abdominal Pain - Patient Data Vitals - Most Recent: Last Vital Signs Temp 36.9 C 01/16/21 07:00 Pulse 80 01/16/21 09:11 Resp 16 01/16/21 07:00 BP 124/54 L 01/16/21 09:11 Pulse Ox 93 L 01/16/21 07:00 Weight - Most Recent: 79.1 kg I&O - Last 24 Hours: Intake & Output 01/15/21 01/16/21 01/16/21 22:59 06:59 14:59 Intake Total 1098 1642 Output Total 3450 1300 Balance -2352 342 Lab Results Last 24 Hours: Laboratory Results - last 24 hr 01/15/21 01/15/21 01/15/21 Range/Units 11:30 16:30 21:00 WBC (4.5-11.0) K/uL RBC (4.30-5.90) M/uL Hgb (12.0-15.0) g/dL Hct (40.0-54.0) % MCV (80-98) fL MCH (27-31) pg MCHC (32-36) % Plt Count (150-400) K/uL Neut % (Auto) (36-66) % Lymph % (Auto) (24-44) % Story % (Auto) (2-6) % Eos % (Auto) (2-4) % Baso % (Auto) (0-1) % Sodium (140-148) mmol/L Potassium (3.6-5.2) mmol/L Chloride (100-108) mmol/L Carbon Dioxide (21-32) mmol/L Anion Gap (5.0-14.0) mmol/L BUN (7-18) mg/dL Creatinine (0.8-1.3) mg/dL Est Cr Clr Drug Dosing mL/min Estimated GFR (MDRD) (>60) Glucose (74-106) mg/dL POC Glucose 144 H 318 H 332 H (74-106) MG/DL Calcium (8.5-10.1) mg/dL Phosphorus (2.5-4.9) mg/dL Magnesium (1.8-2.4) mg/dL Total Bilirubin (0.2-1.0) mg/dL AST (15-37) U/L ALT (12-78) U/L Alkaline Phosphatase (46-116) U/L Total Protein (6.4-8.2) g/dL Albumin (3.4-5.0) g/dL Globulin (2.3-3.5) g/dL Albumin/Globulin Ratio (1.2-2.2) 01/16/21 01/16/21 01/16/21 Range/Units 04:23 04:23 07:30 WBC 23.2 H (4.5-11.0) K/uL RBC 3.27 L (4.30-5.90) M/uL Hgb 9.6 L (12.0-15.0) g/dL Hct 30.5 L (40.0-54.0) % MCV 93 (80-98) fL MCH 29 (27-31) pg MCHC 32 (32-36) % Plt Count 434 H (150-400) K/uL Neut % (Auto) 77 H (36-66) % Lymph % (Auto) 7 L (24-44) % Story % (Auto) 14 H (2-6) % Eos % (Auto) 3 (2-4) % Baso % (Auto) 0 (0-1) % Sodium 145 (140-148) mmol/L Potassium 4.1 (3.6-5.2) mmol/L Chloride 106 (100-108) mmol/L Carbon Dioxide 27 (21-32) mmol/L Anion Gap 12.2 (5.0-14.0) mmol/L BUN 23 H (7-18) mg/dL Creatinine 0.8 (0.8-1.3) mg/dL Est Cr Clr Drug Dosing 106.41 mL/min Estimated GFR (MDRD) > 60 (>60) Glucose 183 H (74-106) mg/dL POC Glucose 214 H (74-106) MG/DL Calcium 8.7 (8.5-10.1) mg/dL Phosphorus 3.1 (2.5-4.9) mg/dL Magnesium 2.0 (1.8-2.4) mg/dL Total Bilirubin 0.4 (0.2-1.0) mg/dL AST 32 (15-37) U/L ALT 28 (12-78) U/L Alkaline Phosphatase 94 (46-116) U/L Total Protein 5.6 L (6.4-8.2) g/dL Albumin 2.3 L (3.4-5.0) g/dL Globulin 3.3 (2.3-3.5) g/dL Albumin/Globulin Ratio 0.7 L (1.2-2.2) Ke Results Last 24 Hours: Microbiology 01/15/21 10:54 Gram Stain - Final Bronchial Washings - Right Upper Lobe Respiratory Culture - Preliminary NO GROWTH AFTER 1 DAY 01/15/21 10:54 DESI Preparation - Final Other - Right Upper Lobe Med Orders - Current: Current Medications Albuterol/Ipratropium (Albuterol/Ipratropium 3.0-0.5 Mg/3 Ml Neb Soln) 3 ml INH QIDRT [facility] Last Admin: 01/16/21 07:15 Dose: Not Given Documented by: Albuterol/Ipratropium (Albuterol/Ipratropium 3.0-0.5 Mg/3 Ml Neb Soln) 3 ml INH ASDIRECTED PRN PRN Reason: Shortness of Breath Aspirin (Aspirin 325 Mg Tab.Ec) 325 mg PO DAILY [facility] Last Admin: 01/16/21 09:11 Dose: 325 mg Documented by: Bisacodyl (Bisacodyl 5 Mg Tab) 10 mg PO BID [facility] Last Admin: 01/16/21 09:11 Dose: 10 mg Documented by: Bisacodyl (Bisacodyl 10 Mg Supp) 10 mg RECTAL ASDIRECTED PRN PRN Reason: Constipation Cyclobenzaprine HCl (Cyclobenzaprine 10 Mg Tab) 10 mg PO Q6H PRN PRN Reason: MUSCLE SPASM Dextrose (Glucose Gel 15 Gm In 37.5 Gm Tube) 15 gm PO ASDIRECTED PRN PRN Reason: HYPOGLYCEMIA Dextrose/Water (50% Dextrose In Water 50 Ml Syringe) 50 ml IVPUSH ASDIRECTED PRN PRN Reason: HYPOGLYCEMIA Docusate Sodium (Docusate Sodium 100 Mg Cap) 100 mg PO BID [facility] Last Admin: 01/16/21 09:11 Dose: 100 mg Documented by: Glucagon (Glucagon,Human Recombinant 1 Mg Vial) 1 mg IM ASDIRECTED PRN PRN Reason: HYPOGLYCEMIA Heparin Sodium (Porcine) (Heparin Sodium 100 Units/Ml 5 Ml Syringe) 500 units FLUSH ASDIRECTED PRN PRN Reason: Other Last Admin: 01/14/21 14:21 Dose: 500 units Documented by: Hydroxyzine HCl (Hydroxyzine Hcl 100 Mg/2 Ml Sdv) 100 mg IM Q4H PRN PRN Reason: PAIN Last Admin: 01/16/21 03:55 Dose: 100 mg Documented by: Ampicillin Sodium/Sulbactam (Sodium 3 gm/ Sodium Chloride) 100 mls @ 200 mls/hr IV Q6H [facility] Last Admin: 01/16/21 06:24 Dose: 200 mls/hr Documented by: Multivitamins/Minerals 10 ml/Zinc 1 ml/ Amino Ac/Electrol/Dextrose/Calcium 1,011 mls @ 82 mls/hr IV .BY DURATION [facility] Stop: 01/16/21 14:00 Last Admin: 01/15/21 13:22 Dose: 82 mls/hr Documented by: Amino Ac/Electrol/Dextrose/Calcium (Clinimix E 5/15) 1,000 mls @ 82 mls/hr IV .BY DURATION [facility] Stop: 01/16/21 14:00 Last Infusion: 01/16/21 08:33 Dose: 60 mls/hr Documented by: Levofloxacin/Dextrose 750 mg/ (Premix) 150 mls @ 100 mls/hr IV Q24H [facility] Last Admin: 01/15/21 08:29 Dose: 100 mls/hr Documented by: Magnesium Sulfate (Magnesium Sulfate In Water 2 Gm/50 Ml) 2 gm in 50 mls @ 25 mls/hr IV Q6HR [facility] Stop: 01/18/21 11:59 Last Admin: 01/16/21 04:26 Dose: 25 mls/hr Documented by: Multivitamins/Minerals 10 ml/Zinc 1 ml/ Amino Ac/Electrol/Dextrose/Calcium 1,011 mls @ 60 mls/hr IV .BY DURATION [facility] Amino Ac/Electrol/Dextrose/Calcium (Clinimix E 5/15) 1,000 mls @ 60 mls/hr IV .BY DURATION [facility] Insulin Human Lispro (Insulin Lispro 100 Unit/Ml 3 Ml Kwikpen) 0 unit SUBCUT QI DACANDBED [facility]; Protocol Last Admin: 01/16/21 07:49 Dose: 6 units Documented by: Magnesium Hydroxide (Magnesium Hydroxide 400 Mg/5 Ml Susp 30 Ml Cup) 30 ml PO ASDIRECTED PRN PRN Reason: Constipation Last Admin: 01/12/21 17:44 Dose: 30 ml Documented by: Metformin HCl (Metformin 500 Mg Tab) 1,000 mg PO BIDMEALS [facility] Last Admin: 01/16/21 07:46 Dose: 1,000 mg Documented by: Metoprolol Tartrate (Metoprolol Tartrate 50 Mg Tab) 100 mg PO BID [facility] Last Admin: 01/16/21 09:11 Dose: 100 mg Documented by: Nitroglycerin (Nitroglycerin 0.4 Mg Tab.Sl) 0.4 mg SL ASDIRECTED PRN PRN Reason: CHEST PAIN Non-Formulary Medication (Central Total Parenteral Nutrition Bag) 1,000 ml .XX .Continue Order [facility] Stop: 01/16/21 16:00 Nystatin (Nystatin Ointment 15 Gm Tube) 0 gm TOP TID [facility] Last Admin: 01/16/21 09:18 Dose: Not Given Documented by: Ondansetron HCl (Ondansetron 4 Mg/2 Ml Sdv) 4 mg IV Q4H PRN PRN Reason: Nausea/Vomiting Oxycodone HCl (Oxycodone 5 Mg Tab) 5 mg PO Q4H PRN PRN Reason: Pain Last Admin: 01/16/21 09:08 Dose: 10 mg Documented by: Pantoprazole Sodium (Pantoprazole 40 Mg Vial) 40 mg IV Q24H [facility] Last Admin: 01/15/21 17:49 Dose: 40 mg Documented by: Senna/Docusate Sodium (Docusate Sodium/Sennosides 50-8.6 Mg Tab) 2 tab PO BID [facility] Last Admin: 01/16/21 09:17 Dose: 2 tab Documented by: Sodium Chloride (Sodium Chloride 0.9% 10 Ml Syringe) 10 ml FLUSH ASDIRECTED PRN PRN Reason: Keep Vein Open Tamsulosin HCl (Tamsulosin 0.4 Mg Cap.Er) 0.4 mg PO BEDTIME [facility] Last Admin: 01/15/21 21:34 Dose: Not Given Documented by: Discontinued Medications Albuterol (Albuterol 0.083% 2.5 Mg/3 Ml Neb Soln) 2.5 mg NEB Q4H PRN PRN Reason: Shortness Of Breath/wheezing Albuterol/Ipratropium (Albuterol/Ipratropium 3.0-0.5 Mg/3 Ml Neb Soln) 3 ml NEB ONCALL ONE Stop: 01/09/21 11:16 Last Admin: 01/09/21 11:05 Dose: 3 ml Documented by: Aztreonam (Aztreonam 1 Gm Vial) Confirm Administered Dose 1 gm .ROUTE .STK-MED ONE Stop: 01/09/21 13:49 Last Admin: 01/09/21 14:45 Dose: 1 gm Documented by: Bisacodyl (Bisacodyl 10 Mg Supp) 10 mg RECTAL ONETIME ONE Stop: 01/12/21 10:01 Last Admin: 01/12/21 09:49 Dose: 10 mg Documented by: Bupivacaine HCl (Bupivacaine 0.5% 50 Ml Mdv) Confirm Administered Dose 50 ml .ROUTE .STK-MED ONE Stop: 01/09/21 11:31 Bupivacaine HCl (Bupivacaine 0.5% 50 Ml Mdv) Confirm Administered Dose 50 ml .ROUTE .STK-MED ONE Stop: 01/11/21 06:32 Last Admin: 01/11/21 07:36 Dose: 15 ml Documented by: Ropivacaine 37 ml/Dexamethasone 8 mg/Epinephrine HCl 0.4 mg/ Sodium Chloride 40.6 ml 0 ml NERVRT ASDIRECTED [facility] Last Admin: 01/09/21 12:56 Dose: 80 syringe Documented by: Ropivacaine 37 ml/Dexamethasone 8 mg/Epinephrine HCl 0.4 mg/ Sodium Chloride 40.6 ml 0 ml NERVRT ASDIRECTED [facility] Last Admin: 01/11/21 07:31 Dose: 80 syringe Documented by: Dexamethasone (Dexamethasone 4 Mg/Ml Sdv) Confirm Administered Dose 4 mg .ROUTE .STK-MED ONE Stop: 01/09/21 10:11 Dexamethasone (Dexamethasone 4 Mg/Ml Sdv) Confirm Administered Dose 4 mg .ROUTE .STK-MED ONE Stop: 01/15/21 07:45 Dextrose/Water (50% Dextrose In Water 50 Ml Syringe) 50 ml IVPUSH ASDIRECTED PRN PRN Reason: Hypoglycemia Fentanyl (Fentanyl 250 Mcg/5 Ml Sdv) Confirm Administered Dose 250 mcg .ROUTE .STK-MED ONE Stop: 01/09/21 10:14 Fentanyl (Fentanyl 250 Mcg/5 Ml Sdv) Confirm Administered Dose 250 mcg .ROUTE .STK-MED ONE Stop: 01/09/21 12:48 Fentanyl (Fentanyl 100 Mcg/2 Ml Sdv) Confirm Administered Dose 100 mcg .ROUTE .STK-MED ONE Stop: 01/11/21 07:08 Fentanyl (Fentanyl 100 Mcg/2 Ml Sdv) Confirm Administered Dose 100 mcg .ROUTE .STK-MED ONE Stop: 01/15/21 07:46 Furosemide (Furosemide 20 Mg/2 Ml Vial) 20 mg IVPUSH Q6H [facility] Stop: 01/12/21 14:01 Last Admin: 01/12/21 14:05 Dose: 20 mg Documented by: Furosemide (Furosemide 20 Mg/2 Ml Vial) 20 mg IVPUSH ONETIME ONE Stop: 01/13/21 11:01 Last Admin: 01/13/21 20:06 Dose: 20 mg Documented by: Furosemide (Furosemide 20 Mg/2 Ml Vial) 20 mg IVPUSH ONETIME ONE Stop: 01/14/21 14:01 Last Admin: 01/14/21 14:23 Dose: 20 mg Documented by: Furosemide (Furosemide 20 Mg/2 Ml Vial) 20 mg IVPUSH ONETIME ONE Stop: 01/15/21 14:01 Last Admin: 01/15/21 15:33 Dose: 20 mg Documented by: Glucagon (Glucagon,Human Recombinant 1 Mg Vial) 1 mg IM ASDIRECTED PRN PRN Reason: Hypoglycemia Glycopyrrolate (Glycopyrrolate 0.2 Mg/Ml 5 Ml Mdv) Confirm Administered Dose 1 mg .ROUTE .STK-MED ONE Stop: 01/09/21 10:11 Glycopyrrolate (Glycopyrrolate 0.2 Mg/Ml 5 Ml Mdv) Confirm Administered Dose 1 mg .ROUTE .STK-MED ONE Stop: 01/15/21 07:45 Heparin Sodium (Porcine) (Heparin Sodium 100 Units/Ml 5 Ml Syringe) Confirm Administered Dose 500 units .ROUTE .STK-MED ONE Stop: 01/09/21 11:31 Last Admin: 01/09/21 14:21 Dose: 500 units Documented by: Hydromorphone HCl (Hydromorphone 0.5 Mg/0.5 Ml Syringe) 0.5 mg IVPUSH ONETIME ONE Stop: 01/08/21 19:31 Last Admin: 01/08/21 19:42 Dose: 0.5 mg Documented by: Hydromorphone HCl (Hydromorphone 0.5 Mg/0.5 Ml Syringe) 0.5 mg IVPUSH Q2H PRN PRN Reason: Pain Last Admin: 01/09/21 06:13 Dose: 0.5 mg Documented by: Hydromorphone HCl (Hydromorphone/Normal Saline 15 Mg/30 Ml Director Regulatory Compliance) 0 mg IV ASDIRECTED PRN; Protocol 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 Last Admin: 01/15/21 04:49 Dose: 15 mg Documented by: Sodium Chloride (Normal Saline) 1,000 mls @ 500 mls/hr IV .BOLUS STA Stop: 01/08/21 18:34 Last Admin: 01/08/21 17:59 Dose: 500 mls/hr Documented by: Sodium Chloride (Normal Saline) 75 mls @ 3 mls/sec IV ASDIRECTED [facility] Last Admin: 01/08/21 18:11 Dose: 3 mls/sec Documented by: Piperacillin Sod/Tazobactam (Sod 4.5 gm/ Sodium Chloride) 100 mls @ 100 mls/hr IV ONETIME ONE Stop: 01/08/21 20:10 Last Admin: 01/08/21 19:42 Dose: 100 mls/hr Documented by: Phytonadione 5 mg/ Sodium (Chloride) 50.5 mls @ 100 mls/hr IV NOW ONE Stop: 01/08/21 20:06 Last Admin: 01/08/21 20:47 Dose: 100 mls/hr Documented by: Lactated Ringer's (Ringers, Lactated) 1,000 mls @ 125 mls/hr IV ASDIRECTED [facility] Last Admin: 01/09/21 06:10 Dose: 125 mls/hr Documented by: Ampicillin Sodium/Sulbactam (Sodium 1.5 gm/ Sodium Chloride) 50 mls @ 100 mls/hr IV Q6H [facility] Last Admin: 01/09/21 03:21 Dose: 100 mls/hr Documented by: Ampicillin Sodium/Sulbactam (Sodium 1.5 gm/ Sodium Chloride) 50 mls @ 100 mls/hr IV Q6H [facility] Last Admin: 01/09/21 10:32 Dose: 100 mls/hr Documented by: Ketamine HCl 50 mg/ Sodium (Chloride) 50 mls @ 22.5 mls/hr IV ASDIRECTED [facility] Magnesium Sulfate (Magnesium Sulfate In Water 2 Gm/50 Ml) 2 gm in 50 mls @ 25 mls/hr IV Q6H [facility] Stop: 01/09/21 16:59 Last Admin: 01/09/21 15:19 Dose: 25 mls/hr Documented by: Lactated Ringer's (Ringers, Lactated) Confirm Administered Dose 1,000 mls @ as directed .ROUTE .STK-MED ONE Stop: 01/09/21 10:14 Linezolid (Zyvox) Confirm Administered Dose 300 mls @ as directed .ROUTE .STK- MED ONE Stop: 01/09/21 11:32 Dextrose/Ringer's (Dextrose 5%-Ringers) Confirm Administered Dose 1,000 mls @ as directed .ROUTE .STK-MED ONE Stop: 01/09/21 12:42 Lactated Ringer's (Ringers, Lactated) Confirm Administered Dose 1,000 mls @ as directed .ROUTE .STK-MED ONE Stop: 01/09/21 12:43 Ampicillin Sodium/Sulbactam (Sodium 1.5 gm/ Sodium Chloride) 50 mls @ 100 mls/hr IV ONETIME ONE Stop: 01/09/21 13:44 Last Admin: 01/09/21 13:20 Dose: 100 mls/hr Documented by: Dextrose/Lactated Ringer's (Dextrose 5%-Lactated Ringers) 1,000 mls @ 80 mls/hr IV ASDIRECTED [facility] Last Admin: 01/09/21 23:28 Dose: 80 mls/hr Documented by: Lactated Ringer's (Ringers, Lactated) 1,000 mls @ 120 mls/hr IV ASDIRECTED [facility] Last Admin: 01/10/21 03:16 Dose: 120 mls/hr Documented by: Aztreonam 1 gm/ Sodium (Chloride) 50 mls @ 100 mls/hr IV Q8H [facility] Last Admin: 01/13/21 05:39 Dose: 100 mls/hr Documented by: Tranexamic Acid 800 mg/ Sodium (Chloride) 58 mls @ 200 mls/hr IV ONETIME ONE Stop: 01/09/21 20:02 Last Admin: 01/09/21 20:19 Dose: 200 mls/hr Documented by: Tranexamic Acid 800 mg/ Sodium (Chloride) 58 mls @ 200 mls/hr IV ONETIME ONE Stop: 01/09/21 23:02 Last Admin: 01/09/21 23:02 Dose: 200 mls/hr Documented by: Lactated Ringer's (Ringers, Lactated) 500 mls @ 500 mls/hr IV .BOLUS [facility] Last Admin: 01/10/21 04:39 Dose: 500 mls/hr Documented by: Lactated Ringer's (Ringers, Lactated) 1,000 mls @ 0 mls/hr IV ASDIRECTED [facility] Last Admin: 01/10/21 20:29 Dose: 25 mls/hr Documented by: Sodium Chloride (Normal Saline) 75 mls @ 3 mls/sec IV ASDIRECTED [facility] Last Admin: 01/11/21 05:52 Dose: 3 mls/sec Documented by: Magnesium Sulfate (Magnesium Sulfate In Water 2 Gm/50 Ml) 2 gm in 50 mls @ 25 mls/hr IV Q6H [facility] Stop: 01/14/21 05:59 Last Admin: 01/14/21 03:54 Dose: 25 mls/hr Documented by: Albumin Human (Albumin 25%) 25 gm in 100 mls @ 25 mls/hr IV Q24H [facility] Stop: 01/13/21 15:59 Last Admin: 01/13/21 13:50 Dose: 25 mls/hr Documented by: Potassium Phosphate 15 mmol/ (Premix) 250 mls @ 85 mls/hr IV Q3H [facility] Stop: 01/11/21 18:57 Last Admin: 01/11/21 17:14 Dose: 85 mls/hr Documented by: Sodium Chloride (Normal Saline) 500 mls @ 0 mls/hr IV ASDIRECTED ONE Stop: 01/11/21 11:48 Last Admin: 01/11/21 12:29 Dose: 25 mls/hr Documented by: Doxycycline Hyclate 100 mg/ (Sodium Chloride) 100 mls @ 100 mls/hr IV Q12H [facility] Last Admin: 01/13/21 04:31 Dose: 100 mls/hr Documented by: Potassium Phosphate 15 mmole/ (Sodium Chloride) 105 mls @ 35 mls/hr IV Q3H [facility] Stop: 01/13/21 18:59 Last Admin: 01/13/21 21:18 Dose: 35 mls/hr Documented by: Insulin Glargine (Insulin Glargine,Human Rec. Analog 100 Units/Ml 3 Ml Pen) 10 units SUBCUT ONETIME ONE Stop: 01/10/21 07:01 Last Admin: 01/10/21 07:40 Dose: 10 units Documented by: Insulin Human Lispro (Insulin Lispro 100 Unit/Ml 3 Ml Kwikpen) 0 unit SUBCUT QIDACANDBED [facility]; Protocol Last Admin: 01/09/21 12:34 Dose: Not Given Documented by: Insulin Human Lispro (Insulin Lispro 100 Unit/Ml 3 Ml Kwikpen) 0 unit SUBCUT Q6H PRN; Protocol PRN Reason: MEDIUM CORRECTIONAL DOSING Last Admin: 01/12/21 11:49 Dose: 8 units Documented by: Insulin Human Regular (Insulin Regular, Human 100 Units/Ml 3 Ml Vial) 14 unit SUBCUT ONETIME ONE Stop: 01/08/21 19:15 Last Admin: 01/08/21 19:48 Dose: 14 unit Documented by: Iopamidol (Iopamidol 612 Mg/Ml 100 Ml Bottle) 117 ml IV . DIRECTED [facility] Last Admin: 01/08/21 18:11 Dose: 117 ml Documented by: Iopamidol (Iopamidol 612 Mg/Ml 100 Ml Bottle) 100 ml IV . DIRECTED [facility] Last Admin: 01/11/21 05:52 Dose: 100 ml Documented by: Ketamine HCl (Ketamine 500 Mg/5 Ml Mdv) 0 mg IV BOLUS [facility] Ketamine HCl (Ketamine 500 Mg/5 Ml Mdv) 0 mg IV ASDIRECTED [facility] Ketamine HCl (Ketamine 500 Mg/5 Ml Mdv) 38 mg IV ASDIRECTED [facility] Lidocaine HCl (Lidocaine 2% Viscous Solution 15 Ml Cup) Confirm Administered Dose 15 ml .ROUTE .STK-MED ONE Stop: 01/15/21 06:53 Last Admin: 01/15/21 09:40 Dose: 15 ml Documented by: Lidocaine HCl (Lidocaine 4% Top Soln 50 Ml Bottle) Confirm Administered Dose 50 ml .ROUTE .STK-MED ONE Stop: 01/15/21 06:53 Last Admin: 01/15/21 09:40 Dose: 50 ml Documented by: Lidocaine/Epinephrine (Lidocaine 1% With Epinephrine 1:100,000 50 Ml Mdv) Confirm Administered Dose 50 ml .ROUTE .STK-MED ONE Stop: 01/09/21 11:32 Lidocaine/Epinephrine (Lidocaine 1% With Epinephrine 1:100,000 50 Ml Mdv) 50 ml INJECT ONETIME ONE Stop: 01/10/21 06:01 Last Admin: 01/10/21 06:55 Dose: 5 ml Documented by: Lidocaine/Epinephrine (Lidocaine 1% With Epinephrine 1:100,000 50 Ml Mdv) Confirm Administered Dose 50 ml .ROUTE .STK-MED ONE Stop: 01/10/21 06:07 Last Admin: 01/10/21 06:11 Dose: Not Given Documented by: Lidocaine/Epinephrine (Lidocaine 1% With Epinephrine 1:100,000 50 Ml Mdv) Confirm Administered Dose 50 ml .ROUTE .STK-MED ONE Stop: 01/11/21 06:32 Last Admin: 01/11/21 07:36 Dose: 15 ml Documented by: Magnesium Hydroxide (Magnesium Hydroxide 400 Mg/5 Ml Susp 30 Ml Cup) 30 ml PO ONETIME ONE Stop: 01/12/21 09:01 Last Admin: 01/12/21 09:49 Dose: 30 ml Documented by: Magnesium Oxide (Magnesium Oxide 400 Mg Tab) 400 mg PO BEDTIME [facility] Last Admin: 01/08/21 21:40 Dose: 400 mg Documented by: Meropenem (Meropenem 500 Mg Sdv) Confirm Administered Dose 500 mg .ROUTE .STK- MED ONE Stop: 01/09/21 11:32 Last Admin: 01/09/21 13:02 Dose: 500 mg Documented by: Meropenem (Meropenem 500 Mg Sdv) Confirm Administered Dose 500 mg .ROUTE .STK- MED ONE Stop: 01/11/21 06:32 Last Admin: 01/11/21 07:37 Dose: 500 mg Documented by: Midazolam HCl (Midazolam 1 Mg/Ml 2 Ml Sdv) Confirm Administered Dose 2 mg .ROUTE .STK-MED ONE Stop: 01/11/21 07:08 Naloxone HCl (Naloxone 0.4 Mg/Ml Sdv) 0.1 mg IV ASDIRECTED PRN PRN Reason: decreased respiratory rate Neostigmine Methylsulfate (Neostigmine Methylsulfate 1 Mg/Ml 5 Ml Syringe) Confirm Administered Dose 5 mg .ROUTE .STK-MED ONE Stop: 01/09/21 10:11 Neostigmine Methylsulfate (Neostigmine Methylsulfate 1 Mg/Ml 5 Ml Syringe) Confirm Administered Dose 5 mg .ROUTE .STK-MED ONE Stop: 01/15/21 07:45 Non-Formulary Medication (Tap Block 1 Ml Bag) 0 ml NERVRT ONETIME ONE Stop: 01/09/21 13:01 Non-Formulary Medication (Central Total Parenteral Nutrition Bag) 1,000 ml .XX .Continue Order [facility] Stop: 01/10/21 08:01 Non-Formulary Medication (Central Total Parenteral Nutrition Bag) 1,000 ml .XX .Continue Order [facility] Stop: 01/11/21 07:16 Non-Formulary Medication (Central Total Parenteral Nutrition Bag) 0 ml IV ASDIRECTED [facility] Stop: 01/13/21 09:31 Non-Formulary Medication (Central Total Parenteral Nutrition Bag) 1,000 ml .XX .Continue Order [facility] Stop: 01/15/21 07:16 Ondansetron HCl (Ondansetron 4 Mg/2 Ml Sdv) Confirm Administered Dose 4 mg .ROUTE .STK-MED ONE Stop: 01/09/21 10:11 Ondansetron HCl (Ondansetron 4 Mg/2 Ml Sdv) Confirm Administered Dose 4 mg .ROUTE .STK-MED ONE Stop: 01/15/21 07:45 Propofol (Propofol 200 Mg/20 Ml Sdv) Confirm Administered Dose 200 mg .ROUTE .STK-MED ONE Stop: 01/09/21 10:11 Propofol (Propofol 200 Mg/20 Ml Sdv) Confirm Administered Dose 200 mg .ROUTE .STK-MED ONE Stop: 01/11/21 07:08 Propofol (Propofol 200 Mg/20 Ml Sdv) Confirm Administered Dose 200 mg .ROUTE .STK-MED ONE Stop: 01/15/21 07:45 Propofol (Propofol 200 Mg/20 Ml Sdv) Confirm Administered Dose 200 mg .ROUTE .STK-MED ONE Stop: 01/15/21 10:14 Rocuronium [place] (Rocuronium 50 Mg/5 Ml Vial) Confirm Administered Dose 50 mg .ROUTE .STK-MED ONE Stop: 01/09/21 10:11 Rocuronium [place] (Rocuronium 50 Mg/5 Ml Vial) Confirm Administered Dose 50 mg .ROUTE .STK-MED ONE Stop: 01/15/21 07:45 Simvastatin (Simvastatin 20 Mg Tab) 20 mg PO BEDTIME ROSITA Last Admin: 01/08/21 21:40 Dose: 20 mg Documented by: Sodium Chloride (Sodium Chloride 0.9% 10 Ml Syringe) 10 ml FLUSH ASDIRECTED PRN PRN Reason: Keep Vein Open Sodium Chloride (Sodium Chloride 0.9% 10 Ml Syringe) 10 ml FLUSH ONETIME ONE Stop: 01/08/21 16:47 Last Admin: 01/08/21 18:11 Dose: 10 ml Documented by: Sodium Chloride (Sodium Chloride 0.9% 10 Ml Syringe) 10 ml FLUSH ONETIME ONE Stop: 01/11/21 05:23 Last Admin: 01/11/21 05:52 Dose: 10 ml Documented by: Sodium Chloride (Sodium Chloride 0.9% Irrigation 500 Ml Container) 500 ml .XX ONETIME ONE Stop: 01/12/21 09:01 Last Admin: 01/12/21 09:45 Dose: 500 ml Documented by: Succinylcholine [place] (Succinylcholine 200 Mg/10 Ml Mdv) Confirm Administered Dose 200 mg .ROUTE .STK-MED ONE Stop: 01/09/21 10:11 Succinylcholine [place] (Succinylcholine 200 Mg/10 Ml Mdv) Confirm Administered Dose 200 mg .ROUTE .STK-MED ONE Stop: 01/15/21 07:45 - Exam Quality Assessment: No: Supplemental Oxygen General: Alert, Oriented, Cooperative, No Acute Distress Lungs: Normal Respiratory Effort. No: Wheezing GI/Abdominal Exam: Soft, No Distention Extremities: No Pedal Edema Psy/Mental Status: Alert, Normal Affect - Patient Data Lab Results Last 24 hrs: Laboratory Results - last 24 hr 01/15/21 01/15/21 01/15/21 Range/Units 11:30 16:30 21:00 WBC (4.5-11.0) K/uL RBC (4.30-5.90) M/uL Hgb (12.0-15.0) g/dL Hct (40.0-54.0) % MCV (80-98) fL MCH (27-31) pg MCHC (32-36) % Plt Count (150-400) K/uL Neut % (Auto) (36-66) % Lymph % (Auto) (24-44) % Story % (Auto) (2-6) % Eos % (Auto) (2-4) % Baso % (Auto) (0-1) % Sodium (140-148) mmol/L Potassium (3.6-5.2) mmol/L Chloride (100-108) mmol/L Carbon Dioxide (21-32) mmol/L Anion Gap (5.0-14.0) mmol/L BUN (7-18) mg/dL Creatinine (0.8-1.3) mg/dL Est Cr Clr Drug Dosing mL/min Estimated GFR (MDRD) (>60) Glucose (74-106) mg/dL POC Glucose 144 H 318 H 332 H (74-106) MG/DL Calcium (8.5-10.1) mg/dL Phosphorus (2.5-4.9) mg/dL Magnesium (1.8-2.4) mg/dL Total Bilirubin (0.2-1.0) mg/dL AST (15-37) U/L ALT (12-78) U/L Alkaline Phosphatase (46-116) U/L Total Protein (6.4-8.2) g/dL Albumin (3.4-5.0) g/dL Globulin (2.3-3.5) g/dL Albumin/Globulin Ratio (1.2-2.2) 01/16/21 01/16/21 01/16/21 Range/Units 04:23 04:23 07:30 WBC 23.2 H (4.5-11.0) K/uL RBC 3.27 L (4.30-5.90) M/uL Hgb 9.6 L (12.0-15.0) g/dL Hct 30.5 L (40.0-54.0) % MCV 93 (80-98) fL MCH 29 (27-31) pg MCHC 32 (32-36) % Plt Count 434 H (150-400) K/uL Neut % (Auto) 77 H (36-66) % Lymph % (Auto) 7 L (24-44) % Story % (Auto) 14 H (2-6) % Eos % (Auto) 3 (2-4) % Baso % (Auto) 0 (0-1) % Sodium 145 (140-148) mmol/L Potassium 4.1 (3.6-5.2) mmol/L Chloride 106 (100-108) mmol/L Carbon Dioxide 27 (21-32) mmol/L Anion Gap 12.2 (5.0-14.0) mmol/L BUN 23 H (7-18) mg/dL Creatinine 0.8 (0.8-1.3) mg/dL Est Cr Clr Drug Dosing 106.41 mL/min Estimated GFR (MDRD) > 60 (>60) Glucose 183 H (74-106) mg/dL POC Glucose 214 H (74-106) MG/DL Calcium 8.7 (8.5-10.1) mg/dL Phosphorus 3.1 (2.5-4.9) mg/dL Magnesium 2.0 (1.8-2.4) mg/dL Total Bilirubin 0.4 (0.2-1.0) mg/dL AST 32 (15-37) U/L ALT 28 (12-78) U/L Alkaline Phosphatase 94 (46-116) U/L Total Protein 5.6 L (6.4-8.2) g/dL Albumin 2.3 L (3.4-5.0) g/dL Globulin 3.3 (2.3-3.5) g/dL Albumin/Globulin Ratio 0.7 L (1.2-2.2) Result Diagrams: 01/16/21 04:23 01/16/21 04:23 Ke Results Last 24 hrs: Microbiology 01/15/21 10:54 Gram Stain - Final Bronchial Washings - Right Upper Lobe Respiratory Culture - Preliminary NO GROWTH AFTER 1 DAY 01/15/21 10:54 DESI Preparation - Final Other - Right Upper Lobe Sepsis Event Note - Evaluation Sepsis Screening Result: No Definite Risk - Focused Exam Vital Signs: Vital Signs Temp Pulse Pulse Resp BP BP Pulse Ox 01/16/21 09:11 80 124/54 L 01/16/21 07:00 36.9 C 80 16 124/54 L 93 L 01/16/21 03:57 36.8 C 83 18 119/67 91 L - Problem List Review Problem List Initiated/Reviewed/Updated: Yes - Plan Plan:: ASSESSMENT AND PLAN STATUS POST EXPLORATORY LAPAROTOMY FOR ABSCESS AND SMALL BOWEL MASS-suspect primary versus metastatic cancer. White blood cell count remains elevated but is relatively stable. Pathology still pending but cancer strongly suspected. Pain fairly well controlled. -Soft diet -Saline lock -Pain and nausea medication as needed -Continue Unasyn and Levaquin -Surgical management per Dr. Burkett RIGHT LUNG MASS-concerning for malignancy, with airway obstruction and volume loss. Status post bronchoscopy 01/15 with pathology and microbiology pending. Unclear if this is primary cancer source or metastatic disease or possibly 2 different primary cancer sites with abdominal cancer and lung cancer. -Levofloxacin as above -Follow-up culture results TYPE 2 DIABETES MELLITUS-controlled so far. -Continue Jardiance and Trulicity -4 times daily glucometers -High dose sliding scale Humalog PAROXYSMAL ATRIAL FIBRILLATION STATUS POST ABLATION-rate controlled. -Hold warfarin COPD-he has not required supplemental oxygen. No evidence for acute exacerbation. -Nebulized albuterol as needed -Continue vigorous pulmonary toilet postoperatively CORONARY ARTERY DISEASE-status post 2 angioplasties and stents several years ago. Currently asymptomatic -Continue outpatient medications MAINTENANCE ISSUES -DVT prophylaxis; SCUDs -GI prophylaxis; not indicated -Nutrition; advance diet per surgical team DISPOSITION-anticipate discharge to home after the hospital stay. Jah Cid MD
[2021-01-16] MEDS ORDERED: Albuterol/Ipratropium 3.0-0.5 MG/3 ML Neb Soln INH PRN (10:43)
[2021-01-16] MEDS: Levofloxacin/Dextrose 5%-Water 750 MG in Premix Bag 1 BAG IV SCH (10:51)
--- NOTE | 2021-01-16 12:50 | PN ---
DATE OF SERVICE: 01/16/2021 SUBJECTIVE: Ha is having a difficulty with pain management. He has no other concerns or questions today. White count is 23.2, hemoglobin 9.6. Oral intake 750. Urine output 50/50. REVIEW OF SYSTEMS: Remainder of review of systems negative for any pertinent positives and negatives. OBJECTIVE: GENERAL: Ha Lopez is a 65-year-old male. He is alert and orientated, resting comfortably. VITAL SIGNS: TPR is 98.3, 83, 18, and blood pressure 119/67. HEENT: Negative. NECK: Supple. HEART: Regular rate and rhythm. LUNGS: Reveal decreased breath sounds bilaterally, which is unchanged. ABDOMEN: Dressings are dry and intact. Abdominal binder is on. EXTREMITIES: Without peripheral edema. ASSESSMENT: 1. Right lung mass. 2. Bronchoscopy 01/15/2021. 3. Insertion of left subclavian triple lumen, exploratory laparotomy with;. a. Small-bowel resection. b. Drainage of intraabdominal abscess. c. Excision of peritoneal nodule. d. Placement of Interceed mesh. POSTOPERATIVE DIAGNOSES: 1. Inadequate peripheral vein access. 2. Perforated mass, small bowel adjacent to abscess between the small bowel and urinary bladder. 3. Peritoneal nodule, left pelvic sidewall. 4. Date of procedure 01/09/2021. Surgeon: Shaw Burkett MD. 5. Delayed primary closure 01/11/2021. Surgeon: Shaw Burkett MD. 6. TPN therapy. 7. Diabetes. PLAN: 1. Decrease TPN to 60 mL per hour. 2. Increase oxycodone 5 to 10 mg oral q.4 hours. Pain scale for 5 mg would be one to 6/10. Pain scale for 10 mg is 7 to 10 out of 10 on the pain scale, p.r.n. every 4 hours for pain. 3. Change Aquacel dressing every three days. 4. Check CBC, CMP, and phos in the a.m. 5. Continue use of incentive spirometer. 6. We will evaluate p.r.n. or in the a.m. Yanet Harper PA-C /[id number]
[2021-01-16] MEDS ORDERED: oxyCODONE 5 MG Tab PO PRN (12:59)
[2021-01-16] MEDS ORDERED: Ondansetron 4 MG/2 ML SDV ONE (15:09)
[2021-01-16] MEDS: HYDROmorphone 2 MG Tab PO PRN ×2 (17:09→21:30)
[2021-01-16] MEDS: Pantoprazole 40 MG Tab.CR PO SCH (17:15)
[2021-01-16] MEDS: Tamsulosin 0.4 MG Cap.ER PO SCH (21:29)
[2021-01-17] MEDS: Ampicillin/Sulbactam Na 3 GM in Sodium Chloride 0.9% 100 ML IV SCH ×5 (00:49→23:52)
[2021-01-17] MEDS: HYDROmorphone 2 MG Tab PO PRN ×6 (01:38→21:52)
[2021-01-17] MEDS: Magnesium Sulfate/Water 2 GM/50 ML BAG IV SCH ×4 (04:35→21:43)
[2021-01-17] MEDS ORDERED: Central Total Parenteral Nutrition Bag SCH (07:15)
[2021-01-17] MEDS: Insulin Lispro 100 Unit/ML 3 ML KwikPen SUBCUT SCH ×4 (08:42→21:43)
[2021-01-17] MEDS: metFORMIN 500 MG Tab PO SCH ×2 (08:45→16:42)
[2021-01-17] MEDS: 1: AA 5%/Calcium/D15W/Lytes 1,000 ML with MVI, Adult with Vitamin K 10 ML, Zinc/Copper/M IV SCH ×3 (08:45)
[2021-01-17] MEDS: Docusate Sodium 100 MG Cap PO SCH ×2 (08:46→21:39)
[2021-01-17] MEDS: Aspirin 325 MG Tab.EC PO SCH (08:47)
[2021-01-17] MEDS: Bisacodyl 5 MG Tab PO SCH ×2 (08:47→21:39)
[2021-01-17] MEDS: Empagliflozin 10 MG Tab PO SCH (08:48)
[2021-01-17] MEDS: Nystatin Ointment 15 GM Tube TOP SCH ×3 (08:48→21:42)
[2021-01-17] MEDS: Metoprolol Tartrate 50 MG Tab PO SCH ×2 (08:48→21:41)
[2021-01-17] MEDS ORDERED: Levofloxacin 500 MG Tab PO SCH (09:00)
[2021-01-17] MEDS ORDERED: Polyethylene Glycol 3350 Powder 119 GM Bottle PO ONE (09:00)
[2021-01-17] MEDS ORDERED: Levofloxacin 250 MG Tab PO SCH (09:00)
--- NOTE | 2021-01-17 09:09 | CR ---
Abdomen 2V AP Flat Upright CLINICAL HISTORY: Increasing postoperative pain FINDINGS: No free air is identified. There are some distended loops of small bowel with a few scattered air-fluid levels. There is a large amount of retained stool throughout the colon. IMPRESSION: Moderate retained stool Scattered dilated loops of small bowel in a nonspecific pattern.
--- NOTE | 2021-01-17 10:37 | PCM.PN ---
- General Info Date of Service: 01/17/21 Subjective Update: There were no acute issues overnight. Pain remains 6-7 out of 10. No nausea. No significant shortness of breath. He does feel weak and tired. Cough is a little better today. Pathology from the abdominal surgery returned with abscess and no evidence for malignancy. Blood sugars have been well controlled. Functional Status: Reports: Pain Controlled - Review of Systems General: Reports: Weakness - Patient Data Vitals - Most Recent: Last Vital Signs Temp 36.5 C 01/17/21 07:00 Pulse 66 01/17/21 08:48 Resp 16 01/17/21 07:00 BP 113/98 H 01/17/21 08:48 Pulse Ox 95 01/17/21 07:00 Weight - Most Recent: 81.2 kg I&O - Last 24 Hours: Intake & Output 01/16/21 01/17/21 01/17/21 22:59 06:59 14:59 Intake Total 1999 1761 630 Output Total 1550 1200 500 Balance 450 561 130 Lab Results Last 24 Hours: Laboratory Results - last 24 hr 01/13/21 01/16/21 01/16/21 Range/Units 04:15 11:30 16:22 WBC (4.5-11.0) K/uL RBC (4.30-5.90) M/uL Hgb (12.0-15.0) g/dL Hct (40.0-54.0) % MCV (80-98) fL MCH (27-31) pg MCHC (32-36) % Plt Count (150-400) K/uL Sodium (140-148) mmol/L Potassium (3.6-5.2) mmol/L Chloride (100-108) mmol/L Carbon Dioxide (21-32) mmol/L Anion Gap (5.0-14.0) mmol/L BUN (7-18) mg/dL Creatinine (0.8-1.3) mg/dL Est Cr Clr Drug Dosing mL/min Estimated GFR (MDRD) (>60) Glucose (74-106) mg/dL POC Glucose 143 H 265 H (74-106) MG/DL Calcium (8.5-10.1) mg/dL Phosphorus (2.5-4.9) mg/dL Total Bilirubin (0.2-1.0) mg/dL AST (15-37) U/L ALT (12-78) U/L Alkaline Phosphatase (46-116) U/L Total Protein (6.4-8.2) g/dL Albumin (3.4-5.0) g/dL Globulin (2.3-3.5) g/dL Albumin/Globulin Ratio (1.2-2.2) Crossmatch See Detail 01/16/21 01/17/21 01/17/21 Range/Units 20:59 04:05 04:05 WBC 20.8 H (4.5-11.0) K/uL RBC 3.38 L (4.30-5.90) M/uL Hgb 9.7 L (12.0-15.0) g/dL Hct 32.0 L (40.0-54.0) % MCV 95 (80-98) fL MCH 29 (27-31) pg MCHC 30 L (32-36) % Plt Count 466 H (150-400) K/uL Sodium 144 (140-148) mmol/L Potassium 4.2 (3.6-5.2) mmol/L Chloride 106 (100-108) mmol/L Carbon Dioxide 29 (21-32) mmol/L Anion Gap 9.0 (5.0-14.0) mmol/L BUN 21 H (7-18) mg/dL Creatinine 0.7 L (0.8-1.3) mg/dL Est Cr Clr Drug Dosing 116.14 mL/min Estimated GFR (MDRD) > 60 (>60) Glucose 135 H (74-106) mg/dL POC Glucose 174 H (74-106) MG/DL Calcium 8.4 L (8.5-10.1) mg/dL Phosphorus 3.0 (2.5-4.9) mg/dL Total Bilirubin 0.5 (0.2-1.0) mg/dL AST 46 H (15-37) U/L ALT 39 (12-78) U/L Alkaline Phosphatase 103 (46-116) U/L Total Protein 5.6 L (6.4-8.2) g/dL Albumin 2.2 L (3.4-5.0) g/dL Globulin 3.4 (2.3-3.5) g/dL Albumin/Globulin Ratio 0.7 L (1.2-2.2) Crossmatch 01/17/21 Range/Units 07:30 WBC (4.5-11.0) K/uL RBC (4.30-5.90) M/uL Hgb (12.0-15.0) g/dL Hct (40.0-54.0) % MCV (80-98) fL MCH (27-31) pg MCHC (32-36) % Plt Count (150-400) K/uL Sodium (140-148) mmol/L Potassium (3.6-5.2) mmol/L Chloride (100-108) mmol/L Carbon Dioxide (21-32) mmol/L Anion Gap (5.0-14.0) mmol/L BUN (7-18) mg/dL Creatinine (0.8-1.3) mg/dL Est Cr Clr Drug Dosing mL/min Estimated GFR (MDRD) (>60) Glucose (74-106) mg/dL POC Glucose 156 H (74-106) MG/DL Calcium (8.5-10.1) mg/dL Phosphorus (2.5-4.9) mg/dL Total Bilirubin (0.2-1.0) mg/dL AST (15-37) U/L ALT (12-78) U/L Alkaline Phosphatase (46-116) U/L Total Protein (6.4-8.2) g/dL Albumin (3.4-5.0) g/dL Globulin (2.3-3.5) g/dL Albumin/Globulin Ratio (1.2-2.2) Crossmatch Ke Results Last 24 Hours: Microbiology 01/15/21 10:54 Gram Stain - Final Bronchial Washings - Right Upper Lobe Respiratory Culture - Final NO GROWTH AFTER 2 DAYS Med Orders - Current: Current Medications Albuterol/Ipratropium (Albuterol/Ipratropium 3.0-0.5 Mg/3 Ml Neb Soln) 3 ml INH Q4H PRN PRN Reason: shortness of breath/wheezing Aspirin (Aspirin 325 Mg Tab.Ec) 325 mg PO DAILY [facility] Last Admin: 01/17/21 08:47 Dose: 325 mg Documented by: Bisacodyl (Bisacodyl 5 Mg Tab) 10 mg PO BID [facility] Last Admin: 01/17/21 08:47 Dose: 10 mg Documented by: Bisacodyl (Bisacodyl 10 Mg Supp) 10 mg RECTAL ASDIRECTED PRN PRN Reason: Constipation Cyclobenzaprine HCl (Cyclobenzaprine 10 Mg Tab) 10 mg PO Q6H PRN PRN Reason: MUSCLE SPASM Dextrose (Glucose Gel 15 Gm In 37.5 Gm Tube) 15 gm PO ASDIRECTED PRN PRN Reason: HYPOGLYCEMIA Dextrose/Water (50% Dextrose In Water 50 Ml Syringe) 50 ml IVPUSH ASDIRECTED PRN PRN Reason: HYPOGLYCEMIA Docusate Sodium (Docusate Sodium 100 Mg Cap) 100 mg PO BID [facility] Last Admin: 01/17/21 08:46 Dose: 100 mg Documented by: Glucagon (Glucagon,Human Recombinant 1 Mg Vial) 1 mg IM ASDIRECTED PRN PRN Reason: HYPOGLYCEMIA Heparin Sodium (Porcine) (Heparin Sodium 100 Units/Ml 5 Ml Syringe) 500 units FLUSH ASDIRECTED PRN PRN Reason: Other Last Admin: 01/16/21 15:32 Dose: 500 units Documented by: Hydromorphone HCl (Hydromorphone 2 Mg Tab) 4 mg PO Q4H PRN PRN Reason: Pain Last Admin: 01/17/21 09:40 Dose: 4 mg Documented by: Hydroxyzine HCl (Hydroxyzine Hcl 100 Mg/2 Ml Sdv) 100 mg IM Q4H PRN PRN Reason: PAIN Last Admin: 01/16/21 16:39 Dose: 100 mg Documented by: Ampicillin Sodium/Sulbactam (Sodium 3 gm/ Sodium Chloride) 100 mls @ 200 mls/hr IV Q6H [facility] Last Admin: 01/17/21 05:36 Dose: 200 mls/hr Documented by: Magnesium Sulfate (Magnesium Sulfate In Water 2 Gm/50 Ml) 2 gm in 50 mls @ 25 mls/hr IV Q6HR [facility] Stop: 01/18/21 11:59 Last Admin: 01/17/21 09:52 Dose: 25 mls/hr Documented by: Multivitamins/Minerals 10 ml/Zinc 1 ml/ Amino Ac/Electrol/Dextrose/Calcium 1,011 mls @ 60 mls/hr IV .BY DURATION [facility] Last Admin: 01/16/21 16:33 Dose: 60 mls/hr Documented by: Amino Ac/Electrol/Dextrose/Calcium (Clinimix E 02/24) 1,000 mls @ 60 mls/hr IV .BY DURATION [facility] Last Admin: 01/17/21 08:45 Dose: Not Given Documented by: Insulin Human Lispro (Insulin Lispro 100 Unit/Ml 3 Ml Kwikpen) 0 unit SUBCUT QIDACANDBED [facility]; Protocol Last Admin: 01/17/21 08:42 Dose: 3 units Documented by: Levofloxacin 250 mg/ (Levofloxacin 500 mg) 750 mg PO ACBREAKFAST [facility] Last Admin: 01/17/21 07:25 Dose: 750 mg Documented by: Magnesium Hydroxide (Magnesium Hydroxide 400 Mg/5 Ml Susp 30 Ml Cup) 30 ml PO ASDIRECTED PRN PRN Reason: Constipation Last Admin: 01/12/21 17:44 Dose: 30 ml Documented by: Metformin HCl (Metformin 500 Mg Tab) 1,000 mg PO BIDMEALS [facility] Last Admin: 01/17/21 08:45 Dose: 1,000 mg Documented by: Metoprolol Tartrate (Metoprolol Tartrate 50 Mg Tab) 100 mg PO BID [facility] Last Admin: 01/17/21 08:48 Dose: 100 mg Documented by: Nitroglycerin (Nitroglycerin 0.4 Mg Tab.Sl) 0.4 mg SL ASDIRECTED PRN PRN Reason: CHEST PAIN Non-Formulary Medication (Central Total Parenteral Nutrition Bag) 1,000 ml .XX .Continue Order [facility] Stop: 01/17/21 16:00 Nystatin (Nystatin Ointment 15 Gm Tube) 0 gm TOP TID [facility] Last Admin: 01/17/21 08:48 Dose: Not Given Documented by: Ondansetron HCl (Ondansetron 4 Mg/2 Ml Sdv) 4 mg IV Q4H PRN PRN Reason: Nausea/Vomiting Last Admin: 01/16/21 14:00 Dose: 4 mg Documented by: Pantoprazole Sodium (Pantoprazole 40 Mg Tab.Cr) 40 mg PO QPM [facility] Last Admin: 01/16/21 17:15 Dose: 40 mg Documented by: Senna/Docusate Sodium (Docusate Sodium/Sennosides 50-8.6 Mg Tab) 2 tab PO BID [facility] Last Admin: 01/17/21 08:49 Dose: 2 tab Documented by: Sodium Chloride (Sodium Chloride 0.9% 10 Ml Syringe) 10 ml FLUSH ASDIRECTED PRN PRN Reason: Keep Vein Open Tamsulosin HCl (Tamsulosin 0.4 Mg Cap.Er) 0.4 mg PO BEDTIME [facility] Last Admin: 01/16/21 21:29 Dose: 0.4 mg Documented by: Discontinued Medications Albuterol (Albuterol 0.083% 2.5 Mg/3 Ml Neb Soln) 2.5 mg NEB Q4H PRN PRN Reason: Shortness Of Breath/wheezing Albuterol/Ipratropium (Albuterol/Ipratropium 3.0-0.5 Mg/3 Ml Neb Soln) 3 ml NEB ONCALL ONE Stop: 01/09/21 11:16 Last Admin: 01/09/21 11:05 Dose: 3 ml Documented by: Albuterol/Ipratropium (Albuterol/Ipratropium 3.0-0.5 Mg/3 Ml Neb Soln) 3 ml INH QIDRT [facility] Last Admin: 01/16/21 07:15 Dose: Not Given Documented by: Albuterol/Ipratropium (Albuterol/Ipratropium 3.0-0.5 Mg/3 Ml Neb Soln) 3 ml INH ASDIRECTED PRN PRN Reason: Shortness of Breath Aztreonam (Aztreonam 1 Gm Vial) Confirm Administered Dose 1 gm .ROUTE .STK-MED ONE Stop: 01/09/21 13:49 Last Admin: 01/09/21 14:45 Dose: 1 gm Documented by: Bisacodyl (Bisacodyl 10 Mg Supp) 10 mg RECTAL ONETIME ONE Stop: 01/12/21 10:01 Last Admin: 01/12/21 09:49 Dose: 10 mg Documented by: Bupivacaine HCl (Bupivacaine 0.5% 50 Ml Mdv) Confirm Administered Dose 50 ml .ROUTE .STK-MED ONE Stop: 01/09/21 11:31 Bupivacaine HCl (Bupivacaine 0.5% 50 Ml Mdv) Confirm Administered Dose 50 ml .ROUTE .STK-MED ONE Stop: 01/11/21 06:32 Last Admin: 01/11/21 07:36 Dose: 15 ml Documented by: Ropivacaine 37 ml/Dexamethasone 8 mg/Epinephrine HCl 0.4 mg/ Sodium Chloride 40.6 ml 0 ml NERVRT ASDIRECTED [facility] Last Admin: 01/09/21 12:56 Dose: 80 syringe Documented by: Ropivacaine 37 ml/Dexamethasone 8 mg/Epinephrine HCl 0.4 mg/ Sodium Chloride 40.6 ml 0 ml NERVRT ASDIRECTED [facility] Last Admin: 01/11/21 07:31 Dose: 80 syringe Documented by: Dexamethasone (Dexamethasone 4 Mg/Ml Sdv) Confirm Administered Dose 4 mg .ROUTE .STK-MED ONE Stop: 01/09/21 10:11 Dexamethasone (Dexamethasone 4 Mg/Ml Sdv) Confirm Administered Dose 4 mg .ROUTE .STK-MED ONE Stop: 01/15/21 07:45 Dextrose/Water (50% Dextrose In Water 50 Ml Syringe) 50 ml IVPUSH ASDIRECTED PRN PRN Reason: Hypoglycemia Fentanyl (Fentanyl 250 Mcg/5 Ml Sdv) Confirm Administered Dose 250 mcg .ROUTE .STK-MED ONE Stop: 01/09/21 10:14 Fentanyl (Fentanyl 250 Mcg/5 Ml Sdv) Confirm Administered Dose 250 mcg .ROUTE .STK-MED ONE Stop: 01/09/21 12:48 Fentanyl (Fentanyl 100 Mcg/2 Ml Sdv) Confirm Administered Dose 100 mcg .ROUTE .STK-MED ONE Stop: 01/11/21 07:08 Fentanyl (Fentanyl 100 Mcg/2 Ml Sdv) Confirm Administered Dose 100 mcg .ROUTE .STK-MED ONE Stop: 01/15/21 07:46 Furosemide (Furosemide 20 Mg/2 Ml Vial) 20 mg IVPUSH Q6H [facility] Stop: 01/12/21 14:01 Last Admin: 01/12/21 14:05 Dose: 20 mg Documented by: Furosemide (Furosemide 20 Mg/2 Ml Vial) 20 mg IVPUSH ONETIME ONE Stop: 01/13/21 11:01 Last Admin: 01/13/21 20:06 Dose: 20 mg Documented by: Furosemide (Furosemide 20 Mg/2 Ml Vial) 20 mg IVPUSH ONETIME ONE Stop: 01/14/21 14:01 Last Admin: 01/14/21 14:23 Dose: 20 mg Documented by: Furosemide (Furosemide 20 Mg/2 Ml Vial) 20 mg IVPUSH ONETIME ONE Stop: 01/15/21 14:01 Last Admin: 01/15/21 15:33 Dose: 20 mg Documented by: Glucagon (Glucagon,Human Recombinant 1 Mg Vial) 1 mg IM ASDIRECTED PRN PRN Reason: Hypoglycemia Glycopyrrolate (Glycopyrrolate 0.2 Mg/Ml 5 Ml Mdv) Confirm Administered Dose 1 mg .ROUTE .STK-MED ONE Stop: 01/09/21 10:11 Glycopyrrolate (Glycopyrrolate 0.2 Mg/Ml 5 Ml Mdv) Confirm Administered Dose 1 mg .ROUTE .STK-MED ONE Stop: 01/15/21 07:45 Heparin Sodium (Porcine) (Heparin Sodium 100 Units/Ml 5 Ml Syringe) Confirm Administered Dose 500 units .ROUTE .STK-MED ONE Stop: 01/09/21 11:31 Last Admin: 01/09/21 14:21 Dose: 500 units Documented by: Hydromorphone HCl (Hydromorphone 0.5 Mg/0.5 Ml Syringe) 0.5 mg IVPUSH ONETIME ONE Stop: 01/08/21 19:31 Last Admin: 01/08/21 19:42 Dose: 0.5 mg Documented by: Hydromorphone HCl (Hydromorphone 0.5 Mg/0.5 Ml Syringe) 0.5 mg IVPUSH Q2H PRN PRN Reason: Pain Last Admin: 01/09/21 06:13 Dose: 0.5 mg Documented by: Hydromorphone HCl (Hydromorphone/Normal Saline 15 Mg/30 Ml Floor Scrubber) 0 mg IV ASDIRECTED PRN; 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 Last Admin: 01/15/21 04:49 Dose: 15 mg Documented by: Sodium Chloride (Normal Saline) 1,000 mls @ 500 mls/hr IV .BOLUS STA Stop: 01/08/21 18:34 Last Admin: 01/08/21 17:59 Dose: 500 mls/hr Documented by: Sodium Chloride (Normal Saline) 75 mls @ 3 mls/sec IV ASDIRECTED [facility] Last Admin: 01/08/21 18:11 Dose: 3 mls/sec Documented by: Piperacillin Sod/Tazobactam (Sod 4.5 gm/ Sodium Chloride) 100 mls @ 100 mls/hr IV ONETIME ONE Stop: 01/08/21 20:10 Last Admin: 01/08/21 19:42 Dose: 100 mls/hr Documented by: Phytonadione 5 mg/ Sodium (Chloride) 50.5 mls @ 100 mls/hr IV NOW ONE Stop: 01/08/21 20:06 Last Admin: 01/08/21 20:47 Dose: 100 mls/hr Documented by: Lactated Ringer's (Ringers, Lactated) 1,000 mls @ 125 mls/hr IV ASDIRECTED [facility] Last Admin: 01/09/21 06:10 Dose: 125 mls/hr Documented by: Ampicillin Sodium/Sulbactam (Sodium 1.5 gm/ Sodium Chloride) 50 mls @ 100 mls/hr IV Q6H [facility] Last Admin: 01/09/21 03:21 Dose: 100 mls/hr Documented by: Ampicillin Sodium/Sulbactam (Sodium 1.5 gm/ Sodium Chloride) 50 mls @ 100 mls/hr IV Q6H [facility] Last Admin: 01/09/21 10:32 Dose: 100 mls/hr Documented by: Ketamine HCl 50 mg/ Sodium (Chloride) 50 mls @ 22.5 mls/hr IV ASDIRECTED [facility] Magnesium Sulfate (Magnesium Sulfate In Water 2 Gm/50 Ml) 2 gm in 50 mls @ 25 mls/hr IV Q6H [facility] Stop: 01/09/21 16:59 Last Admin: 01/09/21 15:19 Dose: 25 mls/hr Documented by: Lactated Ringer's (Ringers, Lactated) Confirm Administered Dose 1,000 mls @ as directed .ROUTE .STK-MED ONE Stop: 01/09/21 10:14 Linezolid (Zyvox) Confirm Administered Dose 300 mls @ as directed .ROUTE .STK- MED ONE Stop: 01/09/21 11:32 Dextrose/Ringer's (Dextrose 5%-Ringers) Confirm Administered Dose 1,000 mls @ as directed .ROUTE .STK-MED ONE Stop: 01/09/21 12:42 Lactated Ringer's (Ringers, Lactated) Confirm Administered Dose 1,000 mls @ as directed .ROUTE .STK-MED ONE Stop: 01/09/21 12:43 Ampicillin Sodium/Sulbactam (Sodium 1.5 gm/ Sodium Chloride) 50 mls @ 100 mls/hr IV ONETIME ONE Stop: 01/09/21 13:44 Last Admin: 01/09/21 13:20 Dose: 100 mls/hr Documented by: Dextrose/Lactated Ringer's (Dextrose 5%-Lactated Ringers) 1,000 mls @ 80 mls/hr IV ASDIRECTED [facility] Last Admin: 01/09/21 23:28 Dose: 80 mls/hr Documented by: Lactated Ringer's (Ringers, Lactated) 1,000 mls @ 120 mls/hr IV ASDIRECTED [facility] Last Admin: 01/10/21 03:16 Dose: 120 mls/hr Documented by: Aztreonam 1 gm/ Sodium (Chloride) 50 mls @ 100 mls/hr IV Q8H [facility] Last Admin: 01/13/21 05:39 Dose: 100 mls/hr Documented by: Tranexamic Acid 800 mg/ Sodium (Chloride) 58 mls @ 200 mls/hr IV ONETIME ONE Stop: 01/09/21 20:02 Last Admin: 01/09/21 20:19 Dose: 200 mls/hr Documented by: Tranexamic Acid 800 mg/ Sodium (Chloride) 58 mls @ 200 mls/hr IV ONETIME ONE Stop: 01/09/21 23:02 Last Admin: 01/09/21 23:02 Dose: 200 mls/hr Documented by: Lactated Ringer's (Ringers, Lactated) 500 mls @ 500 mls/hr IV .BOLUS [facility] Last Admin: 01/10/21 04:39 Dose: 500 mls/hr Documented by: Lactated Ringer's (Ringers, Lactated) 1,000 mls @ 0 mls/hr IV ASDIRECTED [facility] Last Admin: 01/10/21 20:29 Dose: 25 mls/hr Documented by: Multivitamins/Minerals 10 ml/Zinc 1 ml/ Amino Ac/Electrol/Dextrose/Calcium 1,011 mls @ 82 mls/hr IV .BY DURATION [facility] Stop: 01/16/21 14:00 Last Admin: 01/15/21 13:22 Dose: 82 mls/hr Documented by: Amino Ac/Electrol/Dextrose/Calcium (Clinimix E 5/15) 1,000 mls @ 82 mls/hr IV .BY DURATION [facility] Stop: 01/16/21 14:00 Last Infusion: 01/16/21 08:33 Dose: 60 mls/hr Documented by: Sodium Chloride (Normal Saline) 75 mls @ 3 mls/sec IV ASDIRECTED [facility] Last Admin: 01/11/21 05:52 Dose: 3 mls/sec Documented by: Magnesium Sulfate (Magnesium Sulfate In Water 2 Gm/50 Ml) 2 gm in 50 mls @ 25 mls/hr IV Q6H [facility] Stop: 01/14/21 05:59 Last Admin: 01/14/21 03:54 Dose: 25 mls/hr Documented by: Albumin Human (Albumin 25%) 25 gm in 100 mls @ 25 mls/hr IV Q24H [facility] Stop: 01/13/21 15:59 Last Admin: 01/13/21 13:50 Dose: 25 mls/hr Documented by: Potassium Phosphate 15 mmol/ (Premix) 250 mls @ 85 mls/hr IV Q3H [facility] Stop: 01/11/21 18:57 Last Admin: 01/11/21 17:14 Dose: 85 mls/hr Documented by: Sodium Chloride (Normal Saline) 500 mls @ 0 mls/hr IV ASDIRECTED ONE Stop: 01/11/21 11:48 Last Admin: 01/11/21 12:29 Dose: 25 mls/hr Documented by: Doxycycline Hyclate 100 mg/ (Sodium Chloride) 100 mls @ 100 mls/hr IV Q12H [facility] Last Admin: 01/13/21 04:31 Dose: 100 mls/hr Documented by: Levofloxacin/Dextrose 750 mg/ (Premix) 150 mls @ 100 mls/hr IV Q24H [facility] Last Admin: 01/16/21 10:51 Dose: 100 mls/hr Documented by: Potassium Phosphate 15 mmole/ (Sodium Chloride) 105 mls @ 35 mls/hr IV Q3H [facility] Stop: 01/13/21 18:59 Last Admin: 01/13/21 21:18 Dose: 35 mls/hr Documented by: Insulin Glargine (Insulin Glargine,Human Rec. Analog 100 Units/Ml 3 Ml Pen) 10 units SUBCUT ONETIME ONE Stop: 01/10/21 07:01 Last Admin: 01/10/21 07:40 Dose: 10 units Documented by: Insulin Human Lispro (Insulin Lispro 100 Unit/Ml 3 Ml Kwikpen) 0 unit SUBCUT QIDACANDBED [facility]; Protocol Last Admin: 01/09/21 12:34 Dose: Not Given Documented by: Insulin Human Lispro (Insulin Lispro 100 Unit/Ml 3 Ml Kwikpen) 0 unit SUBCUT Q6H PRN; Protocol PRN Reason: MEDIUM CORRECTIONAL DOSING Last Admin: 01/12/21 11:49 Dose: 8 units Documented by: Insulin Human Regular (Insulin Regular, Human 100 Units/Ml 3 Ml Vial) 14 unit SUBCUT ONETIME ONE Stop: 01/08/21 19:15 Last Admin: 01/08/21 19:48 Dose: 14 unit Documented by: Iopamidol (Iopamidol 612 Mg/Ml 100 Ml Bottle) 117 ml IV . DIRECTED [facility] Last Admin: 01/08/21 18:11 Dose: 117 ml Documented by: Iopamidol (Iopamidol 612 Mg/Ml 100 Ml Bottle) 100 ml IV . DIRECTED [facility] Last Admin: 01/11/21 05:52 Dose: 100 ml Documented by: Ketamine HCl (Ketamine 500 Mg/5 Ml Mdv) 0 mg IV BOLUS [facility] Ketamine HCl (Ketamine 500 Mg/5 Ml Mdv) 0 mg IV ASDIRECTED [facility] Ketamine HCl (Ketamine 500 Mg/5 Ml Mdv) 38 mg IV ASDIRECTED [facility] Lidocaine HCl (Lidocaine 2% Viscous Solution 15 Ml Cup) Confirm Administered Dos e 15 ml .ROUTE .STK-MED ONE Stop: 01/15/21 06:53 Last Admin: 01/15/21 09:40 Dose: 15 ml Documented by: Lidocaine HCl (Lidocaine 4% Top Soln 50 Ml Bottle) Confirm Administered Dose 50 ml .ROUTE .STK-MED ONE Stop: 01/15/21 06:53 Last Admin: 01/15/21 09:40 Dose: 50 ml Documented by: Lidocaine/Epinephrine (Lidocaine 1% With Epinephrine 1:100,000 50 Ml Mdv) Confirm Administered Dose 50 ml .ROUTE .STK-MED ONE Stop: 01/09/21 11:32 Lidocaine/Epinephrine (Lidocaine 1% With Epinephrine 1:100,000 50 Ml Mdv) 50 ml INJECT ONETIME ONE Stop: 01/10/21 06:01 Last Admin: 01/10/21 06:55 Dose: 5 ml Documented by: Lidocaine/Epinephrine (Lidocaine 1% With Epinephrine 1:100,000 50 Ml Mdv) Confirm Administered Dose 50 ml .ROUTE .STK-MED ONE Stop: 01/10/21 06:07 Last Admin: 01/10/21 06:11 Dose: Not Given Documented by: Lidocaine/Epinephrine (Lidocaine 1% With Epinephrine 1:100,000 50 Ml Mdv) Confirm Administered Dose 50 ml .ROUTE .STK-MED ONE Stop: 01/11/21 06:32 Last Admin: 01/11/21 07:36 Dose: 15 ml Documented by: Magnesium Hydroxide (Magnesium Hydroxide 400 Mg/5 Ml Susp 30 Ml Cup) 30 ml PO ONETIME ONE Stop: 01/12/21 09:01 Last Admin: 01/12/21 09:49 Dose: 30 ml Documented by: Magnesium Oxide (Magnesium Oxide 400 Mg Tab) 400 mg PO BEDTIME [facility] Last Admin: 01/08/21 21:40 Dose: 400 mg Documented by: Meropenem (Meropenem 500 Mg Sdv) Confirm Administered Dose 500 mg .ROUTE .STK- MED ONE Stop: 01/09/21 11:32 Last Admin: 01/09/21 13:02 Dose: 500 mg Documented by: Meropenem (Meropenem 500 Mg Sdv) Confirm Administered Dose 500 mg .ROUTE .STK- MED ONE Stop: 01/11/21 06:32 Last Admin: 01/11/21 07:37 Dose: 500 mg Documented by: Midazolam HCl (Midazolam 1 Mg/Ml 2 Ml Sdv) Confirm Administered Dose 2 mg .ROUTE .STK-MED ONE Stop: 01/11/21 07:08 Naloxone HCl (Naloxone 0.4 Mg/Ml Sdv) 0.1 mg IV ASDIRECTED PRN PRN Reason: decreased respiratory rate Neostigmine Methylsulfate (Neostigmine Methylsulfate 1 Mg/Ml 5 Ml Syringe) Confirm Administered Dose 5 mg .ROUTE .STK-MED ONE Stop: 01/09/21 10:11 Neostigmine Methylsulfate (Neostigmine Methylsulfate 1 Mg/Ml 5 Ml Syringe) Confirm Administered Dose 5 mg .ROUTE .STK-MED ONE Stop: 01/15/21 07:45 Non-Formulary Medication (Tap Block 1 Ml Bag) 0 ml NERVRT ONETIME ONE Stop: 01/09/21 13:01 Non-Formulary Medication (Central Total Parenteral Nutrition Bag) 1,000 ml .XX .Continue Order [facility] Stop: 01/10/21 08:01 Non-Formulary Medication (Central Total Parenteral Nutrition Bag) 1,000 ml .XX .Continue Order [facility] Stop: 01/11/21 07:16 Non-Formulary Medication (Central Total Parenteral Nutrition Bag) 0 ml IV ASDIRECTED [facility] Stop: 01/13/21 09:31 Non-Formulary Medication (Central Total Parenteral Nutrition Bag) 1,000 ml .XX .Continue Order [facility] Stop: 01/15/21 07:16 Non-Formulary Medication (Central Total Parenteral Nutrition Bag) 1,000 ml .XX .Continue Order [facility] Stop: 01/16/21 16:00 Ondansetron HCl (Ondansetron 4 Mg/2 Ml Sdv) Confirm Administered Dose 4 mg .ROUTE .STK-MED ONE Stop: 01/09/21 10:11 Ondansetron HCl (Ondansetron 4 Mg/2 Ml Sdv) Confirm Administered Dose 4 mg .ROUTE .STK-MED ONE Stop: 01/15/21 07:45 Ondansetron HCl (Ondansetron 4 Mg/2 Ml Sdv) Confirm Administered Dose 4 mg .ROUTE .STK-MED ONE Stop: 01/16/21 15:10 Last Admin: 01/16/21 15:34 Dose: Not Given Documented by: Oxycodone HCl (Oxycodone 5 Mg Tab) 5 mg PO Q4H PRN PRN Reason: Pain Last Admin: 01/16/21 09:08 Dose: 10 mg Documented by: Oxycodone HCl (Oxycodone 5 Mg Tab) 5 - 10 mg PO Q4H PRN PRN Reason: Pain Last Admin: 01/16/21 13:55 Dose: 10 mg Documented by: Pantoprazole Sodium (Pantoprazole 40 Mg Vial) 40 mg IV Q24H [facility] Last Admin: 01/15/21 17:49 Dose: 40 mg Documented by: Polyethylene Glycol (Polyethylene Glycol 3350 Powder 119 Gm Bottle) 119 gm PO ONETIME ONE Stop: 01/17/21 09:01 Last Admin: 01/17/21 08:49 Dose: 119 gram Documented by: Propofol (Propofol 200 Mg/20 Ml Sdv) Confirm Administered Dose 200 mg .ROUTE .STK-MED ONE Stop: 01/09/21 10:11 Propofol (Propofol 200 Mg/20 Ml Sdv) Confirm Administered Dose 200 mg .ROUTE .STK-MED ONE Stop: 01/11/21 07:08 Propofol (Propofol 200 Mg/20 Ml Sdv) Confirm Administered Dose 200 mg .ROUTE .STK-MED ONE Stop: 01/15/21 07:45 Propofol (Propofol 200 Mg/20 Ml Sdv) Confirm Administered Dose 200 mg .ROUTE .STK-MED ONE Stop: 01/15/21 10:14 Rocuronium [place] (Rocuronium 50 Mg/5 Ml Vial) Confirm Administered Dose 50 mg .ROUTE .STK-MED ONE Stop: 01/09/21 10:11 Rocuronium [place] (Rocuronium 50 Mg/5 Ml Vial) Confirm Administered Dose 50 mg .ROUTE .STK-MED ONE Stop: 01/15/21 07:45 Simvastatin (Simvastatin 20 Mg Tab) 20 mg PO BEDTIME [facility] Last Admin: 01/08/21 21:40 Dose: 20 mg Documented by: Sodium Chloride (Sodium Chloride 0.9% 10 Ml Syringe) 10 ml FLUSH ASDIRECTED PRN PRN Reason: Keep Vein Open Sodium Chloride (Sodium Chloride 0.9% 10 Ml Syringe) 10 ml FLUSH ONETIME ONE Stop: 01/08/21 16:47 Last Admin: 01/08/21 18:11 Dose: 10 ml Documented by: Sodium Chloride (Sodium Chloride 0.9% 10 Ml Syringe) 10 ml FLUSH ONETIME ONE Stop: 01/11/21 05:23 Last Admin: 01/11/21 05:52 Dose: 10 ml Documented by: Sodium Chloride (Sodium Chloride 0.9% Irrigation 500 Ml Container) 500 ml .XX ONETIME ONE Stop: 01/12/21 09:01 Last Admin: 01/12/21 09:45 Dose: 500 ml Documented by: Succinylcholine Chloride (Succinylcholine 200 Mg/10 Ml Mdv) Confirm Administered Dose 200 mg .ROUTE .STK-MED ONE Stop: 01/09/21 10:11 Succinylcholine Chloride (Succinylcholine 200 Mg/10 Ml Mdv) Confirm Administered Dose 200 mg .ROUTE .STK-MED ONE Stop: 01/15/21 07:45 - Exam Quality Assessment: No: Supplemental Oxygen General: Alert, Oriented, Cooperative, No Acute Distress Lungs: Clear to Auscultation, Normal Respiratory Effort Cardiovascular: Regular Rate, Regular Rhythm GI/Abdominal Exam: Normal Bowel Sounds, Soft, No Distention Extremities: No Pedal Edema. No: Increased Warmth Skin: Warm, Dry Psy/Mental Status: Alert, Normal Affect - Patient Data Lab Results Last 24 hrs: Laboratory Results - last 24 hr 01/13/21 01/16/21 01/16/21 Range/Units 04:15 11:30 16:22 WBC (4.5-11.0) K/uL RBC (4.30-5.90) M/uL Hgb (12.0-15.0) g/dL Hct (40.0-54.0) % MCV (80-98) fL MCH (27-31) pg MCHC (32-36) % Plt Count (150-400) K/uL Sodium (140-148) mmol/L Potassium (3.6-5.2) mmol/L Chloride (100-108) mmol/L Carbon Dioxide (21-32) mmol/L Anion Gap (5.0-14.0) mmol/L BUN (7-18) mg/dL Creatinine (0.8-1.3) mg/dL Est Cr Clr Drug Dosing mL/min Estimated GFR (MDRD) (>60) Glucose (74-106) mg/dL POC Glucose 143 H 265 H (74-106) MG/DL Calcium (8.5-10.1) mg/dL Phosphorus (2.5-4.9) mg/dL Total Bilirubin (0.2-1.0) mg/dL AST (15-37) U/L ALT (12-78) U/L Alkaline Phosphatase (46-116) U/L Total Protein (6.4-8.2) g/dL Albumin (3.4-5.0) g/dL Globulin (2.3-3.5) g/dL Albumin/Globulin Ratio (1.2-2.2) Crossmatch See Detail 01/16/21 01/17/21 01/17/21 Range/Units 20:59 04:05 04:05 WBC 20.8 H (4.5-11.0) K/uL RBC 3.38 L (4.30-5.90) M/uL Hgb 9.7 L (12.0-15.0) g/dL Hct 32.0 L (40.0-54.0) % MCV 95 (80-98) fL MCH 29 (27-31) pg MCHC 30 L (32-36) % Plt Count 466 H (150-400) K/uL Sodium 144 (140-148) mmol/L Potassium 4.2 (3.6-5.2) mmol/L Chloride 106 (100-108) mmol/L Carbon Dioxide 29 (21-32) mmol/L Anion Gap 9.0 (5.0-14.0) mmol/L BUN 21 H (7-18) mg/dL Creatinine 0.7 L (0.8-1.3) mg/dL Est Cr Clr Drug Dosing 116.14 mL/min Estimated GFR (MDRD) > 60 (>60) Glucose 135 H (74-106) mg/dL POC Glucose 174 H (74-106) MG/DL Calcium 8.4 L (8.5-10.1) mg/dL Phosphorus 3.0 (2.5-4.9) mg/dL Total Bilirubin 0.5 (0.2-1.0) mg/dL AST 46 H (15-37) U/L ALT 39 (12-78) U/L Alkaline Phosphatase 103 (46-116) U/L Total Protein 5.6 L (6.4-8.2) g/dL Albumin 2.2 L (3.4-5.0) g/dL Globulin 3.4 (2.3-3.5) g/dL Albumin/Globulin Ratio 0.7 L (1.2-2.2) Crossmatch 01/17/21 Range/Units 07:30 WBC (4.5-11.0) K/uL RBC (4.30-5.90) M/uL Hgb (12.0-15.0) g/dL Hct (40.0-54.0) % MCV (80-98) fL MCH (27-31) pg MCHC (32-36) % Plt Count (150-400) K/uL Sodium (140-148) mmol/L Potassium (3.6-5.2) mmol/L Chloride (100-108) mmol/L Carbon Dioxide (21-32) mmol/L Anion Gap (5.0-14.0) mmol/L BUN (7-18) mg/dL Creatinine (0.8-1.3) mg/dL Est Cr Clr Drug Dosing mL/min Estimated GFR (MDRD) (>60) Glucose (74-106) mg/dL POC Glucose 156 H (74-106) MG/DL Calcium (8.5-10.1) mg/dL Phosphorus (2.5-4.9) mg/dL Total Bilirubin (0.2-1.0) mg/dL AST (15-37) U/L ALT (12-78) U/L Alkaline Phosphatase (46-116) U/L Total Protein (6.4-8.2) g/dL Albumin (3.4-5.0) g/dL Globulin (2.3-3.5) g/dL Albumin/Globulin Ratio (1.2-2.2) Crossmatch Result Diagrams: 01/17/21 04:05 01/17/21 04:05 Ke Results Last 24 hrs: Microbiology 01/15/21 10:54 Gram Stain - Final Bronchial Washings - Right Upper Lobe Respiratory Culture - Final NO GROWTH AFTER 2 DAYS Sepsis Event Note - Evaluation Sepsis Screening Result: No Definite Risk - Focused Exam Vital Signs: Vital Signs Temp Pulse Pulse Resp BP BP Pulse Ox 01/17/21 08:48 66 113/98 H 01/17/21 07:00 36.5 C 66 16 113/98 H 95 01/17/21 01:38 36.2 C 71 16 119/68 94 L - Problem List Review Problem List Initiated/Reviewed/Updated: Yes - My Orders Last 24 Hours: My Active Orders 01/16/21 10:43 Albuterol/Ipratropium [DuoNeb 3.0-0.5 MG/3 ML] 3 ml INH Q4H PRN 01/16/21 17:00 Pantoprazole [ProTONIX] 40 mg PO QPM 01/17/21 07:30 Levofloxacin [Levaquin] 750 mg PO ACBREAKFAST - Plan Plan:: ASSESSMENT AND PLAN STATUS POST EXPLORATORY LAPAROTOMY FOR ABSCESS AND SMALL BOWEL MASS-pathology returned with only an abscess and no evidence for malignancy. Appears to have an ileus. -Soft diet -Saline lock -Pain and nausea medication as needed -Continue Unasyn and Levaquin -Surgical management per Dr. Burkett RIGHT LUNG MASS-concerning for malignancy with airway obstruction and volume loss. Status post bronchoscopy 01/15 with pathology and microbiology pending. Respiratory status stable. -Levofloxacin as above -Follow-up culture results TYPE 2 DIABETES MELLITUS-well controlled. -Continue Jardiance and Trulicity -4 times daily glucometers -High dose sliding scale Humalog PAROXYSMAL ATRIAL FIBRILLATION STATUS POST ABLATION-rate controlled. -Hold warfarin COPD-he has not required supplemental oxygen. No evidence for acute exacerbation. -Nebulized albuterol as needed -Continue vigorous pulmonary toilet postoperatively CORONARY ARTERY DISEASE-status post 2 angioplasties and stents several years ago. Currently asymptomatic -Continue outpatient medications MAINTENANCE ISSUES -DVT prophylaxis; SCUDs -GI prophylaxis; not indicated -Nutrition; advance diet per surgical team DISPOSITION-anticipate discharge to home after the hospital stay. Jah Cid MD
--- NOTE | 2021-01-17 15:18 | PN ---
DATE OF SERVICE: 01/17/2021 SUBJECTIVE: Ha reports that he is still in quite a bit of pain. He would like an x- ray to make sure that there is nothing else going on. He said he feels the same as he did when he came into the hospital. He also states that he did not have a bowel movement on Friday. He said it was very small and hard. His appetite has been improving. Vital signs are stable. He has been up independently. Pain medicine was somewhat controlling his pain. He states that he is still having quite a bit of pain. He was switched yesterday from the oxycodone to Dilaudid. He states he does not really feel much different. White count is 20.8, down from 23.2; hemoglobin is stable at 9.7. Blood sugar was 135 and 156. REVIEW OF SYSTEMS: Remainder of review of systems negative for any pertinent positives and negatives. OBJECTIVE: GENERAL: Ha Lopez is a pleasant 65-year-old male. He is alert and orientated, quite talkative this morning. VITAL SIGNS: TPR is 97.7, 66, 16, blood pressure 113/98. HEENT: Negative. NECK: Supple. HEART: Regular rate and rhythm. LUNGS: Clear. ABDOMEN: Dressings dry and intact. Abdominal binder is on. EXTREMITIES: Without peripheral edema. ASSESSMENT: 1. Right lung mass. 2. Bronchoscopy, 01/15/2021. 3. Insertion of left subclavian triple lumen, exploratory laparotomy with a: a. Small-bowel resection. b. Drainage of intraabdominal abscess. c. Excision of peritoneal nodule. d. Placement of Interceed mesh. POSTOPERATIVE DIAGNOSES: 1. Inadequate peripheral vein access. 2. Perforatedmass, small bowel adjacent to abscess between the small bowel and urinary bladder. 3. Peritoneal nodule, left pelvic sidewall. 4. Date of procedure: 01/09/2021. Surgeon: Shaw Burkett MD. 5. Delayed primary closure on 01/11/2021. Surgeon: Shaw Burkett MD. 6. TPN therapy. 7. Diabetes. PLAN: 1. Decrease TPN to 30 mL per hour, then stop when current bag is completed. 2. Check abdominal flat and upright x-ray this morning. 3. Specialty mattress ordered for his current bed. 4. MiraLAX 119 g mix with 32 ounces of fluid of choice 1 time today. 5. Check CBC, CMP, mag, and phos in a.m. 6. We will evaluate p.r.n. or in a.m. Yanet Harper PA-C /[id number]
[2021-01-17] MEDS: Pantoprazole 40 MG Tab.CR PO SCH (16:43)
[2021-01-17] MEDS: Tamsulosin 0.4 MG Cap.ER PO SCH (21:41)
[2021-01-17] MEDS: hydrOXYzine HCL 100 MG/2 ML SDV IM PRN (23:52)
[2021-01-18] MEDS: HYDROmorphone 2 MG Tab PO PRN ×6 (02:06→23:37)
[2021-01-18] MEDS: Magnesium Sulfate/Water 2 GM/50 ML BAG IV SCH ×2 (03:57→11:17)
[2021-01-18] MEDS: Ampicillin/Sulbactam Na 3 GM in Sodium Chloride 0.9% 100 ML IV SCH ×4 (06:04→23:38)
[2021-01-18] MEDS: Insulin Lispro 100 Unit/ML 3 ML KwikPen SUBCUT SCH ×4 (08:23→21:49)
[2021-01-18] MEDS: Metoprolol Tartrate 50 MG Tab PO SCH ×2 (08:39→21:46)
[2021-01-18] MEDS: Azithromycin 250 MG Tab PO SCH ×2 (08:39→21:46)
[2021-01-18] MEDS: Empagliflozin 10 MG Tab PO SCH (08:40)
[2021-01-18] MEDS: Docusate Sodium 100 MG Cap PO SCH ×2 (08:41→21:45)
[2021-01-18] MEDS: Aspirin 325 MG Tab.EC PO SCH (08:41)
[2021-01-18] MEDS: metFORMIN 500 MG Tab PO SCH ×2 (08:41→17:15)
[2021-01-18] MEDS: Bisacodyl 5 MG Tab PO SCH ×2 (08:42→21:45)
[2021-01-18] MEDS: Nystatin Ointment 15 GM Tube TOP SCH ×3 (08:53→21:39)
--- NOTE | 2021-01-18 12:25 | PN ---
DATE OF SERVICE: 01/18/2021 SUBJECTIVE: Ha has not had a bowel movement yet. His flat and upright showed increased stool. He said that his stools are very hard and rock like. Pain is controlled. REVIEW OF SYSTEMS: Remainder of review of systems negative for any pertinent positives and negatives. OBJECTIVE: GENERAL: Ha Lopez is a pleasant 65-year-old male, alert and orientated. VITAL SIGNS: TPR is 97.8, 84, 16, blood pressure is 112/69. HEENT: Negative. NECK: Supple. HEART: Regular rate and rhythm. LUNGS: Clear. ABDOMEN: Slightly distended. Dressing dry and intact. ASSESSMENT: 1. Right lung mass. 2. Bronchoscopy, 01/15/2021. 3. Insertion of left subclavian triple lumen. 4. Exploratory laparotomy with: a. Small-bowel resection. b. Drainage of intraabdominal abscess. c. Excision of peritoneal nodule. d. Placement of Interceed mesh. POSTOPERATIVE DIAGNOSES: 1. Inadequate peripheral vein access. 2. Perforated mass, small bowel adjacent abscess between the small bowel and urinary bladder. 3. Peritoneal nodule, left pelvic sidewall. a. Date of procedure: 01/09/2021. Surgeon: Shaw Burkett MD. 4. Delayed primary closure, 01/11/2021; Shaw Burkett MD. 5. Diabetes. PLAN: 1. Saline enema now 750 mL. 2. Zithromax 125 mg b.i.d. p.o. 3. Do a differential on CBCs that was drawn today. 4. Check CBC, CMP, and phos in a.m. 5. We will schedule Oncology for next Friday in clinic and possible looking at discharge over the weekend. We will evaluate p.r.n. or in a.m. Yanet Harper PA-C /[id number]
--- NOTE | 2021-01-18 13:42 | PCM.PN ---
- General Info Date of Service: 01/18/21 Subjective Update: No acute events overnight. No significant shortness of breath. Abdominal pain is a little better today. Passing some gas and he did have a small quantity of hard stool this morning but no significant bowel movement. Blood sugars well controlled. Vital stable. Not much of an appetite but is tolerating his diet. Functional Status: Reports: Pain Controlled, Tolerating Diet - Review of Systems General: Denies: Fever Gastrointestinal: Reports: Abdominal Pain - Patient Data Vitals - Most Recent: Last Vital Signs Temp 36.1 C 01/18/21 11:06 Pulse 72 01/18/21 11:06 Resp 19 01/18/21 11:06 BP 103/89 01/18/21 11:06 Pulse Ox 92 L 01/18/21 11:06 Weight - Most Recent: 77.111 kg I&O - Last 24 Hours: Intake & Output 01/17/21 01/18/21 01/18/21 22:59 06:59 14:59 Intake Total 1040 1350 350 Output Total 1100 1250 700 Balance -60 100 -350 Lab Results Last 24 Hours: Laboratory Results - last 24 hr 01/13/21 01/17/21 01/17/21 Range/Units 04:15 16:33 21:07 WBC RBC Hgb Hct MCV MCH MCHC Plt Count Neut % (Auto) (36-66) % Lymph % (Auto) (24-44) % Toole % (Auto) (2-6) % Eos % (Auto) (2-4) % Baso % (Auto) (0-1) % Sodium (140-148) mmol/L Potassium (3.6-5.2) mmol/L Chloride (100-108) mmol/L Carbon Dioxide (21-32) mmol/L Anion Gap (5.0-14.0) mmol/L BUN (7-18) mg/dL Creatinine (0.8-1.3) mg/dL Est Cr Clr Drug Dosing mL/min Estimated GFR (MDRD) (>60) Glucose (74-106) mg/dL POC Glucose 208 H 174 H (74-106) MG/DL Calcium (8.5-10.1) mg/dL Phosphorus (2.5-4.9) mg/dL Total Bilirubin (0.2-1.0) mg/dL AST (15-37) U/L ALT (12-78) U/L Alkaline Phosphatase (46-116) U/L Total Protein (6.4-8.2) g/dL Albumin (3.4-5.0) g/dL Globulin (2.3-3.5) g/dL Albumin/Globulin Ratio (1.2-2.2) Crossmatch See Detail 01/18/21 01/18/21 01/18/21 Range/Units 04:11 04:11 07:30 WBC Cancelled RBC Cancelled Hgb Cancelled Hct Cancelled MCV Cancelled MCH Cancelled MCHC Cancelled Plt Count Cancelled Neut % (Auto) (36-66) % Lymph % (Auto) (24-44) % Toole % (Auto) (2-6) % Eos % (Auto) (2-4) % Baso % (Auto) (0-1) % Sodium 140 (140-148) mmol/L Potassium 4.4 (3.6-5.2) mmol/L Chloride 103 (100-108) mmol/L Carbon Dioxide 25 (21-32) mmol/L Anion Gap 11.6 (5.0-14.0) mmol/L BUN 17 (7-18) mg/dL Creatinine 0.6 L (0.8-1.3) mg/dL Est Cr Clr Drug Dosing 132.09 mL/min Estimated GFR (MDRD) > 60 (>60) Glucose 135 H (74-106) mg/dL POC Glucose 142 H (74-106) MG/DL Calcium 9.0 (8.5-10.1) mg/dL Phosphorus 3.1 (2.5-4.9) mg/dL Total Bilirubin 0.8 D (0.2-1.0) mg/dL AST 71 H (15-37) U/L ALT 64 (12-78) U/L Alkaline Phosphatase 151 H (46-116) U/L Total Protein 6.0 L (6.4-8.2) g/dL Albumin 2.4 L (3.4-5.0) g/dL Globulin 3.6 H (2.3-3.5) g/dL Albumin/Globulin Ratio 0.7 L (1.2-2.2) Crossmatch 01/18/21 01/18/21 Range/Units 07:58 11:30 WBC 22.5 H RBC 3.60 L Hgb 10.3 L Hct 33.8 L MCV 94 MCH 29 MCHC 31 L Plt Count 515 H Neut % (Auto) 72 H (36-66) % Lymph % (Auto) 9 L (24-44) % Toole % (Auto) 15 H (2-6) % Eos % (Auto) 3 (2-4) % Baso % (Auto) 0 (0-1) % Sodium (140-148) mmol/L Potassium (3.6-5.2) mmol/L Chloride (100-108) mmol/L Carbon Dioxide (21-32) mmol/L Anion Gap (5.0-14.0) mmol/L BUN (7-18) mg/dL Creatinine (0.8-1.3) mg/dL Est Cr Clr Drug Dosing mL/min Estimated GFR (MDRD) (>60) Glucose (74-106) mg/dL POC Glucose 207 H (74-106) MG/DL Calcium (8.5-10.1) mg/dL Phosphorus (2.5-4.9) mg/dL Total Bilirubin (0.2-1.0) mg/dL AST (15-37) U/L ALT (12-78) U/L Alkaline Phosphatase (46-116) U/L Total Protein (6.4-8.2) g/dL Albumin (3.4-5.0) g/dL Globulin (2.3-3.5) g/dL Albumin/Globulin Ratio (1.2-2.2) Crossmatch Ke Results Last 24 Hours: Microbiology 01/15/21 10:54 AFB Specimen Processing Tissue - Final Bronchial Washings - Right Upper Lobe Acid Fast Bacilli Smear - Final Acid Fast Bacilli Culture - Preliminary Med Orders - Current: Current Medications Albuterol/Ipratropium (Albuterol/Ipratropium 3.0-0.5 Mg/3 Ml Neb Soln) 3 ml INH Q4H PRN PRN Reason: shortness of breath/wheezing Aspirin (Aspirin 325 Mg Tab.Ec) 325 mg PO DAILY [facility] Last Admin: 01/18/21 08:41 Dose: 325 mg Documented by: Azithromycin (Azithromycin 250 Mg Tab) 125 mg PO BID [facility] Last Admin: 01/18/21 08:39 Dose: 125 mg Documented by: Bisacodyl (Bisacodyl 5 Mg Tab) 10 mg PO BID [facility] Last Admin: 01/18/21 08:42 Dose: 10 mg Documented by: Bisacodyl (Bisacodyl 10 Mg Supp) 10 mg RECTAL ASDIRECTED PRN PRN Reason: Constipation Cyclobenzaprine HCl (Cyclobenzaprine 10 Mg Tab) 10 mg PO Q6H PRN PRN Reason: MUSCLE SPASM Dextrose (Glucose Gel 15 Gm In 37.5 Gm Tube) 15 gm PO ASDIRECTED PRN PRN Reason: HYPOGLYCEMIA Dextrose/Water (50% Dextrose In Water 50 Ml Syringe) 50 ml IVPUSH ASDIRECTED PRN PRN Reason: HYPOGLYCEMIA Docusate Sodium (Docusate Sodium 100 Mg Cap) 100 mg PO BID [facility] Last Admin: 01/18/21 08:41 Dose: 100 mg Documented by: Glucagon (Glucagon,Human Recombinant 1 Mg Vial) 1 mg IM ASDIRECTED PRN PRN Reason: HYPOGLYCEMIA Heparin Sodium (Porcine) (Heparin Sodium 100 Units/Ml 5 Ml Syringe) 500 units FLUSH ASDIRECTED PRN PRN Reason: Other Last Admin: 01/17/21 12:22 Dose: 500 units Documented by: Hydromorphone HCl (Hydromorphone 2 Mg Tab) 4 mg PO Q4H PRN PRN Reason: Pain Last Admin: 01/18/21 10:33 Dose: 4 mg Documented by: Hydroxyzine HCl (Hydroxyzine Hcl 100 Mg/2 Ml Sdv) 100 mg IM Q4H PRN PRN Reason: PAIN Last Admin: 01/17/21 23:52 Dose: 100 mg Documented by: Ampicillin Sodium/Sulbactam (Sodium 3 gm/ Sodium Chloride) 100 mls @ 200 mls/hr IV Q6H [facility] Last Admin: 01/18/21 13:08 Dose: 200 mls/hr Documented by: Insulin Human Lispro (Insulin Lispro 100 Unit/Ml 3 Ml Kwikpen) 0 unit SUBCUT QIDACANDBED [facility]; Protocol Last Admin: 01/18/21 13:13 Dose: 6 units Documented by: Levofloxacin 250 mg/ (Levofloxacin 500 mg) 750 mg PO ACBREAKFAST [facility] Last Admin: 01/18/21 08:40 Dose: 750 mg Documented by: Magnesium Hydroxide (Magnesium Hydroxide 400 Mg/5 Ml Susp 30 Ml Cup) 30 ml PO ASDIRECTED PRN PRN Reason: Constipation Last Admin: 01/12/21 17:44 Dose: 30 ml Documented by: Metformin HCl (Metformin 500 Mg Tab) 1,000 mg PO BIDMEALS [facility] Last Admin: 01/18/21 08:41 Dose: 1,000 mg Documented by: Metoprolol Tartrate (Metoprolol Tartrate 50 Mg Tab) 100 mg PO BID [facility] Last Admin: 01/18/21 08:39 Dose: 100 mg Documented by: Nitroglycerin (Nitroglycerin 0.4 Mg Tab.Sl) 0.4 mg SL ASDIRECTED PRN PRN Reason: CHEST PAIN Nystatin (Nystatin Ointment 15 Gm Tube) 0 gm TOP TID [facility] Last Admin: 01/18/21 08:53 Dose: Not Given Documented by: Ondansetron HCl (Ondansetron 4 Mg/2 Ml Sdv) 4 mg IV Q4H PRN PRN Reason: Nausea/Vomiting Last Admin: 01/16/21 14:00 Dose: 4 mg Documented by: Pantoprazole Sodium (Pantoprazole 40 Mg Tab.Cr) 40 mg PO QPM [facility] Last Admin: 01/17/21 16:43 Dose: 40 mg Documented by: Senna/Docusate Sodium (Docusate Sodium/Sennosides 50-8.6 Mg Tab) 2 tab PO BID [facility] Last Admin: 01/18/21 08:39 Dose: 2 tab Documented by: Sodium Chloride (Sodium Chloride 0.9% 10 Ml Syringe) 10 ml FLUSH ASDIRECTED PRN PRN Reason: Keep Vein Open Tamsulosin HCl (Tamsulosin 0.4 Mg Cap.Er) 0.4 mg PO BEDTIME [facility] Last Admin: 01/17/21 21:41 Dose: 0.4 mg Documented by: Discontinued Medications Albuterol (Albuterol 0.083% 2.5 Mg/3 Ml Neb Soln) 2.5 mg NEB Q4H PRN PRN Reason: Shortness Of Breath/wheezing Albuterol/Ipratropium (Albuterol/Ipratropium 3.0-0.5 Mg/3 Ml Neb Soln) 3 ml NEB ONCALL ONE Stop: 01/09/21 11:16 Last Admin: 01/09/21 11:05 Dose: 3 ml Documented by: Albuterol/Ipratropium (Albuterol/Ipratropium 3.0-0.5 Mg/3 Ml Neb Soln) 3 ml INH QIDRT [facility] Last Admin: 01/16/21 07:15 Dose: Not Given Documented by: Albuterol/Ipratropium (Albuterol/Ipratropium 3.0-0.5 Mg/3 Ml Neb Soln) 3 ml INH ASDIRECTED PRN PRN Reason: Shortness of Breath Aztreonam (Aztreonam 1 Gm Vial) Confirm Administered Dose 1 gm .ROUTE .STK-MED ONE Stop: 01/09/21 13:49 Last Admin: 01/09/21 14:45 Dose: 1 gm Documented by: Bisacodyl (Bisacodyl 10 Mg Supp) 10 mg RECTAL ONETIME ONE Stop: 01/12/21 10:01 Last Admin: 01/12/21 09:49 Dose: 10 mg Documented by: Bupivacaine HCl (Bupivacaine 0.5% 50 Ml Mdv) Confirm Administered Dose 50 ml .ROUTE .STK-MED ONE Stop: 01/09/21 11:31 Bupivacaine HCl (Bupivacaine 0.5% 50 Ml Mdv) Confirm Administered Dose 50 ml .ROUTE .STK-MED ONE Stop: 01/11/21 06:32 Last Admin: 01/11/21 07:36 Dose: 15 ml Documented by: Ropivacaine 37 ml/Dexamethasone 8 mg/Epinephrine HCl 0.4 mg/ Sodium Chloride 40.6 ml 0 ml NERVRT ASDIRECTED [facility] Last Admin: 01/09/21 12:56 Dose: 80 syringe Documented by: Ropivacaine 37 ml/Dexamethasone 8 mg/Epinephrine HCl 0.4 mg/ Sodium Chloride 40.6 ml 0 [facility] Last Admin: 01/11/21 07:31 Dose: 80 syringe Documented by: Dexamethasone (Dexamethasone 4 Mg/Ml Sdv) Confirm Administered Dose 4 mg .ROUTE .STK-MED ONE Stop: 01/09/21 10:11 Dexamethasone (Dexamethasone 4 Mg/Ml Sdv) Confirm Administered Dose 4 mg .ROUTE .STK-MED ONE Stop: 01/15/21 07:45 Dextrose/Water (50% Dextrose In Water 50 Ml Syringe) 50 ml IVPUSH ASDIRECTED PRN PRN Reason: Hypoglycemia Fentanyl (Fentanyl 250 Mcg/5 Ml Sdv) Confirm Administered Dose 250 mcg .ROUTE .STK-MED ONE Stop: 01/09/21 10:14 Fentanyl (Fentanyl 250 Mcg/5 Ml Sdv) Confirm Administered Dose 250 mcg .ROUTE .STK-MED ONE Stop: 01/09/21 12:48 Fentanyl (Fentanyl 100 Mcg/2 Ml Sdv) Confirm Administered Dose 100 mcg .ROUTE .STK-MED ONE Stop: 01/11/21 07:08 Fentanyl (Fentanyl 100 Mcg/2 Ml Sdv) Confirm Administered Dose 100 mcg .ROUTE .STK-MED ONE Stop: 01/15/21 07:46 Furosemide (Furosemide 20 Mg/2 Ml Vial) 20 mg IVPUSH Q6H [facility] Stop: 01/12/21 14:01 Last Admin: 01/12/21 14:05 Dose: 20 mg Documented by: Furosemide (Furosemide 20 Mg/2 Ml Vial) 20 mg IVPUSH ONETIME ONE Stop: 01/13/21 11:01 Last Admin: 01/13/21 20:06 Dose: 20 mg Documented by: Furosemide (Furosemide 20 Mg/2 Ml Vial) 20 mg IVPUSH ONETIME ONE Stop: 01/14/21 14:01 Last Admin: 01/14/21 14:23 Dose: 20 mg Documented by: Furosemide (Furosemide 20 Mg/2 Ml Vial) 20 mg IVPUSH ONETIME ONE Stop: 01/15/21 14:01 Last Admin: 01/15/21 15:33 Dose: 20 mg Documented by: Glucagon (Glucagon,Human Recombinant 1 Mg Vial) 1 mg IM ASDIRECTED PRN PRN Reason: Hypoglycemia Glycopyrrolate (Glycopyrrolate 0.2 Mg/Ml 5 Ml Mdv) Confirm Administered Dose 1 mg .ROUTE .STK-MED ONE Stop: 01/09/21 10:11 Glycopyrrolate (Glycopyrrolate 0.2 Mg/Ml 5 Ml Mdv) Confirm Administered Dose 1 mg .ROUTE .STK-MED ONE Stop: 01/15/21 07:45 Heparin Sodium (Porcine) (Heparin Sodium 100 Units/Ml 5 Ml Syringe) Confirm A dministered Dose 500 units .ROUTE .STK-MED ONE Stop: 01/09/21 11:31 Last Admin: 01/09/21 14:21 Dose: 500 units Documented by: Hydromorphone HCl (Hydromorphone 0.5 Mg/0.5 Ml Syringe) 0.5 mg IVPUSH ONETIME ONE Stop: 01/08/21 19:31 Last Admin: 01/08/21 19:42 Dose: 0.5 mg Documented by: Hydromorphone HCl (Hydromorphone 0.5 Mg/0.5 Ml Syringe) 0.5 mg IVPUSH Q2H PRN PRN Reason: Pain Last Admin: 01/09/21 06:13 Dose: 0.5 mg Documented by: Hydromorphone HCl (Hydromorphone/Normal Saline 15 Mg/30 Ml Final Inspector Shuttle) 0 mg IV ASDIRECTED PRN; Protocol PRN Reason: [employer] PAIN CONTROL Last Admin: 01/15/21 04:49 Dose: 15 mg Documented by: Sodium Chloride (Normal Saline) 1,000 mls @ 500 mls/hr IV .BOLUS STA Stop: 01/08/21 18:34 Last Admin: 01/08/21 17:59 Dose: 500 mls/hr Documented by: Sodium Chloride (Normal Saline) 75 mls @ 3 mls/sec IV ASDIRECTED [facility] Last Admin: 01/08/21 18:11 Dose: 3 mls/sec Documented by: Piperacillin Sod/Tazobactam (Sod 4.5 gm/ Sodium Chloride) 100 mls @ 100 mls/hr IV ONETIME ONE Stop: 01/08/21 20:10 Last Admin: 01/08/21 19:42 Dose: 100 mls/hr Documented by: Phytonadione 5 mg/ Sodium (Chloride) 50.5 mls @ 100 mls/hr IV NOW ONE Stop: 01/08/21 20:06 Last Admin: 01/08/21 20:47 Dose: 100 mls/hr Documented by: Lactated Ringer's (Ringers, Lactated) 1,000 mls @ 125 mls/hr IV ASDIRECTED [facility] Last Admin: 01/09/21 06:10 Dose: 125 mls/hr Documented by: Ampicillin Sodium/Sulbactam (Sodium 1.5 gm/ Sodium Chloride) 50 mls @ 100 mls/hr IV Q6H [facility] Last Admin: 01/09/21 03:21 Dose: 100 mls/hr Documented by: Ampicillin Sodium/Sulbactam (Sodium 1.5 gm/ Sodium Chloride) 50 mls @ 100 mls/hr IV Q6H [facility] Last Admin: 01/09/21 10:32 Dose: 100 mls/hr Documented by: Ketamine HCl 50 mg/ Sodium (Chloride) 50 mls @ 22.5 mls/hr IV ASDIRECTED [facility] Magnesium Sulfate (Magnesium Sulfate In Water 2 Gm/50 Ml) 2 gm in 50 mls @ 25 mls/hr IV Q6H [facility] Stop: 01/09/21 16:59 Last Admin: 01/09/21 15:19 Dose: 25 mls/hr Documented by: Lactated Ringer's (Ringers, Lactated) Confirm Administered Dose 1,000 mls @ as directed .ROUTE .[facility] ONE Stop: 01/09/21 10:14 Linezolid (Zyvox) Confirm Administered Dose 300 mls @ as directed .ROUTE .[facility] ONE Stop: 01/09/21 11:32 Dextrose/Ringer's (Dextrose 5%-Ringers) Confirm Administered Dose 1,000 mls @ as directed .ROUTE .[facility] ONE Stop: 01/09/21 12:42 Lactated Ringer's (Ringers, Lactated) Confirm Administered Dose 1,000 mls @ as directed .ROUTE .[facility] ONE Stop: 01/09/21 12:43 Ampicillin Sodium/Sulbactam (Sodium 1.5 gm/ Sodium Chloride) 50 mls @ 100 mls/hr IV ONETIME ONE Stop: 01/09/21 13:44 Last Admin: 01/09/21 13:20 Dose: 100 mls/hr Documented by: Dextrose/Lactated Ringer's (Dextrose 5%-Lactated Ringers) 1,000 mls @ 80 mls/hr IV ASDIRECTED [facility] Last Admin: 01/09/21 23:28 Dose: 80 mls/hr Documented by: Lactated Ringer's (Ringers, Lactated) 1,000 mls @ 120 mls/hr IV ASDIRECTED [facility] Last Admin: 01/10/21 03:16 Dose: 120 mls/hr Documented by: Aztreonam 1 gm/ Sodium (Chloride) 50 mls @ 100 mls/hr IV Q8H [facility] Last Admin: 01/13/21 05:39 Dose: 100 mls/hr Documented by: Tranexamic Acid 800 mg/ Sodium (Chloride) 58 mls @ 200 mls/hr IV ONETIME ONE Stop: 01/09/21 20:02 Last Admin: 01/09/21 20:19 Dose: 200 mls/hr Documented by: Tranexamic Acid 800 mg/ Sodium (Chloride) 58 mls @ 200 mls/hr IV ONETIME ONE Stop: 01/09/21 23:02 Last Admin: 01/09/21 23:02 Dose: 200 mls/hr Documented by: Lactated Ringer's (Ringers, Lactated) 500 mls @ 500 mls/hr IV .BOLUS [facility] Last Admin: 01/10/21 04:39 Dose: 500 mls/hr Documented by: Lactated Ringer's (Ringers, Lactated) 1,000 mls @ 0 mls/hr IV ASDIRECTED [facility] Last Admin: 01/10/21 20:29 Dose: 25 mls/hr Documented by: Multivitamins/Minerals 10 ml/Zinc 1 ml/ Amino Ac/Electrol/Dextrose/Calcium 1,011 mls @ 82 mls/hr IV .BY DURATION [facility] Stop: 01/16/21 14:00 Last Admin: 01/15/21 13:22 Dose: 82 mls/hr Documented by: Amino Ac/Electrol/Dextrose/Calcium (Clinimix E 5/15) 1,000 mls @ 82 mls/hr IV .BY DURATION [facility] Stop: 01/16/21 14:00 Last Infusion: 01/16/21 08:33 Dose: 60 mls/hr Documented by: Sodium Chloride (Normal Saline) 75 mls @ 3 mls/sec IV ASDIRECTED [facility] Last Admin: 01/11/21 05:52 Dose: 3 mls/sec Documented by: Magnesium Sulfate (Magnesium Sulfate In Water 2 Gm/50 Ml) 2 gm in 50 mls @ 25 mls/hr IV Q6H [facility] Stop: 01/14/21 05:59 Last Admin: 01/14/21 03:54 Dose: 25 mls/hr Documented by: Albumin Human (Albumin 25%) 25 gm in 100 mls @ 25 mls/hr IV Q24H [facility] Stop: 01/13/21 15:59 Last Admin: 01/13/21 13:50 Dose: 25 mls/hr Documented by: Potassium Phosphate 15 mmol/ (Premix) 250 mls @ 85 mls/hr IV Q3H [facility] Stop: 01/11/21 18:57 Last Admin: 01/11/21 17:14 Dose: 85 mls/hr Documented by: Sodium Chloride (Normal Saline) 500 mls @ 0 mls/hr IV ASDIRECTED ONE Stop: 01/11/21 11:48 Last Admin: 01/11/21 12:29 Dose: 25 mls/hr Documented by: Doxycycline Hyclate 100 mg/ (Sodium Chloride) 100 mls @ 100 mls/hr IV Q12H [facility] Last Admin: 01/13/21 04:31 Dose: 100 mls/hr Documented by: Levofloxacin/Dextrose 750 mg/ (Premix) 150 mls @ 100 mls/hr IV Q24H [facility] Last Admin: 01/16/21 10:51 Dose: 100 mls/hr Documented by: Potassium Phosphate 15 mmole/ (Sodium Chloride) 105 mls @ 35 mls/hr IV Q3H [facility] Stop: 01/13/21 18:59 Last Admin: 01/13/21 21:18 Dose: 35 mls/hr Documented by: Magnesium Sulfate (Magnesium Sulfate In Water 2 Gm/50 Ml) 2 gm in 50 mls @ 25 mls/hr IV Q6HR [facility] Stop: 01/18/21 11:59 Last Admin: 01/18/21 11:17 Dose: 25 mls/hr Documented by: Multivitamins/Minerals 10 ml/Zinc 1 ml/ Amino Ac/Electrol/Dextrose/Calcium 1,011 mls @ 60 mls/hr IV .BY DURATION [facility] Stop: 01/17/21 14:00 Last Admin: 01/16/21 16:33 Dose: 60 mls/hr Documented by: Amino Ac/Electrol/Dextrose/Calcium (Clinimix E 5/15) 1,000 mls @ 60 mls/hr IV .BY DURATION [facility] Stop: 01/17/21 14:00 Last Admin: 01/17/21 08:45 Dose: Not Given Documented by: Insulin Glargine (Insulin Glargine,Human Rec. Analog 100 Units/Ml 3 Ml Pen) 10 units SUBCUT ONETIME ONE Stop: 01/10/21 07:01 Last Admin: 01/10/21 07:40 Dose: 10 units Documented by: Insulin Human Lispro (Insulin Lispro 100 Unit/Ml 3 Ml Kwikpen) 0 unit SUBCUT QIDACANDBED [facility]; Protocol Last Admin: 01/09/21 12:34 Dose: Not Given Documented by: Insulin Human Lispro (Insulin Lispro 100 Unit/Ml 3 Ml Kwikpen) 0 unit SUBCUT Q6H PRN; Protocol PRN Reason: MEDIUM CORRECTIONAL DOSING Last Admin: 01/12/21 11:49 Dose: 8 units Documented by: Insulin Human Regular (Insulin Regular, Human 100 Units/Ml 3 Ml Vial) 14 unit SUBCUT ONETIME ONE Stop: 01/08/21 19:15 Last Admin: 01/08/21 19:48 Dose: 14 unit Documented by: Iopamidol (Iopamidol 612 Mg/Ml 100 Ml Bottle) 117 ml IV . DIRECTED [facility] Last Admin: 01/08/21 18:11 Dose: 117 ml Documented by: Iopamidol (Iopamidol 612 Mg/Ml 100 Ml Bottle) 100 ml IV . DIRECTED [facility] Last Admin: 01/11/21 05:52 Dose: 100 ml Documented by: Ketamine HCl (Ketamine 500 Mg/5 Ml Mdv) 0 mg IV BOLUS [facility] Ketamine HCl (Ketamine 500 Mg/5 Ml Mdv) 0 mg IV ASDIRECTED [facility] Ketamine HCl (Ketamine 500 Mg/5 Ml Mdv) 38 mg IV ASDIRECTED [facility] Lidocaine HCl (Lidocaine 2% Viscous Solution 15 Ml Cup) Confirm Administered Dose 15 ml .ROUTE .STK-MED ONE Stop: 01/15/21 06:53 Last Admin: 01/15/21 09:40 Dose: 15 ml Documented by: Lidocaine HCl (Lidocaine 4% Top Soln 50 Ml Bottle) Confirm Administered Dose 50 ml .ROUTE .STK-MED ONE Stop: 01/15/21 06:53 Last Admin: 01/15/21 09:40 Dose: 50 ml Documented by: Lidocaine/Epinephrine (Lidocaine 1% With Epinephrine 1:100,000 50 Ml Mdv) Confirm Administered Dose 50 ml .ROUTE .STK-MED ONE Stop: 01/09/21 11:32 Lidocaine/Epinephrine (Lidocaine 1% With Epinephrine 1:100,000 50 Ml Mdv) 50 ml INJECT ONETIME ONE Stop: 01/10/21 06:01 Last Admin: 01/10/21 06:55 Dose: 5 ml Documented by: Lidocaine/Epinephrine (Lidocaine 1% With Epinephrine 1:100,000 50 Ml Mdv) Confirm Administered Dose 50 ml .ROUTE .STK-MED ONE Stop: 01/10/21 06:07 Last Admin: 01/10/21 06:11 Dose: Not Given Documented by: Lidocaine/Epinephrine (Lidocaine 1% With Epinephrine 1:100,000 50 Ml Mdv) Confirm Administered Dose 50 ml .ROUTE .STK-MED ONE Stop: 01/11/21 06:32 Last Admin: 01/11/21 07:36 Dose: 15 ml Documented by: Magnesium Hydroxide (Magnesium Hydroxide 400 Mg/5 Ml Susp 30 Ml Cup) 30 ml PO ONETIME ONE Stop: 01/12/21 09:01 Last Admin: 01/12/21 09:49 Dose: 30 ml Documented by: Magnesium Oxide (Magnesium Oxide 400 Mg Tab) 400 mg PO BEDTIME [facility] Last Admin: 01/08/21 21:40 Dose: 400 mg Documented by: Meropenem (Meropenem 500 Mg Sdv) Confirm Administered Dose 500 mg .ROUTE .STK- MED ONE Stop: 01/09/21 11:32 Last Admin: 01/09/21 13:02 Dose: 500 mg Documented by: Meropenem (Meropenem 500 Mg Sdv) Confirm Administered Dose 500 mg .ROUTE .STK- MED ONE Stop: 01/11/21 06:32 Last Admin: 01/11/21 07:37 Dose: 500 mg Documented by: Midazolam HCl (Midazolam 1 Mg/Ml 2 Ml Sdv) Confirm Administered Dose 2 mg .ROUTE .STK-MED ONE Stop: 01/11/21 07:08 Naloxone HCl (Naloxone 0.4 Mg/Ml Sdv) 0.1 mg IV ASDIRECTED PRN PRN Reason: decreased respiratory rate Neostigmine Methylsulfate (Neostigmine Methylsulfate 1 Mg/Ml 5 Ml Syringe) Confirm Administered Dose 5 mg .ROUTE .STK-MED ONE Stop: 01/09/21 10:11 Neostigmine Methylsulfate (Neostigmine Methylsulfate 1 Mg/Ml 5 Ml Syringe) Confirm Administered Dose 5 mg .ROUTE .STK-MED ONE Stop: 01/15/21 07:45 Non-Formulary Medication (Tap Block 1 Ml Bag) 0 ml NERVRT ONETIME ONE Stop: 01/09/21 13:01 Non-Formulary Medication (Central Total Parenteral Nutrition Bag) 1,000 ml .XX .Continue Order [facility] Stop: 01/10/21 08:01 Non-Formulary Medication (Central Total Parenteral Nutrition Bag) 1,000 ml .XX .Continue Order [facility] Stop: 01/11/21 07:16 Non-Formulary Medication (Central Total Parenteral Nutrition Bag) 0 ml IV ASDIRECTED [facility] Stop: 01/13/21 09:31 Non-Formulary Medication (Central Total Parenteral Nutrition Bag) 1,000 ml .XX .Continue Order [facility] Stop: 01/15/21 07:16 Non-Formulary Medication (Central Total Parenteral Nutrition Bag) 1,000 ml .XX .Continue Order [facility] Stop: 01/16/21 16:00 Non-Formulary Medication (Central Total Parenteral Nutrition Bag) 1,000 ml .XX .Continue Order [facility] Stop: 01/17/21 16:00 Ondansetron HCl (Ondansetron 4 Mg/2 Ml Sdv) Confirm Administered Dose 4 mg .ROUT E .STK-MED ONE Stop: 01/09/21 10:11 Ondansetron HCl (Ondansetron 4 Mg/2 Ml Sdv) Confirm Administered Dose 4 mg .ROUTE .STK-MED ONE Stop: 01/15/21 07:45 Ondansetron HCl (Ondansetron 4 Mg/2 Ml Sdv) Confirm Administered Dose 4 mg .ROUTE .STK-MED ONE Stop: 01/16/21 15:10 Last Admin: 01/16/21 15:34 Dose: Not Given Documented by: Oxycodone HCl (Oxycodone 5 Mg Tab) 5 mg PO Q4H PRN PRN Reason: Pain Last Admin: 01/16/21 09:08 Dose: 10 mg Documented by: Oxycodone HCl (Oxycodone 5 Mg Tab) 5 - 10 mg PO Q4H PRN PRN Reason: Pain Last Admin: 01/16/21 13:55 Dose: 10 mg Documented by: Pantoprazole Sodium (Pantoprazole 40 Mg Vial) 40 mg IV Q24H [facility] Last Admin: 01/15/21 17:49 Dose: 40 mg Documented by: Polyethylene Glycol (Polyethylene Glycol 3350 Powder 119 Gm Bottle) 119 gm PO ONETIME ONE Stop: 01/17/21 09:01 Last Admin: 01/17/21 08:49 Dose: 119 gram Documented by: Propofol (Propofol 200 Mg/20 Ml Sdv) Confirm Administered Dose 200 mg .ROUTE .STK-MED ONE Stop: 01/09/21 10:11 Propofol (Propofol 200 Mg/20 Ml Sdv) Confirm Administered Dose 200 mg .ROUTE .STK-MED ONE Stop: 01/11/21 07:08 Propofol (Propofol 200 Mg/20 Ml Sdv) Confirm Administered Dose 200 mg .ROUTE .STK-MED ONE Stop: 01/15/21 07:45 Propofol (Propofol 200 Mg/20 Ml Sdv) Confirm Administered Dose 200 mg .ROUTE .STK-MED ONE Stop: 01/15/21 10:14 Rocuronium [place] (Rocuronium 50 Mg/5 Ml Vial) Confirm Administered Dose 50 mg .ROUTE .STK-MED ONE Stop: 01/09/21 10:11 Rocuronium [place] (Rocuronium 50 Mg/5 Ml Vial) Confirm Administered Dose 50 mg .ROUTE .STK-MED ONE Stop: 01/15/21 07:45 Simvastatin (Simvastatin 20 Mg Tab) 20 mg PO BEDTIME [place] Last Admin: 01/08/21 21:40 Dose: 20 mg Documented by: Sodium Chloride (Sodium Chloride 0.9% 10 Ml Syringe) 10 ml FLUSH ASDIRECTED PRN PRN Reason: Keep Vein Open Sodium Chloride (Sodium Chloride 0.9% 10 Ml Syringe) 10 ml FLUSH ONETIME ONE Stop: 01/08/21 16:47 Last Admin: 01/08/21 18:11 Dose: 10 ml Documented by: Sodium Chloride (Sodium Chloride 0.9% 10 Ml Syringe) 10 ml FLUSH ONETIME ONE Stop: 01/11/21 05:23 Last Admin: 01/11/21 05:52 Dose: 10 ml Documented by: Sodium Chloride (Sodium Chloride 0.9% Irrigation 500 Ml Container) 500 ml .XX ONETIME ONE Stop: 01/12/21 09:01 Last Admin: 01/12/21 09:45 Dose: 500 ml Documented by: Succinylcholine Chloride (Succinylcholine 200 Mg/10 Ml Mdv) Confirm Administered Dose 200 mg .ROUTE .STK-MED ONE Stop: 01/09/21 10:11 Succinylcholine Chloride (Succinylcholine 200 Mg/10 Ml Mdv) Confirm Administered Dose 200 mg .ROUTE .STK-MED ONE Stop: 01/15/21 07:45 - Exam Quality Assessment: No: Supplemental Oxygen General: Alert, Oriented, Cooperative, No Acute Distress Lungs: Normal Respiratory Effort GI/Abdominal Exam: Soft, No Distention Extremities: No Pedal Edema Skin: Warm, Dry Psy/Mental Status: Alert, Normal Affect - Patient Data Lab Results Last 24 hrs: Laboratory Results - last 24 hr 01/13/21 01/17/21 01/17/21 Range/Units 04:15 16:33 21:07 WBC RBC Hgb Hct MCV MCH MCHC Plt Count Neut % (Auto) (36-66) % Lymph % (Auto) (24-44) % Toole % (Auto) (2-6) % Eos % (Auto) (2-4) % Baso % (Auto) (0-1) % Sodium (140-148) mmol/L Potassium (3.6-5.2) mmol/L Chloride (100-108) mmol/L Carbon Dioxide (21-32) mmol/L Anion Gap (5.0-14.0) mmol/L BUN (7-18) mg/dL Creatinine (0.8-1.3) mg/dL Est Cr Clr Drug Dosing mL/min Estimated GFR (MDRD) (>60) Glucose (74-106) mg/dL POC Glucose 208 H 174 H (74-106) MG/DL Calcium (8.5-10.1) mg/dL Phosphorus (2.5-4.9) mg/dL Total Bilirubin (0.2-1.0) mg/dL AST (15-37) U/L ALT (12-78) U/L Alkaline Phosphatase (46-116) U/L Total Protein (6.4-8.2) g/dL Albumin (3.4-5.0) g/dL Globulin (2.3-3.5) g/dL Albumin/Globulin Ratio (1.2-2.2) Crossmatch See Detail 01/18/21 01/18/21 01/18/21 Range/Units 04:11 04:11 07:30 WBC Cancelled RBC Cancelled Hgb Cancelled Hct Cancelled MCV Cancelled MCH Cancelled MCHC Cancelled Plt Count Cancelled Neut % (Auto) (36-66) % Lymph % (Auto) (24-44) % Toole % (Auto) (2-6) % Eos % (Auto) (2-4) % Baso % (Auto) (0-1) % Sodium 140 (140-148) mmol/L Potassium 4.4 (3.6-5.2) mmol/L Chloride 103 (100-108) mmol/L Carbon Dioxide 25 (21-32) mmol/L Anion Gap 11.6 (5.0-14.0) mmol/L BUN 17 (7-18) mg/dL Creatinine 0.6 L (0.8-1.3) mg/dL Est Cr Clr Drug Dosing 132.09 mL/min Estimated GFR (MDRD) > 60 (>60) Glucose 135 H (74-106) mg/dL POC Glucose 142 H (74-106) MG/DL Calcium 9.0 (8.5-10.1) mg/dL Phosphorus 3.1 (2.5-4.9) mg/dL Total Bilirubin 0.8 D (0.2-1.0) mg/dL AST 71 H (15-37) U/L ALT 64 (12-78) U/L Alkaline Phosphatase 151 H (46-116) U/L Total Protein 6.0 L (6.4-8.2) g/dL Albumin 2.4 L (3.4-5.0) g/dL Globulin 3.6 H (2.3-3.5) g/dL Albumin/Globulin Ratio 0.7 L (1.2-2.2) Crossmatch 01/18/21 01/18/21 Range/Units 07:58 11:30 WBC 22.5 H RBC 3.60 L Hgb 10.3 L Hct 33.8 L MCV 94 MCH 29 MCHC 31 L Plt Count 515 H Neut % (Auto) 72 H (36-66) % Lymph % (Auto) 9 L (24-44) % Toole % (Auto) 15 H (2-6) % Eos % (Auto) 3 (2-4) % Baso % (Auto) 0 (0-1) % Sodium (140-148) mmol/L Potassium (3.6-5.2) mmol/L Chloride (100-108) mmol/L Carbon Dioxide (21-32) mmol/L Anion Gap (5.0-14.0) mmol/L BUN (7-18) mg/dL Creatinine (0.8-1.3) mg/dL Est Cr Clr Drug Dosing mL/min Estimated GFR (MDRD) (>60) Glucose (74-106) mg/dL POC Glucose 207 H (74-106) MG/DL Calcium (8.5-10.1) mg/dL Phosphorus (2.5-4.9) mg/dL Total Bilirubin (0.2-1.0) mg/dL AST (15-37) U/L ALT (12-78) U/L Alkaline Phosphatase (46-116) U/L Total Protein (6.4-8.2) g/dL Albumin (3.4-5.0) g/dL Globulin (2.3-3.5) g/dL Albumin/Globulin Ratio (1.2-2.2) Crossmatch Result Diagrams: 01/18/21 07:58 01/18/21 04:11 Ke Results Last 24 hrs: Microbiology 01/15/21 10:54 AFB Specimen Processing Tissue - Final Bronchial Washings - Right Upper Lobe Acid Fast Bacilli Smear - Final Acid Fast Bacilli Culture - Preliminary Sepsis Event Note - Evaluation Sepsis Screening Result: No Definite Risk - Focused Exam Vital Signs: Vital Signs Temp Pulse Pulse Resp BP BP Pulse Ox 01/18/21 11:06 36.1 C 72 19 103/89 92 L 01/18/21 08:39 84 112/69 01/18/21 07:29 36.6 C 84 16 112/69 100 01/18/21 02:04 36.2 C 77 16 113/69 99 - Problem List Review Problem List Initiated/Reviewed/Updated: Yes - My Orders Last 24 Hours: My Active Orders 01/18/21 16:30 GLUCOSE POC LAB TO COLLECT JPM [POC] QIDACANDBED 01/18/21 21:00 GLUCOSE POC LAB TO COLLECT JPM [POC] QIDACANDBED 01/19/21 07:30 GLUCOSE POC LAB TO COLLECT JPM [POC] QIDACANDBED 01/19/21 11:30 GLUCOSE POC LAB TO COLLECT JPM [POC] QIDACANDBED 01/19/21 16:30 GLUCOSE POC LAB TO COLLECT JPM [POC] QIDACANDBED 01/19/21 21:00 GLUCOSE POC LAB TO COLLECT JPM [POC] QIDACANDBED 01/20/21 07:30 GLUCOSE POC LAB TO COLLECT JPM [POC] QIDACANDBED 01/20/21 11:30 GLUCOSE POC LAB TO COLLECT JPM [POC] QIDACANDBED 01/20/21 16:30 GLUCOSE POC LAB TO COLLECT JPM [POC] QIDACANDBED 01/20/21 21:00 GLUCOSE POC LAB TO COLLECT JPM [POC] QIDACANDBED 01/21/21 07:30 GLUCOSE POC LAB TO COLLECT JPM [POC] QIDACANDBED 01/21/21 11:30 GLUCOSE POC LAB TO COLLECT JPM [POC] QIDACANDBED 01/21/21 16:30 GLUCOSE POC LAB TO COLLECT JPM [POC] QIDACANDBED 01/21/21 21:00 GLUCOSE POC LAB TO COLLECT JPM [POC] QIDACANDBED 01/22/21 07:30 GLUCOSE POC LAB TO COLLECT JPM [POC] QIDACANDBED 01/22/21 11:30 GLUCOSE POC LAB TO COLLECT JPM [POC] QIDACANDBED 01/22/21 16:30 GLUCOSE POC LAB TO COLLECT JPM [POC] QIDACANDBED 01/22/21 21:00 GLUCOSE POC LAB TO COLLECT JPM [POC] QIDACANDBED 01/23/21 07:30 GLUCOSE POC LAB TO COLLECT JPM [POC] QIDACANDBED - Plan Plan:: ASSESSMENT AND PLAN STATUS POST EXPLORATORY LAPAROTOMY FOR ABSCESS AND SMALL BOWEL MASS-pathology returned with only an abscess and no evidence for malignancy. Steadily improving. -Soft diet -Saline lock -Pain and nausea medication as needed -Continue Unasyn and Levaquin, can probably discontinue Unasyn tomorrow -Surgical management per Dr. Burkett RIGHT LUNG MASS-concerning for malignancy with airway obstruction and volume loss. Status post bronchoscopy 01/15 with pathology and microbiology pending. Respiratory status stable. -Levofloxacin through 01/20 -Follow-up culture results -Follow-up pathology TYPE 2 DIABETES MELLITUS-well controlled. -Continue Jardiance and Trulicity -4 times daily glucometers -High dose sliding scale Humalog PAROXYSMAL ATRIAL FIBRILLATION STATUS POST ABLATION-rate controlled. -Hold warfarin COPD-he has not required supplemental oxygen. No evidence for acute exacerbation. -Nebulized albuterol as needed -Continue vigorous pulmonary toilet postoperatively CORONARY ARTERY DISEASE-asymptomatic -Continue outpatient medications MAINTENANCE ISSUES -DVT prophylaxis; SCUDs -GI prophylaxis; not indicated -Nutrition; consistent carbohydrate DISPOSITION-anticipate discharge to home after the hospital stay. Jah Cid MD
[2021-01-18] MEDS: Pantoprazole 40 MG Tab.CR PO SCH (17:16)
[2021-01-18] MEDS: hydrOXYzine HCL 100 MG/2 ML SDV IM PRN (17:30)
[2021-01-18] MEDS: Tamsulosin 0.4 MG Cap.ER PO SCH (21:46)
[2021-01-19] MEDS: Ampicillin/Sulbactam Na 3 GM in Sodium Chloride 0.9% 100 ML IV SCH ×2 (05:45→12:08)
[2021-01-19] MEDS: HYDROmorphone 2 MG Tab PO PRN ×2 (06:55→11:25)
[2021-01-19] MEDS: Insulin Lispro 100 Unit/ML 3 ML KwikPen SUBCUT SCH ×2 (07:28→13:03)
[2021-01-19] MEDS: Nystatin Ointment 15 GM Tube TOP SCH ×2 (09:17→14:36)
[2021-01-19] MEDS: metFORMIN 500 MG Tab PO SCH (09:18)
[2021-01-19] MEDS: Docusate Sodium 100 MG Cap PO SCH (09:18)
[2021-01-19] MEDS: Metoprolol Tartrate 50 MG Tab PO SCH (09:18)
[2021-01-19] MEDS: Azithromycin 250 MG Tab PO SCH (09:18)
[2021-01-19] MEDS: Empagliflozin 10 MG Tab PO SCH (09:18)
[2021-01-19] MEDS: Aspirin 325 MG Tab.EC PO SCH (09:18)
[2021-01-19] MEDS: Bisacodyl 5 MG Tab PO SCH (09:18)
--- NOTE | 2021-01-19 13:54 | PN ---
DATE OF SERVICE: 01/13/2021 The patient has been afebrile with stable vital signs. He did have a good diuresis of around 1500 mL yesterday. remains roughly the same around 500. He received 1 unit of packed RBCs today, and we gave him some initial Lasix after that. Otherwise, potassium and phosphate are marginally low, and those will be supplemented, and I think we will hold off on the bronchoscopy until Friday. He is moving his bowels, but abdomen is still somewhat distended. We can begin feeding him a little bit today as well. Shaw Burkett MD /[id number]
[2021-01-19 14:29] VITALS: BP 107/68; PULSE 78
--- NOTE | 2021-01-19 16:04 | PN ---
DATE OF SERVICE: 01/14/2021 The patient has been afebrile with stable vital signs. Still complaining quite a bit in the way of abdominal discomfort related to his incision and the ROHIT drain. ROHIT drain has become serous at this point, and that will be removed tomorrow at the time of his bronchoscopy. His hemoglobin is in the range of somewhat low at 8.4. We will give him 1 unit of additional packed RBCs today along with some IV Lasix. Continue the present TPN and proceed with the bronchoscopy tomorrow. Shaw Burkett MD /[id number]
--- NOTE | 2021-01-19 16:29 | PN ---
DATE OF SERVICE: 01/12/2021 The patient has been afebrile with stable vital signs. A little bit wheezy this morning and BNP is up somewhat, and we will give him some IV Lasix now and repeat that in 6 hours. Otherwise, his hemoglobin is 8.5, we will recheck that tomorrow and type and across him in the morning and transfuse if necessary. Otherwise, he is somewhat , no flatus or bowel movement as of yet. We will give him saline enema this morning along with some followup Dulcolax suppository. His entire colon was full of quite hard stool at the time of the surgery, so we will probably need to do some work in that regard as mentioned above. Otherwise, continue the present TPN. Blood sugars are still running in the mid 200s. We will increase the regular insulin level in the TPN and otherwise maximize activity and work with pulmonary toilet. Cultures are showing E coli plus gram-positive rods. It should be covered by the present antibiotics. A CT scan of the chest shows suggestion of a mass in the right upper lobe with occlusion of the right upper lobe bronchus. Once we get his bowels going and his stomach is more reliably decompressed, one would consider a bronchoscopy. This may end up being the primary site of his metastatic disease which would in some sense make more sense given the pulmonary metastases as opposed to the small bowel tumor. Pathology otherwise still pending. Shaw Burkett MD /[id number]
--- NOTE | 2021-01-20 05:30 | DISCH ---
ADMISSION DIAGNOSES: 1. Left lower quadrant abdominal pain. 2. 30-pound weight loss. 3. Diabetes type 2. 4. Chronic obstructive pulmonary disease. 5. Coronary artery disease. 6. Paroxysmal atrial fibrillation. 7. Renal calculus. 8. Anticoagulation therapy. 9. Tobacco use. DISCHARGE DIAGNOSES: 1. Right lung mass. 2. Bronchoscopy 01/15/2021. 3. Insertion of left subclavian triple lumen. 4. Exploratory laparotomy with: a. I. Small-bowel resection. II.Drainage of intraabdominal abscess. III. Excision of peritoneal nodule. IV.Placement of Interceed mesh. POSTOPERATIVE DIAGNOSES: 1. Inadequate peripheral vein access. 2. Perforated mass, small bowel adjacent, abscess between the small bowel and urinary bladder. 3. Peritoneal nodule, left pelvic wall. Date of procedure 01/09/2021. Surgeon: Shaw Burkett MD. Delayed primary closure 01/11/2021, Shaw Burkett MD. Pathology report: 1. Squamous cell carcinoma left lung. 2. Small bowel segmental resection, metastatic poorly differentiated carcinoma most significant with grade 3 to 4 squamous cell carcinoma with clear cell features 5.9 cm involving serosal surface eroding the mucosal surface and causing luminal stenosis. 3. Prominent tumor involvement of lymphatic spaces as well as invasion of veins to involve endothelial surface. 4. 6 of 20 lymph nodes positive for metastatic carcinoma. Largest metastatic deposit at least 2.0 cm. 5. Liver, left lobe, wedge biopsy positive for malignancy, metastatic squamous cell carcinoma, 0.5 cm node identified. HISTORY: Ha Lopez was admitted to the hospital for abdominal pain on 01/08/2021. After preoperative evaluation and discussion of possible risks and possible complications, he wished to proceed with surgical procedure. HOSPITAL COURSE: Ha had his exploratory laparotomy on 01/09/2021. He had no operative complications. On postoperative day 1, he was started on TPN therapy and on postoperative day 2, he had delayed primary closure, and magnesium was replaced and he was given albumin 25 g IV for 3 days and started on his Jardiance. Vital signs remained stable. Pain was marginal. PRINTER TECHNICIAN was increased. Blood sugars were running high. His home medications for insulin were completely restarted. Throughout his hospitalization, Ha did remain on TPN therapy. His oral intake increased. He was given 2 units of packed red blood cells. His vital signs remained stable. He was afebrile and his labs were checked daily and he continued to progress well. He was started on bowel stimulation and then he had some difficulty with gastroparesis and was started on Zithromax 125 mg, MiraLAX, and he was given a saline enema. He is having bowel movements and he is having no difficulty with ambulation, getting in and out of bed. He is independent and with vital signs stable. His activity good. Pain controlled. He was able to be discharged to home without any complications on 01/19/2029. PHYSICAL EXAMINATION: GENERAL: Ha Lopez is a 65-year-old male, he is alert and orientated. Height 6 feet 3.2 inches. Weight is 167 pounds 9.6 ounces. VITAL SIGNS: TPR is 96.9, 83, 16. Blood pressure 123/69. HEENT: Negative. NECK: Supple. HEART: Regular rate and rhythm. LUNGS: Clear. ABDOMEN: Aquacel dressings on. Abdominal binder is on. EXTREMITIES: Without peripheral edema. DISPOSITION: Discharged to home. CONDITION: Stable and improving. FOLLOWUP: 1. Appointment with Oncology at [facility] on Friday01/23/2021 at 1:30 p.m. 2. Follow up with Shaw Burkett MD, at [facility] on Friday01/24/2021 at 9:00 a.m. He is to have PT, INR, CBC, CMP, mag, phos in a.m. prior to that appointment. HOME MEDICATIONS: 1. Dilaudid 2 mg every 4 hours p.r.n. pain, #42. 2. Zithromax 125 mg b.i.d. 30 days. 3. MiraLAX 34 g p.o. twice daily. He is to resume: 1. Jardiance 25 mg p.o. daily. 2. Lopressor 100 mg p.o. b.i.d. 3. Aspirin 325 mg p.o. daily. 4. Zocor 20 mg p.o. bedtime. 5. Nitrostat 0.4 mg sublingual t.i.d. 6. Multivitamin daily. 7. Glucosamine sulfate 1000 mg p.o. b.i.d. 8. Magnesium 250 mg p.o. at bedtime. 9. Senokot S 1 p.o. b.i.d. 10.Calcium 600 mg p.o. bedtime. 11.Metformin 1000 mg p.o. b.i.d. 12.Glipizide ER 10 mg p.o. b.i.d. 13.Coumadin 10 mg p.o. daily. 14.Flexeril 10 mg p.o. t.i.d. p.r.n. 15.Albuterol 2 puffs inhalation every 4 hours p.r.n. 16.Trulicity 1.5 mg subcu weekly. DIET: Diabetic diet. Drink 8 to 10 glasses of water a day. ACTIVITY: No lifting greater than 10 pounds for 6 weeks. Other activity: Walk at least 6 times daily inside your home. Driving: Do not drive for 1 week and within 6 hours of taking any narcotic pain medication. May shower. Keep operative site clean and dry. Wear abdominal binder for 6 weeks as tolerated. Notify provider if any fever, increased pain, swelling, redness, drainage, nausea, or vomiting. SPECIAL INSTRUCTION: Use incentive spirometer 10 times every hour while awake for 1 week. /[id number]
--- NOTE | 2021-01-22 11:13 | OR ---
DATE OF PROCEDURE: 01/09/2021 SURGEON: Shaw Burkett MD PREOPERATIVE DIAGNOSES: 1. Acute abdomen with inflammatory mass involving the small bowel in the left lower quadrant. 2. Marked malnutrition. POSTOPERATIVE DIAGNOSES: 1. Marked malnutrition. 2. Perforated mid small bowel tumor with adjacent abscess walled off between the small bowel and urinary bladder. 3. Peritoneal nodule on left pelvic sidewall. 4. Multiple small liver metastases. OPERATIVE PROCEDURES: 1. Insertion of left subclavian vein triple-lumen catheter (65411). 2. Exploratory laparotomy with: a. Small bowel resection (27931). b. Drainage of intraabdominal abscess (52563). c. Excision of peritoneal nodule on left pelvic sidewall (08590). d. Placement of Interceed mesh to limit adhesion formation between pelvic and abdominal wall and underlying viscera (10989). e. Wedge biopsy of mass, left lobe of liver (06444). ANESTHESIA: General. MANAGER ENVIRONMENTAL HEALTH: Yanet Harper PA-C. INDICATIONS FOR PROCEDURE: This is a 65-year-old male presenting with an acute abdominal wall picture. CT scan shows what appears to be an inflammatory mass and probable perforation of the small bowel located in the left lower quadrant. The patient reports a large amount of unintended weight loss and clinically is somewhat malnourished. The plan will be to proceed with insertion of central venous access for perioperative hyperalimentation following exploratory laparotomy with bowel resection and other procedures as indicated. Potential risks including bleeding, infection, leaks from various GI tract closures, problems with bowel obstruction over time were all reviewed, and the patient wishes to proceed. DETAILS OF PROCEDURE: The patient was taken to the operating room and placed in a supine position. After general endotracheal anesthesia was induced, the upper chest and neck areas were prepped and draped. The left subclavian vein was cannulated, guidewire passed. Over the guidewire, a triple-lumen catheter positioned. Good in and outflow was noted through the ports and was flushed with heparinized saline. The catheter was sutured to skin with some 3-0 silk stitch and a dressing applied. Of note, a chest x-ray at the conclusion of the procedure showed what appeared to be an area of atelectasis in the right upper lobe and we will evaluate that further with a CT scan of the chest over the next day or two. Following this, the abdomen was prepped and draped and a Preciado catheter inserted. A midline incision from the area just above the umbilicus to the pubis was made and carried down through the skin and subcutaneous tissue. Upon entering the peritoneal cavity, some saline was placed and a small amount of ascitic fluid along with the saline was removed and sent for peritoneal washings. Exploration at this point revealed some small nodules within the liver consistent with a probable metastatic disease. The patient had what appeared to be a large inflammatory and probable malignant mass involving the mid small bowel. This was adherent to the left side of the urinary bladder, and upon dissection away from that, an intraabdominal abscess was encountered. Cultures of this were obtained and the purulent material was evacuated. The patient had a peritoneal nodule on the left pelvic sidewall, slightly less than a centimeter in size also which was removed and sent as a separate specimen. The patient had a quite striking lymphadenopathy in the small bowel subjacent to the area of perforation with the largest of the nodes being roughly the size of a ping-pong ball. At this point, the small bowel was resected proximally and distally with the TAMARA pedrito as was the mesentery. The mesenteric dissection continued down to the level where the major branch coming into that area of small bowel coming off the superior mesenteric vessels was divided, and the specimen delivered from the field. Some additional small bowel proximally somewhat devascularized at this point. This was resected as well. A [id number] anastomosis with 2 internal firings of the Endo-TAMARA 60 mm stapler was then accomplished and the common opening closed transversely with the same stapler. Angles were anastomosed and mesenteric defect reinforced with some 3-0 Vicryl stitch. One of the nodules on the aspect of the left lobe of the liver was then excised and sent for pathologic examination. This was firm-like nodule grossly highly suggestive of metastatic disease. The patient had a small amount of bile leak from that area and this was covered with fibrin sealant and a drain placed through the stab wound in left mid abdomen, placed up adjacent to the liver biopsy site. A second drain was then placed in the left mid abdomen, taken down into the pelvis and across the area of the abscess drainage site. At that point, no further problems were noted. Interceed mesh was placed across the lower abdomen and down in the pelvis to limit recurrent adhesion formation in that area between the pelvic and abdominal wall and underlying viscera. The patient did not have sufficient omentum to mobilize into the pelvis. The midline fascia was then approximated with #2 Vicryl stitch and the subcutaneous tissues were then left open for a planned delayed primary closure in 48 hours to limit risk of wound infection. The patient was taken to the recovery room in satisfactory condition. Physician assistant director, Yanet Harper, played an essential role in assisting in this case, helping to position the patient, retract structures as needed, as well as suturing and cutting sutures when indicated. Her presence improved patient safety and decreased the operative time. Shaw Burkett MD /[id number]
--- NOTE | 2021-01-22 17:24 | OR ---
DATE OF PROCEDURE: 01/15/2021 SURGEON: Shaw Burkett MD PREOPERATIVE DIAGNOSIS: Mass involving right upper lobe. POSTOPERATIVE DIAGNOSIS: Mass essentially including origin of right upper lobe bronchus. OPERATIVE PROCEDURE: Flexible bronchoscopy with: 1. Tracheobronchial washings (19816). 2. Brushings of origin of right upper lobe bronchus (53421). 3. Bronchoalveolar lavage into right upper lobe bronchus (26424). 4. Biopsies of probable tumor located at origin of right upper lobe bronchus (81937). ANESTHESIA: General. INDICATIONS FOR PROCEDURE: A 65-year-old presenting recently with a tumor involving the small bowel. At the time of the laparotomy, a central line was placed and the patient was noted to have what appeared to be atelectasis of the right upper lobe. CT scan was obtained, which showed a mass, which appeared to be essentially including the origin of the right upper lobe, highly suggestive of a primary lung carcinoma. The plan is to proceed with a flexible bronchoscopy with various biopsies and other samplings as indicated. The patient is diabetic and I think there is some concern regarding the adequacy of gastric emptying. Therefore, general endotracheal anesthetic will be placed to minimize aspiration risk. Potential risks including bleeding, aspiration, and such were reviewed, and the patient wishes to proceed. DETAILS OF PROCEDURE: The patient was taken to the operating room, placed in a supine position. After general endotracheal anesthesia was induced, the flexible bronchoscope was passed through the endotracheal tube. The left tracheobronchial tree was noted to be unremarkable as was the bronchus intermedius, middle and lower lobes on the right side. On the right upper lobe, there was only a tiny pinhole opening remaining in the bronchus. At this level, tracheobronchial washings were obtained. At this point, brushings were obtained from the area of the small opening into the bronchus. Following this, bronchoalveolar lavage with irrigation of 200 mL of saline into that area with return of the fluid was obtained, and finally what appeared to be some fleshy tumor at the origin of the upper lobe bronchus was biopsied, and minimal bleeding from biopsy sites was seen, and the procedure was then concluded. The patient was taken to the recovery room in satisfactory condition. Shaw Burkett MD /[id number]
--- NOTE | 2021-01-22 17:56 | OR ---
DATE OF PROCEDURE: 01/11/2021 SURGEON: Shaw Burkett MD PREOPERATIVE DIAGNOSIS: Open abdominal incision. POSTOPERATIVE DIAGNOSIS: Open abdominal incision. OPERATIVE PROCEDURE: Delayed primary closure of open abdominal incision. ANESTHESIA: Local plus IV sedation. INDICATION FOR PROCEDURE: The patient is 48 hours status post an open laparotomy which involved drainage of an intraabdominal abscess. The skin and subcutaneous tissue were felt to be high risk for wound infection if a primary closure was undertaken. Given this, the skin and subcutaneous tissue were left open for a planned delayed primary closure at this time. Potential risks including bleeding and infection were reviewed, and the patient wishes to proceed. DETAILS OF PROCEDURE: The patient was taken to the operating room and placed in a supine position. IV sedation was administered after which the operative dressing was taken down and the wound inspected and found to be clean. The incision was then prepped and draped and anesthetized with 1% lidocaine, mixed with Marcaine, and irrigated with meropenem-containing saline solution. Using ultrasound guidance, bilateral transversus abdominis plane blocks were placed and the incision was then closed with layers of 3-0 and 4-0 Vicryl stitch deep and pedrito for the skin. Dressing was applied. The patient was taken to the recovery room in satisfactory condition. There were no evident complications. Shaw Burkett MD /[id number]
== END 2021-01-19 15:04 | disposition home or self-care (01) | DRG 329 ==
LOC: JP.ED 15:51 → JP.MS 19:44
PROVIDERS: ADMIT Hospitalist; ATTEND Internal Medicine
PROC: 0DB80ZZ Excision of Small Intestine, Open Approach (ICD-10-PCS; 2021-01-09)
PROC: 0W9G0ZZ Drainage of Peritoneal Cavity, Open Approach (ICD-10-PCS; 2021-01-09)
PROC: 0DBW0ZZ Excision of Peritoneum, Open Approach (ICD-10-PCS; 2021-01-09)
PROC: 0FB20ZX Excision of Left Lobe Liver, Open Approach, Diagnostic (ICD-10-PCS; 2021-01-09)
PROC: 3E0M05Z Introduction of Adhesion Barrier into Peritoneal Cavity, Open Approach (ICD-10-PCS; 2021-01-09)
PROC: 05H633Z Insertion of Infusion Device into Left Subclavian Vein, Percutaneous Approach (ICD-10-PCS; 2021-01-09)
PROC: 0WQF0ZZ Repair Abdominal Wall, Open Approach (ICD-10-PCS; 2021-01-11)
PROC: 30233N1 Transfusion of Nonautologous Red Blood Cells into Peripheral Vein, Percutaneous Approach (ICD-10-PCS; principal; 2021-01-13)
PROC: 3E0336Z Introduction of Nutritional Substance into Peripheral Vein, Percutaneous Approach (ICD-10-PCS; 2021-01-14)
PROC: 3E1F88Z Irrigation of Respiratory Tract using Irrigating Substance, Via Natural or Artificial Opening Endoscopic (ICD-10-PCS; 2021-01-15)
PROC: 0B9C8ZX Drainage of Right Upper Lung Lobe, Via Natural or Artificial Opening Endoscopic, Diagnostic (ICD-10-PCS; 2021-01-15)
PROC: 0BD48ZX Extraction of Right Upper Lobe Bronchus, Via Natural or Artificial Opening Endoscopic, Diagnostic (ICD-10-PCS; 2021-01-15)
DX: C17.9 Malignant neoplasm of small intestine, unspecified (principal); K65.1 Peritoneal abscess; C78.7 Secondary malignant neoplasm of liver and intrahepatic bile duct; C78.01 Secondary malignant neoplasm of right lung; C77.2 Secondary and unspecified malignant neoplasm of intra-abdominal lymph nodes; N13.2 Hydronephrosis with renal and ureteral calculous obstruction; I48.0 Paroxysmal atrial fibrillation; R10.32 Left lower quadrant pain; I25.10 Atherosclerotic heart disease of native coronary artery without angina pectoris; R63.4 Abnormal weight loss; F17.200 Nicotine dependence, unspecified, uncomplicated; N40.0 Benign prostatic hyperplasia without lower urinary tract symptoms; I48.91 Unspecified atrial fibrillation; Z95.5 Presence of coronary angioplasty implant and graft; J44.9 Chronic obstructive pulmonary disease, unspecified; E11.65 Type 2 diabetes mellitus with hyperglycemia; Z87.442 Personal history of urinary calculi; F17.210 Nicotine dependence, cigarettes, uncomplicated; Z88.5 Allergy status to narcotic agent; Z90.49 Acquired absence of other specified parts of digestive tract; Z79.01 Long term (current) use of anticoagulants; Z79.84 Long term (current) use of oral hypoglycemic drugs; Z79.82 Long term (current) use of aspirin; Z79.899 Other long term (current) drug therapy; Z20.822 Contact with and (suspected) exposure to COVID-19
CPT/HCPCS: 0241U; 36415; 36430; 71045; 71046; 71260; 74019; 74177; 80053; 81001; 82378; 82962; 83036; 83497; 83605; 83690; 83735; 83880; 84100; 84145; 84153; 84443; 84484; 85025; 85027; 85610; 86140; 86316; 86850; 86900; 86901; 86920; 86922; 87015; 87070; 87075; 87077; 87102; 87116; 87186; 87205; 87206; 87220; 88112; 88305; 88341; 88342; 94640; 94762; 96374; 96375; 97110; 97162; 97530; 97535; 99283; 99285; A9270-GY; C9113; J0171; J0295; J0330; J1100; J1170; J1642; J1815; J1815-GY; J1940; J1956; J2020; J2185; J2250; J2405; J2543; J2704; J2710; J2795; J3010; J3410; J3430; J3475; J3490; J7030; J7040; J7120; J7121; J7620-GY; P9016; P9047; Q9967

== ENCOUNTER 2021-02-05 09:50 | Emergency (ER) | payer MEDICARE, BC ==
[2021-02-05] MEDS ORDERED: HYDROmorphone 2 MG Tab PO STA (11:52)
--- NOTE | 2021-02-05 11:55 | EDM.PDOC ---
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 He is newly diagnosed has had significant weight loss over the last couple of months has poor appetite generalized feeling ill Abdominal Pain Score (Numeric/FACES): 9 - Related Data Allergies Allergy/AdvReac Type Severity Reaction Status Date / Time codeine AdvReac Irritabilit Verified 02/05/21 11:12 y Home Meds: Home Meds Warfarin [Coumadin] 10 mg PO ASDIRECTED 11/06/16 [History] glipiZIDE [Glipizide ER] 10 mg PO BID 11/06/16 [History] metFORMIN [Glucophage] 1,000 mg PO BID 11/06/16 [History] Albuterol Sulfate [Proair Hfa] 2 puff IH Q4H PRN 11/07/16 [History] Aspirin 325 mg PO DAILY 11/07/16 [History] Calcium Carbonate [Calcium] 600 mg PO BEDTIME 11/07/16 [History] Docusate Sodium/Sennosides [Senokot-S] 1 each PO BID 11/07/16 [History] Glucosamine Sulfate 2KCl [Glucosamine] 1,000 mg PO BID 11/07/16 [History] Magnesium 250 mg PO BEDTIME 11/07/16 [History] Metoprolol Tartrate [Lopressor] 100 mg PO BID 11/07/16 [History] Multivitamin [Multi-Vitamin Daily] 1 tab PO DAILY 11/07/16 [History] Nitroglycerin [Nitrostat] 0.4 mg SL TID PRN 11/07/16 [History] [place]-3 Fatty Acids [Fish Oil] 1,000 mg PO BID 11/07/16 [History] Simvastatin [Zocor] 20 mg PO BEDTIME 11/07/16 [History] Azithromycin [Zithromax] 125 mg PO BID #30 tablet 01/19/21 [Rx] HYDROmorphone [Dilaudid] 2 mg PO Q4H PRN #42 tablet 01/19/21 [Rx] polyethylene glycoL 3350 [Miralax] 34 gm PO BID #120 powd.pack 01/19/21 [Rx] Acetaminophen/HYDROcodone [[place] 325-10 MG] 1 tab PO Q4H PRN 02/05/21 [History] Past Medical History Cardiovascular History: Reports: Afib, Arrhythmia, CAD, Other (See Below) Other Cardiovascular History: a fib Respiratory History: Reports: COPD, Other (See Below) (Poorly differentiated squamous cell of the lung with metastases) Other Respiratory History: lung cancer Gastrointestinal History: Reports: Cholelithiasis Genitourinary History: Reports: Renal Calculus Endocrine/Metabolic History: Reports: Diabetes, Type II Hematologic History: Reports: Anticoagulation Therapy Oncologic (Cancer) History: Reports: Liver (Metastatic), Lung (Poorly differentiated squamous cell), Metastatic, Other (See Below) (Small bowel metastatic) - Infectious Disease History Infectious Disease History: Reports: Chicken Pox, Hepatitis B, Hepatitis C, Measles, Mumps - Past Surgical History HEENT Surgical History: Reports: Oral Surgery Cardiovascular Surgical History: Reports: Cardiac Ablation, Carotid Stents, Percutaneous Transluminal Angioplasty GI Surgical History: Reports: Appendectomy, Cholecystectomy, Colon, Colonoscopy Other GI Surgeries/Procedures: removed colon tumor Musculoskeletal Surgical History: Reports: Arthroscopic Knee, Arthroscopic Procedure, Other (See Below) Other Musculoskeletal Surgeries/Procedures:: 5 knee 1 ankle Social & Family History - Family History Family Medical History: No Pertinent Family History - Tobacco Use Tobacco Use Status *Q: Former Tobacco User Used Tobacco, but Quit: Yes Month/Year Tobacco Last Used: 1 month ago - Caffeine Use Caffeine Use: Reports: Coffee - Recreational Drug Use Recreational Drug Use: No ED ROS GENERAL - Review of Systems Review Of Systems: See Below Constitutional: Reports: Weakness, Fatigue. Denies: Fever HEENT: Reports: No Symptoms Respiratory: Reports: No Symptoms Cardiovascular: Reports: No Symptoms GI/Abdominal: Reports: Abdominal Pain, Flatus. Denies: Nausea ED EXAM, GENERAL - Physical Exam Exam: See Below Exam Limited By: No Limitations General Appearance: Alert, No Apparent Distress Respiratory/Chest: No Respiratory Distress, Lungs Clear, Normal Breath Sounds, No Accessory Muscle Use, Chest Non-Tender Cardiovascular: Regular Rate, Rhythm, No Murmur GI/Abdominal: Soft, Non-Tender Course - Vital Signs Last Recorded V/S: Last Vital Signs Temp 98.5 F 02/05/21 11:11 Pulse 86 02/05/21 12:50 Resp 18 02/05/21 12:20 BP 137/84 02/05/21 12:50 Pulse Ox 95 02/05/21 12:50 - Orders/Labs/Meds Orders: Active Orders 24 hr Category Date Time Status Peripheral IV Care [RC] . DIRECTED Care 02/05/21 13:23 Ordered Sodium Chloride 0.9% [Saline Flush] Med 02/05/21 13:23 Ordered 10 ml FLUSH ASDIRECTED PRN fentaNYL [Sublimaze] Med 02/05/21 13:23 Once 50 mcg IVPUSH ONETIME ONE Peripheral IV Insertion Adult [OM.PC] Urgent Oth 02/05/21 13:23 Ordered Labs: Laboratory Tests 02/05/21 02/05/21 02/05/21 Range/Units 11:57 11:57 11:57 WBC 48.1 H* (4.5-11.0) K/uL RBC 4.29 L (4.30-5.90) M/uL Hgb 12.1 (12.0-15.0) g/dL Hct 37.9 L (40.0-54.0) % MCV 88 (80-98) fL MCH 28 (27-31) pg MCHC 32 (32-36) % Plt Count 535 H (150-400) K/uL Add Manual Diff Yes Neutrophils % (Manual) 90 H (36-66) % Band Neutrophils % 3 L (5-11) % Lymphocytes % (Manual) 2 L (24-44) % Monocytes % (Manual) 5 (2-6) % Eosinophils % (Manual) 0 L (2-4) % Basophils % (Manual) 0 (0-1) % Poikilocytosis Few PT (9.5-12.0) sec Sodium 135 L (140-148) mmol/L Potassium 4.7 (3.6-5.2) mmol/L Chloride 96 L (100-108) mmol/L Carbon Dioxide 18 L (21-32) mmol/L Anion Gap 25.7 H (5.0-14.0) mmol/L BUN 32 H D (7-18) mg/dL Creatinine 0.8 (0.8-1.3) mg/dL Est Cr Clr Drug Dosing 84.50 mL/min Estimated GFR (MDRD) > 60 (>60) Glucose 408 H* (74-106) mg/dL Lactic Acid 1.5 (0.4-2.0) mmol/L Calcium 12.5 H* D (8.5-10.1) mg/dL Total Bilirubin 0.6 (0.2-1.0) mg/dL AST 18 (15-37) U/L ALT 27 (12-78) U/L Alkaline Phosphatase 193 H (46-116) U/L Lactate Dehydrogenase (85-227) U/L Total Protein 6.8 (6.4-8.2) g/dL Albumin 2.5 L (3.4-5.0) g/dL Globulin 4.3 H (2.3-3.5) g/dL Albumin/Globulin Ratio 0.6 L (1.2-2.2) 02/05/21 02/05/21 Range/Units 11:57 11:57 WBC (4.5-11.0) K/uL RBC (4.30-5.90) M/uL Hgb (12.0-15.0) g/dL Hct (40.0-54.0) % MCV (80-98) fL MCH (27-31) pg MCHC (32-36) % Plt Count (150-400) K/uL Add Manual Diff Neutrophils % (Manual) (36-66) % Band Neutrophils % (5-11) % Lymphocytes % (Manual) (24-44) % Monocytes % (Manual) (2-6) % Eosinophils % (Manual) (2-4) % Basophils % (Manual) (0-1) % Poikilocytosis PT > 100.0 H (9.5-12.0) sec Sodium (140-148) mmol/L Potassium (3.6-5.2) mmol/L Chloride (100-108) mmol/L Carbon Dioxide (21-32) mmol/L Anion Gap (5.0-14.0) mmol/L BUN (7-18) mg/dL Creatinine (0.8-1.3) mg/dL Est Cr Clr Drug Dosing mL/min Estimated GFR (MDRD) (>60) Glucose (74-106) mg/dL Lactic Acid (0.4-2.0) mmol/L Calcium (8.5-10.1) mg/dL Total Bilirubin (0.2-1.0) mg/dL AST (15-37) U/L ALT (12-78) U/L Alkaline Phosphatase (46-116) U/L Lactate Dehydrogenase 211 (85-227) U/L Total Protein (6.4-8.2) g/dL Albumin (3.4-5.0) g/dL Globulin (2.3-3.5) g/dL Albumin/Globulin Ratio (1.2-2.2) Meds: Medications Discontinued Medications Generic Name Dose Route Start Last Admin Trade Name Freq PRN Reason Stop Dose Admin Hydromorphone HCl 2 mg 02/05/21 11:52 02/05/21 12:12 Hydromorphone 2 Mg Tab PO 02/05/21 11:53 2 mg NOW STA Administration Departure - Departure Time of Disposition: 13:27 Disposition: DC/Tfer to Acute Hospital 02 Condition: Poor Clinical Impression: Acute neutrophilia Squamous cell carcinoma of lung, stage IV Qualifiers: Laterality: left Qualified Code(s): C34.92 - Malignant neoplasm of unspecified part of left bronchus or lung - Discharge Information Instructions: Lung Cancer Referrals: Juan Manuel Portillo MD [Primary Care Provider] - Forms: ED Department Discharge Additional Instructions: Please report to the [facility] emergency department for further evaluation Sepsis Event Note (ED) - Evaluation Sepsis Screening Result: No Definite Risk - Focused Exam Vital Signs: Vital Signs Temp Pulse Resp BP Pulse Ox 02/05/21 12:50 86 137/84 95 02/05/21 12:20 86 18 143/78 H 96 02/05/21 11:50 84 18 133/74 97 02/05/21 11:20 84 115/78 96 02/05/21 11:11 98.5 F 92 16 140/82 97 02/05/21 11:02 98.5 F 92 16 140/82 97 - My Orders Last 24 Hours: My Active Orders 02/05/21 13:23 Peripheral IV Care [RC] . DIRECTED Sodium Chloride 0.9% [Saline Flush] 10 ml FLUSH ASDIRECTED PRN fentaNYL [Sublimaze] 50 mcg IVPUSH ONETIME ONE Peripheral IV Insertion Adult [OM.PC] Urgent - Assessment/Plan Last 24 Hours: My Active Orders 02/05/21 13:23 Peripheral IV Care [RC] . DIRECTED Sodium Chloride 0.9% [Saline Flush] 10 ml FLUSH ASDIRECTED PRN fentaNYL [Sublimaze] 50 mcg IVPUSH ONETIME ONE Peripheral IV Insertion Adult [OM.PC] Urgent Plan: Assessment Acuity = acute Site and laterality = neutrophilia Etiology = unknown probably related to squamous cell carcinoma Manifestations = profound weakness Location of injury = Home Lab values = WBC elevated 48.1 with 90% neutrophils consistent with a neutrophilia, platelets elevated 535 consistent thrombocytopenia PT not measurable at greater than 100 glucose elevated 408 consistent hyperglycemia calcium elevated 12.5 consistent with hypercalcemia LDH 211 normal albumin low at 2.5 consistent with hypoalbuminemia Plan Call discussed case Dr. Nails emergency room physician [facility] kindly accepted the patient at 1320, family is concerned about cost therefore they have asked to be transported via private vehicle I felt this was a reaso nable request as he has been vitally stable here has not required any unusual treatment therefore he will be transferred with his driving. Plan is to report to the emergency department for further evaluation which may include just direct admit This note was dictated using [employer] voice recognition software please call with any questions on syntax or grammar.
[2021-02-05] MEDS ORDERED: Sodium Chloride 0.9% 10 ML Syringe FLUSH PRN (13:23)
[2021-02-05] MEDS ORDERED: fentaNYL 100 MCG/2 ML SDV IVPUSH ONE (13:23)
[2021-02-05 13:58] VITALS: BP 150/100; PULSE 99
== END 2021-02-05 14:42 ==
LOC: JP.ED 09:50
DX: D72.828 Other elevated white blood cell count (principal); C34.92 Malignant neoplasm of unspecified part of left bronchus or lung; I48.91 Unspecified atrial fibrillation; I25.10 Atherosclerotic heart disease of native coronary artery without angina pectoris; J44.9 Chronic obstructive pulmonary disease, unspecified; E11.9 Type 2 diabetes mellitus without complications; Z79.82 Long term (current) use of aspirin; Z79.899 Other long term (current) drug therapy; Z88.5 Allergy status to narcotic agent; Z79.84 Long term (current) use of oral hypoglycemic drugs
CPT/HCPCS: 36415; 80053; 83605; 83615; 85025; 85610; 87040; 96374; 99285; A9270; J3010